=== PATIENT | female | born 1975 | race Hispanic/Latino ===

== ENCOUNTER 2018-04-08 09:58 | Emergency (ER) | payer OTHER ==
[2018-04-08] MEDS ORDERED: NA CHLORIDE 0.9% 1,000 ML ONE ×2 (10:13→10:49)
[2018-04-08 10:47] LABS: Absolute Lymphocytes (CBC) 0.4 K/uL (0.7-4.9); Absolute Monocytes 0.2 K/uL (0.1-1.3); MCH 32.1 pg (27.0-35.0)
[2018-04-08 10:49] LABS: Urine Blood TRACE (NEG); Urine Glucose NEGATIVE (NEG); Urine Protein NEGATIVE (NEG)
[2018-04-08 10:49] LABS: Blood Gas Oxyhemoglobin 96.5 % (94-97); Blood O2 Saturation 98.3 % (92-98.5)
[2018-04-08] MEDS ORDERED: NOREPINEPHRINE 4mg/D5W 250mL 4 MG/250 ML BAG IV ONE (10:49)
[2018-04-08 10:51] LABS: Protime INR 0.9
[2018-04-08 10:52] LABS: Absolute Neutrophil 4.1 K/uL (1.8-8.0); Basophils % 0.2 % (0-1.3); Hematocrit 45.4 % (36.0-45.0); Lymphocytes % 8.7 % (15.3-44.8); MCV 103.2 fL (80-100); MPV 10.5 fL (7.6-11.3); RBC Red Blood Cell Count 4.39 M/uL (3.86-4.86)
[2018-04-08 10:59] LABS: Urine Bacteria 20-50 /HPF (<20); Urine Culture Reflex Order NOT NEEDED; Urine Mucus MOD /HPF (NONE SEEN); Urine RBC <5 /HPF (NONE SEEN)
[2018-04-08] MEDS ORDERED: CEFEPIME 1 GM/100 ML BAG IV ONE (11:06)
[2018-04-08] MEDS ORDERED: MIDAZOLAM HCL 2 MG/2 ML INJ ONE ×2 (11:06→12:02)
[2018-04-08] MEDS ORDERED: VANCOMYCIN 1 GM/250 ML BAG ONE (11:06)
[2018-04-08] MEDS ORDERED: THIAMINE 200 MG/2 ML INJ ONE (11:06)
[2018-04-08 11:20] LABS: Barbiturates NEGATIVE (NEGATIVE); Benzodiazepines NEGATIVE (NEGATIVE); Cocaine NEGATIVE (NEGATIVE); METHAMPHETAM NEGATIVE (NEGATIVE); Methadone NEGATIVE (NEGATIVE); Opiates NEGATIVE (NEGATIVE); Phencyclidine NEGATIVE (NEGATIVE); THC Cannibis NEGATIVE (NEGATIVE)
[2018-04-08 11:33] LABS: ALT/SGPT 79 U/L (12-78); AST/SGOT 56 U/L (15-37); Albumin 3.1 g/dL (3.4-5.0); Alkaline Phosphatase 82 U/L (45-117); BUN Blood Urea Nitrogen 25 mg/dL (7-18); Bicarbonate 39 mmol/L (21-32); Bilirubin Direct 0.1 mg/dL (0-0.2); Bilirubin Total 0.2 mg/dL (0.2-1.0); CKMB Creatine Kinase MB 2.5 ng/mL (0.3-3.6); Creatine Phosphokinase 38 U/L (26-192); Glucose Level 123 mg/dL (74-106); Lipase 176 U/L (73-393); Protein, Total 6.1 g/dL (6.4-8.2); Sodium Level 141 mmol/L (136-145); Troponin (Emerg Dept Use Only) < 0.02 ng/mL (0.0-0.045)
[2018-04-08 11:34] LABS: Potassium 5.7 mmol/L (3.5-5.1)
--- NOTE | 2018-04-08 11:41 | RAD REPORT ---
EXAM DESCRIPTION: CT - Head Brain Wo Cont - 04/08/2018 11:08 am CLINICAL HISTORY: Unresponsive COMPARISON: June 2017 TECHNIQUE: Computed axial tomography of the head was obtained. IV contrast was not requested. All CT scans are performed using dose optimization technique as appropriate and may include automated exposure control or mA/KV adjustment according to patient size. FINDINGS: 14 millimeter acute bleed is present within the anterior right basal ganglia. The ventricles are normal in caliber. No extra-axial fluid collection is noted. Cystic encephalomalacia within the left frontal lobe is unc hanged. Couple small calcifications are stable. A suboccipital craniotomy has been performed. Fluid within the sinuses/ mastoids is not seen. IMPRESSION: 14 millimeter right basal ganglia bleed. Exam was discussed with Yogesh Lees in the emerg ency room 11:15 a.m. April 08, 2018
[2018-04-08] MEDS ORDERED: ALBUTEROL 2.5 MG/3 ML NEB SOL ONE (11:56)
[2018-04-08] MEDS ORDERED: INSULIN -REGULAR HUMAN 50 UNIT/0.5 ML ML ONE (11:56)
[2018-04-08] MEDS ORDERED: SOD POLYSTYREN SUL 15 GM/60 ML UCUP ONE (11:57)
[2018-04-08] MEDS ORDERED: D50W 25 GM/50 ML SYRINGE IV ONE (11:57)
--- NOTE | 2018-04-08 11:57 | RAD REPORT ---
EXAM DESCRIPTION: CT - Chest Abd Pelvis Wo Con - 04/08/2018 11:11 am COMPARISON: None. TECHNIQUE: During dynamic enhancement using 100 milliliters nonionic IV contrast, axial 5 millimeter thick images of the chest, abdomen and pelvis were obtained. Biphasic technique was utilized through the abdomen. Oral contrast was administered. All CT scans are performed using dose optimization technique as appropriate and may include automated exposure control or mA/KV adjustment according to patient size. FINDINGS: No edema or mass. Curvilinear opacification in the posterior upper right lung field is bel ieved to be scarring. Patchy posterior gutter opacification could be atelectasis or minimal aspiratio n. Trace pleural fluid seen. No pleural fluid on the left. No pneumothorax. No chest wall mass or abn ormal axillary lymphadenopathy seen. Mediastinal and hilar regions show no mass or lymphadenopathy. No significant cardiac finding. No pericardial effusion. Bilateral breast implants are in place. Endotracheal tube tip extends into the origin of the left mainstem bronchus. NG tube is in good posit ion. The liver, spleen and pancreas show no significant findings. Small gallstones are present. Acute gal lbladder process is unlikely. No biliary tree dilatation. No hydronephrosis. Nonobstructing calculi are present. Patient has nonobstructing calyx calculi sits in place. No adrenal abnormalities. Urinary bladder is fully contracted around a Mary catheter. Fluid is present in the stomach. No gastric wall thickening or mass. No acute large or small bowel fi nding seen. Large amount of stool dilates the rectum. No free air, free fluid or inflammatory strandi ng. No hernia, mass or bulky lymphadenopathy. Right femoral venous access catheter is in place. No significant bone or vascular finding. IMPRESSION: Minimal infiltrate versus atelectasis in the posterior gutter on the right. This could b e infectious or aspiration. No diffuse lung parenchymal process seen. Endotracheal tube tip is at the origin of the left mainstem bronchus. NG tube is in good position. No free air, obstruction or other surgically emergent abdominal or pelvic process. Cholelithiasis. No biliary tree dilatation. Gallbladder acute disease is unlikely but CT findings are limited by the absence of oral and IV contrast and some degree of motion.
[2018-04-08] MEDS ORDERED: FOSPHENYTOIN PE 1,000 MG in NA CHLORIDE 0.9% 100 ML IV ONE (12:00)
--- NOTE | 2018-04-08 12:12 | RAD REPORT ---
EXAM DESCRIPTION: RAD - Chest Single View - 04/08/2018 11:00 am CLINICAL HISTORY: Altered mental status, found unresponsive COMPARISON: June 2017 TECHNIQUE: AP portable chest image was obtained 1046 hours . FINDINGS: Endotracheal tube is in place. Tip is at the bifurcation of the yolanda. NG tube extends in to the stomach. Additional radiopaque curvilinear densities overlie the chest all believed to be exte rnal IV tubing or EKG leads. Radiopaque tubing over the right chest is unchanged from the prior study and is part of the remnant device in the posterior intrathoracic right chest. Heart and vasculature are normal. No measurable pleural effusion and no pneumothorax. Skin fold artifact overlies the later al left chest. No pulmonary edema or significant lung parenchymal process seen. No acute aortic findi ngs suspected. IMPRESSION: No pulmonary edema or acute lung parenchymal process seen. Endotracheal tube tip is at the bifurcation. NG tube in good position.
[2018-04-08 12:14] LABS: Blood Morphology Comment NOT SEEN (NOT SEEN); Platelet Estimate ADEQ; Urine White Blood Cell Casts OK
--- NOTE | 2018-04-08 12:27 | EDPHYS ---
Physician Documentation [facility] Name: Cira Tellez Age: 42 yrs Sex: Female : 1975 Arrival Date: 04/08/2018 Time: 10:09 Bed 3 Private MD: ED Physician Yogesh Levin HPI: 04/08 10:21 This 42 yrs old Female presents to ER via Unassigned with complaints of cp Unresponsive. 10:21 The patient's problem is reported as altered mental status, unresponsive. Onset: The cp symptoms/episode began/occurred at an unknown time. 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 - Social history:: Smoking status: Patient uses tobacco products, son reports that patient does not smoke. - Ebola Screening: : Unable to complete screening because. ROS: 10:24 Unable to obtain ROS due to patient intubated. cp Exam: 10:24 Head/Face: Normocephalic, atraumatic. cp 10:24 Constitutional: The patient appears well developed. 10:24 Eyes: Pupils: pinpoint, bilaterally, Lids and lashes: appear normal, bilaterally. 10:24 ENT: External ear(s): are unremarkable, Ear canal(s): are normal, clear, TM's: dullness, bilaterally, Nose: is normal, Mouth: Lips: moist. 10:24 Chest/axilla: Inspection: normal. 10:24 Cardiovascular: Rate: bradycardic, Rhythm: regular, Edema: is not appreciated. 10:24 Respiratory: Breath sounds: are clear throughout, no decreased breath sounds. 10:24 Abdomen/GI: Inspection: abdomen appears normal, Bowel sounds: active, all quadrants. 10:24 Skin: cellulitis, is not appreciated, no rash present. 11:30 Radiologist reports: 14 mm bleed right basal ganglia cp 11:40 ECG was reviewed by the Attending Physician. cp Vital Signs: 10:03 BP 57 / 36; Pulse 90; Resp 16 A; Temp 90.2(R); Pulse Ox 99% on R/A; ss 10:48 BP 63 / 50; Pulse 64; ss 10:49 Weight 60 kg; ss 11:28 BP 116 / 80; Pulse 62; Resp 16 A; Pulse Ox 100% on 50% FiO2 ETT vent; ss 11:42 BP 106 / 73; Pulse 61; Resp 16 A; Temp 90.1; Pulse Ox 100% on ETT vent; ss 12:00 BP 92 / 59; Pulse 72; Resp 16 A; Temp 90.4(C); Pulse Ox 100% on ETT vent; Pain 5/10; iw 12:30 BP 102 / 68; Pulse 78; Resp 16 A; Pulse Ox 100% on ETT vent; ss 12:45 BP 110 / 76; Pulse 80; Resp 16 A; Temp 91.2; Pulse Ox 100% on 63% FiO2 ETT vent; ss 11:42 corticore dennison ss Procedures: 10:55 Central Line: the site was prepped with Betadine, in sterile fashion, a triple lumen cp catheter was inserted, in the right femoral vein, in 1 attempts. placement was verified, by blood return, the site was dressed with Tegaderm, using sterile technique, the patient tolerated the procedure, well. MDM: 10:17 Patient medically screened. lucy 10:22 ED course: Patient's last known normal was yesterday evening. cp 11:45 Data reviewed: vital signs, nurses notes, lab test result(s), EKG, radiologic studies, cp CT scan, plain films. 11:45 Test interpretation: by ED physician or midlevel provider: ECG, plain radiologic cp studies. Response to treatment: the patient's symptoms have mildly improved after treatment. 04/08 10:15 Order name: Urine Culture 04/08 10:15 Order name: Basic Metabolic Panel 04/08 10:15 Order name: Blood Culture Adult (2) 04/08 10:15 Order name: CBC with Diff 04/08 10:15 Order name: Ckmb; Complete Time: 11:36 04/08 10:15 Order name: CPK; Complete Time: 11:36 04/08 10:15 Order name: Lactate; Complete Time: 11:23 04/08 10:15 Order name: LFT's; Complete Time: 11:36 04/08 10:15 Order name: Lipase; Complete Time: 11:36 [facility] 04/08 10:15 Order name: Procalcitonin; Complete Time: 11:18 [facility] 04/08 10:15 Order name: Protime (+inr); Complete Time: 10:55 [facility] 04/08 10:15 Order name: Ptt, Activated; Complete Time: 10:55 [facility] 04/08 10:15 Order name: Troponin (emerg Dept Use Only); Complete Time: 11:36 [facility] 04/08 10:15 Order name: Urine Microscopic Only; Complete Time: 11:18 [facility] 04/08 11:44 Interpretation: Normal except: UWBC 5-10; UBACT 20-50. cp 04/08 10:15 Order name: Chest Single View XRAY; Complete Time: 12:26 [facility] 04/08 10:15 Order name: Acetaminophen; Complete Time: 11:36 [facility] 04/08 10:15 Order name: ETOH Level; Complete Time: 11:18 [facility] 04/08 10:15 Order name: Salicylate; Complete Time: 11:23 [facility] 04/08 10:15 Order name: Urine Drug Screen; Complete Time: 11:23 [facility] 04/08 10:16 Order name: Urine Culture [facility] 04/08 10:16 Order name: Basic Metabolic Panel; Complete Time: 11:36 [facility] 04/08 10:16 Order name: Blood Culture [facility] 04/08 10:16 Order name: CBC with Automated Diff; Complete Time: 12:26 [facility] 04/08 10:55 Interpretation: Normal except: HCT 45.4; MCV 103.2; MCHC 31.1; PLT 126; JAN% 86.1; LYM% cp 8.7; LYMA 0.4. 04/08 10:17 Order name: CT Head Brain wo Cont; Complete Time: 11:44 [facility] 04/08 10:23 Order name: ABG; Complete Time: 12:26 cp 04/08 12:26 Interpretation: Normal except: ABGPH 7.31; ABGPCO2 69.2; ABGPO2 128.0; ABGHCO3 33.7. cp 04/08 10:35 Order name: Urine Dipstick--Ancillary (enter results); Complete Time: 10:55 04/08 10:35 Order name: Urine --Ancillary (enter results); Complete Time: 10:55 04/08 10:42 Order name: CT Chest Abdomen Pelvis W/O Contrast; Complete Time: 12:26 cp 04/08 10:54 Order name: CBC Smear Scan; Complete Time: 12:26 EDMS 04/08 11:22 Order name: Glucose, Ancillary Testing [facility] 04/08 10:15 Order name: Cath; Complete Time: 10:33 [facility] 04/08 10:15 Order name: Accucheck; Complete Time: 10:33 [facility] 04/08 10:15 Order name: Cardiac monitoring; Complete Time: 10:33 [facility] 04/08 10:15 Order name: EKG - Nurse/Tech; Complete Time: 12:30 [facility] 04/08 10:15 Order name: IV Saline Lock - Large Bore; Complete Time: :34 [facility] 04/08 10:15 Order name: Labs collected and sent; Complete Time: :34 [facility] 04/08 10:15 Order name: O2 Per Protocol; Complete Time: 10:34 [facility] 04/08 10:15 Order name: O2 Sat Monitoring; Complete Time: :34 [facility] 04/08 10:15 Order name: Urine Dipstick-Ancillary (obtain specimen); Complete Time: 10:33 [facility] 04/08 10:15 Order name: EKG; Complete Time: 10:17 [facility] 04/08 10:15 Order name: IV Saline Lock; Complete Time: 10:33 [facility] 04/08 11:36 Order name: NG Tube; Complete Time: 12:25 cp EC:40 Rate is 61 beats/min. Rhythm is regular. SC interval is normal. QRS interval is normal. cp QT interval is normal. T waves are Inverted in leads aVL, V2. Interpreted by me. Reviewed by me. Administered Medications: 09:58 Drug: NS 0.9% (30 ml/kg) 30 ml/kg Route: IV; Rate: bolus; Site: left forearm; ss 12:30 Follow up: IV Status: Completed infusion ss 10:52 Drug: Levophed (4 mg/250 mL D5W 4 mcg/min Route: IV; Rate: calculated rate; Site: right ss femoral; 13:10 Follow up: IV Status: Infusion continued upon transfer ss 11:10 Drug: Versed 2 mg Route: IVP; Site: left antecubital; ss 13:08 Follow up: Response: No adverse reaction; Patient is sedated ss 11:20 Drug: Thiamine 100 mg Route: IV; Rate: calculated rate; Site: left antecubital; ss 11:30 Follow up: IV Status: Completed infusion ss 11:28 Drug: Cefepime 1 grams Route: IVPB; Rate: 200 ml/hr; Infused Over: 30 mins; Site: right ss femoral; 12:00 Follow up: IV Status: Completed infusion ss 11:32 Drug: Versed 2 mg Route: IVP; Site: left antecubital; ss 13:08 Follow up: Response: No adverse reaction; Patient is sedated ss 11:43 Drug: vancoMYCIN 1 grams Route: IVPB; Infused Over: 2 hrs; Site: right femoral; ss 13:06 Follow up: IV Status: Infusion continued upon transfer ss 12:00 Drug: Versed 2 mg Route: IVP; Site: right antecubital; iw 13:07 Follow up: Response: No adverse reaction; Patient is sedated ss 12:02 Drug: CEREbyx 1 grams Route: IVPB; Site: right femoral; ss 12:28 Follow up: IV Status: Completed infusion ss 12:08 Drug: D50W 50 ml Route: IVP; Site: left antecubital; ss 13:07 Follow up: Response: No adverse reaction; given to reduce serum K+ levels ss 12:10 Drug: Insulin Regular Human 5 units {Co-Signature: jl7 (Canelo Jones RN).} Route: IVP; Site: left antecubital; 13:07 Follow up: Response: No adverse reaction ss 12:15 Drug: Albuterol 2.5 mg Route: Inhalation; ss 12:15 Drug: Albuterol 2.5 mg Route: Inhalation; ss 12:15 Drug: Albuterol 2.5 mg Route: Inhalation; ss 12:22 Drug: Kayexalate 30 grams {Note: given VIA NG tube.} Route: PO; ss 13:07 Follow up: Response: No adverse reaction ss Point of Care Testing: Blood Glucose: 10:03 Blood Glucose: 117 mg/dL; ss Ranges: Critical Glucose Levels:Adult <50 mg/dl or >400 mg/dl <40 mg/dl or >180 mg/dl Disposition: 13:45 Chart complete. 04/09 06:44 Co-signature as Attending Physician, Yogesh Levin MD I agree with the assessment and lucy plan of care. Disposition: 04/08/18 12:26 Transfer ordered to [facility]. Diagnosis are Right Basal Ganglia Bleed, Hypothermia, Other sepsis. - Reason for transfer: Higher level of care. - Accepting physician is DR Antoni Hall. - Condition is Critical. - Problem is new. - Symptoms have improved. Critical care time excluding procedures: 04/08 13:30 Critical care time: Bedside Care: 25 minutes, Consultation: 10 minutes, Family cp Intervention: 10 minutes. Total time: 45 minutes Signatures: Dispatcher [employer] EDYogesh Grimm MD MD cha Williams, Irene, RN RN Becki Carlin RN RN Yogesh Umana PA PA cp Leal, Jahala, RN RN jl7 Canelo Jones RN jl7 Corrections: (The following items were deleted from the chart) 13:35 12:26 04/08/2018 12:26 Transfer ordered to [facility]. Diagnosis is ss Right Basal Ganglia Bleed; Hypothermia; Other sepsis. Reason for transfer: Higher level of care. Accepting physician is DR Antoni Hall. Condition is Critical. Problem is new. Symptoms have improved. cp
--- NOTE | 2018-04-08 12:27 | ER ---
Nurse's Notes [facility] Name: Cira Tellez Age: 42 yrs Sex: Female : 1975 Arrival Date: 04/08/2018 Time: 10:09 Bed 3 Private MD: Diagnosis: Right Basal Ganglia Bleed;Hypothermia;Other sepsis Presentation: 04/08 09:58 Presenting complaint: EMS states: found unresponsive in bed with agonal respirations at ss approx 0900 this morning. Son states that patient had been having difficulty breathing for the past few days, but refused to go to the ER. Pt is intubated and sedated with Ketamine and Succs on arrival. Last seen normal last night. Transition of care: patient was not received from another setting of care. Onset of symptoms was April 08, 2018. Risk Assessment: Do you want to hurt yourself or someone else? Unable to obtain. Initial Sepsis Screen: Does the patient meet any 2 criteria? Systolic BP < 90 mmHg. Mean Arterial Pressure (MAP) < 65. Altered Mental Status. Does the patient have a suspected source of infection? No. Patient's initial sepsis screen is negative. If YES to both, name of provider notified: Yogesh Levin MD. Care prior to arrival: Assisted ventilation, Oral intubation, NG tube to R nare placed by EMS Medication(s) given: Ketamine 400 mg, Succs 40 mg and 1000 mL of NS 0.9 to R IO. Glucose check: 131 Oxygen administered. via AMBU bag IO to R tibia. 09:58 Method Of Arrival: EMS: [facility] ss 09:58 Acuity: EDGARDO 1 ss 10:43 Note Initial O2 saturation on RA was reported at 60%, HR 40's and systolic BP 60/??. 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 - Social history:: Smoking status: Patient uses tobacco products, son reports that patient does not smoke. - Ebola Screening: : Unable to complete screening because. Screenin:15 Abuse screen: no obvious signs of abuse/ neglect noted. Nutritional screening: No ss deficits noted. Tuberculosis screening: Never had TB. Fall Risk No fall in past 12 months (0 pts). Secondary diagnosis (15 points) impaired mobility, IV access (20 points). Ambulatory Aid- None/Bed Rest/Nurse Assist (0 pts). Gait- Normal/Bed Rest/Wheelchair (0 pts) Mental Status- Oriented to own ability (0 pts). Assessment: 09:58 General: Appears distressed, uncomfortable, Behavior is unresponsive. Pain: Unable to ss use pain scale. Patient is intubated. Patient is unresponsive. Neuro: Level of Consciousness is unresponsive, Pupils are pinpoint. Cardiovascular: Capillary refill is > 3 seconds is sluggish in bilateral fingers Pulses are 1+ in right radial artery and left radial artery. Respiratory: Airway is patent Respiratory pattern is symmetrical, Breath sounds are clear bilaterally. GI: Abdomen is non-distended, Bowel sounds present X 4 quads. EENT: Oral mucosa is dry. Derm: Skin is pink, warm \\T\\ dry. normal. Musculoskeletal: Swelling absent. 12:01 Reassessment: pt with spontaneous eye opening, new order for Versed 2 mg, given now, daron Connell Rn at bedside, family at bedside, family updated on POC, pt will be transferred, VSS. 12:50 Reassessment: Report called to MATT Blanco at [facility]. Vital Signs: 10:03 BP 57 / 36; Pulse 90; Resp 16 A; Temp 90.2(R); Pulse Ox 99% on R/A; ss 10:48 BP 63 / 50; Pulse 64; ss 10:49 Weight 60 kg; ss 11:28 BP 116 / 80; Pulse 62; Resp 16 A; Pulse Ox 100% on 50% FiO2 ETT vent; ss 11:42 BP 106 / 73; Pulse 61; Resp 16 A; Temp 90.1; Pulse Ox 100% on ETT vent; ss 12:00 BP 92 / 59; Pulse 72; Resp 16 A; Temp 90.4(C); Pulse Ox 100% on ETT vent; Pain 5/10; iw 12:30 BP 102 / 68; Pulse 78; Resp 16 A; Pulse Ox 100% on ETT vent; ss 12:45 BP 110 / 76; Pulse 80; Resp 16 A; Temp 91.2; Pulse Ox 100% on 63% FiO2 ETT vent; ss 11:42 corticore garcia ss ED Course: 09:58 Patient has correct armband on for positive identification. Bed in low position. Side ss rails up X2. youth nutritional monitor on. Pulse ox on. NIBP on. 10:03 Inserted saline lock: 20 gauge in left forearm, using aseptic technique. Blood ss collected. 10:03 Arm band placed on right wrist. ss 10:03 Warm blanket given. ss 10:03 One on one care x 210 minutes. ss 10:09 Patient arrived in ED. kb 10:15 Yogesh Lees PA is PHCP. cp 10:15 Yogesh Levin MD is Attending Physician. cp 10:18 Inserted saline lock: 20 gauge in right antecubital area, using aseptic technique. ss Blood collected. 10:20 CORTICORE GARCIA INSERTED with sterile procedure. ss 10:29 Becki Carlin, MATT is Primary Nurse. ss 10:32 Urine collected: Garcia catheter specimen, clear, Amount Returned: 120mL. dh3 10:41 Triage completed. ss 10:51 Assisted provider with central line placement. Set up central line tray. Triple lumen ss line placed in right femoral. Line placed by Yogesh Levin MD Placement verified by blood return, Dressed with 4X4s. 10:57 Chest Single View XRAY In Process Unspecified. EDMS 11:08 CT Head Brain wo Cont In Process Unspecified. EDMS 11:12 CT Chest Abdomen Pelvis W/O Contrast In Process Unspecified. EDMS 11:23 Notified Nurse Practitioner and/or Physician Data Entry Representative of a critical lab result(s), iw Lactate=5.2. 11:36 EKG done, by processing tech. reviewed by Yogesh ROBERTSON. dt2 12:51 \\T\\[id number] initiated a transfer Azul at [facility] transfer center/ \\T\\1130 eb connected Neurologist property utilization officer with Yogesh ROBERTSON/ \\T\\1203 Azul called and asked for a 30 min extension/ \\T\\[id number] administrative approval given by Azul Mayes/ Dr. Antoni Hall accepted the patient in transfer/ Pt going to [address] [place] [address] bed 5/ report to be called to [phone]. 13:10 Patient transferred, IV remains in place. ss Administered Medications: 09:58 Drug: NS 0.9% (30 ml/kg) 30 ml/kg Route: IV; Rate: bolus; Site: left forearm; ss 12:30 Follow up: IV Status: Completed infusion ss 10:52 Drug: Levophed (4 mg/250 mL D5W 4 mcg/min Route: IV; Rate: calculated rate; Site: right ss femoral; 13:10 Follow up: IV Status: Infusion continued upon transfer ss 11:10 Drug: Versed 2 mg Route: IVP; Site: left antecubital; ss 13:08 Follow up: Response: No adverse reaction; Patient is sedated ss 11:20 Drug: Thiamine 100 mg Route: IV; Rate: calculated rate; Site: left antecubital; ss 11:30 Follow up: IV Status: Completed infusion ss 11:28 Drug: Cefepime 1 grams Route: IVPB; Rate: 200 ml/hr; Infused Over: 30 mins; Site: right ss femoral; 12:00 Follow up: IV Status: Completed infusion ss 11:32 Drug: Versed 2 mg Route: IVP; Site: left antecubital; ss 13:08 Follow up: Response: No adverse reaction; Patient is sedated ss 11:43 Drug: vancoMYCIN 1 grams Route: IVPB; Infused Over: 2 hrs; Site: right femoral; ss 13:06 Follow up: IV Status: Infusion continued upon transfer ss 12:00 Drug: Versed 2 mg Route: IVP; Site: right antecubital; iw 13:07 Follow up: Response: No adverse reaction; Patient is sedated ss 12:02 Drug: CEREbyx 1 grams Route: IVPB; Site: right femoral; ss 12:28 Follow up: IV Status: Completed infusion ss 12:08 Drug: D50W 50 ml Route: IVP; Site: left antecubital; ss 13:07 Follow up: Response: No adverse reaction; given to reduce serum K+ levels ss 12:10 Drug: Insulin Regular Human 5 units {Co-Signature: jl7 (aCnelo Jones RN).} Route: IVP; ss Site: left antecubital; 13:07 Follow up: Response: No adverse reaction ss 12:15 Drug: Albuterol 2.5 mg Route: Inhalation; ss 12:15 Drug: Albuterol 2.5 mg Route: Inhalation; ss 12:15 Drug: Albuterol 2.5 mg Route: Inhalation; ss 12:22 Drug: Kayexalate 30 grams {Note: given VIA NG tube.} Route: PO; 13:07 Follow up: Response: No adverse reaction Point of Care Testing: Blood Glucose: 10:03 Blood Glucose: 117 mg/dL; Ranges: Intake: Outcome: 12:26 ER care complete, transfer ordered by . cp 13:10 Transferred by ground EMS [facility] Transfer form completed. 13:10 critical 13:10 Instructed on the need for transfer, Demonstrated understanding of family demonstrated understanding need for transfer for further evaluation and higher level of care 13:35 Patient left the ED. ss Signatures: Dispatcher [employer] EDMS Mansi Ferrera, STRAPPING MACHINE OPERATOR-C STRAPPING MACHINE OPERATOR-Ness Dorsey, RN RN Becki Carlin RN RN Yogesh Lees, Addie Yoo cp 3 Tara Burleson Danielle dt2 Canelo Jones RN jl7
--- NOTE | 2018-04-08 15:16 | EKG ---
Test Date: 2018-04-08 Test Time: 11:27:26 Surtass Analyst: DT/S MEASUREMENT RESULTS: Intervals: Rate: 61 WI: 146 QRSD: 76 QT: 428 QTc: 430 [place]: P: -4 WI: 146 QRS: 62 T: 72 INTERPRETIVE STATEMENTS: Age and gender specific ECG analysis Normal sinus rhythm ST elevation, uncertain cause cannot rule out injury Abnormal ECG Compared to ECG 06/13/2017 13:36:49 ST (T wave) deviation now present Myocardial infarct finding now present Electronically Signed On 04-08-18 15:16:18 CDT by Maldonado Hendrix
== END 2018-04-08 13:35 | disposition short-term general hospital (02) ==
LOC: ER 09:58
PROC: 06HM33Z Insertion of Infusion Device into Right Femoral Vein, Percutaneous Approach (ICD-10-PCS; principal; 2018-04-08)
DX: I61.0 Nontraumatic intracerebral hemorrhage in hemisphere, subcortical (principal); A41.89 Other specified sepsis; T68.XXXA Hypothermia, initial encounter
CPT/HCPCS: 36415; 36556; 70450; 71045; 71250; 74176; 80048; 80076; 80307 ×8; 80320; 80329 ×2; 81025; 82550; 82553; 82805; 82962; 83605; 83690; 84145; 84484; 85025; 85610; 85730; 87040 ×2; 87086; 87088; 93005; 94002; J0692; J2250 ×2; J3370; J3411; J7030 ×2; Q2009; 81003; 81015

== ENCOUNTER 2019-05-01 16:57 | Inpatient (IN) | payer OTHER ==
--- OUTSIDE RECORDS SUMMARY | 2019-05-01 17:09 | XMS REPORT ---
:1975 [facility] Address [address] [place] [address] [place] [address] Care Team Providers Name Role Phone JAMI SALAS Unavailable Unavailable Problems This patient has no known problems. Allergies, Adverse Reactions, Alerts This patient has no known allergies or adverse reactions. Medications This patient has no known medications. Encounters Start End Encounter Admission Attending Care Care Encounter Date/Time Date/Time Type Type Clinicians Facility Department ID 2019-01-05 2019-01-04 Inpatient E [facility] [id number] 00:02:00 22:59:00 Results Test Description Test Time Test Comments Text Results Atomic Results Result Comments BRONCHIAL CULTURE + GRAM STAIN 2018-04-15 23:02:00 Test Item Value Reference Range Comments CULTURE (BEAKER) (test Organism(s) under xded=3174) evaluation Clindamycin (test code=10) Erythromycin (test code=4) Linezolid (test code=40) Nitrofurantoin (test code=23) Oxacillin (test code=14) Rifampin (test code=43) Tetracycline (test code=2) Trimethoprim + Sulfamethoxazole (test code=47) Vancomycin (test code=13) CULTURE (BEAKER) (test <1+ Staphylococcus aureus cuid=5721) GRAM STAIN RESULT (BEAKER) <1+ White blood cells seen (test mmdu=0932) GRAM STAIN RESULT (BEAKER) No organisms seen (test zvru=425687) BLOOD [id number] 23:01:00 Test Item Value Reference Range Comments CULTURE (BEAKER) (test nuzn=5847) No growth in 5 days BLOOD [id number] 23:01:00 Test Item Value Reference Range Comments CULTURE (BEAKER) (test ltxw=4812) No growth in 5 days POCT-GLUCOSE [id number] 11:55:00 Test Item Value Reference Range Comments POC-GLUCOSE METER (BEAKER) 125 mg/dL 70-110 TESTED AT [address] (test urjc=4449) [facility] [address] BLOOD GAS, [id number] 06:46:00 Test Item Value Reference Range Comments PH ARTERIAL (BEAKER) (test koyi=945) 7.40 7.35-7.45 PCO2 ARTERIAL (BEAKER) (test qojh=189) 63 mmHg 35-45 PO2 ARTERIAL (BEAKER) (test uqhb=382) 224 mmHg 80-90 O2 SATURATION ARTERIAL (BEAKER) (test oggp=318) 99.4 % 96.0-97.0 HCO3 ARTERIAL (BEAKER) (test ugaq=421) 38 mmol/L 21-29 BASE EXCESS ARTERIAL (BEAKER) (test efkn=643) 10.5 mmol/L -2.0-3.0 PATIENT TEMPERATURE (BEAKER) (test vaey=9097) 37.5 C FIO2 (BEAKER) (test ffeg=6600) 50.0 % POCT-GLUCOSE [id number] 06:11:00 Test Item Value Reference Range Comments POC-GLUCOSE METER (BEAKER) 105 mg/dL 70-110 TESTED AT [address] (test ausy=3860) [place] [id number] BASIC METABOLIC [id number] 05:58:00 Test Item Value Reference Range Comments SODIUM (BEAKER) (test 148 meq/L 136-145 zdsz=958) POTASSIUM (BEAKER) (test 4.8 meq/L 3.5-5.1 Specimen slightly efhn=670) hemolyzed CHLORIDE (BEAKER) (test 110 meq/L 98-107 ythm=679) CO2 (BEAKER) (test 30 meq/L 22-29 uedr=723) BLOOD UREA NITROGEN 14 mg/dL 7-21 (BEAKER) (test izcv=880) CREATININE (BEAKER) (test 0.43 mg/dL 0.57-1.25 Specimen slightly gtgt=571) hemolyzed GLUCOSE RANDOM (BEAKER) 95 mg/dL 70-105 (test bcdz=094) CALCIUM (BEAKER) (test 10.1 mg/dL 8.4-10.2 ozyt=774) EGFR (BEAKER) (test 160 mL/min/1.73 sq m ESTIMATED GFR IS NOT vkcg=2199) ACCURATE CREATININE CLEARANCE IN PREDICTING GLOMERULAR FILTRATION RATE. ESTIMATED GFR IS NOT APPLICABLE FOR DIALYSIS PATIENTS. [id number] 05:57:00 Test Item Value Reference Range Comments MAGNESIUM (BEAKER) (test 2.3 mg/dL 1.6-2.6 Specimen slightly hemolyzed vxcy=904) CBC W/PLT COUNT & AUTO [id number] 05:41:00 Test Item Value Reference Range Comments WHITE BLOOD CELL COUNT (BEAKER) (test jphn=204) 8.4 K/ L 3.5-10.5 RED BLOOD CELL COUNT (BEAKER) (test woyw=450) 4.16 M/ L 3.93-5.22 HEMOGLOBIN (BEAKER) (test yqfe=042) 12.9 GM/DL 11.2-15.7 HEMATOCRIT (BEAKER) (test lzsj=642) 41.7 % 34.1-44.9 MEAN CORPUSCULAR VOLUME (BEAKER) (test fcui=103) 100.2 fL 79.4-94.8 MEAN CORPUSCULAR HEMOGLOBIN (BEAKER) (test 31.0 pg 25.6-32.2 evhs=467) MEAN CORPUSCULAR HEMOGLOBIN CONC (BEAKER) (test 30.9 GM/DL 32.2-35.5 rjfd=573) RED CELL DISTRIBUTION WIDTH (BEAKER) (test 15.1 % 11.7-14.4 woow=596) PLATELET COUNT (BEAKER) (test nvia=465) 145 K/CU MM 150-450 MEAN PLATELET VOLUME (BEAKER) (test ljwe=438) 12.7 fL 9.4-12.3 NUCLEATED RED BLOOD CELLS (BEAKER) (test 0 /100 WBC 0-0 xfim=397) NEUTROPHILS RELATIVE PERCENT (BEAKER) (test 77 % fzzj=137) LYMPHOCYTES RELATIVE PERCENT (BEAKER) (test 13 % tgtr=527) MONOCYTES RELATIVE PERCENT (BEAKER) (test 10 % tbcb=983) EOSINOPHILS RELATIVE PERCENT (BEAKER) (test 0 % vifb=202) BASOPHILS RELATIVE PERCENT (BEAKER) (test 0 % cmyq=312) NEUTROPHILS ABSOLUTE COUNT (BEAKER) (test 6.46 K/ L 1.56-6.13 zfar=561) LYMPHOCYTES ABSOLUTE COUNT (BEAKER) (test 1.13 K/ L 1.18-3.74 mbqo=907) MONOCYTES ABSOLUTE COUNT (BEAKER) (test 0.80 K/ L 0.24-0.36 vtxm=764) EOSINOPHILS ABSOLUTE COUNT (BEAKER) (test 0.00 K/ L 0.04-0.36 jjtp=511) BASOPHILS ABSOLUTE COUNT (BEAKER) (test 0.02 K/ L 0.01-0.08 lngg=849) IMMATURE GRANULOCYTES-RELATIVE PERCENT (BEAKER) 0 % 0-1 (test qiam=5947) RAD, CHEST, 1 VIEW, NON [id number] 04:59:00Reason for exam:->?pnaShould this be performed at the bedside?->YesFINAL REPORT RAD , CHEST, 1 VIEW, NON DEPT INDICATION: ?pna COMPARISON: Prior day's exam FINDINGS : Portable frontal view of the chest. IMPRESSION: Support Lines: Stable. Lungs and pleura: Unchanged airspace and pleural opacities. No pneumothorax.Heart and mediastinum: Stable contours. Additional findings: Mottled appearance of the marrow within the bilateral humeri correlate clinically and consider dedicated radiographs. Signed: Lynda Flowers Verified Date/Time: 04/13/2018 04:59:14 Reading Location: [address] Transitional Reading Room POCT-GLUCOSE [id number] 00:05:00 Test Item Value Reference Range Comments POC-GLUCOSE METER (BEAKER) 113 mg/dL 70-110 TESTED AT [address] (test ietx=5360) [facility] [address] POCT-GLUCOSE [id number] 17:07:00 Test Item Value Reference Range Comments POC-GLUCOSE METER (BEAKER) 125 mg/dL 70-110 TESTED AT [place] [id number] [facility] (test fbuk=6880) [facility] [address] BODY FLUID CELL COUNT WITH [id number] 14:40:00 Test Item Value Reference Range Comments APPEARANCE FLUID (BEAKER) (test qbnn=517) Cloudy Clear COLOR FLUID (BEAKER) (test acyv=004) Yellow Colorless, Straw RBC FLUID (BEAKER) (test jijo=468) 1360 /cu mm <=1 ADJUSTED WBC FLUID (BEAKER) (test qqks=9966) 3808 /cu mm <=5 LINING CELLS (BEAKER) (test vggi=0863) 152 /cu mm <=1 NEUTROPHILS FLUID (BEAKER) (test uazd=3364) 89 % LYMPHS FLUID (BEAKER) (test glet=799) 5 % MONO/MACROPHAGE FLUID (BEAKER) (test puiz=860) 6 % EOSINOPHILS FLUID (BEAKER) (test pzvm=904) 0 % BASO FLUID (BEAKER) (test jibo=220) 0 % CONTAINER BODY FLUID (BEAKER) (test dwmr=8180) EDTA Tube POCT-GLUCOSE [id number] 12:16:00 Test Item Value Reference Range Comments POC-GLUCOSE METER (BEAKER) 111 mg/dL 70-110 TESTED AT [facility] [address] [facility] (test fbfn=0851) [facility] [address] RAD, CHEST, 1 VIEW, NON [id number] 10:21:00Reason for exam:->post bronchShould this be performed at the bedside?->YesFINAL REPORT INDICATION: post bronch TECHNIQUE: Chest radiograph, single view, portable technique. FINDINGS / IMPRESSION: Since April 12 there is reexpansion of the left lung. Left retrocardiac opacity probably represents residual partial collapse. Right lung is clear. Right-sided thoracic line, as demonstrated on CT April 08, and passes posteriorly in the right pleural space terminating in the posterior mediastinum on one end and upper neck on the other and. This is of uncertain clinical function. Cardiac and mediastinal contours unremarkable. Endotracheal tube and nasogastric tube appear in good position. Right internal jugular line appears in good position. Signed: Ace Toure MDReport Verified Date/Time: 04/12/2018 10:21:50 Reading Location: [facility] B1 C013X OrthoConsult Reading Room BLOOD GAS, [id number] 10:11: 00 Test Item Value Reference Range Comments PH ARTERIAL (BEAKER) (test uauz=271) 7.41 7.35-7.45 PCO2 ARTERIAL (BEAKER) (test bfve=709) 59 mmHg 35-45 PO2 ARTERIAL (BEAKER) (test njws=853) 122 mmHg 80-90 O2 SATURATION ARTERIAL (BEAKER) (test kgqi=933) 98.4 % 96.0-97.0 HCO3 ARTERIAL (BEAKER) (test umit=454) 36 mmol/L 21-29 BASE EXCESS ARTERIAL (BEAKER) (test badp=038) 9.4 mmol/L -2.0-3.0 PATIENT TEMPERATURE (BEAKER) (test qlvp=8739) 36.9 C FIO2 (BEAKER) (test ulbg=6686) 70.0 % TROPONIN [id number] 07:55:00 Test Item Value Reference Range Comments TROPONIN I (BEAKER) (test ttqx=225) 0.08 ng/mL 0.00-0.03 Result faxed Troponin I (TnI) levels must be interpreted in the context of the presenting symptoms and the clinical findings. Elevated TnI levels indicate myocardial damage, but are not specific for ischemic heart disease. Elevated TnI levels are seen in patients with other cardiac conditions (including myocarditis and congestive heart failure), and slight TnI elevations occur in patients with other conditions, including sepsis, renal failure, acidosis, acute neurological disease, and persistent tachyarrhythmia.BLOOD GAS, [id number] 05:52:00 Test Item Value Reference Range Comments PH ARTERIAL (BEAKER) (test yzis=415) 7.44 7.35-7.45 PCO2 ARTERIAL (BEAKER) (test zots=508) 55 mmHg 35-45 PO2 ARTERIAL (BEAKER) (test biuq=519) 88 mmHg 80-90 O2 SATURATION ARTERIAL (BEAKER) (test hcpc=618) 96.8 % 96.0-97.0 HCO3 ARTERIAL (BEAKER) (test ofgt=777) 36 mmol/L 21-29 BASE EXCESS ARTERIAL (BEAKER) (test axxt=065) 10.5 mmol/L -2.0-3.0 PATIENT TEMPERATURE (BEAKER) (test isjl=2672) 37.1 C FIO2 (BEAKER) (test hcgv=1124) 45.0 % [id number] 05:24:00 Test Item Value Reference Range Comments MAGNESIUM (BEAKER) (test 2.0 mg/dL 1.6-2.6 Specimen slightly hemolyzed qgke=641) BASIC METABOLIC [id number] 05:24:00 Test Item Value Reference Range Comments SODIUM (BEAKER) (test 139 meq/L 136-145 ceut=178) POTASSIUM (BEAKER) (test 3.6 meq/L 3.5-5.1 Specimen slightly ydys=195) hemolyzed CHLORIDE (BEAKER) (test 101 meq/L 98-107 hyvc=831) CO2 (BEAKER) (test 33 meq/L 22-29 dwhz=635) BLOOD UREA NITROGEN 8 mg/dL 7-21 (BEAKER) (test byix=854) CREATININE (BEAKER) (test 0.39 mg/dL 0.57-1.25 Specimen slightly ddvw=277) hemolyzed GLUCOSE RANDOM (BEAKER) 119 mg/dL 70-105 (test ezkl=036) CALCIUM (BEAKER) (test 8.8 mg/dL 8.4-10.2 jiuv=113) EGFR (BEAKER) (test 179 mL/min/1.73 sq m ESTIMATED GFR IS NOT arpf=8998) ACCURATE CREATININE CLEARANCE IN PREDICTING GLOMERULAR FILTRATION RATE. ESTIMATED GFR IS NOT APPLICABLE FOR DIALYSIS PATIENTS. CBC W/PLT COUNT & AUTO [id number] 05:04:00 Test Item Value Reference Range Comments WHITE BLOOD CELL COUNT (BEAKER) (test euhc=722) 8.8 K/ L 3.5-10.5 RED BLOOD CELL COUNT (BEAKER) (test eawz=022) 3.64 M/ L 3.93-5.22 HEMOGLOBIN (BEAKER) (test lfxe=038) 11.5 GM/DL 11.2-15.7 HEMATOCRIT (BEAKER) (test ysys=047) 36.0 % 34.1-44.9 MEAN CORPUSCULAR VOLUME (BEAKER) (test qjss=526) 98.9 fL 79.4-94.8 MEAN CORPUSCULAR HEMOGLOBIN (BEAKER) (test 31.6 pg 25.6-32.2 chii=517) MEAN CORPUSCULAR HEMOGLOBIN CONC (BEAKER) (test 31.9 GM/DL 32.2-35.5 mejx=844) RED CELL DISTRIBUTION WIDTH (BEAKER) (test 14.6 % 11.7-14.4 cgsv=186) PLATELET COUNT (BEAKER) (test dfti=364) 103 K/CU MM 150-450 MEAN PLATELET VOLUME (BEAKER) (test uxmy=675) 12.6 fL 9.4-12.3 NUCLEATED RED BLOOD CELLS (BEAKER) (test 0 /100 WBC 0-0 ejlw=951) NEUTROPHILS RELATIVE PERCENT (BEAKER) (test 83 % qyyz=164) LYMPHOCYTES RELATIVE PERCENT (BEAKER) (test 10 % qmks=425) MONOCYTES RELATIVE PERCENT (BEAKER) (test 7 % mnbm=895) EOSINOPHILS RELATIVE PERCENT (BEAKER) (test 0 % vxmu=306) BASOPHILS RELATIVE PERCENT (BEAKER) (test 0 % svdh=110) NEUTROPHILS ABSOLUTE COUNT (BEAKER) (test 7.23 K/ L 1.56-6.13 idfl=123) LYMPHOCYTES ABSOLUTE COUNT (BEAKER) (test 0.91 K/ L 1.18-3.74 quyg=603) MONOCYTES ABSOLUTE COUNT (BEAKER) (test 0.58 K/ L 0.24-0.36 rzfv=601) EOSINOPHILS ABSOLUTE COUNT (BEAKER) (test 0.00 K/ L 0.04-0.36 wmdj=483) BASOPHILS ABSOLUTE COUNT (BEAKER) (test 0.01 K/ L 0.01-0.08 emjg=456) IMMATURE GRANULOCYTES-RELATIVE PERCENT (BEAKER) 0 % 0-1 (test tggs=3813) RAD, CHEST, 1 VIEW, NON [id number] 04:22:00Reason for exam:->?pnaShould this be performed at the bedside?->YesFINAL REPORT CLINICAL INDICATION: Support lines. Comparison: 04/11/2018 Thereis new, complete opacification of the left hemithorax with subtle leftward mediastinal shift. The appearance is suggestive of worsening atelectasis, possibly related to mucous plugging. An enlarging effusion could be present. Superimposed pneumonitis should be excluded clinically. The right lung is clear. There is no pneumothorax. Support lines are stable. Signed: Yohannes Telles MDReport Verified Date/Time: 04/12/2018 04:22:54 Reading Location: [address] Reading Room POCT-GLUCOSE [id number] 00:21:00 Test Item Value Reference Range Comments POC-GLUCOSE METER (BEAKER) 117 mg/dL 70-110 TESTED AT [facility] [address] [facility] (test mfth=8604) [facility] [address] [id number] 17:25:00 Test Item Value Reference Range Comments MAGNESIUM (BEAKER) (test 2.1 mg/dL 1.6-2.6 Specimen slightly hemolyzed eajd=333) BASIC METABOLIC [id number] 17:25:00 Test Item Value Reference Range Comments SODIUM (BEAKER) (test 140 meq/L 136-145 grzc=700) POTASSIUM (BEAKER) (test 4.1 meq/L 3.5-5.1 Specimen slightly eowg=402) hemolyzed CHLORIDE (BEAKER) (test 101 meq/L 98-107 slms=363) CO2 (BEAKER) (test 36 meq/L 22-29 rnnm=774) BLOOD UREA NITROGEN 8 mg/dL 7-21 (BEAKER) (test nqne=307) CREATININE (BEAKER) (test 0.39 mg/dL 0.57-1.25 Specimen slightly lpwn=468) hemolyzed GLUCOSE RANDOM (BEAKER) 119 mg/dL 70-105 (test aylz=632) CALCIUM (BEAKER) (test 9.0 mg/dL 8.4-10.2 xpaw=201) EGFR (BEAKER) (test 179 mL/min/1.73 sq m ESTIMATED GFR IS NOT biuo=0787) ACCURATE CREATININE CLEARANCE IN PREDICTING GLOMERULAR FILTRATION RATE. ESTIMATED GFR IS NOT APPLICABLE FOR DIALYSIS PATIENTS. POCT-GLUCOSE [id number] 16:36:00 Test Item Value Reference Range Comments POC-GLUCOSE METER (BEAKER) 113 mg/dL 70-110 TESTED AT [facility] [address] [facility] (test tpni=9835) [place] [id number] POCT-GLUCOSE [id number] 13:06:00 Test Item Value Reference Range Comments POC-GLUCOSE METER (BEAKER) 162 mg/dL 70-110 TESTED AT [facility] [address] [facility] (test mcru=1879) [facility] [address] SPUTUM CULTURE + GRAM [id number] 10:57:00 Test Item Value Reference Range Comments CULTURE (BEAKER) (test 1+ Normal respiratory tessa qvba=0297) present GRAM STAIN RESULT (BEAKER) 1+ White blood cells seen (test bwjj=9922) GRAM STAIN RESULT (BEAKER) 0-5 epithelial cells (test hyzt=75981) GRAM STAIN RESULT (BEAKER) 2+ gram negative rods (test awii=32465) HEPATIC FUNCTION [id number] 07:00:00 Test Item Value Reference Range Comments TOTAL PROTEIN (BEAKER) (test extu=082) 5.6 gm/dL 6.0-8.3 ALBUMIN (BEAKER) (test lusa=8656) 3.1 g/dL 3.5-5.0 BILIRUBIN TOTAL (BEAKER) (test etwg=627) 0.7 mg/dL 0.2-1.2 BILIRUBIN DIRECT (BEAKER) (test rnfk=961) 0.3 mg/dL 0.1-0.5 ALKALINE PHOSPHATASE (BEAKER) (test lgvh=076) 80 U/L 40-150 AST (SGOT) (BEAKER) (test vcyr=326) 15 U/L 5-34 ALT (SGPT) (BEAKER) (test wwzm=383) 39 U/L 6-55 BLOOD GAS, [id number] 06:31:00 Test Item Value Reference Range Comments PH ARTERIAL (BEAKER) (test nyqp=078) 7.38 7.35-7.45 PCO2 ARTERIAL (BEAKER) (test haeu=435) 65 mmHg 35-45 PO2 ARTERIAL (BEAKER) (test zunr=035) 79 mmHg 80-90 O2 SATURATION ARTERIAL (BEAKER) (test irow=655) 95.4 % 96.0-97.0 HCO3 ARTERIAL (BEAKER) (test etlc=106) 37 mmol/L 21-29 BASE EXCESS ARTERIAL (BEAKER) (test ynpi=476) 9.6 mmol/L -2.0-3.0 PATIENT TEMPERATURE (BEAKER) (test nuji=9751) 36.5 C FIO2 (BEAKER) (test oyyw=5266) 45.0 % POCT-GLUCOSE [id number] 06:30:00 Test Item Value Reference Range Comments POC-GLUCOSE METER (BEAKER) 112 mg/dL 70-110 TESTED AT [facility] [address] [facility] (test toxw=5600) [place] [address] CBC W/PLT COUNT & AUTO [id number] 05:53:00 Test Item Value Reference Range Comments WHITE BLOOD CELL COUNT (BEAKER) (test uooj=425) 10.9 K/ L 3.5-10.5 RED BLOOD CELL COUNT (BEAKER) (test zszy=029) 3.74 M/ L 3.93-5.22 HEMOGLOBIN (BEAKER) (test pqdk=314) 11.8 GM/DL 11.2-15.7 HEMATOCRIT (BEAKER) (test qpey=120) 37.8 % 34.1-44.9 MEAN CORPUSCULAR VOLUME (BEAKER) (test rrzz=155) 101.1 fL 79.4-94.8 MEAN CORPUSCULAR HEMOGLOBIN (BEAKER) (test 31.6 pg 25.6-32.2 sxfh=995) MEAN CORPUSCULAR HEMOGLOBIN CONC (BEAKER) (test 31.2 GM/DL 32.2-35.5 fpbc=155) RED CELL DISTRIBUTION WIDTH (BEAKER) (test 14.9 % 11.7-14.4 nmyb=609) PLATELET COUNT (BEAKER) (test vtsc=981) 109 K/CU MM 150-450 MEAN PLATELET VOLUME (BEAKER) (test qins=048) 12.6 fL 9.4-12.3 NUCLEATED RED BLOOD CELLS (BEAKER) (test 0 /100 WBC 0-0 mpiy=817) NEUTROPHILS RELATIVE PERCENT (BEAKER) (test 84 % mblq=024) LYMPHOCYTES RELATIVE PERCENT (BEAKER) (test 10 % csgz=681) MONOCYTES RELATIVE PERCENT (BEAKER) (test 6 % jopx=926) EOSINOPHILS RELATIVE PERCENT (BEAKER) (test 0 % ihuq=469) BASOPHILS RELATIVE PERCENT (BEAKER) (test 0 % xfbi=058) NEUTROPHILS ABSOLUTE COUNT (BEAKER) (test 9.11 K/ L 1.56-6.13 eaxa=819) LYMPHOCYTES ABSOLUTE COUNT (BEAKER) (test 1.04 K/ L 1.18-3.74 fixo=204) MONOCYTES ABSOLUTE COUNT (BEAKER) (test 0.67 K/ L 0.24-0.36 xcze=522) EOSINOPHILS ABSOLUTE COUNT (BEAKER) (test 0.00 K/ L 0.04-0.36 dpjv=834) BASOPHILS ABSOLUTE COUNT (BEAKER) (test 0.02 K/ L 0.01-0.08 ocvq=693) IMMATURE GRANULOCYTES-RELATIVE PERCENT (BEAKER) 1 % 0-1 (test pokf=0077) RAD, CHEST, 1 VIEW, NON [id number] 04:13:00Reason for exam:->?pnaShould this be performed at the bedside?->YesFINAL REPORT RAD , CHEST, 1 VIEW, NON DEPT INDICATION: ?pna COMPARISON: Prior day's exam FINDINGS : Portable frontal view of the chest. IMPRESSION: Support Lines: Stable. Lungs and pleura: Increased left retrocardiac and basilar airspace opacity could represent atelectasis and small pleural effusion however superimposed infection cannot be excluded. No pneumothorax.Heart and mediastinum: Stable contours. Additional findings: Osteopenia with mottled appearance of the left humerus, unclear etiology however unchanged. Signed: Lynda Flowers Verified Date/Time: 04/11/2018 04:13:43 Reading Location: [address] Transitional Reading Room [id number] 02:25:00 Test Item Value Reference Range Comments PROCALCITONIN (BEAKER) (test ikpv=3797) 0.05 ng/mL <0.05 SEPSIS RISK (ng/mL)Low: 0.05-0.50Intermediate: 0.51-2.00High: & gt;=2.01POCT-GLUCOSE [id number] 00:23:00 Test Item Value Reference Range Comments POC-GLUCOSE METER ([employer]) 150 mg/dL 70-110 TESTED AT [address] (test ajud=8473) [facility] [address] CT, SPINE, CERVICAL, WO [id number] 19:01:00FINAL REPORT CT cervical spine without contrast 04/10/2018 6:56 PM CLINICAL HISTORY: history of syringopleural shunt COMPARISON: MRI cervical spine 04/10/2018 TECHNIQUE: Axial noncontrast CT images of the cervical spine were obtained. Axially acquired data were reformatted in coronal and sagittal planes for further analysis. This examination was performed according to our departmental dose optimization program, which includes automated exposure control, adjustment of the mA and/or kV according to patient size, and/or use of iterated reconstruction technique. 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 The catheter assumes a T-shape, with superiorly and inferiorly directed catheter tips emanating from the apex, which lies in the ventral cervical spinal cord at the level of C3-4. There is no evident catheter discontinuity or kinking. There is a chronic nondisplaced fracture through the left anterior arch of C1, with incomplete fusion of the posterior elements. There is a suboccipital craniectomy , with laminectomies at C3, C4, and C5. There are bilateral pleural effusions. Remaining visualized support catheters are in satisfactory radiographic position. IMPRESSION: Cervical intramedullary drainage catheter as discussed. Findings were discussed with Dr. Reinoso on 04/10/2018 at 1850. Signed: Andrew Lacey Verified Date/Time: 04/10/201819:01:48 Reading Location: [facility] Radiology Reading Room POCT-GLUCOSE [id number] 18:46:00 Test Item Value Reference Range Comments POC-GLUCOSE METER (BEAKER) 119 mg/dL 70-110 TESTED AT [address] (test jtud=9801) [place] [id number] POCT-GLUCOSE [id number] 13:21:00 Test Item Value Reference Range Comments POC-GLUCOSE METER (BEAKER) 106 mg/dL 70-110 TESTED AT [address] (test lshy=8463) [place] [id number] 12:16:00 Test Item Value Reference Range Comments MAGNESIUM (BEAKER) (test iabx=977) 1.8 mg/dL 1.6-2.6 LACTIC ACID, VENOUS, WHOLE [id number] 12:15:00 Test Item Value Reference Range Comments LACTATE BLOOD VENOUS (2) 0.5 mmol/L 0.5-2.2 Specimen slightly hemolyzed (BEAKER) (test ofmw=[id number]) Effective 10/11/2015: Units/Reference Range ChangeNew: 0.5-2.2 mmol/L Previous: 5 -20 mg/dLRAD, CHEST, 1 VIEW, NON [id number] 08:31:00Reason for exam:->? pnaShould this be performed at the bedside?->YesFINAL REPORT TECHNIQUE: Frontal chest radiograph dated 04/10/2018. CLINICAL HISTORY : Pneumonia COMPARISON STUDY: Chest radiograph dated 04/09/2018 IMPRESSION:Life support tubes and lines are unchanged. Stable left retrocardiac atelectasis. No pleural effusion or pneumothorax. Cardiomediastinal silhouette is normal in size. No pulmonary edema. Bones are osteopenic. Signed: Елена Saldivar MDReport Verified Date/Time: 04/10/2018 08:31:54 Reading Location: [facility] Radiology Reading Room MR, BRAIN, [id number] 06:58:00Concern for infected lesions with ICHFINAL REPORT MRI Brain with and without contrast Clinical History: Intracranial hemorrhage Technique: MRI of the brain utilizing axial T1, T2, FLAIR, GRE, DWI, sagittal T1; and postgadolinium axial, sagittal, and coronal T1-weighted images. Comparisons: CT head dated 2017.Findings:Bilateral small foci of restricted diffusion within the globus pallidus. Encephalomalacia within the superior left frontal lobe with associated hemosiderin staining. Unchanged small a focus ofhemorrhage within the lateral right basal ganglia with surrounding edema, no significant mass effecton the adjacent parenchyma. Small focus of subarachnoid hemorrhage within the interpeduncular cistern. Few bilateral T2 and FLAIR hyperintense white matter foci likely represent chronic white matter microvascular disease. Ventricles are normal in size and configuration. No midline shift or mass effect. There is no abnormal intracranial enhancement or mass. The major intracranial flow-voids appear patent. Paranasal sinuses are clear. Middle ears and mastoid air cells are clear. Intraorbital contents are unremarkable. 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 IMPRESSION: Bilateral small foci ofrestricted diffusion within the globus pallidus which raises the concern for metabolic injury , correlate with history. Grossly unchanged small a focus of hemorrhage within the lateral right basal ganglia with surrounding edema, no significant mass effect on the adjacent parenchyma. Small focus of subarachnoid hemorrhage within the interpeduncular cistern. Encephalomalacia within the superior left frontal lobe with associated hemosiderin staining. NOTIFICATION: The significant results of this study were discussed with and acknowledged by Dr. Laguna, by telephone on 04/10/2018 6:57 AM. Signed: Lynda Flowers Verified Date/Time: 04/10/2018 06:58:10 Reading Location: [facility] Transitional Reading Room Electronically signed by: LYNDA FLOWERS MD on 2017 06:58 AMPOCT-GLUCOSE [id number] 06:50:00 Test Item Value Reference Range Comments POC-GLUCOSE METER (BEAKER) 80 mg/dL 70-110 TESTED AT [facility] [address] [place] [address] (test kkvk=9626) [facility] [address] MR, SPINE, CERVICAL, WITHOUT [id number] 06:32:00FINAL REPORT MR Cervical spine without contrast. CLINICAL HISTORY: Presurgical evaluation, cervical spineevaluate shunt TECHNIQUE: MRI of the cervical spine utilizing sagittal T1, T2, STIR, axial T1, T2 weighted images. COMPARISON: None FINDINGS:Cervical spine: Reversal of the normal cervical lordosis centered at C5 -C6. Mild anterolisthesis of C3 on C4 and C4 on C5. Marrow signal is within normal limits. The vertebral body heights are maintained. The visualized posterior fossa is intact. Prevertebral and paravertebral soft tissues are unremarkable. There is cystic dilatationof the central canal extending from the cervical medullary junction through the C7 vertebral body. The cavity measures up to 7 mm in maximum diameter at the level of the C2-3 disc space. There is a partially evaluated catheter extending into the central canal at the level of C3 -4 from the posterior soft tissues. Postsurgical changes of suboccipital craniectomy and posterior arch of C1 resection are again seen. C1-C2: No spinal canal or neural foraminal stenosis. C2-C3: No spinal canal or neural foraminal stenosis. C3-C4: No spinal canal or neural foraminal stenosis. C4-C5: Mild left uncovertebral spurring resulting in mild left neural foraminal stenosis. No significant spinal canal or right neuralforaminal stenosis. C5-C6: Central disc osteophyte complex, bilateral uncovertebral spurring resultsin mild spinal canal and no neural foraminal stenosis. C6-C7: Bilateral uncovertebral spurring , disc osteophyte complex and facet hypertrophy results in significant spinal canal or neural foraminal stenosis. C7-T1: No spinal canal or neural foraminal stenosis. Thoracic spine: There is maintenance ofthe thoracic curvature and alignment. The vertebral body heights and marrow signal are maintained. The thoracic cord is normal in contour and caliber without signal change. No significant spinal canal or neural foraminal stenosis. Consolidative opacity within the left lower lung atelectasis however superimposed infection cannot be excluded. Small bilateral pleural effusions. Multiple bilateral thyroid nodules the largest of which is in the left lobe measuring up to 1.5 cm. 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 There is partiallyevaluated posterior approach catheter terminating within the central canal at the level of the C3-4 disc space. Multilevel degenerative changes of the cervical spine as described above. Postsurgical changes of a suboccipital craniectomy and posterior arch of C1 resection. Consolidative opacity within the left lower lung atelectasis however superimposed infection cannot be excluded. Small bilateral pleural effusions. Multiple bilateral thyroid nodules the largest of which is in the left lobe measuring up to 1.5 cm. Segment further evaluation with nonemergent thyroid ultrasound if not previously done. Signed: Lynda Flowers [facility] Verified Date/Time: 04/10/2018 06:32:36 Reading Location: [address] Reading Room MR, SPINE, THORACIC, WITHOUT [id number] 06:32:00FINAL REPORT MR Cervical spine without contrast. CLINICAL HISTORY: Presurgical evaluation, cervical spineevaluate shunt TECHNIQUE: MRI of the cervical spine utilizing sagittal T1, T2, STIR, axial T1, T2 weighted images. COMPARISON: None FINDINGS:Cervical spine : Reversal of the normal cervical lordosis centered at C5-C6. Mild anterolisthesis of C3 on C4 and C4 on C5. Marrow signal is within normal limits. The vertebral body heights are maintained. The visualized posterior fossa is intact. Prevertebral and paravertebral soft tissues are unremarkable. There is cystic dilatationof the central canal extending from the cervical medullary junction through the C7 vertebral body. The cavity measures up to 7 mm in maximum diameter at the level of the C2-3 disc space. There is a partially evaluated catheter extending into the central canal at the level of C3 -4 from the posterior soft tissues. Postsurgical changes of suboccipital craniectomy and posterior arch of C1 resection are again seen. C1-C2: No spinal canal or neural foraminal stenosis. C2-C3: No spinal canal or neural foraminal stenosis. C3-C4: No spinal canal or neural foraminal stenosis. C4-C5: Mild left uncovertebral spurring resulting in mild left neural foraminal stenosis. No significant spinal canal or right neuralforaminal stenosis. C5-C6: Central disc osteophyte complex, bilateral uncovertebral spurring resultsin mild spinal canal and no neural foraminal stenosis. C6-C7: Bilateral uncovertebral spurring , disc osteophyte complex and facet hypertrophy results in significant spinal canal or neural foraminal stenosis. C7-T1: No spinal canal or neural foraminal stenosis. Thoracic spine: There is maintenance ofthe thoracic curvature and alignment. The vertebral body heights and marrow signal are maintained. The thoracic cord is normal in contour and caliber without signal change. No significant spinal canal or neural foraminal stenosis. Consolidative opacity within the left lower lung atelectasis however superimposed infection cannot be excluded. Small bilateral pleural effusions. Multiple bilateral thyroid nodules the largest of which is in the left lobe measuring up to 1.5 cm. 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 There is partiallyevaluated posterior approach catheter terminating within the central canal at the level of the C3-4 disc space. Multilevel degenerative changes of the cervical spine as described above. Postsurgical changes of a suboccipital craniectomy and posterior arch of C1 resection. Consolidative opacity within the left lower lung atelectasis however superimposed infection cannot be excluded. Small bilateral pleural effusions. Multiple bilateral thyroid nodules the largest of which is in the left lobe measuring up to 1.5 cm. Segment further evaluation with nonemergent thyroid ultrasound if not previously done. Signed: [facility] Verified Date/Time: 04/10/2018 06:32:36 Reading Location: [address] Transitional Reading Room URINE [id number] 03:49:00 Test Item Value Reference Range Comments CULTURE (BEAKER) (test wevg=7388) No growth BASIC METABOLIC [id number] 03:12:00 Test Item Value Reference Range Comments SODIUM (BEAKER) (test 143 meq/L 136-145 nkbz=164) POTASSIUM (BEAKER) (test 4.1 meq/L 3.5-5.1 afpf=813) CHLORIDE (BEAKER) (test 105 meq/L 98-107 aizj=294) CO2 (BEAKER) (test 31 meq/L 22-29 djwf=620) BLOOD UREA NITROGEN 15 mg/dL 7-21 (BEAKER) (test vzqh=532) CREATININE (BEAKER) (test 0.48 mg/dL 0.57-1.25 rrkz=641) GLUCOSE RANDOM (BEAKER) 103 mg/dL 70-105 (test ibyb=664) CALCIUM (BEAKER) (test 9.4 mg/dL 8.4-10.2 ceoj=777) EGFR (BEAKER) (test 140 mL/min/1.73 sq m ESTIMATED GFR IS NOT kofe=2885) ACCURATE CREATININE CLEARANCE IN PREDICTING GLOMERULAR FILTRATION RATE. ESTIMATED GFR IS NOT APPLICABLE FOR DIALYSIS PATIENTS. CBC W/PLT COUNT & AUTO [id number] 02:58:00 Test Item Value Reference Range Comments WHITE BLOOD CELL COUNT (BEAKER) (test uwqy=123) 10.6 K/ L 3.5-10.5 RED BLOOD CELL COUNT (BEAKER) (test hvkr=887) 4.05 M/ L 3.93-5.22 HEMOGLOBIN (BEAKER) (test psuj=995) 12.9 GM/DL 11.2-15.7 HEMATOCRIT (BEAKER) (test jnpa=082) 41.2 % 34.1-44.9 MEAN CORPUSCULAR VOLUME (BEAKER) (test mgqu=562) 101.7 fL 79.4-94.8 MEAN CORPUSCULAR HEMOGLOBIN (BEAKER) (test 31.9 pg 25.6-32.2 ravx=217) MEAN CORPUSCULAR HEMOGLOBIN CONC (BEAKER) (test 31.3 GM/DL 32.2-35.5 nyvi=113) RED CELL DISTRIBUTION WIDTH (BEAKER) (test 14.8 % 11.7-14.4 tcbw=905) PLATELET COUNT (BEAKER) (test hxxv=796) 114 K/CU MM 150-450 MEAN PLATELET VOLUME (BEAKER) (test jzxw=274) 12.4 fL 9.4-12.3 NUCLEATED RED BLOOD CELLS (BEAKER) (test 0 /100 WBC 0-0 fxtg=492) NEUTROPHILS RELATIVE PERCENT (BEAKER) (test 82 % outt=929) LYMPHOCYTES RELATIVE PERCENT (BEAKER) (test 11 % dnus=979) MONOCYTES RELATIVE PERCENT (BEAKER) (test 7 % kesw=999) EOSINOPHILS RELATIVE PERCENT (BEAKER) (test 0 % ooea=647) BASOPHILS RELATIVE PERCENT (BEAKER) (test 0 % kdov=295) NEUTROPHILS ABSOLUTE COUNT (BEAKER) (test 8.66 K/ L 1.56-6.13 qqod=915) LYMPHOCYTES ABSOLUTE COUNT (BEAKER) (test 1.17 K/ L 1.18-3.74 awjs=353) MONOCYTES ABSOLUTE COUNT (BEAKER) (test 0.70 K/ L 0.24-0.36 nwkq=818) EOSINOPHILS ABSOLUTE COUNT (BEAKER) (test 0.00 K/ L 0.04-0.36 kqmg=921) BASOPHILS ABSOLUTE COUNT (BEAKER) (test 0.03 K/ L 0.01-0.08 xnqt=965) IMMATURE GRANULOCYTES-RELATIVE PERCENT (BEAKER) 0 % 0-1 (test xxed=9011) BLOOD GAS, [id number] 02:47:00 Test Item Value Reference Range Comments PH ARTERIAL (BEAKER) (test riaq=153) 7.35 7.35-7.45 PCO2 ARTERIAL (BEAKER) (test kdse=841) 66 mmHg 35-45 PO2 ARTERIAL (BEAKER) (test zvgu=842) 76 mmHg 80-90 O2 SATURATION ARTERIAL (BEAKER) (test erso=082) 94.5 % 96.0-97.0 HCO3 ARTERIAL (BEAKER) (test kkge=285) 36 mmol/L 21-29 BASE EXCESS ARTERIAL (BEAKER) (test wjsw=942) 7.6 mmol/L -2.0-3.0 PATIENT TEMPERATURE (BEAKER) (test bgfx=7831) 36.5 C FIO2 (BEAKER) (test xsxb=2093) 45.0 % POCT-GLUCOSE [id number] 00:32:00 Test Item Value Reference Range Comments POC-GLUCOSE METER (BEAKER) 98 mg/dL 70-110 TESTED AT [address] (test jobg=8583) [facility] [address] CREATINE KINASE (CK), TOTAL AND [id number] 18:43:00 Test Item Value Reference Range Comments CREATINE KINASE TOTAL (BEAKER) (test qeck=456) 64 U/L 29-200 CREATINE KINASE-MB (BEAKER) (test przf=221) 3.9 ng/mL 0.0-6.6 CREATINE KINASE-MB INDEX (BEAKER) (test pmww=267) 6.1 % CK-MB Reference Range:<6.7 Normal6.7-10.0 Borderline>10.0 AbnormalTROPONIN [id number] 18:43:00 Test Item Value Reference Range Comments TROPONIN I (BEAKER) (test vjeh=079) 0.13 ng/mL 0.00-0.03 Troponin I (TnI) levels must be interpreted in the context of the presenting symptoms and the clinical findings. Elevated TnI levels indicate myocardial damage, but are not specific for ischemic heart disease. Elevated TnI levels are seen in patients with other cardiac conditions (including myocarditis and congestive heart failure), and slight TnI elevations occur in patients with other conditions, including sepsis, renal failure, acidosis, acute neurological disease, and persistent tachyarrhythmia.[id number] 18:30:00 Test Item Value Reference Range Comments MAGNESIUM (BEAKER) (test qjht=285) 1.7 mg/dL 1.6-2.6 POCT-GLUCOSE [id number] 18:27:00 Test Item Value Reference Range Comments POC-GLUCOSE METER (BEAKER) 75 mg/dL 70-110 TESTED AT [address] (test yhbc=4235) [facility] [address] RAD, CHEST, 1 VIEW, NON [id number] 16:49:00Reason for exam:->CVC PLACEMENT Should this be performed at the bedside?->YesFINAL REPORT EXAM: Frontal chest radiograph HISTORY PROVIDED: Central venous catheter placement COMPARISON: 04/09/2018 at 0605 IMPRESSION:Interval placement of a right IJ central venous catheter with its tip projecting over the cavoatrial junction. Other support lines and tubes are in unchanged position including nonspecific tubing projecting over the right hemithorax. Minimal bibasilar opacities likely represent atelectasis, although pneumonitis should be excluded clinically. No pneumothorax or significant pleural fluid. Cardiomediastinal contours are stable. No acute osseous abnormality. The bones appear demineralized. Signed: Abran Alatorrefreeman [facility] Verified Date/Time: 04/09/2018 16:49:21 Reading Location: [facility] Mammo Reading Room HEPATOBILIARY [id number] 15:42:00FINAL REPORT PROCEDURE: HEPATOBILIARY SCAN CPT CODE: 82962 INDICATION: Right upper quadrant pain, no fever PROTOCOL: 5.3 mCi of Tc-99m mebrofenin was injected intravenously. Images of the upper abdomen were obtained for approximately 120 minutes after tracer injection. FINDINGS: Initial tracer uptake into the liver is physiological. Subsequent tracer clearance from the liver proceeds normally. There is good visualization of the extrahepatic biliary duct and the gallbladder. Small bowel activity starts to appear approximately 90 minutes into the procedure. IMPRESSION: The exam is negative for acute cholecystitis. There is delayed visualization of the small bowel. Signed: Elvin Celestin Verified Date/Time: 04/09/2018 15:42:43 Reading Location: [address] [address] Reading Room CT BRAIN WITHOUT IV CONTRAST - [id number] 13:05:00Reason for exam:->Patient with intracranial bleed needing repeat imaging at 24 hours ([id number])FINAL REPORT CT Head without contrast CLINICAL HISTORY: Patient with intracranial bleed needing repeat imaging at 24 hours ([id number]) TECHNIQUE: Contiguous axial images through the head without contrast on the portable CT unit. This exam was performed according to the departmental dose optimization program which includes automated exposure control, adjustment of the mA and/or kVaccording to the patient size, and/or use of an iterative reconstruction technique. COMPARISON: Outside CT 04/08/2018 FINDINGS: An acute hemorrhage in the lateral right basal ganglia or external capsule region is grossly unchanged measuring up to 1.5 cm. Right anterior temporal encephalomalacia is again seen. High left parietal encephalomalacia with dystrophic calcification is again seen. There is nodefinitive CT evidence for acute infarct. There is no hydrocephalus or midline shift. A suboccipitalcraniectomy and posterior arch of C1 resection is again seen. There is a partially imaged catheter extending into the visualized upper cervical central canal. IMPRESSION: Since the outside exam , the acute right cerebral hemorrhage is grossly unchanged. Signed: Mily Griffin MDReport Verified Date/Time: 04/09/2018 13:05:06 Reading Location: [facility] B1 C013V Neuro Reading Room POCT-GLUCOSE [id number] 12:34:00 Test Item Value Reference Range Comments POC-GLUCOSE METER (BEAKER) 70 mg/dL 70-110 TESTED AT [facility] [address] [facility] (test qkrl=5257) [facility] [address] RESPIRATORY PANEL [id number] 10:28:00 Test Item Value Reference Range Comments HUMAN METAPNEUMOVIRUS (BEAKER) (test Not detected Not detected, Equivocal qazs=0944) RHINOVIRUS (BEAKER) (test fcxb=2161) Not detected Not detected, Equivocal INFLUENZA A (BEAKER) (test gtuj=3125) Not detected Not detected, Equivocal INFLUENZA A (NO SUBTYPE) (test Not detected, Equivocal uxto=3911) INFLUENZA A SUBTYPE H1 (BEAKER) (test Not detected, Equivocal jddm=7520) INFLUENZA A SUBTYPE H3 (BEAKER) (test Not detected, Equivocal bdkd=9754) INFLUENZA A SUBTYPE H1-2009 (BEAKER) Not detected, Equivocal (test zrnw=6329) INFLUENZA B (BEAKER) (test uhxh=5367) Not detected Not detected, Equivocal RESPIRATORY SYNCYTIAL VIRUS (BEAKER) Not detected Not detected, Equivocal (test ymcf=3325) PARAINFLUENZA VIRUS 1 (BEAKER) (test Not detected Not detected, Equivocal wycz=3446) PARAINFLUENZA VIRUS 2 (BEAKER) (test Not detected Not detected, Equivocal ltqy=9588) PARAINFLUENZA VIRUS 3 (BEAKER) (test Not detected Not detected, Equivocal nobn=8692) PARAINFLUENZA VIRUS 4 (BEAKER) (test Not detected Not detected, Equivocal ujus=8238) ADENOVIRUS (BEAKER) (test pspf=4682) Not detected Not detected, Equivocal CORONAVIRUS 229E (BEAKER) (test Not detected Not detected, Equivocal ejra=1209) CORONAVIRUS HKU1 (BEAKER) (test Not detected Not detected, Equivocal nfrp=6510) CORONAVIRUS NL63 (BEAKER) (test Not detected Not detected, Equivocal cspn=6883) CORONAVIRUS OC43 (BEAKER) (test Not detected Not detected, Equivocal cmlx=0087) BORDETELLA PERTUSSIS (BEAKER) (test Not detected Not detected, Equivocal froc=4971) CHLAMYDOPHILA PNEUMONIAE (BEAKER) (test Not detected Not detected, Equivocal cgys=4399) MYCOPLASMA PNEUMONIAE (BEAKER) (test Not detected Not detected, Equivocal iguy=3290) Other viruses and bacteria not targeted by this PCR panel cannot be excluded; therefore clinical correlation and follow up of serology, culture results, and other molecular studies is required. The results are not intended to be used as the sole means for clinical diagnosis or patient management decisions. This sample was tested at the [facility] using the Hydra DxArray Respiratory Panel. It is FDA cleared and has been verified and approved by the [facility] for clinical use on nasal swab specimens. It is not FDA-cleared for use on bronchial wash/lavage samples. However, for this sample type, validation was performed and test characteristics were determined and approved, by [facility] for clinical use under the Clinical Laboratory Improvement Amendments (CLIA) of 1988 requirements. Therefore, FDA clearance isnot required. This laboratory is CLIA-certified and [employer] ([employer])-accredited to perform high complexity testing.RAD, CHEST, 1 VIEW, NON [id number] 09:07:00Reason for exam:->?pnaShould this be performed at the bedside?->YesFINAL REPORT Chest one view compared to April 08, 2018 Discussion: Support tubes are noted. Additional nonspecific tubing projects over the chest warranting clinical correlation. There is a skin fold allowing the right chest margin. Right lung is clear. Left upper lung is clear. Left lower lung is partially excluded from the image and incompletely evaluated where subtle infiltrate could not be excluded. Signed: Essence Gómez Verified Date/Time: 04/09/2018 09:07: 58 Reading Location: [facility] Radiology Reading Room CBC W/PLT COUNT & AUTO [id number] 07:19:00 Test Item Value Reference Range Comments WHITE BLOOD CELL COUNT (BEAKER) (test juvq=699) 13.8 K/ L 3.5-10.5 RED BLOOD CELL COUNT (BEAKER) (test lpcy=944) 4.05 M/ L 3.93-5.22 HEMOGLOBIN (BEAKER) (test jczt=945) 12.7 GM/DL 11.2-15.7 HEMATOCRIT (BEAKER) (test zlie=775) 40.6 % 34.1-44.9 MEAN CORPUSCULAR VOLUME (BEAKER) (test alnp=686) 100.2 fL 79.4-94.8 MEAN CORPUSCULAR HEMOGLOBIN (BEAKER) (test 31.4 pg 25.6-32.2 mhzg=179) MEAN CORPUSCULAR HEMOGLOBIN CONC (BEAKER) (test 31.3 GM/DL 32.2-35.5 icts=245) RED CELL DISTRIBUTION WIDTH (BEAKER) (test 14.3 % 11.7-14.4 assx=399) PLATELET COUNT (BEAKER) (test jgsz=087) 115 K/CU MM 150-450 MEAN PLATELET VOLUME (BEAKER) (test ukgt=428) 12.6 fL 9.4-12.3 NUCLEATED RED BLOOD CELLS (BEAKER) (test 0 /100 WBC 0-0 gyil=237) NEUTROPHILS RELATIVE PERCENT (BEAKER) (test 81 % fomy=979) LYMPHOCYTES RELATIVE PERCENT (BEAKER) (test 9 % oemj=901) MONOCYTES RELATIVE PERCENT (BEAKER) (test 9 % wwnd=241) EOSINOPHILS RELATIVE PERCENT (BEAKER) (test 0 % vpry=686) BASOPHILS RELATIVE PERCENT (BEAKER) (test 0 % xjne=955) NEUTROPHILS ABSOLUTE COUNT (BEAKER) (test 11.17 K/ L 1.56-6.13 kdkn=466) LYMPHOCYTES ABSOLUTE COUNT (BEAKER) (test 1.24 K/ L 1.18-3.74 brki=130) MONOCYTES ABSOLUTE COUNT (BEAKER) (test 1.17 K/ L 0.24-0.36 goyq=589) EOSINOPHILS ABSOLUTE COUNT (BEAKER) (test 0.00 K/ L 0.04-0.36 lgev=933) BASOPHILS ABSOLUTE COUNT (BEAKER) (test 0.01 K/ L 0.01-0.08 wwsu=063) IMMATURE GRANULOCYTES-RELATIVE PERCENT (BEAKER) 1 % 0-1 (test bxpz=0553) BASIC METABOLIC [id number] 07:14:00 Test Item Value Reference Range Comments SODIUM (BEAKER) (test 144 meq/L 136-145 jacy=357) POTASSIUM (BEAKER) (test 3.4 meq/L 3.5-5.1 hfaq=235) CHLORIDE (BEAKER) (test 101 meq/L 98-107 ngse=644) CO2 (BEAKER) (test 38 meq/L 22-29 pgsn=995) BLOOD UREA NITROGEN 15 mg/dL 7-21 (BEAKER) (test wjrd=186) CREATININE (BEAKER) (test 0.52 mg/dL 0.57-1.25 yita=428) GLUCOSE RANDOM (BEAKER) 85 mg/dL 70-105 (test xuzt=154) CALCIUM (BEAKER) (test 8.9 mg/dL 8.4-10.2 cntk=544) EGFR (BEAKER) (test 128 mL/min/1.73 sq m ESTIMATED GFR IS NOT qyzh=5156) ACCURATE CREATININE CLEARANCE IN PREDICTING GLOMERULAR FILTRATION RATE. ESTIMATED GFR IS NOT APPLICABLE FOR DIALYSIS PATIENTS. POCT-GLUCOSE [id number] 06:44:00 Test Item Value Reference Range Comments POC-GLUCOSE METER (BEAKER) 81 mg/dL 70-110 TESTED AT [address] (test ydvx=9010) [facility] [address] BLOOD GAS, [id number] 06:09:00 Test Item Value Reference Range Comments PH ARTERIAL (BEAKER) (test kfmn=965) 7.42 7.35-7.45 PCO2 ARTERIAL (BEAKER) (test exrb=900) 61 mmHg 35-45 PO2 ARTERIAL (BEAKER) (test crfn=862) 68 mmHg 80-90 O2 SATURATION ARTERIAL (BEAKER) (test horo=019) 92.9 % 96.0-97.0 HCO3 ARTERIAL (BEAKER) (test bcjv=551) 38 mmol/L 21-29 BASE EXCESS ARTERIAL (BEAKER) (test kwvj=118) 11.5 mmol/L -2.0-3.0 PATIENT TEMPERATURE (BEAKER) (test dkqq=9110) 37.4 C FIO2 (BEAKER) (test qcsj=7102) 30.0 % U/S, ABDOMINAL, [id number] 05:37:00Reason for exam:-> transaminitisShould this be performed at the bedside?->YesFINAL REPORT INDICATION: transaminitis COMPARISON: None. TECHNIQUE: Real-time transabdominal sarmiento scale and color Doppler ultrasound of the abdomen. FINDINGS:Liver: Size: 13.2cm. Echogenicity: Coarsened hepatic echotexture. Masses/lesions: None. Surface Nodularity: None. Intrahepatic bile ducts: Normal. Common bile duct: 0.5 cm. MPV: 1.3cm. Gallbladder: Stones: Possible 0.5 cm stone in the gallbladder neck. Sludge: None. Wall thickness: 0.5 cm. The bladder is mildly distended. Pericholecystic fluid: Trace pericholecystic fluid. Sonographic Varela' s sign: Not able to be obtained secondary to sedation. Pancreas: Head and uncinate process: Not well seen secondary to poor acoustic window. Body and tail: Not well-seen. Spleen:Not identified. Right kidney: Size: 12.0 x 5.9 x 5.8 cm. cm. Parenchyma: Normal echogenicity. No cysts. There is a 0.7 x 0.8 cm stone in the right interpole. Hydronephrosis: Mild right pelvic caliectasis. Left kidney: Size: 10.6 x 5.8 x 6.4 cm cm. Parenchyma: Normal echogenicity. No cysts. No stones. Hydronephrosis: None. Ascites: None. Regional Vasculature: The visible abdominal aorta, IVC and hepatic veins are patent. The aorta measures 2.0 cm proximally, 1.7 cm inthe midportion 1.5 cm distally. Additional findings: None. IMPRESSION: Gallbladder is distended with gallbladder wall thickening and pericholecystic fluid. There is a possible stone in the gallbladder neck. These findings are concerning for acute cholecystitis in the proper clinical setting. Mild right pelvocaliectasis. Signed: Shaeffer, Lynda MDReport Verified Date/Time: 04/09/2018 05:37:35 Reading Location: [facility] Transitional Reading Room LACTIC ACID, VENOUS, WHOLE [id number] 02:43:00 Test Item Value Reference Range Comments LACTATE BLOOD VENOUS (2) 1.8 mmol/L 0.5-2.2 Specimen slightly hemolyzed (BEAKER) (test kovw=3872) Effective 10/11/2015: Units/Reference Range ChangeNew: 0.5-2.2 mmol/L Previous: 5 -20 mg/dLPOCT-GLUCOSE [id number] 01:00:00 Test Item Value Reference Range Comments POC-GLUCOSE METER (BEAKER) 91 mg/dL 70-110 TESTED AT [facility] [address] [facility] (test wiej=6571) [facility] [address] CT, CHEST WITH IV CONTRAST- PE TEST [id number] 22:27:00FINAL REPORT DOSE REDUCTION: The examination was performed according to departmental dose-optimization program which includes automated exposure control, adjustment of the mA and/or kV according to patient size and/or use of iterative reconstruction technique. TECHNIQUE: Postcontrast axial images of the chest were obtained from above the arch level to the lower chest at maximum enhancement of pulmonary artery. Coronal reconstruction was performed. COMPARISON: Outside CT ofthe chest, 04/08/2018 DISCUSSION: There are no filling defects in the pulmonary arteries. The great vessels and aorta are unremarkable. Heart appears borderline prominent in size. No significant mediastinal or hilar lymphadenopathy. Bilateral breast prostheses noted. No definite focal abnormality inthe upper abdomen. Endotracheal tube and nasogastric tube noted. A right-sided ventriculopleural shunt is partially depicted. Catheter is intact were visualized. The trachea and mainstem bronchi are patent. There is a small right pleural effusion. Right lower lobe consolidation likely represents atelectasis. Right lungs otherwise clear. There is airspace disease/consolidation in the left lower lobe. Otherwise left lung is clear. IMPRESSION: 1. No evidence of pulmonary embolism. 2. Left lower lobe consolidation may represent combination of atelectasis and pneumonia. Right lung base atelectasis. 3. Small right pleural effusion. Signed: Pelon Brewster MDReport Verified Date/Time: 04/08/2018 22:27:11 [facility]: 27 PMLACTIC ACID, VENOUS, WHOLE [id number] 21:28:00 Test Item Value Reference Range Comments LACTATE BLOOD VENOUS (2) 2.8 mmol/L 0.5-2.2 Specimen slightly hemolyzed (BEAKER) (test zfbz=6876) Effective 10/11/2015: Units/Reference Range ChangeNew: 0.5-2.2 mmol/L Previous: 5 -20 mg/dLHCG, QUANTITATIVE, [id number] 19:49:00 Test Item Value Reference Range Comments GONADOTROPIN, CHORIONIC (HCG) QUANT (BEAKER) (test < mIU/mL 0-10 gnuy=400) Non- Females: <10 mIU/mL Females: Gestation Age Reference Range(mIU/mL) 0.2-1 Week 5-50 1-2 Weeks 50-500 2-3 Weeks 100-5,000 3-4Weeks 500-10,000 4 -5 Weeks 1,000-50,000 5-6 Weeks 10,000-100,000 6-8 Weeks 15,000-200,000 2-3 Months 10,000-100,000EEG AWAKE AND [id number] 19:28:00Reason for exam:->seizingNeurophysiology Electroencephalogram Report DATE OF REPORT: 04/08/18Date(s) of Study: 04/08/2018ACC:[id number]: art time: 1807 hrsStop time: 1830 hrsICD-10: R56.9CPT Code: 72889 HISTORY : 42-year-old female referred for STAT inpatient EEG due to suspected seizure. 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 She has a prior posterior fossa craniectomy, syrinx, syringopleural shunt placement in ~2011 and a series of surgeries from ~2010 to 2015 with progressive weakness of BUE and BLE and increasing dyspnea this past year. The patient was found unresponsive this morning, with shock, hypothermia, normal WBC and normal UA, with head CT showing 14mm basal ganglia hemorrhage. MEDICATIONS THAT COULD AFFECT EEG: Levetiracetam, Fentanyl TECHNICAL SUMMARY: This is a digital video EEG recorded with 32 input channels reviewed with bipolar and referential montages using the modified combinatorial system nomenclature. DESCRIPTION OF RECORD: Background: The background was continuous with medium voltage 1.5-4 Hz activity predominating the recording and scattered 5-6 Hz activity seen. Low voltage beta activity was seen diffusely as well. There was no posterior dominant rhythm. The background was reactive. There was no state change seen. Interictal Abnormalities: None Activation Procedures: Hyperventilation was not performed. Photic stimulation wasdone from 1-30 Hz with no photoparoxysmal responses or driving. Events: None IMPRESSION: Abnormal awake only EEG due to moderate diffuse continuous slowingCLINICAL COMMENT: This EEG is consistent with a nonspecific moderate encephalopathy. Antoinette Maravilla MDEpilepsy FellowBSL Neurophysiology Service Attending note: I reviewed this EEG record in its entirety and I agree with the details of this report.Juliette Salguero MDEpilepsy Attending POCT-GLUCOSE [id number] 18:57:00 Test Item Value Reference Range Comments POC-GLUCOSE METER (BEAKER) 102 mg/dL 70-110 TESTED AT [address] (test gkpb=7830) [facility] [id number] RAD, SHUNT [id number] 18:27:00Reason for exam:->patient with decreased LOC and VPS in the setting of hypotension and hypothermiaFINAL REPORT Technique: Frontal and lateral views of the skull, neck, chest, and abdomen COMPARISON: Chest x-ray, 04/08/2018 FINDINGS: There is a right- sided ventriculopleural shunt catheter. Presumably the proximal portion of the catheter enters a syrinx. The proximal portion of the catheter near the cervical spine is difficult to visualize somewhat. Remainder of the right-sided shunt catheter is intact with no disruption. Single view of the chest demonstrates no gross acute cardiopulmonary disease. Support lines and tubes are stable from recent chest x-ray. Bowel gas pattern is nonspecific. IMPRESSION : 1. Cephalad portions of the right-sided shunt are difficult to visualize. No definite shunt disruption in the visualized portion. Signed: Pelon Brewster MDReport Verified Date/Time: 04/08/2018 18:27:37 Reading Location: [facility] Mammo Reading Room 06: 27 [id number] 18:07:00 Test Item Value Reference Range Comments AMYLASE (BEAKER) (test gyzq=594) 47 U/L 25-125 [id number] 18:07:00 Test Item Value Reference Range Comments LIPASE (BEAKER) (test foxp=647) 10 U/L 8-78 [id number] 18:03:00 Test Item Value Reference Range Comments PROCALCITONIN (BEAKER) (test hwmf=5423) < ng/mL <0.05 SEPSIS RISK (ng/mL)Low: 0.05-0.50Intermediate: 0.51-2.00High: & gt;=2.01TSH/FREE T4 IF [id number] 17:59:00 Test Item Value Reference Range Comments THYROID STIMULATING HORMONE (BEAKER) (test 1.55 uIU/mL 0.35-4.94 ynuu=377) [id number] 17:59:00 Test Item Value Reference Range Comments CORTISOL, TOTAL (BEAKER) (test sanv=4532) 30.6 ug/dL 3.7-19.4 URINALYSIS W/ [id number] 17:48:00 Test Item Value Reference Range Comments COLOR (BEAKER) (test dgsx=715) Yellow CLARITY (BEAKER) (test sips=064) Hazy SPECIFIC GRAVITY UA (BEAKER) (test tqbl=903) 1.019 1.001-1.035 PH UA (BEAKER) (test tnii=650) 5.5 5.0-8.0 PROTEIN UA (BEAKER) (test luen=875) 50 mg/dL Negative GLUCOSE UA (BEAKER) (test rbzx=301) 30 mg/dL Negative KETONES UA (BEAKER) (test tfyk=443) 20 mg/dL Negative BILIRUBIN UA (BEAKER) (test nisq=927) Negative Negative BLOOD UA (BEAKER) (test swfq=130) Moderate Negative NITRITE UA (BEAKER) (test adfo=562) Negative Negative LEUKOCYTE ESTERASE UA (BEAKER) (test vzxc=699) Large Negative UROBILINOGEN UA (BEAKER) (test sqtd=933) 0.2 mg/dL 0.2-1.0 RBC UA (BEAKER) (test pdla=228) 13 /HPF WBC UA (BEAKER) (test aovh=236) 31 /HPF MUCUS (BEAKER) (test qfdy=6048) Few SQUAMOUS EPITHELIAL (BEAKER) (test cqsu=048) 1 /HPF HYALINE CASTS (BEAKER) (test vcrk=521) 8 /LPF SOURCE(BEAKER) (test gwym=8318) [id number] 17:47:00 Test Item Value Reference Range Comments MAGNESIUM (BEAKER) (test rtmn=158) 1.9 mg/dL 1.6-2.6 BASIC METABOLIC [id number] 17:47:00 Test Item Value Reference Range Comments SODIUM (BEAKER) (test 143 meq/L 136-145 miiz=696) POTASSIUM (BEAKER) (test 3.4 meq/L 3.5-5.1 xltw=390) CHLORIDE (BEAKER) (test 99 meq/L 98-107 yjyk=135) CO2 (BEAKER) (test 29 meq/L 22-29 ciyl=819) BLOOD UREA NITROGEN 20 mg/dL 7-21 (BEAKER) (test aora=744) CREATININE (BEAKER) (test 0.69 mg/dL 0.57-1.25 ggis=554) GLUCOSE RANDOM (BEAKER) 164 mg/dL 70-105 (test kefn=655) CALCIUM (BEAKER) (test 8.6 mg/dL 8.4-10.2 gfjo=015) EGFR (BEAKER) (test 92 mL/min/1.73 sq m ESTIMATED GFR IS NOT mhhs=3922) ACCURATE CREATININE CLEARANCE IN PREDICTING GLOMERULAR FILTRATION RATE. ESTIMATED GFR IS NOT APPLICABLE FOR DIALYSIS PATIENTS. HEPATIC FUNCTION [id number] 17:44:00 Test Item Value Reference Range Comments TOTAL PROTEIN (BEAKER) (test rgqk=095) 5.4 gm/dL 6.0-8.3 ALBUMIN (BEAKER) (test hvem=9669) 3.2 g/dL 3.5-5.0 BILIRUBIN TOTAL (BEAKER) (test pqbo=511) 0.4 mg/dL 0.2-1.2 BILIRUBIN DIRECT (BEAKER) (test sucm=250) 0.2 mg/dL 0.1-0.5 ALKALINE PHOSPHATASE (BEAKER) (test rdnk=382) 72 U/L 40-150 AST (SGOT) (BEAKER) (test idkt=382) 44 U/L 5-34 ALT (SGPT) (BEAKER) (test yaxl=812) 66 U/L 6-55 B-TYPE NATRIURETIC FACTOR (BNP)2018-04-08 17:42:00 Test Item Value Reference Range Comments B-TYPE NATRIURETIC PEPTIDE (BEAKER) (test 102 pg/mL 0-100 tfht=399) TROPONIN [id number] 17:41:00 Test Item Value Reference Range Comments TROPONIN I (BEAKER) (test qxnh=579) 0.08 ng/mL 0.00-0.03 Troponin I (TnI) levels must be interpreted in the context of the presenting symptoms and the clinical findings. Elevated TnI levels indicate myocardial damage, but are not specific for ischemic heart disease. Elevated TnI levels are seen in patients with other cardiac conditions (including myocarditis and congestive heart failure), and slight TnI elevations occur in patients with other conditions, including sepsis, renal failure, acidosis, acute neurological disease, and persistent tachyarrhythmia.[id number] 17:40:00 Test Item Value Reference Range Comments TRIGLYCERIDES (BEAKER) (test smga=471) 45 mg/dL TRIGLYCERIDE REFERENCE RANGELow Risk <150Borderline Risk 150-199High Risk 200-499Very High Risk>=[id number] 17:40:00 Test Item Value Reference Range Comments PHOSPHORUS (BEAKER) (test jiil=788) 2.3 mg/dL 2.3-4.7 CREATINE KINASE (CK)2018-04-08 17:40:00 Test Item Value Reference Range Comments CREATINE KINASE TOTAL (BEAKER) (test twdw=101) 52 U/L 29-200 [id number] 17:39:00 Test Item Value Reference Range Comments ETHANOL (BEAKER) (test knwc=577) < mg/dL <=10 PROTHROMBIN [id number] 17:37:00 Test Item Value Reference Range Comments PROTIME (BEAKER) (test 12.8 seconds 11.7-14.7 Delay due to improper order tdhc=369) way. 2 labels with one sample. INR (BEAKER) (test uwye=932) 1.0 <=5.9 RECOMMENDED COUMADIN/WARFARIN INR THERAPY RANGESSTANDARD DOSE: 2.0 - 3.0 Includes: PROPHYLAXIS forvenous thrombosis, systemic embolization; TREATMENT for venous thrombosis and/or pulmonary embolus.HIGH RISK: Target INR is 2.5-3.5 for patients with mechanical heart valves.[id number] 17:36:00 Test Item Value Reference Range Comments PARTIAL THROMBOPLASTIN TIME (BEAKER) (test 23.9 seconds 22.5-36.0 jiuu=628) LACTIC ACID, VENOUS, WHOLE [id number] 17:36:00 Test Item Value Reference Range Comments LACTATE BLOOD VENOUS (2) 11.3 mmol/L 0.5-2.2 Specimen moderately hemolyzed (BEAKER) (test bkvn=7640) Effective 10/11/2015: Units/Reference Range ChangeNew: 0.5-2.2 mmol/L Previous: 5 -20 mg/[id number] 17:28:00 Test Item Value Reference Range Comments D-DIMER QUANTITATIVE (BEAKER) (test kuef=582) 1.15 MG/L FEU <0.50 Intended Use: The D-Dimer Assay can be used to aid in the diagnosis of Deep Vein Thrombosis (DVT) and Pulmonary Embolism Disease (PED).In patients with low pre-test probability, various studies concerning STA Liatest D-dimer test have reported that with a cutoff value of 0.50 MG/L FEU, the Negative Predictive Value (NPV) regarding the exclusion of thrombosis is within 95-100% range.CBC W/ PLT COUNT & AUTO [id number] 17:22:00 Test Item Value Reference Range Comments WHITE BLOOD CELL COUNT (BEAKER) (test utdh=668) 9.5 K/ L 3.5-10.5 RED BLOOD CELL COUNT (BEAKER) (test znsh=038) 4.49 M/ L 3.93-5.22 HEMOGLOBIN (BEAKER) (test arjg=420) 14.1 GM/DL 11.2-15.7 HEMATOCRIT (BEAKER) (test zigm=483) 46.8 % 34.1-44.9 MEAN CORPUSCULAR VOLUME (BEAKER) (test hgpt=159) 104.2 fL 79.4-94.8 MEAN CORPUSCULAR HEMOGLOBIN (BEAKER) (test 31.4 pg 25.6-32.2 gsex=378) MEAN CORPUSCULAR HEMOGLOBIN CONC (BEAKER) (test 30.1 GM/DL 32.2-35.5 excd=493) RED CELL DISTRIBUTION WIDTH (BEAKER) (test 13.9 % 11.7-14.4 bcjn=627) PLATELET COUNT (BEAKER) (test joyw=435) 120 K/CU MM 150-450 MEAN PLATELET VOLUME (BEAKER) (test vzel=032) 12.6 fL 9.4-12.3 NUCLEATED RED BLOOD CELLS (BEAKER) (test 0 /100 WBC 0-0 mdnc=904) NEUTROPHILS RELATIVE PERCENT (BEAKER) (test 86 % feka=760) LYMPHOCYTES RELATIVE PERCENT (BEAKER) (test 6 % xtet=910) MONOCYTES RELATIVE PERCENT (BEAKER) (test 8 % clci=389) EOSINOPHILS RELATIVE PERCENT (BEAKER) (test 0 % lfai=684) BASOPHILS RELATIVE PERCENT (BEAKER) (test 0 % kmxs=700) NEUTROPHILS ABSOLUTE COUNT (BEAKER) (test 8.14 K/ L 1.56-6.13 lipg=904) LYMPHOCYTES ABSOLUTE COUNT (BEAKER) (test 0.54 K/ L 1.18-3.74 iiyk=668) MONOCYTES ABSOLUTE COUNT (BEAKER) (test 0.76 K/ L 0.24-0.36 lccu=305) EOSINOPHILS ABSOLUTE COUNT (BEAKER) (test 0.00 K/ L 0.04-0.36 ltvn=789) BASOPHILS ABSOLUTE COUNT (BEAKER) (test 0.01 K/ L 0.01-0.08 pfkv=736) IMMATURE GRANULOCYTES-RELATIVE PERCENT (BEAKER) 0 % 0-1 (test tojv=1989) RAD, CHEST, 1 VIEW, NON [id number] 16:54:00Post-intubationReason for exam:-& gt;intubatedShould this be performed at the bedside?->YesFINAL REPORT INDICATION: intubated TECHNIQUE: Chest radiograph, single view, portable technique. FINDINGS / IMPRESSION: Endotracheal tube terminates at the yolanda. Recommend withdrawing the tube 2 cm. Nasogastric tube terminates in the stomach. Catheter projecting over the righthemithorax with a metallic tip projecting over the neck, may represent a shunt. Heart shadow is prominent which may be related to portable technique. No pulmonary venous congestion, edema, or pleural effusion demonstrated. No consolidation or pneumothorax. Osseous structures unremarkable. Signed: Ace Toure MDReport Verified Date/Time: 04/08/2018 16:54:28 Reading Location: [facility] Diagnostic Imaging Reading Room - [place] [address] BLOOD GAS, [id number] 16:39:00 Test Item Value Reference Range Comments PH ARTERIAL (BEAKER) (test dkhq=072) 7.43 7.35-7.45 PCO2 ARTERIAL (BEAKER) (test btdz=686) 46 mmHg 35-45 PO2 ARTERIAL (BEAKER) (test xxsw=803) 90 mmHg 80-90 O2 SATURATION ARTERIAL (BEAKER) (test awdu=699) 97.3 % 96.0-97.0 HCO3 ARTERIAL (BEAKER) (test exbu=502) 30 mmol/L 21-29 BASE EXCESS ARTERIAL (BEAKER) (test mjkj=689) 4.7 mmol/L -2.0-3.0 PATIENT TEMPERATURE (BEAKER) (test pbnj=6837) 36.0 C FIO2 (BEAKER) (test tadv=4301) 30.0 % Following Spontaneous Breather Trial (SBT).
[2019-05-01] MEDS ORDERED: VANCOMYCIN/NS 1 gm 1 GM/250 ML BAG IV ONE (17:30)
[2019-05-01] MEDS ORDERED: CEFEPIME 1 GM/100 ML BAG IV ONE (17:33)
--- NOTE | 2019-05-01 17:58 | ER ---
Nurse's Notes [facility] Name: Cira Tellez Age: 43 yrs Sex: Female : 1975 Arrival Date: 05/01/2019 Time: 17:03 Bed 4 Private MD: Diagnosis: Pressure ulcer of unspecified buttock, stage 4 Presentation: 05/01 17:20 Presenting complaint: Significant other states: home health nurse states pt has chronic iw sacral ulcer that appears to have change din color and odor, pt is quadriplegic, bed bound, s/p TBI/CVA, on home vent, pt A\\T\\OX4, denies feeling achy or increased weakness. Transition of care: patient was not received from another setting of care. Onset of symptoms was May 01, 2019. 17:20 Method Of Arrival: EMS: [facility] iw 17:20 Acuity: EDGARDO 3 iw 17:22 Acuity: EDGARDO 3 sg 17:25 Risk Assessment: Do you want to hurt yourself or someone else? Patient reports no iw desire to harm self or others. Initial Sepsis Screen: Does the patient meet any 2 criteria? No. Patient's initial sepsis screen is negative. Does the patient have a suspected source of infection?. Care prior to arrival: None. 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 - Social history:: Smoking status: Patient/guardian denies using tobacco. - Ebola Screening: : Patient negative for fever greater than or equal to 101.5 degrees Fahrenheit, and additional compatible Ebola Virus Disease symptoms Patient denies exposure to infectious person Patient denies travel to an Ebola-affected area in the 21 days before illness onset No symptoms or risks identified at this time. Screenin:09 Abuse screen: Denies threats or abuse. Nutritional screening: No deficits noted. tr5 Tuberculosis screening: No symptoms or risk factors identified. Fall Risk None identified. Assessment: 18:09 General: Appears uncomfortable, Behavior is calm, cooperative. Pain: Complains of pain tr5 in buttocks. Neuro: Level of Consciousness is awake, alert, obeys commands, Oriented to person, place, time. Cardiovascular: Heart tones present Capillary refill < 3 seconds Pulses are all present. Respiratory: Airway via trache Breath sounds are clear bilaterally. GI: No signs and/or symptoms were reported involving the gastrointestinal system. : Mary in place. EENT: No signs and/or symptoms were reported regarding the EENT system. Derm: Decubitus located on sacrum. Musculoskeletal: No signs and/or symptoms reported regarding the musculoskeletal system. 19:00 General: Appears in no apparent distress. comfortable, Behavior is calm, cooperative, rr5 appropriate for age. 19:00 Reassessment: IV cannula infiltrated positive swelling and cold to touch. IV cannula rr5 removed. Pain: Denies pain. Neuro: Level of Consciousness is awake, alert, obeys commands, Oriented to person, place, time. Cardiovascular: Capillary refill < 3 seconds Patient's skin is warm and dry. Respiratory: Airway via trache Respiratory effort is even, unlabored, Respiratory pattern is regular, symmetrical, Breath sounds are clear bilaterally. GI: No signs and/or symptoms were reported involving the gastrointestinal system. : Mary in place. EENT: No signs and/or symptoms were reported regarding the EENT system. Derm: Decubitus located on sacrum approximately 2.6 cm to 7.5 cm is stage IV. Musculoskeletal: quadriplegic. 19:52 Reassessment: Marlene RN called back and said wait for her to call back she is confirming rr5 to landscape supervisor if where to transfer the patient. 20:15 Reassessment: Patient appears in no apparent distress at this time. patient will go to rr5 ICU instead of medical surgical floor. 20:40 Reassessment: Patient appears in no apparent distress at this time. Patient is alert, rr5 oriented x 3, equal unlabored respirations, skin warm/dry/pink. transfer to ICU tracheostomy connected to mechanical ventilator. vitally stable, no complaints made. assisted by RT. Vital Signs: 17:18 BP 110 / 63; Pulse 57 MON; Resp 16; Temp 97.6; Pulse Ox 99% on 50% FiO2 ETT vent; ph 18:46 BP 109 / 57; Pulse 60; Resp 17 A; Pulse Ox 98% on 50% FiO2 ETT vent; tr5 20:00 BP 95 / 60; Pulse 85; Resp 17; Temp 98.3; Pulse Ox 97% on 50% FiO2 ETT vent; rr5 20:40 BP 110 / 64; Pulse 96; Resp 18; Pulse Ox 96% on ETT vent; rv 17:18 pt has trach and is on a Vent pcb designer ph 20:00 tracheostomy rr5 ED Course: 17:03 Patient arrived in ED. iw 17:04 Kraig Delgado MD is Attending Physician. kdr 17:08 Sonny Tellez RN is Primary Nurse. tr5 17:15 Initial lab(s) drawn, by wy, sent to lab. First set of blood cultures drawn by me. tr5 17:19 Arm band placed on. ph 17:20 Inserted saline lock: 22 gauge in right forearm, using aseptic technique. tr5 17:22 Triage completed. sg 17:35 Second set of blood cultures drawn by me. tr5 17:57 Shailesh Barrera MD is Hospitalizing Provider. kdr 18:07 Urine Dipstick--Ancillary (enter results) Sent. tr5 18:09 Bed in low position. Call light in reach. Side rails up X 1. tr5 18:20 Wound culture swab sent to lab. sg 18:59 EKG done, by ED staff, reviewed by Kraig Delgado MD. mh5 19:00 IV discontinued, intact, bleeding controlled, Pressure dressing applied, positive rr5 infiltration. 19:12 Chest Single View XRAY In Process Unspecified. EDMS 19:57 Missed attempt(s): 22 gauge Bleeding controlled, band aid applied, catheter tip intact. ar5 20:02 Inserted saline lock: 22 gauge in left forearm, using aseptic technique. rv 20:25 No provider procedures requiring assistance completed. Inserted saline lock: 24 gauge rr5 in left hand, using aseptic technique. Patient admitted, IV remains in place. intact, No redness/swelling at site. Administered Medications: 19:01 Drug: Cefepime 1 grams Route: IVPB; Rate: 200 ml/hr; Infused Over: 30 mins; Site: right tr5 forearm; 20:00 Follow up: IV Status: Completed infusion rv 20:03 Drug: vancoMYCIN 1 grams Route: IVPB; Infused Over: 2 hrs; Site: left forearm; rv 20:42 Follow up: IV Status: Infusion continued upon admission rv Outcome: 17:58 Decision to Hospitalize by Provider. kdr 20:33 Admitted to ICU accompanied by nurse, via stretcher, room ICU 8, with oxygen, on rr5 monitor, with chart, Report called to gavin 20:33 Condition: stable 20:33 Instructed on the need for admit. 20:42 Patient left the ED. rv Signatures: Dispatcher [employer] EDJaguar Kellogg, RN RN Kraig Pena MD MD kdr Williams, Irene, RN RN Georgia Shine RN Nadia De Santiago ph Volodymyr Way RN RN rv Roque, Raymond, RN RN rr5 Mahnaz Mccoy Tommie RN RN tr5
--- NOTE | 2019-05-01 17:58 | EDPHYS ---
Physician Documentation [facility] Name: Cira Tellez Age: 43 yrs Sex: Female : 1975 Arrival Date: 05/01/2019 Time: 17:03 Bed 4 Private MD: ED Physician Kraig Delgado HPI: 05/01 17:10 This 43 yrs old Female presents to ER via Unassigned with complaints of kdr worsening decubitus ulcer . 17:10 The gasket winder was change the patient's decubitus ulcer today and noted a foul smelling kdr odder, increased size and drainage. The patient does not admit to feeling ill nor of having a fever.. Onset: The symptoms/episode began/occurred gradually, 1 week(s) ago. Severity of symptoms: At their worst the symptoms were moderate in the emergency department the symptoms are unchanged. Not as bad as today. The patient has not recently seen a physician. 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 - Social history:: Smoking status: Patient/guardian denies using tobacco. - Ebola Screening: : Patient negative for fever greater than or equal to 101.5 degrees Fahrenheit, and additional compatible Ebola Virus Disease symptoms Patient denies exposure to infectious person Patient denies travel to an Ebola-affected area in the 21 days before illness onset No symptoms or risks identified at this time. ROS: 17:10 Constitutional: Negative for fever, chills, and weight loss, Eyes: Negative for injury, kdr pain, redness, and discharge. 17:10 Skin: Positive for avulsion, ulceration, of the coccyx and gluteal cleft. Exam: 17:10 Constitutional: This is a well developed, well nourished patient who is awake, alert, kdr and in no acute distress. Head/Face: Normocephalic, atraumatic. Neck: The patient has a tacheoxtomy that his attached to a vent. She is in no respiratory distress and the trach site appears appropriate Chest/axilla: Normal chest wall appearance and motion. Nontender with no deformity. No lesions are appreciated. Cardiovascular: Regular rate and rhythm with a normal S1 and S2. No gallops, murmurs, or rubs. Normal PMI, no JVD. No pulse deficits. Respiratory: Lungs have equal breath sounds bilaterally, clear to auscultation and percussion. No rales, rhonchi or wheezes noted. No increased work of breathing, no retractions or nasal flaring. Abdomen/GI: Soft, non-tender, with normal bowel sounds. No distension or tympany. No guarding or rebound. No evidence of tenderness throughout. Back: No spinal tenderness. No costovertebral tenderness. Full range of motion. Neuro: Awake and alert, GCS 15, oriented to person, place, time, and situation. Cranial nerves II-XII grossly intact. The patient is a quaadraplegic with minimal movement of her arms 17:10 Skin: Appearance: Stage 4 decubitus ulcer on the coccyx. 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 kdr Counseling: I had a detailed discussion with the patient and/or guardian regarding: the historical points, exam findings, and any diagnostic results supporting the discharge/admit diagnosis, lab results, radiology results, the need for further work-up and treatment in the hospital. 17:58 Patient medically screened. kdr 05/01 17:08 Order name: Wound Culture kdr 05/01 17:08 Order name: Basic Metabolic Panel kdr 05/01 17:08 Order name: Blood Culture Adult (2) kdr 05/01 17:08 Order name: CBC with Diff kdr 05/01 17:08 Order name: Ckmb kdr 05/01 17:08 Order name: CPK kdr 05/01 17:08 Order name: Lactate; Complete Time: 18:22 kdr 05/01 17:08 Order name: LFT's kdr 05/01 17:08 Order name: Lipase kdr 05/01 17:08 Order name: Procalcitonin kdr 05/01 17:08 Order name: Protime (+inr) kdr 05/01 17:08 Order name: Ptt, Activated kdr 05/01 17:08 Order name: Troponin (emerg Dept Use Only) kdr 05/01 17:08 Order name: Urine Microscopic Only kdr 05/01 17:08 Order name: Chest Single View XRAY kdr 05/01 17:08 Order name: Accucheck; Complete Time: 17:45 kdr 05/01 17:08 Order name: Cardiac monitoring; Complete Time: 17:45 [facility] 05/01 17:08 Order name: EKG - Nurse/Tech; Complete Time: 19:00 [facility] 05/01 17:08 Order name: IV Saline Lock - Large Bore; Complete Time: 17:45 [facility] 05/01 17:08 Order name: Labs collected and sent; Complete Time: 17:45 [facility] 05/01 17:08 Order name: O2 Per Protocol; Complete Time: 17:10 [facility] 05/01 17:08 Order name: O2 Sat Monitoring; Complete Time: 17:10 [facility] 05/01 17:08 Order name: Urine Dipstick-Ancillary (obtain specimen); Complete Time: 18:07 [facility] 05/01 17:51 Order name: Glucose, Ancillary Testing; Complete Time: 17:54 EDMS 05/01 17:52 Order name: Labs - recollect needed; Complete Time: 18:22 iw 05/01 17:53 Order name: Glucose, Ancillary Testing [facility] 05/01 18:06 Order name: Urine Dipstick--Ancillary (enter results); Complete Time: 18:22 ms 05/01 18:29 Order name: Urine Culture EDMS Administered Medications: 19:01 Drug: Cefepime 1 grams Route: IVPB; Rate: 200 ml/hr; Infused Over: 30 mins; Site: right tr5 forearm; 20:00 Follow up: IV Status: Completed infusion rv 20:03 Drug: vancoMYCIN 1 grams Route: IVPB; Infused Over: 2 hrs; Site: left forearm; rv 20:42 Follow up: IV Status: Infusion continued upon admission rv Disposition: 05/01/19 17:58 Hospitalization ordered by Shailesh Barrera for Inpatient Admission. Preliminary diagnosis is Pressure ulcer of unspecified buttock, stage 4. - Bed requested for Intensive Care Unit. - Status is Inpatient Admission. rv - Condition is Fair. - Problem is new. - Symptoms are unchanged. UTI on Admission? No Signatures: Dispatcher [employer] EDMS Isabela Desai RN MATT George, Shikha, RN RN dw Kraig Delgado MD MD [facility] Ness Busch RN MATT Georgia Shine RN RN Volodymyr Godwin, RN RN Noah Paula RN RN rr5 Sonny Tellez, RN RN tr5 Corrections: (The following items were deleted from the chart) 18:38 17:58 Hospitalization Ordered by Shailesh Barrera MD for Inpatient Admission. dw Preliminary diagnosis is Pressure ulcer of unspecified buttock, stage 4. Bed requested for Telemetry/MedSurg (Inpatient). Status is Inpatient Admission. Condition is Fair. Problem is new. Symptoms are unchanged. UTI on Admission? No. kdr 19:54 18:38 05/01/2019 17:58 Hospitalization Ordered by Shailesh Barrera MD for Inpatient mw Admission. Preliminary diagnosis is Pressure ulcer of unspecified buttock, stage 4. Bed requested for Telemetry/MedSurg (Inpatient). Status is Inpatient Admission. Condition is Fair. Problem is new. Symptoms are unchanged. UTI on Admission? No. dw 20:42 19:54 05/01/2019 17:58 Hospitalization Ordered by Shailesh Barrera MD for Inpatient rv Admission. Preliminary diagnosis is Pressure ulcer of unspecified buttock, stage 4. Bed requested for Intensive Care Unit. Status is Inpatient Admission. Condition is Fair. Problem is new. Symptoms are unchanged. UTI on Admission? No. mw
[2019-05-01 18:09] LABS: Urine Blood TRACE (NEG); Urine Glucose NEGATIVE (NEG); Urine Protein 1+ (NEG); Urine pH 8.5 (5.0-7.0)
[2019-05-01 18:27] LABS: Urine Bacteria 20-50 /HPF (<20); Urine Culture Reflex Order REFLEXED; Urine RBC <5 /HPF (NONE SEEN); Urine Triple Phosphate Crystal FEW (NONE SEEN)
[2019-05-01 18:28] LABS: Absolute Lymphocytes (CBC) 2.7 K/uL (0.7-4.9); Hematocrit 38.7 % (36.0-45.0); Lymphocytes % 22.6 % (15.3-44.8); MPV 10.4 fL (7.6-11.3); RBC Red Blood Cell Count 4.28 M/uL (3.86-4.86)
[2019-05-01 18:30] LABS: Protime INR 1.02
[2019-05-01 18:51] LABS: ALT/SGPT 122 U/L (12-78); AST/SGOT 84 U/L (15-37); Alkaline Phosphatase 741 U/L (45-117); BUN Blood Urea Nitrogen 29 mg/dL (7-18); Bicarbonate 23 mmol/L (21-32); Bilirubin Direct 0.2 mg/dL (0-0.2); Bilirubin Total 0.3 mg/dL (0.2-1.0); CKMB Creatine Kinase MB 5.2 ng/mL (0.3-3.6); Creatine Phosphokinase 804 U/L (26-192); Glucose Level 88 mg/dL (74-106); Lipase 263 U/L (73-393); Protein, Total 7.6 g/dL (6.4-8.2); Sodium Level 140 mmol/L (136-145); Troponin (Emerg Dept Use Only) < 0.02 ng/mL (0.0-0.045)
--- NOTE | 2019-05-01 19:19 | RAD REPORT ---
EXAM DESCRIPTION: RAD - Chest Single View - 05/01/2019 7:12 pm CLINICAL HISTORY: Decubitus ulcer Chest pain. COMPARISON: Chest Single View dated 04/08/2018; Chest Single View dated 06/18/2017; Chest Single View dated 06/13/2017; CHEST SINGLE VIEW dated 08/26/2014 FINDINGS: Portable technique limits examination quality. The lungs are underinflated grossly clear. The heart is upper limit normal in size. Tracheostomy tube noted.
[2019-05-01] MEDS ORDERED: ONDANSETRON 4 MG/2 ML VIAL IV PRN (20:21)
[2019-05-01] MEDS ORDERED: BACLOFEN 10 MG TAB PO SCH (21:00)
[2019-05-01] MEDS ORDERED: BUPROPION HCL XL 150 MG TAB PO SCH (21:00)
[2019-05-01] MEDS ORDERED: TIZANIDINE 4 MG TABLET PO SCH (21:00)
[2019-05-01] MEDS: OXYBUTYNIN CHLORIDE 5 MG TAB PO SCH ×2 (21:00→22:42)
[2019-05-01] MEDS: NA CHLORIDE 0.9% 1,000 ML IV SCH (22:42)
[2019-05-01] MEDS: Levofloxacin500mg IV 500 MG/100 ML BAG IV SCH (22:42)
[2019-05-01] MEDS ORDERED: MELATONIN 5 MG TABLET PO ONE (23:33)
[2019-05-02] MEDS: MIDODRINE HCL 5 MG TABLET PO SCH ×3 (00:46→18:03)
[2019-05-02] MEDS: BUSPIRONE HCL 5 MG TABLET PO SCH ×4 (00:46→20:09)
--- NOTE | 2019-05-02 04:47 | HP ---
Date of Admission: 05/01/2019 Reason For Admission: Infected decubital ulcer. History Of Present Illness: This is a 43-year-old female with history of multiple medical problems i ncluding spinal cord injury, quadriplegia, COUNTY AGENT shunt, who presented to emergency room due to progressi ve worsening of decubitus ulcer with foul-smelling odor, ulcer being increased in size, depth, and dr walt. She denies any fever, chills, night sweats. She thought her symptoms got worse progressivel y. She was brought by her home health nurse to the emergency room. There she was evaluated and she continued to have a discharge from her wound as well as foul swelling. Her lab showed CBC with hemog lobin of 13, white blood cells 12.1, platelet of 278. Chemistry showed within normal except for chlo ride of 110, BUN of 29, ALT of 122, alkaline phosphatase 741, creatine kinase of 804, and decision wa s made to admit her for surgical eval for wound care debridement. Currently, she is lying in bed. S he looks comfortable. Review of Systems: Otherwise as below. Past Medical History: Significant for spinal cord injury, cardioplegia, COUNTY AGENT shunt, depression. Past Surgical History: Significant for COUNTY AGENT shunt, knee surgery, splenectomy, right knee and left ankl e surgery. Social History: She lives with her son. 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 She has 2 kids. She does not drink smoke or use any drugs. Allergies: NONE. Family History: Both father and mother alive and healthy. Review of Systems: Patient denies any fever, chills, night sweats, dizziness, lightheaded, headache, blurred vision. Th ere was no change in weight or appetite. She does not have any cough or sputum. No chest pain. No palpitations, PND, orthopnea, dyspnea on exertion. No nausea or vomiting. She is currently on the v ent. Denies any history of depression, anxiety, seizure or stroke. Physical Examination: Vital Signs: Blood pressure is 110/63, respiratory rate is 16, pulse 57, temperature 97.6. She is s aturating 50% on portable vent with a trach. General: She is alert and oriented x3. Well developed, able to talk. Does not look in any distress . HEENT: Atraumatic, normocephalic. PERRLA. Oral mucosa moist. Neck: Supple. Tracheostomy midline connected to the vent. Chest: Clear to auscultation. Good air entry with diffuse rhonchi. Heart: Regular rate and rhythm. S1, S2 normal. No gallop or murmur. Abdomen: Soft, nontender. No masses. No hepatosplenomegaly. Positive bowel sounds. Extremities: Patient is quadriplegic. She is able to move her left foot a little bit and left arm. Neurologic: Cranial nerve exam 2 through 12 intact. Normal sensation and her cranial nerve area. Skin: With large open wound, foul smelling. I did not do the measurement, but most likely stage IV. Laboratory Data: Labs today showed CBC within normal limit except for white blood cells of 12.1, PT/ INR within normal. Chemistry was normal except chloride 110, AST of 84, ALT of 122, alkaline phospha tase of 741, CK of 800. CK-MB of 5.2. Procalcitonin is pending. Assessment And Plan: This is a 43-year-old female with past medical history of multiple medical prob lems, brought to the emergency room due to progressive worsening of her decubitus ulcer which was fou l-smelling. 1.Stage IV decubital ulcer. Looks very infected. We will admit patient to the floor. Consult Marian Noriega for debridement as well as General Surgery. We will start patient on broad-spectrum antibioti c with Levaquin and vancomycin. Obtain wound culture. 2.History of chronic respiratory failure with hypoxemia, on the vent currently. We will continue wi th that. 3.Spinal cord injury. The patient is quadriplegic, chronic. 4.We will continue home medication for pain control and spasm like baclofen. 5.Depression. Patient on Wellbutrin, will continue that. 6.Deep vein thrombosis prophylaxis. Will not start that yet if the patient may need to go to edwardo montemayor MT/TASHI Voice ID: [id number]
[2019-05-02 05:15] LABS: Absolute Lymphocytes (CBC) 3.3 K/uL (0.7-4.9); Basophils % 0.9 % (0-1.3); Hematocrit 36.5 % (36.0-45.0); Lymphocytes % 28.1 % (15.3-44.8); RBC Red Blood Cell Count 3.98 M/uL (3.86-4.86)
[2019-05-02 05:32] LABS: BUN Blood Urea Nitrogen 25 mg/dL (7-18); Bicarbonate 25 mmol/L (21-32); Glucose Level 95 mg/dL (74-106); Potassium 3.8 mmol/L (3.5-5.1); Sodium Level 141 mmol/L (136-145)
[2019-05-02] MEDS: BACLOFEN 10 MG TAB PO SCH ×5 (05:55→23:00)
[2019-05-02] MEDS: VANCOMYCIN/NS 1 gm 1 GM/250 ML BAG IVPB SCH ×2 (09:23→20:09)
[2019-05-02] MEDS ORDERED: INFLUENZA VACCINE (for 3y+) 0.5 ML DOSE IMVAC ONE (12:00)
[2019-05-02] MEDS: NA CHLORIDE 0.9% 1,000 ML IV SCH ×2 (14:10→23:01)
--- NOTE | 2019-05-02 14:27 | P.CNS ---
Date of Consult: 05/02/19 PC: This 43-year-old female presents emergency room with a sacral wound and decubitus, and not feeling HPC: Patient is paraplegic, has had area on her sacrum that was noted be dark black by the visiting nurses. She did not feel well when came to the emergency room for evaluation treatment PMH: Patient has a sacral wound, was scheduled for wound care to see her on Friday. PSHx: Previous wound vacs SOC: No known drug allergies SYS REVIEW: No cough, wheeze, shortness of breath. No chest pain or palpitations. Otherwise feels quite well today. O/E awake alert vital signs are stable HEENT: Within normal limits, has a trach Chest: Chest movement equal bilaterally ABD: Soft LOCO: Has an open wound on her sacrum. There is chronic granulation and old scar tissue in this area. I do not see any dark necrotic material. DATA: Within normal limits IMPRESSION: Sacral wound PLAN: The patient is a 1 to dry dressings for now. I will have her evaluated by wound care
[2019-05-02 14:31] LABS: CKMB Creatine Kinase MB 4.6 ng/mL (0.3-3.6)
--- NOTE | 2019-05-02 18:20 | PN ---
Subjective: Currently patient is lying in bed. She looks comfortable. She has no chest pain or abd ominal pain. She had just a bowel movement of soft stool. She has a good appetite. Objective: Vital Signs: Blood pressure , respiratory rate 16, pulse 53, temperature 97.6. General: The patient is alert and oriented x3. Does not look in any distress. HEENT: Atraumatic, normocephalic. PERRLA. Oral mucosa is moist. Neck: Supple. No JVD. No bruits. Chest: Diffuse rhonchi. Heart: Regular rate and rhythm. S1, S2 normal. No gallop or murmur. Abdomen: Soft, nontender. No masses. No hepatosplenomegaly. Positive bowel sounds. Extremities: No clubbing, cyanosis, or edema. Neurologic: Exam deferred today. SKIN: With large open wound on her sacral area. Continues to be foul smelling. Laboratory Data: Labs today showed CBC with white blood cells down to 11.6, otherwise normal. Chemi stry within normal, except for chloride 109, BUN of 25. 0.05. LFTs were not done, so I o rdered for tomorrow morning as well as CK and CK-MB were not done. Assessment And Plan: A 43-year-old female with history of multiple medical problems, admitted with p rogressive worsening of her decubitus coccygeal ulcer. 1.Stage IV decubital ulcer. Currently, on broad-spectrum IV antibiotic with Levaquin and vancomycin . Surgery consult from Dr. Argueta is still pending to see if patient will need debridement versus j ust wound care. Given on the decision, we may need to consult with ID to find antibiotic needed. 2.History of chronic respiratory failure with hypoxemia on the vent, continue. 3.Spinal cord injury. Patient is quadriplegic chronically. 4.Continue symptomatic treatment for spasm and pain with home medications baclofen, Zanaflex. 5.Depression. On Wellbutrin, will continue. 6.Deep vein thrombosis prophylaxis. On hold pending decision about surgery. 7.Elevated liver enzymes. I will recheck LFTs in the morning. 8.Elevated CK and CK-MB. Etiology not sure. I will reorder CK and CK-MB, and follow the cereal to make sure patient does not have rhabdomyolysis. MARIAH/TASHI Voice ID: [id number] Report ID: [id number]
[2019-05-02] MEDS ORDERED: MELATONIN 5 MG TABLET PO ONE (20:59)
[2019-05-02] MEDS: Levofloxacin500mg IV 500 MG/100 ML BAG IV SCH (22:10)
[2019-05-02 23:10] VITALS: BMI 21.7
[2019-05-03] MEDS: MIDODRINE HCL 5 MG TABLET PO SCH ×3 (00:04→17:16)
[2019-05-03 03:55] VITALS: O2SAT 92
[2019-05-03] MEDS: BACLOFEN 10 MG TAB PO SCH ×3 (05:46→17:15)
[2019-05-03] MEDS: NA CHLORIDE 0.9% 1,000 ML IV SCH ×2 (05:47→12:43)
[2019-05-03 06:05] LABS: ALT/SGPT 90 U/L (12-78); AST/SGOT 50 U/L (15-37); Albumin 2.7 g/dL (3.4-5.0); Alkaline Phosphatase 620 U/L (45-117); BUN Blood Urea Nitrogen 11 mg/dL (7-18); Bicarbonate 25 mmol/L (21-32); Bilirubin Total 0.3 mg/dL (0.2-1.0); CKMB Creatine Kinase MB 3.2 ng/mL (0.3-3.6); Creatine Phosphokinase 258 U/L (26-192); Glucose Level 99 mg/dL (74-106); Potassium 3.9 mmol/L (3.5-5.1); Protein, Total 6.6 g/dL (6.4-8.2); Sodium Level 144 mmol/L (136-145)
[2019-05-03] MEDS ORDERED: VANCOMYCIN 1.25 GM in NA CHLORIDE 0.9% 250 ML IV SCH (08:00)
[2019-05-03] MEDS: BUSPIRONE HCL 5 MG TABLET PO SCH ×2 (09:07→15:30)
--- NOTE | 2019-05-03 09:41 | EKG ---
Test Date: 2019-05-01 Test Time: 18:53:31 Metal Rolling Mill Operator: BRY MEASUREMENT RESULTS: Intervals: Rate: 51 CT: 142 QRSD: 78 QT: 450 QTc: 414 [place]: P: 63 CT: 142 QRS: 44 T: 57 INTERPRETIVE STATEMENTS: Sinus bradycardia Canno rule out septal infarct, age undetermined Abnormal ECG Compared to ECG 04/08/2018 11:27:26 Possible Myocardial infarct finding now present Sinus rhythm no longer present ST (T wave) deviation no longer present Electronically Signed On 05-03-19 09:40:57 WASTE MINIMIZATION TECHNICIAN by Maldonado Hendrix
--- NOTE | 2019-05-03 15:15 | CON ---
History Of Present Illness: This is a 43-year-old female who was brought in because of home health n greg saw possible worsening of her sacral wound, which she has been treated with wound VAC at home. Patient denies any headache, nausea, vomiting, chest pain, abdominal pain, constipation, or diarrhea. 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 Patient denies any other problems. Currently, she is getting treated with Leva emily and vancomycin and wet-to-dry dressing to the wound. Urine cultures are growing Klebsiella pneu moniae, sensitive to quinolones. Past Medical History: As per HPI. Past Surgical History: FLAT BED KNITTER shunt, knee surgery, splenectomy, right knee and left ankle surgeries. Social History: Lives with son. 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 Nonsmoker, nondrinker. Family History: Noncontributory. Medications: Vancomycin and Levaquin. See MAR for other medications. Allergies: NO KNOWN DRUG ALLERGIES. Review of Systems: A 10-point review was performed. Physical Examination: General: This is a 43-year-old female, lying in bed, not in any acute cardiopulmonary distress. Vital Signs: Temperature 98, pulse 57, respirations 16, blood pressure 111/40. HEENT: Unremarkable. Neck: Supple. Trach in place. Lungs: Clear to auscultation. Heart: S1, S2. Regular. Abdomen: Soft. Bowel sounds present. Extremities: No edema. Coccyx-sacral area showed good granulation tissue with a small amount of nec rotic area. No foul smell or discharge noted at the wound site. Laboratory Data: Shows 11.6 WBC, hemoglobin 12.2, platelets are 282. Chemistry shows sodium 144, po tassium 3.9, chloride 115, bicarb 25, BUN 11, creatinine 0.4, glucose 99. Creatine kinase is elevate d to 804 down to 258. Liver enzymes are also elevated and albumin is 2.7. Assessment And Plan: 43-year-old quadriplegic coming in with evaluation of coccyx-sacral stage IV wo und worsening and urinary tract infection secondary to Klebsiella pneumoniae, which is being treated. We will recommend to apply Santyl and wound VAC to the wound site and have evaluated by the wound c are team as an outpatient. Continue antibiotic for urinary tract infection for 5 days. Make sure Fo matthew is being changed on recommended monthly basis. Continue monitoring for signs of infection. We w ill follow the patient closely. Thank you Dr. Eden for consult. YUE/TASHI Voice ID: [id number] Report ID: [id number]
[2019-05-03 17:09] VITALS: BP 97/57
[2019-05-03 17:53] VITALS: TEMP 98.1
[2019-05-03] MEDS ORDERED: Levofloxacin500mg IV 500 MG/100 ML BAG IV SCH (21:00)
[2019-05-03] MEDS ORDERED: JUVEN PACKET PO SCH (21:00)
--- NOTE | 2019-05-04 00:49 | DS ---
Date of Discharge: 05/03/2019 Consultants: 1.Dr. Lomas with General Surgery. 2.Dr. Perrin with Infectious Disease. Admitting Diagnoses: 1.Stage IV decubital ulcer. 2.History of chronic respiratory failure with hypoxemia on ventilator. 3.Spinal cord injury, quadriplegic. 4.Major depressive disorder on Wellbutrin. Discharge Diagnoses: 1.Stage IV decubitus ulcer present on admission secondary to gram-negative rods. 2.Chronic respiratory failure with hypoxemia on ventilator. 3.Acute cystitis without hematuria secondary to Klebsiella pneumonia. 4.Elevated liver enzymes trending down. 5.Elevated CK level, possibly rhabdomyolysis, improving. 6.Spinal cord injury, now quadriplegic. 7.Depression, major depressive disorder. Hospital Course: Patient is a 43-year-old female with past medical history of spinal cord injury, wh o is quadriplegic, has chronic hypoxia on ventilator, lives at home with home health that comes in 16 hours a day, has a APPEALS NURSE shunt, also indwelling catheter, comes in with foul-smelling odor and decubitu s ulcer of the sacrum that seems to be infected. Patient had elevated white blood cell count of 12.1 , had elevation of CK level at 804. Troponins were negative. Patient was started on broad-spectrum IV antibiotics. General Surgery was consulted for possible need for debridement. Dr. Lomas evalua duc the patient, did not recommend any intervention at this time. Continued wound care. Dr. Perrin with Infectious Disease was also consulted. Patient was recommended to be on Santyl and to continue wound dressing. Patient does have a wound VAC thus being applied at home. Overall patient did well. Her white cell count decreased, did not have any signs of sepsis. Her liver enzymes and CK level a lso improved. CK level has nearly normalized. Patient did have positive UA and urine culture grew o ut Klebsiella pneumonia for which she was treated. Patient was then cleared for discharge and was se nt home in a stable condition. Activity: Fall precautions. Medications: As per medication reconciliation list. Bactrim for a course of antibiotics for UTI. C ontinue Santyl and wound care for the sacral wound. Diet: Regular diet. Patient does have home health care and wound care set up at home for ventilation management and for w ound VAC. Physical Examination: General: Awake, alert, and oriented x3. Does not appear to be any distress. CV: S1, S2. Respiratory: Moving air well bilaterally. Abdomen: Abdomen is soft, nontender, nondistended. Positive bowel sounds. Extremities: No clubbing or cyanosis. Extremities: Patient has lower extremity edema. Neuro: Quadriplegia. Total time spent discharging the patient was 41 minutes. GUME Voice ID: [id number] Report ID: [id number]
[2019-05-04] MEDS ORDERED: ESCITALOPRAM 20 MG TAB PO SCH (09:00)
[2019-05-04] MEDS ORDERED: PANTOPRAZOLE 40MG TABLET PO SCH (09:00)
--- NOTE | 2019-05-05 13:20 | P.PN ---
Date of Service: 05/05/19 Called by microbiology lab regarding updated culture results. Pt has proteus ESBL producing both in urine and sacral wound. Spoke to ID Dr. Perrin he does not recommend systemic treatment as patient has indwelling dennison catheter and is colonized. She only had 5-10 WBC in the urine. Regarding the sacral wound, pt will continue with local wound treatment. Patient to follow up w ID in 1 week and PCP as soon as possible. Patient updated. She has follow up w urologist next week.
== END 2019-05-03 18:20 | disposition home or self-care (01) | DRG 592 ==
LOC: ER 16:57 → 2ND 20:01 → 3RD-ICU 20:12
PROVIDERS: ADMIT Internal Medicine; ATTEND Internal Medicine
PROC: 5A1945Z Respiratory Ventilation, 24-96 Consecutive Hours (ICD-10-PCS; principal; 2019-05-01)
DX: L89.154 Pressure ulcer of sacral region, stage 4 (principal); G82.50 Quadriplegia, unspecified; Z16.12 Extended spectrum beta lactamase (ESBL) resistance; N30.00 Acute cystitis without hematuria; J96.11 Chronic respiratory failure with hypoxia; M62.82 Rhabdomyolysis; L08.89 Other specified local infections of the skin and subcutaneous tissue; B96.4 Proteus (mirabilis) (morganii) as the cause of diseases classified elsewhere; B96.1 Klebsiella pneumoniae [K. pneumoniae] as the cause of diseases classified elsewhere; F32.9 Major depressive disorder, single episode, unspecified; Z87.828 Personal history of other (healed) physical injury and trauma; R74.8 Abnormal levels of other serum enzymes; Z93.0 Tracheostomy status
CPT/HCPCS: 36415; 71045; 80048; 80053; 80076; 80202; 81003; 81015; 82550; 82553; 82947; 83605; 83690; 84145; 84484; 85025; 85610; 85730; 87040; 87070; 87077; 87086; 87088; 87186; 87205; 90471; 93005; 99251; 99285; J0692; J3370; J7030; Q2035

== ENCOUNTER 2019-05-10 12:17 | Inpatient (IN) | payer OTHER ==
--- OUTSIDE RECORDS SUMMARY | 2019-05-10 12:21 | XMS REPORT ---
:1975 [facility] [address] [place] [address] [place] [id number] Care Team Providers Name Role Phone JAMI SALAS Unavailable Unavailable Problems This patient has no known problems. Allergies, Adverse Reactions, Alerts This patient has no known allergies or adverse reactions. Medications This patient has no known medications. Encounters Start End Encounter Admission Attending Care Care Encounter Date/Time Date/Time Type Type Clinicians Facility Department ID 2019-01-05 2019-01-04 Inpatient [facility] [id number] 00:02:00 22:59:00 Results Test Description Test Time Test Comments Text Results Atomic Results Result Comments BRONCHIAL CULTURE + GRAM STAIN 2018-04-15 23:02:00 Test Item Value Reference Range Comments CULTURE (BEAKER) (test Organism(s) under bgoq=1976) evaluation Clindamycin (test code=10) Erythromycin (test code=4) Linezolid (test code=40) Nitrofurantoin (test code=23) Oxacillin (test code=14) Rifampin (test code=43) Tetracycline (test code=2) Trimethoprim + Sulfamethoxazole (test code=47) Vancomycin (test code=13) CULTURE (BEAKER) (test <1+ Staphylococcus aureus dgau=4294) GRAM STAIN RESULT (BEAKER) <1+ White blood cells seen (test cekp=1258) GRAM STAIN RESULT (BEAKER) No organisms seen (test ktaj=787038) BLOOD [id number] 23:01:00 Test Item Value Reference Range Comments CULTURE (BEAKER) (test sugb=6498) No growth in 5 days BLOOD [id number] 23:01:00 Test Item Value Reference Range Comments CULTURE (BEAKER) (test kpbj=1902) No growth in 5 days POCT-GLUCOSE [id number] 11:55:00 Test Item Value Reference Range Comments POC-GLUCOSE METER (BEAKER) 125 mg/dL 70-110 TESTED AT [address] (test ouyk=9856) [facility] [address] BLOOD GAS, [id number] 06:46:00 Test Item Value Reference Range Comments PH ARTERIAL (BEAKER) (test zqsa=775) 7.40 7.35-7.45 PCO2 ARTERIAL (BEAKER) (test yzoi=644) 63 mmHg 35-45 PO2 ARTERIAL (BEAKER) (test qcpp=457) 224 mmHg 80-90 O2 SATURATION ARTERIAL (BEAKER) (test wlfl=973) 99.4 % 96.0-97.0 HCO3 ARTERIAL (BEAKER) (test azhb=013) 38 mmol/L 21-29 BASE EXCESS ARTERIAL (BEAKER) (test hyky=748) 10.5 mmol/L -2.0-3.0 PATIENT TEMPERATURE (BEAKER) (test ajqj=5425) 37.5 C FIO2 (BEAKER) (test bkyu=8782) 50.0 % POCT-GLUCOSE [id number] 06:11:00 Test Item Value Reference Range Comments POC-GLUCOSE METER (BEAKER) 105 mg/dL 70-110 TESTED AT [address] (test dkrj=0763) [place] [id number] BASIC METABOLIC [id number] 05:58:00 Test Item Value Reference Range Comments SODIUM (BEAKER) (test 148 meq/L 136-145 ydng=791) POTASSIUM (BEAKER) (test 4.8 meq/L 3.5-5.1 Specimen slightly opvi=844) hemolyzed CHLORIDE (BEAKER) (test 110 meq/L 98-107 dsvg=869) CO2 (BEAKER) (test 30 meq/L 22-29 pxuz=626) BLOOD UREA NITROGEN 14 mg/dL 7-21 (BEAKER) (test iqwu=261) CREATININE (BEAKER) (test 0.43 mg/dL 0.57-1.25 Specimen slightly bfwd=142) hemolyzed GLUCOSE RANDOM (BEAKER) 95 mg/dL 70-105 (test cinj=409) CALCIUM (BEAKER) (test 10.1 mg/dL 8.4-10.2 qbuv=996) EGFR (BEAKER) (test 160 mL/min/1.73 sq m ESTIMATED GFR IS NOT chtf=1146) ACCURATE CREATININE CLEARANCE IN PREDICTING GLOMERULAR FILTRATION RATE. ESTIMATED GFR IS NOT APPLICABLE FOR DIALYSIS PATIENTS. [id number] 05:57:00 Test Item Value Reference Range Comments MAGNESIUM (BEAKER) (test 2.3 mg/dL 1.6-2.6 Specimen slightly hemolyzed hwvf=125) CBC W/PLT COUNT & AUTO [id number] 05:41:00 Test Item Value Reference Range Comments WHITE BLOOD CELL COUNT (BEAKER) (test uujb=452) 8.4 K/ L 3.5-10.5 RED BLOOD CELL COUNT (BEAKER) (test bjsu=551) 4.16 M/ L 3.93-5.22 HEMOGLOBIN (BEAKER) (test ywim=089) 12.9 GM/DL 11.2-15.7 HEMATOCRIT (BEAKER) (test zfrq=892) 41.7 % 34.1-44.9 MEAN CORPUSCULAR VOLUME (BEAKER) (test zxxo=127) 100.2 fL 79.4-94.8 MEAN CORPUSCULAR HEMOGLOBIN (BEAKER) (test 31.0 pg 25.6-32.2 jiwq=950) MEAN CORPUSCULAR HEMOGLOBIN CONC (BEAKER) (test 30.9 GM/DL 32.2-35.5 tbks=920) RED CELL DISTRIBUTION WIDTH (BEAKER) (test 15.1 % 11.7-14.4 cgqp=658) PLATELET COUNT (BEAKER) (test eupa=145) 145 K/CU MM 150-450 MEAN PLATELET VOLUME (BEAKER) (test qbkv=646) 12.7 fL 9.4-12.3 NUCLEATED RED BLOOD CELLS (BEAKER) (test 0 /100 WBC 0-0 tjjj=044) NEUTROPHILS RELATIVE PERCENT (BEAKER) (test 77 % sbvw=622) LYMPHOCYTES RELATIVE PERCENT (BEAKER) (test 13 % zgma=134) MONOCYTES RELATIVE PERCENT (BEAKER) (test 10 % hnsd=863) EOSINOPHILS RELATIVE PERCENT (BEAKER) (test 0 % xzdu=937) BASOPHILS RELATIVE PERCENT (BEAKER) (test 0 % xvwh=361) NEUTROPHILS ABSOLUTE COUNT (BEAKER) (test 6.46 K/ L 1.56-6.13 zrsw=319) LYMPHOCYTES ABSOLUTE COUNT (BEAKER) (test 1.13 K/ L 1.18-3.74 avwr=399) MONOCYTES ABSOLUTE COUNT (BEAKER) (test 0.80 K/ L 0.24-0.36 ncqf=341) EOSINOPHILS ABSOLUTE COUNT (BEAKER) (test 0.00 K/ L 0.04-0.36 kvzo=117) BASOPHILS ABSOLUTE COUNT (BEAKER) (test 0.02 K/ L 0.01-0.08 piqt=070) IMMATURE GRANULOCYTES-RELATIVE PERCENT (BEAKER) 0 % 0-1 (test xemr=9193) RAD, CHEST, 1 VIEW, NON [id number] 04:59:00Reason for exam:->?pnaShould this be performed at [...] Flowers Verified Date/Time: 04/13/2018 04:59:14 Reading Location: [address] Transitional Reading Room POCT-GLUCOSE [id number] 00:05:00 Test Item Value Reference Range Comments POC-GLUCOSE METER (BEAKER) 113 mg/dL 70-110 TESTED AT [address] (test avub=7752) [facility] [address] POCT-GLUCOSE [id number] 17:07:00 Test Item Value Reference Range Comments POC-GLUCOSE METER (BEAKER) 125 mg/dL 70-110 TESTED AT [place] [id number] [facility] (test zovr=6994) [facility] [address] BODY FLUID CELL COUNT WITH [id number] 14:40:00 Test Item Value Reference Range Comments APPEARANCE FLUID (BEAKER) (test bbnw=453) Cloudy Clear COLOR FLUID (BEAKER) (test iqsk=931) Yellow Colorless, Straw RBC FLUID (BEAKER) (test pnqr=018) 1360 /cu mm <=1 ADJUSTED WBC FLUID (BEAKER) (test qblq=5009) 3808 /cu mm <=5 LINING CELLS (BEAKER) (test otky=5521) 152 /cu mm <=1 NEUTROPHILS FLUID (BEAKER) (test lqvy=1060) 89 % LYMPHS FLUID (BEAKER) (test cdxq=837) 5 % MONO/MACROPHAGE FLUID (BEAKER) (test kwdx=823) 6 % EOSINOPHILS FLUID (BEAKER) (test xqja=063) 0 % BASO FLUID (BEAKER) (test zufk=288) 0 % CONTAINER BODY FLUID (BEAKER) (test gvzi=8715) EDTA Tube POCT-GLUCOSE [id number] 12:16:00 Test Item Value Reference Range Comments POC-GLUCOSE METER (BEAKER) 111 mg/dL 70-110 TESTED AT [facility] [address] [facility] (test czqn=2530) [facility] [address] RAD, CHEST, 1 VIEW, NON [id number] 10:21:00Reason for exam:->post bronchShould this be performed [...] MDReport Verified Date/Time: 04/12/2018 10:21:50 Reading Location: [facility] B[facility] C013X [facility]ult Reading Room BLOOD GAS, [id number] 10:11: 00 Test Item Value Reference Range Comments PH ARTERIAL (BEAKER) (test ddeu=406) 7.41 7.35-7.45 PCO2 ARTERIAL (BEAKER) (test wava=775) 59 mmHg 35-45 PO2 ARTERIAL (BEAKER) (test wsdo=274) 122 mmHg 80-90 O2 SATURATION ARTERIAL (BEAKER) (test krkp=708) 98.4 % 96.0-97.0 HCO3 ARTERIAL (BEAKER) (test gdec=426) 36 mmol/L 21-29 BASE EXCESS ARTERIAL (BEAKER) (test ipdu=789) 9.4 mmol/L -2.0-3.0 PATIENT TEMPERATURE (BEAKER) (test cdpt=1440) 36.9 C FIO2 (BEAKER) (test ocpe=8545) 70.0 % TROPONIN [id number] 07:55:00 Test Item Value Reference Range Comments TROPONIN I (BEAKER) (test idfe=507) 0.08 ng/mL 0.00-0.03 Result faxed Troponin I [...] acute neurological disease, and persistent tachyarrhythmia.BLOOD GAS, [id number] 05:52:00 Test Item Value Reference Range Comments PH ARTERIAL (BEAKER) (test lxiv=180) 7.44 7.35-7.45 PCO2 ARTERIAL (BEAKER) (test irej=415) 55 mmHg 35-45 PO2 ARTERIAL (BEAKER) (test tqhn=223) 88 mmHg 80-90 O2 SATURATION ARTERIAL (BEAKER) (test ayxf=499) 96.8 % 96.0-97.0 HCO3 ARTERIAL (BEAKER) (test ygnl=163) 36 mmol/L 21-29 BASE EXCESS ARTERIAL (BEAKER) (test ykyo=291) 10.5 mmol/L -2.0-3.0 PATIENT TEMPERATURE (BEAKER) (test evry=2525) 37.1 C FIO2 (BEAKER) (test pzyz=1726) 45.0 % [id number] 05:24:00 Test Item Value Reference Range Comments MAGNESIUM (BEAKER) (test 2.0 mg/dL 1.6-2.6 Specimen slightly hemolyzed ixte=517) BASIC METABOLIC [id number] 05:24:00 Test Item Value Reference Range Comments SODIUM (BEAKER) (test 139 meq/L 136-145 wfyg=115) POTASSIUM (BEAKER) (test 3.6 meq/L 3.5-5.1 Specimen slightly pdjq=459) hemolyzed CHLORIDE (BEAKER) (test 101 meq/L 98-107 uovp=656) CO2 (BEAKER) (test 33 meq/L 22-29 xuaf=565) BLOOD UREA NITROGEN 8 mg/dL 7-21 (BEAKER) (test mhos=550) CREATININE (BEAKER) (test 0.39 mg/dL 0.57-1.25 Specimen slightly tlkd=636) hemolyzed GLUCOSE RANDOM (BEAKER) 119 mg/dL 70-105 (test tigv=983) CALCIUM (BEAKER) (test 8.8 mg/dL 8.4-10.2 fsmc=605) EGFR (BEAKER) (test 179 mL/min/1.73 sq m ESTIMATED GFR IS NOT vxth=7695) ACCURATE CREATININE CLEARANCE IN PREDICTING GLOMERULAR FILTRATION RATE. ESTIMATED GFR IS NOT APPLICABLE FOR DIALYSIS PATIENTS. CBC W/PLT COUNT & AUTO [id number] 05:04:00 Test Item Value Reference Range Comments WHITE BLOOD CELL COUNT (BEAKER) (test lknf=817) 8.8 K/ L 3.5-10.5 RED BLOOD CELL COUNT (BEAKER) (test zttw=986) 3.64 M/ L 3.93-5.22 HEMOGLOBIN (BEAKER) (test risu=134) 11.5 GM/DL 11.2-15.7 HEMATOCRIT (BEAKER) (test odia=742) 36.0 % 34.1-44.9 MEAN CORPUSCULAR VOLUME (BEAKER) (test zrrd=504) 98.9 fL 79.4-94.8 MEAN CORPUSCULAR HEMOGLOBIN (BEAKER) (test 31.6 pg 25.6-32.2 gczc=778) MEAN CORPUSCULAR HEMOGLOBIN CONC (BEAKER) (test 31.9 GM/DL 32.2-35.5 hnjy=209) RED CELL DISTRIBUTION WIDTH (BEAKER) (test 14.6 % 11.7-14.4 zeja=725) PLATELET COUNT (BEAKER) (test mdhl=975) 103 K/CU MM 150-450 MEAN PLATELET VOLUME (BEAKER) (test ypts=419) 12.6 fL 9.4-12.3 NUCLEATED RED BLOOD CELLS (BEAKER) (test 0 /100 WBC 0-0 eouk=160) NEUTROPHILS RELATIVE PERCENT (BEAKER) (test 83 % gkfm=086) LYMPHOCYTES RELATIVE PERCENT (BEAKER) (test 10 % aaju=079) MONOCYTES RELATIVE PERCENT (BEAKER) (test 7 % mtqj=658) EOSINOPHILS RELATIVE PERCENT (BEAKER) (test 0 % bdlp=336) BASOPHILS RELATIVE PERCENT (BEAKER) (test 0 % vakw=334) NEUTROPHILS ABSOLUTE COUNT (BEAKER) (test 7.23 K/ L 1.56-6.13 gwux=163) LYMPHOCYTES ABSOLUTE COUNT (BEAKER) (test 0.91 K/ L 1.18-3.74 mlmb=372) MONOCYTES ABSOLUTE COUNT (BEAKER) (test 0.58 K/ L 0.24-0.36 rabg=772) EOSINOPHILS ABSOLUTE COUNT (BEAKER) (test 0.00 K/ L 0.04-0.36 svxr=586) BASOPHILS ABSOLUTE COUNT (BEAKER) (test 0.01 K/ L 0.01-0.08 lbdh=549) IMMATURE GRANULOCYTES-RELATIVE PERCENT (BEAKER) 0 % 0-1 (test jqnq=6209) RAD, CHEST, 1 VIEW, NON [id number] 04:22:00Reason for exam:->?pnaShould this be performed at [...] MDReport Verified Date/Time: 04/12/2018 04:22:54 Reading Location: [address] Reading Room POCT-GLUCOSE [id number] 00:21:00 Test Item Value Reference Range Comments POC-GLUCOSE METER (BEAKER) 117 mg/dL 70-110 TESTED AT [facility] [address] [facility] (test rozw=9634) [facility] [address] [id number] 17:25:00 Test Item Value Reference Range Comments MAGNESIUM (BEAKER) (test 2.1 mg/dL 1.6-2.6 Specimen slightly hemolyzed pkcx=053) BASIC METABOLIC [id number] 17:25:00 Test Item Value Reference Range Comments SODIUM (BEAKER) (test 140 meq/L 136-145 jltq=640) POTASSIUM (BEAKER) (test 4.1 meq/L 3.5-5.1 Specimen slightly ajey=656) hemolyzed CHLORIDE (BEAKER) (test 101 meq/L 98-107 pxdz=136) CO2 (BEAKER) (test 36 meq/L 22-29 xnww=809) BLOOD UREA NITROGEN 8 mg/dL 7-21 (BEAKER) (test kbne=330) CREATININE (BEAKER) (test 0.39 mg/dL 0.57-1.25 Specimen slightly ipic=995) hemolyzed GLUCOSE RANDOM (BEAKER) 119 mg/dL 70-105 (test dupq=318) CALCIUM (BEAKER) (test 9.0 mg/dL 8.4-10.2 etko=906) EGFR (BEAKER) (test 179 mL/min/1.73 sq m ESTIMATED GFR IS NOT jqlt=1190) ACCURATE CREATININE CLEARANCE IN PREDICTING GLOMERULAR FILTRATION RATE. ESTIMATED GFR IS NOT APPLICABLE FOR DIALYSIS PATIENTS. POCT-GLUCOSE [id number] 16:36:00 Test Item Value Reference Range Comments POC-GLUCOSE METER (BEAKER) 113 mg/dL 70-110 TESTED AT [facility] [address] [facility] (test kdwi=0502) [place] [id number] POCT-GLUCOSE [id number] 13:06:00 Test Item Value Reference Range Comments POC-GLUCOSE METER (BEAKER) 162 mg/dL 70-110 TESTED AT [facility] [address] [facility] (test lmwj=7498) [facility] [address] SPUTUM CULTURE + GRAM [id number] 10:57:00 Test Item Value Reference Range Comments CULTURE (BEAKER) (test 1+ Normal respiratory tessa rpcy=8879) present GRAM STAIN RESULT (BEAKER) 1+ White blood cells seen (test ewab=8156) GRAM STAIN RESULT (BEAKER) 0-5 epithelial cells (test xuik=16430) GRAM STAIN RESULT (BEAKER) 2+ gram negative rods (test pmgj=49959) HEPATIC FUNCTION [id number] 07:00:00 Test Item Value Reference Range Comments TOTAL PROTEIN (BEAKER) (test yuvh=371) 5.6 gm/dL 6.0-8.3 ALBUMIN (BEAKER) (test ipxf=5717) 3.1 g/dL 3.5-5.0 BILIRUBIN TOTAL (BEAKER) (test olmk=326) 0.7 mg/dL 0.2-1.2 BILIRUBIN DIRECT (BEAKER) (test tklg=352) 0.3 mg/dL 0.1-0.5 ALKALINE PHOSPHATASE (BEAKER) (test zwxg=339) 80 U/L 40-150 AST (SGOT) (BEAKER) (test rvsd=192) 15 U/L 5-34 ALT (SGPT) (BEAKER) (test losa=403) 39 U/L 6-55 BLOOD GAS, [id number] 06:31:00 Test Item Value Reference Range Comments PH ARTERIAL (BEAKER) (test qfka=002) 7.38 7.35-7.45 PCO2 ARTERIAL (BEAKER) (test vxkg=343) 65 mmHg 35-45 PO2 ARTERIAL (BEAKER) (test hvqh=326) 79 mmHg 80-90 O2 SATURATION ARTERIAL (BEAKER) (test swtw=365) 95.4 % 96.0-97.0 HCO3 ARTERIAL (BEAKER) (test rhbb=558) 37 mmol/L 21-29 BASE EXCESS ARTERIAL (BEAKER) (test mrrx=837) 9.6 mmol/L -2.0-3.0 PATIENT TEMPERATURE (BEAKER) (test xgrq=0316) 36.5 C FIO2 (BEAKER) (test yufq=8526) 45.0 % POCT-GLUCOSE [id number] 06:30:00 Test Item Value Reference Range Comments POC-GLUCOSE METER (BEAKER) 112 mg/dL 70-110 TESTED AT [facility] [address] [facility] (test lgza=4097) [place] [address] CBC W/PLT COUNT & AUTO [id number] 05:53:00 Test Item Value Reference Range Comments WHITE BLOOD CELL COUNT (BEAKER) (test yoef=580) 10.9 K/ L 3.5-10.5 RED BLOOD CELL COUNT (BEAKER) (test nvbz=898) 3.74 M/ L 3.93-5.22 HEMOGLOBIN (BEAKER) (test msff=605) 11.8 GM/DL 11.2-15.7 HEMATOCRIT (BEAKER) (test ayqi=544) 37.8 % 34.1-44.9 MEAN CORPUSCULAR VOLUME (BEAKER) (test zpdb=835) 101.1 fL 79.4-94.8 MEAN CORPUSCULAR HEMOGLOBIN (BEAKER) (test 31.6 pg 25.6-32.2 sdoi=325) MEAN CORPUSCULAR HEMOGLOBIN CONC (BEAKER) (test 31.2 GM/DL 32.2-35.5 jzdc=452) RED CELL DISTRIBUTION WIDTH (BEAKER) (test 14.9 % 11.7-14.4 fpcl=398) PLATELET COUNT (BEAKER) (test efkb=055) 109 K/CU MM 150-450 MEAN PLATELET VOLUME (BEAKER) (test mxsn=532) 12.6 fL 9.4-12.3 NUCLEATED RED BLOOD CELLS (BEAKER) (test 0 /100 WBC 0-0 lbgn=661) NEUTROPHILS RELATIVE PERCENT (BEAKER) (test 84 % efjt=123) LYMPHOCYTES RELATIVE PERCENT (BEAKER) (test 10 % efju=067) MONOCYTES RELATIVE PERCENT (BEAKER) (test 6 % gokp=892) EOSINOPHILS RELATIVE PERCENT (BEAKER) (test 0 % daid=219) BASOPHILS RELATIVE PERCENT (BEAKER) (test 0 % zcpp=878) NEUTROPHILS ABSOLUTE COUNT (BEAKER) (test 9.11 K/ L 1.56-6.13 edyf=959) LYMPHOCYTES ABSOLUTE COUNT (BEAKER) (test 1.04 K/ L 1.18-3.74 kded=844) MONOCYTES ABSOLUTE COUNT (BEAKER) (test 0.67 K/ L 0.24-0.36 kptw=506) EOSINOPHILS ABSOLUTE COUNT (BEAKER) (test 0.00 K/ L 0.04-0.36 tytm=544) BASOPHILS ABSOLUTE COUNT (BEAKER) (test 0.02 K/ L 0.01-0.08 lpko=192) IMMATURE GRANULOCYTES-RELATIVE PERCENT (BEAKER) 1 % 0-1 (test lodu=7343) RAD, CHEST, 1 VIEW, NON [id number] 04:13:00Reason for exam:->?pnaShould this be performed at [...] Flowers Verified Date/Time: 04/11/2018 04:13:43 Reading Location: [address] Transitional Reading Room [id number] 02:25:00 Test Item Value Reference Range Comments PROCALCITONIN (BEAKER) (test eech=8751) 0.05 ng/mL <0.05 SEPSIS RISK (ng/mL)Low: 0.05-0.50Intermediate: 0.51-2.00High: & gt;=2.01POCT-GLUCOSE [id number] 00:23:00 Test Item Value Reference Range Comments POC-GLUCOSE METER ([facility]) 150 mg/dL 70-110 TESTED AT [address] (test cqtz=6487) [facility] [address] CT, SPINE, CERVICAL, WO [id number] 19:01:00FINAL REPORT CT cervical spine without contrast [...] Andrew Lacey Verified Date/Time: 04/10/201819:01:48 Reading Location: [facility] Radiology Reading Room POCT-GLUCOSE [id number] 18:46:00 Test Item Value Reference Range Comments POC-GLUCOSE METER (BEAKER) 119 mg/dL 70-110 TESTED AT [address] (test etuq=1203) [place] [id number] POCT-GLUCOSE [id number] 13:21:00 Test Item Value Reference Range Comments POC-GLUCOSE METER (BEAKER) 106 mg/dL 70-110 TESTED AT [address] (test livx=7745) [place] [address] [id number] 12:16:00 Test Item Value Reference Range Comments MAGNESIUM (BEAKER) (test xcxt=859) 1.8 mg/dL 1.6-2.6 LACTIC ACID, VENOUS, WHOLE [id number] 12:15:00 Test Item Value Reference Range Comments LACTATE BLOOD VENOUS (2) 0.5 mmol/L 0.5-2.2 Specimen slightly hemolyzed (BEAKER) (test itfo=2989) Effective 10/11/2015: Units/Reference Range ChangeNew: 0.5-2.2 mmol/L Previous: 5 -20 mg/dLRAD, CHEST, 1 VIEW, NON [id number] 08:31:00Reason for exam:->? pnaShould this be performed [...] MDReport Verified Date/Time: 04/10/2018 08:31:54 Reading Location: [facility] Radiology Reading Room MR, BRAIN, [id number] 06:58:00Concern for infected lesions with ICHFINAL REPORT [...] Flowers Verified Date/Time: 04/10/2018 06:58:10 Reading Location: [facility] Transitional Reading Room Electronically signed by: LYNDA FLOWERS MD on 2017 06:58 AMPOCT-GLUCOSE [id number] 06:50:00 Test Item Value Reference Range Comments POC-GLUCOSE METER (BEAKER) 80 mg/dL 70-110 TESTED AT [facility] [address] [place] [address] (test ekvb=8220) [facility] [address] MR, SPINE, CERVICAL, WITHOUT [id number] 06:32:00FINAL REPORT MR Cervical spine without contrast. [...] if not previously done. Signed: [facility] Verified Date/Time: 04/10/2018 06:32:36 Reading Location: [address] Reading Room MR, SPINE, THORACIC, WITHOUT [id number] 06:32:00FINAL REPORT MR Cervical spine without contrast. [...] ultrasound if not previously done. Signed: [facility] Verified Date/Time: 04/10/2018 06:32:36 Reading Location: [address] Transitional Reading Room URINE [id number] 03:49:00 Test Item Value Reference Range Comments CULTURE (BEAKER) (test ocqw=8388) No growth BASIC METABOLIC [id number] 03:12:00 Test Item Value Reference Range Comments SODIUM (BEAKER) (test 143 meq/L 136-145 xvoj=083) POTASSIUM (BEAKER) (test 4.1 meq/L 3.5-5.1 xkkx=826) CHLORIDE (BEAKER) (test 105 meq/L 98-107 ebta=446) CO2 (BEAKER) (test 31 meq/L 22-29 ccbj=096) BLOOD UREA NITROGEN 15 mg/dL 7-21 (BEAKER) (test jttr=807) CREATININE (BEAKER) (test 0.48 mg/dL 0.57-1.25 hcgp=933) GLUCOSE RANDOM (BEAKER) 103 mg/dL 70-105 (test blnx=581) CALCIUM (BEAKER) (test 9.4 mg/dL 8.4-10.2 emhw=145) EGFR (BEAKER) (test 140 mL/min/1.73 sq m ESTIMATED GFR IS NOT kckp=8374) ACCURATE CREATININE CLEARANCE IN PREDICTING GLOMERULAR FILTRATION RATE. ESTIMATED GFR IS NOT APPLICABLE FOR DIALYSIS PATIENTS. CBC W/PLT COUNT & AUTO [id number] 02:58:00 Test Item Value Reference Range Comments WHITE BLOOD CELL COUNT (BEAKER) (test rjfw=218) 10.6 K/ L 3.5-10.5 RED BLOOD CELL COUNT (BEAKER) (test kzgv=139) 4.05 M/ L 3.93-5.22 HEMOGLOBIN (BEAKER) (test umkc=772) 12.9 GM/DL 11.2-15.7 HEMATOCRIT (BEAKER) (test ctoi=936) 41.2 % 34.1-44.9 MEAN CORPUSCULAR VOLUME (BEAKER) (test cmip=391) 101.7 fL 79.4-94.8 MEAN CORPUSCULAR HEMOGLOBIN (BEAKER) (test 31.9 pg 25.6-32.2 jfay=904) MEAN CORPUSCULAR HEMOGLOBIN CONC (BEAKER) (test 31.3 GM/DL 32.2-35.5 yzte=352) RED CELL DISTRIBUTION WIDTH (BEAKER) (test 14.8 % 11.7-14.4 nwzh=139) PLATELET COUNT (BEAKER) (test mggk=294) 114 K/CU MM 150-450 MEAN PLATELET VOLUME (BEAKER) (test ewts=002) 12.4 fL 9.4-12.3 NUCLEATED RED BLOOD CELLS (BEAKER) (test 0 /100 WBC 0-0 jzkf=218) NEUTROPHILS RELATIVE PERCENT (BEAKER) (test 82 % fvrj=080) LYMPHOCYTES RELATIVE PERCENT (BEAKER) (test 11 % egir=778) MONOCYTES RELATIVE PERCENT (BEAKER) (test 7 % tzgi=571) EOSINOPHILS RELATIVE PERCENT (BEAKER) (test 0 % sxvo=819) BASOPHILS RELATIVE PERCENT (BEAKER) (test 0 % fexl=589) NEUTROPHILS ABSOLUTE COUNT (BEAKER) (test 8.66 K/ L 1.56-6.13 xnjl=572) LYMPHOCYTES ABSOLUTE COUNT (BEAKER) (test 1.17 K/ L 1.18-3.74 txil=740) MONOCYTES ABSOLUTE COUNT (BEAKER) (test 0.70 K/ L 0.24-0.36 grjg=924) EOSINOPHILS ABSOLUTE COUNT (BEAKER) (test 0.00 K/ L 0.04-0.36 snhd=276) BASOPHILS ABSOLUTE COUNT (BEAKER) (test 0.03 K/ L 0.01-0.08 dlbf=334) IMMATURE GRANULOCYTES-RELATIVE PERCENT (BEAKER) 0 % 0-1 (test lsiy=6340) BLOOD GAS, [id number] 02:47:00 Test Item Value Reference Range Comments PH ARTERIAL (BEAKER) (test xpae=889) 7.35 7.35-7.45 PCO2 ARTERIAL (BEAKER) (test jrdw=596) 66 mmHg 35-45 PO2 ARTERIAL (BEAKER) (test cwvt=025) 76 mmHg 80-90 O2 SATURATION ARTERIAL (BEAKER) (test urvq=420) 94.5 % 96.0-97.0 HCO3 ARTERIAL (BEAKER) (test idmw=096) 36 mmol/L 21-29 BASE EXCESS ARTERIAL (BEAKER) (test yaov=363) 7.6 mmol/L -2.0-3.0 PATIENT TEMPERATURE (BEAKER) (test cilu=9133) 36.5 C FIO2 (BEAKER) (test bjiv=7101) 45.0 % POCT-GLUCOSE [id number] 00:32:00 Test Item Value Reference Range Comments POC-GLUCOSE METER (BEAKER) 98 mg/dL 70-110 TESTED AT [address] (test nmht=8838) [facility] [address] CREATINE KINASE (CK), TOTAL AND [id number] 18:43:00 Test Item Value Reference Range Comments CREATINE KINASE TOTAL (BEAKER) (test lnfy=960) 64 U/L 29-200 CREATINE KINASE-MB (BEAKER) (test idhp=007) 3.9 ng/mL 0.0-6.6 CREATINE KINASE-MB INDEX (BEAKER) (test hxjm=961) 6.1 % CK-MB Reference Range:<6.7 Normal6.7-10.0 Borderline>10.0 AbnormalTROPONIN [id number] 18:43:00 Test Item Value Reference Range Comments TROPONIN I (BEAKER) (test aryz=756) 0.13 ng/mL 0.00-0.03 Troponin I (TnI) levels [...] failure, acidosis, acute neurological disease, and persistent tachyarrhythmia.[id number] 18:30:00 Test Item Value Reference Range Comments MAGNESIUM (BEAKER) (test bjnl=179) 1.7 mg/dL 1.6-2.6 POCT-GLUCOSE [id number] 18:27:00 Test Item Value Reference Range Comments POC-GLUCOSE METER (BEAKER) 75 mg/dL 70-110 TESTED AT [address] (test quww=4525) [facility] [address] RAD, CHEST, 1 VIEW, NON [id number] 16:49:00Reason for exam:->CVC PLACEMENT Should this be [...] abnormality. The bones appear demineralized. Signed: [facility] Verified Date/Time: 04/09/2018 16:49:21 Reading Location: [facility] Mammo Reading Room HEPATOBILIARY [id number] 15:42:00FINAL REPORT PROCEDURE: HEPATOBILIARY SCAN CPT CODE: 35793 INDICATION: Right upper quadrant pain, no fever [...] Celestin Verified Date/Time: 04/09/2018 15:42:43 Reading Location: [address] [address] Reading Room CT BRAIN WITHOUT IV CONTRAST - [id number] 13:05:00Reason for exam:->Patient with intracranial bleed needing repeat imaging at 24 hours ([id number])FINAL REPORT CT Head without contrast CLINICAL HISTORY: Patient with intracranial bleed needing repeat imaging at 24 hours ([id number]) TECHNIQUE: Contiguous axial images through the head [...] MDReport Verified Date/Time: 04/09/2018 13:05:06 Reading Location: [facility] B1 C013V Neuro Reading Room POCT-GLUCOSE [id number] 12:34:00 Test Item Value Reference Range Comments POC-GLUCOSE METER (BEAKER) 70 mg/dL 70-110 TESTED AT [facility] [address] [facility] (test rwwy=7698) [facility] [address] RESPIRATORY PANEL [id number] 10:28:00 Test Item Value Reference Range Comments HUMAN METAPNEUMOVIRUS (BEAKER) (test Not detected Not detected, Equivocal jswk=6798) RHINOVIRUS (BEAKER) (test wrxs=2131) Not detected Not detected, Equivocal INFLUENZA A (BEAKER) (test offe=9078) Not detected Not detected, Equivocal INFLUENZA A (NO SUBTYPE) (test Not detected, Equivocal daxc=3574) INFLUENZA A SUBTYPE H1 (BEAKER) (test Not detected, Equivocal egpj=8065) INFLUENZA A SUBTYPE H3 (BEAKER) (test Not detected, Equivocal zdas=2931) INFLUENZA A SUBTYPE H1-2009 (BEAKER) Not detected, Equivocal (test hsxp=4534) INFLUENZA B (BEAKER) (test xget=1902) Not detected Not detected, Equivocal RESPIRATORY SYNCYTIAL VIRUS (BEAKER) Not detected Not detected, Equivocal (test vrkf=0695) PARAINFLUENZA VIRUS 1 (BEAKER) (test Not detected Not detected, Equivocal ddje=6487) PARAINFLUENZA VIRUS 2 (BEAKER) (test Not detected Not detected, Equivocal zrqd=7928) PARAINFLUENZA VIRUS 3 (BEAKER) (test Not detected Not detected, Equivocal zrgr=2337) PARAINFLUENZA VIRUS 4 (BEAKER) (test Not detected Not detected, Equivocal nyjy=9834) ADENOVIRUS (BEAKER) (test void=3565) Not detected Not detected, Equivocal CORONAVIRUS 229E (BEAKER) (test Not detected Not detected, Equivocal hlfs=3356) CORONAVIRUS HKU1 (BEAKER) (test Not detected Not detected, Equivocal aijw=9592) CORONAVIRUS NL63 (BEAKER) (test Not detected Not detected, Equivocal vrso=7476) CORONAVIRUS OC43 (BEAKER) (test Not detected Not detected, Equivocal jdxo=7123) BORDETELLA PERTUSSIS (BEAKER) (test Not detected Not detected, Equivocal roll=3089) CHLAMYDOPHILA PNEUMONIAE (BEAKER) (test Not detected Not detected, Equivocal pmed=2320) MYCOPLASMA PNEUMONIAE (BEAKER) (test Not detected Not detected, Equivocal vxsr=1921) Other viruses and bacteria not targeted by this PCR panel cannot be excluded; therefore clinical correlation and follow up of serology, culture results, and other molecular studies is required. The results are not intended to be used as the sole means for clinical diagnosis or patient management decisions. This sample was tested at the [facility] using the TEVIZZArray Respiratory Panel. It is FDA cleared and has been verified and approved by the [facility] for clinical use on nasal swab specimens. It is not FDA-cleared for use on bronchial wash/lavage samples. However, for this sample type, validation was performed and test characteristics were determined and approved, by [facility] for clinical use under the Clinical Laboratory Improvement Amendments (CLIA) of 1988 requirements. Therefore, FDA clearance isnot required. This laboratory is CLIA-certified and [employer] ([employer])-accredited to perform high complexity testing.RAD, CHEST, 1 VIEW, NON [id number] 09:07:00Reason for exam:->?pnaShould this be performed at [...] Verified Date/Time: 04/09/2018 09:07: 58 Reading Location: [facility] Radiology Reading Room CBC W/PLT COUNT & AUTO [id number] 07:19:00 Test Item Value Reference Range Comments WHITE BLOOD CELL COUNT (BEAKER) (test pfbl=255) 13.8 K/ L 3.5-10.5 RED BLOOD CELL COUNT (BEAKER) (test jnqy=823) 4.05 M/ L 3.93-5.22 HEMOGLOBIN (BEAKER) (test tjci=734) 12.7 GM/DL 11.2-15.7 HEMATOCRIT (BEAKER) (test poyq=399) 40.6 % 34.1-44.9 MEAN CORPUSCULAR VOLUME (BEAKER) (test vptq=277) 100.2 fL 79.4-94.8 MEAN CORPUSCULAR HEMOGLOBIN (BEAKER) (test 31.4 pg 25.6-32.2 bakh=385) MEAN CORPUSCULAR HEMOGLOBIN CONC (BEAKER) (test 31.3 GM/DL 32.2-35.5 xhps=279) RED CELL DISTRIBUTION WIDTH (BEAKER) (test 14.3 % 11.7-14.4 cnog=776) PLATELET COUNT (BEAKER) (test msdc=950) 115 K/CU MM 150-450 MEAN PLATELET VOLUME (BEAKER) (test wupj=723) 12.6 fL 9.4-12.3 NUCLEATED RED BLOOD CELLS (BEAKER) (test 0 /100 WBC 0-0 fgcy=846) NEUTROPHILS RELATIVE PERCENT (BEAKER) (test 81 % hjgv=004) LYMPHOCYTES RELATIVE PERCENT (BEAKER) (test 9 % nyvo=565) MONOCYTES RELATIVE PERCENT (BEAKER) (test 9 % gfnq=316) EOSINOPHILS RELATIVE PERCENT (BEAKER) (test 0 % xzwe=671) BASOPHILS RELATIVE PERCENT (BEAKER) (test 0 % fhpk=026) NEUTROPHILS ABSOLUTE COUNT (BEAKER) (test 11.17 K/ L 1.56-6.13 xoyy=849) LYMPHOCYTES ABSOLUTE COUNT (BEAKER) (test 1.24 K/ L 1.18-3.74 iwiv=271) MONOCYTES ABSOLUTE COUNT (BEAKER) (test 1.17 K/ L 0.24-0.36 uakc=893) EOSINOPHILS ABSOLUTE COUNT (BEAKER) (test 0.00 K/ L 0.04-0.36 gnhx=402) BASOPHILS ABSOLUTE COUNT (BEAKER) (test 0.01 K/ L 0.01-0.08 mtpp=493) IMMATURE GRANULOCYTES-RELATIVE PERCENT (BEAKER) 1 % 0-1 (test kddr=0679) BASIC METABOLIC [id number] 07:14:00 Test Item Value Reference Range Comments SODIUM (BEAKER) (test 144 meq/L 136-145 mydl=991) POTASSIUM (BEAKER) (test 3.4 meq/L 3.5-5.1 wjey=202) CHLORIDE (BEAKER) (test 101 meq/L 98-107 hdkt=934) CO2 (BEAKER) (test 38 meq/L 22-29 lkyv=220) BLOOD UREA NITROGEN 15 mg/dL 7-21 (BEAKER) (test azsa=812) CREATININE (BEAKER) (test 0.52 mg/dL 0.57-1.25 owmq=502) GLUCOSE RANDOM (BEAKER) 85 mg/dL 70-105 (test wbjz=341) CALCIUM (BEAKER) (test 8.9 mg/dL 8.4-10.2 nmbm=350) EGFR (BEAKER) (test 128 mL/min/1.73 sq m ESTIMATED GFR IS NOT jeru=5356) ACCURATE CREATININE CLEARANCE IN PREDICTING GLOMERULAR FILTRATION RATE. ESTIMATED GFR IS NOT APPLICABLE FOR DIALYSIS PATIENTS. POCT-GLUCOSE [id number] 06:44:00 Test Item Value Reference Range Comments POC-GLUCOSE METER (BEAKER) 81 mg/dL 70-110 TESTED AT [address] (test icqk=2862) [facility] [address] BLOOD GAS, [id number] 06:09:00 Test Item Value Reference Range Comments PH ARTERIAL (BEAKER) (test pfws=116) 7.42 7.35-7.45 PCO2 ARTERIAL (BEAKER) (test aczf=377) 61 mmHg 35-45 PO2 ARTERIAL (BEAKER) (test kxob=336) 68 mmHg 80-90 O2 SATURATION ARTERIAL (BEAKER) (test wuys=601) 92.9 % 96.0-97.0 HCO3 ARTERIAL (BEAKER) (test gpva=238) 38 mmol/L 21-29 BASE EXCESS ARTERIAL (BEAKER) (test yaqj=140) 11.5 mmol/L -2.0-3.0 PATIENT TEMPERATURE (BEAKER) (test sciy=1707) 37.4 C FIO2 (BEAKER) (test umms=5845) 30.0 % U/S, ABDOMINAL, [id number] 05:37:00Reason for exam:-> transaminitisShould this be performed [...] MDReport Verified Date/Time: 04/09/2018 05:37:35 Reading Location: [facility] Transitional Reading Room LACTIC ACID, VENOUS, WHOLE [id number] 02:43:00 Test Item Value Reference Range Comments LACTATE BLOOD VENOUS (2) 1.8 mmol/L 0.5-2.2 Specimen slightly hemolyzed (BEAKER) (test qspp=7307) Effective 10/11/2015: Units/Reference Range ChangeNew: 0.5-2.2 mmol/L Previous: 5 -20 mg/dLPOCT-GLUCOSE [id number] 01:00:00 Test Item Value Reference Range Comments POC-GLUCOSE METER (BEAKER) 91 mg/dL 70-110 TESTED AT [facility] [address] [facility] (test bvhw=1333) [facility] [address] CT, CHEST WITH IV CONTRAST- PE TEST [id number] 22:27:00FINAL REPORT DOSE REDUCTION: The examination was [...] MDReport Verified Date/Time: 04/08/2018 22:27:11 Reading Location: [facility] Reading Room 10: 27 PMLACTIC ACID, VENOUS, WHOLE [id number] 21:28:00 Test Item Value Reference Range Comments LACTATE BLOOD VENOUS (2) 2.8 mmol/L 0.5-2.2 Specimen slightly hemolyzed (BEAKER) (test bvbk=3695) Effective 10/11/2015: Units/Reference Range ChangeNew: 0.5-2.2 mmol/L Previous: 5 -20 mg/dLHCG, QUANTITATIVE, [id number] 19:49:00 Test Item Value Reference Range Comments GONADOTROPIN, CHORIONIC (HCG) QUANT (BEAKER) (test < mIU/mL 0-10 ymuj=931) Non- Females: <10 mIU/mL Females: Gestation Age Reference Range(mIU/mL) 0.2-1 Week 5-50 1-2 Weeks 50-500 2-3 Weeks 100-5,000 3-4Weeks 500-10,000 4 -5 Weeks 1,000-50,000 5-6 Weeks 10,000-100,000 6-8 Weeks 15,000-200,000 2-3 Months 10,000-100,000EEG AWAKE AND [id number] 19:28:00Reason for exam:->seizingNeurophysiology Electroencephalogram Report DATE OF REPORT: 04/08/18Date(s) of Study: 04/08/2018ACC:[id number]: art time: 1807 hrsStop time: 1830 hrsICD-10: R56.9CPT Code: 72689 HISTORY : 42-year-old female referred for STAT [...] of this report.Juliette Salguero MDEpilepsy Attending POCT-GLUCOSE [id number] 18:57:00 Test Item Value Reference Range Comments POC-GLUCOSE METER (BEAKER) 102 mg/dL 70-110 TESTED AT [address] (test zirv=9835) [facility] [address] RAD, [place] [id number] 18:27:00Reason for exam:->patient with decreased LOC and [...] MDReport Verified Date/Time: 04/08/2018 18:27:37 Reading Location: [facility] Mammo Reading Room 06: 27 [id number] 18:07:00 Test Item Value Reference Range Comments AMYLASE (BEAKER) (test jymb=773) 47 U/L 25-125 [id number] 18:07:00 Test Item Value Reference Range Comments LIPASE (BEAKER) (test fblt=762) 10 U/L 8-78 [id number] 18:03:00 Test Item Value Reference Range Comments PROCALCITONIN (BEAKER) (test tlzm=5409) < ng/mL <0.05 SEPSIS RISK (ng/mL)Low: 0.05-0.50Intermediate: 0.51-2.00High: & gt;=2.01TSH/FREE T4 IF [id number] 17:59:00 Test Item Value Reference Range Comments THYROID STIMULATING HORMONE (BEAKER) (test 1.55 uIU/mL 0.35-4.94 ubfb=029) [id number] 17:59:00 Test Item Value Reference Range Comments CORTISOL, TOTAL (BEAKER) (test dfts=3322) 30.6 ug/dL 3.7-19.4 URINALYSIS W/ [id number] 17:48:00 Test Item Value Reference Range Comments COLOR (BEAKER) (test hmlf=614) Yellow CLARITY (BEAKER) (test rzks=723) Hazy SPECIFIC GRAVITY UA (BEAKER) (test fegs=089) 1.019 1.001-1.035 PH UA (BEAKER) (test wgka=644) 5.5 5.0-8.0 PROTEIN UA (BEAKER) (test dkai=770) 50 mg/dL Negative GLUCOSE UA (BEAKER) (test bair=729) 30 mg/dL Negative KETONES UA (BEAKER) (test tesl=904) 20 mg/dL Negative BILIRUBIN UA (BEAKER) (test axip=352) Negative Negative BLOOD UA (BEAKER) (test ymhy=868) Moderate Negative NITRITE UA (BEAKER) (test csah=100) Negative Negative LEUKOCYTE ESTERASE UA (BEAKER) (test dicy=116) Large Negative UROBILINOGEN UA (BEAKER) (test tsyp=454) 0.2 mg/dL 0.2-1.0 RBC UA (BEAKER) (test tqok=315) 13 /HPF WBC UA (BEAKER) (test wklv=191) 31 /HPF MUCUS (BEAKER) (test kzpt=0791) Few SQUAMOUS EPITHELIAL (BEAKER) (test avay=255) 1 /HPF HYALINE CASTS (BEAKER) (test glsw=366) 8 /LPF SOURCE(BEAKER) (test ijti=8961) [id number] 17:47:00 Test Item Value Reference Range Comments MAGNESIUM (BEAKER) (test azns=883) 1.9 mg/dL 1.6-2.6 BASIC METABOLIC [id number] 17:47:00 Test Item Value Reference Range Comments SODIUM (BEAKER) (test 143 meq/L 136-145 htpr=996) POTASSIUM (BEAKER) (test 3.4 meq/L 3.5-5.1 ctso=949) CHLORIDE (BEAKER) (test 99 meq/L 98-107 pwyp=700) CO2 (BEAKER) (test 29 meq/L 22-29 bund=501) BLOOD UREA NITROGEN 20 mg/dL 7-21 (BEAKER) (test quxb=635) CREATININE (BEAKER) (test 0.69 mg/dL 0.57-1.25 uwvp=070) GLUCOSE RANDOM (BEAKER) 164 mg/dL 70-105 (test zkfb=266) CALCIUM (BEAKER) (test 8.6 mg/dL 8.4-10.2 chve=969) EGFR (BEAKER) (test 92 mL/min/1.73 sq m ESTIMATED GFR IS NOT zcjm=3106) ACCURATE CREATININE CLEARANCE IN PREDICTING GLOMERULAR FILTRATION RATE. ESTIMATED GFR IS NOT APPLICABLE FOR DIALYSIS PATIENTS. HEPATIC FUNCTION [id number] 17:44:00 Test Item Value Reference Range Comments TOTAL PROTEIN (BEAKER) (test atnp=985) 5.4 gm/dL 6.0-8.3 ALBUMIN (BEAKER) (test ecyk=8646) 3.2 g/dL 3.5-5.0 BILIRUBIN TOTAL (BEAKER) (test pmft=046) 0.4 mg/dL 0.2-1.2 BILIRUBIN DIRECT (BEAKER) (test bvaj=422) 0.2 mg/dL 0.1-0.5 ALKALINE PHOSPHATASE (BEAKER) (test hinz=129) 72 U/L 40-150 AST (SGOT) (BEAKER) (test pzag=789) 44 U/L 5-34 ALT (SGPT) (BEAKER) (test jasx=021) 66 U/L 6-55 B-TYPE NATRIURETIC FACTOR (BNP)2018-04-08 17:42:00 Test Item Value Reference Range Comments B-TYPE NATRIURETIC PEPTIDE (BEAKER) (test 102 pg/mL 0-100 xmxc=999) TROPONIN [id number] 17:41:00 Test Item Value Reference Range Comments TROPONIN I (BEAKER) (test swpp=216) 0.08 ng/mL 0.00-0.03 Troponin I (TnI) levels [...] failure, acidosis, acute neurological disease, and persistent tachyarrhythmia.[id number] 17:40:00 Test Item Value Reference Range Comments TRIGLYCERIDES (BEAKER) (test ihgz=704) 45 mg/dL TRIGLYCERIDE REFERENCE RANGELow Risk <150Borderline Risk 150-199High Risk 200-499Very High Risk>=[id number] 17:40:00 Test Item Value Reference Range Comments PHOSPHORUS (BEAKER) (test apok=672) 2.3 mg/dL 2.3-4.7 CREATINE KINASE (CK)2018-04-08 17:40:00 Test Item Value Reference Range Comments CREATINE KINASE TOTAL (BEAKER) (test pkjs=823) 52 U/L 29-200 [id number] 17:39:00 Test Item Value Reference Range Comments ETHANOL (BEAKER) (test paeq=539) < mg/dL <=10 PROTHROMBIN TIME/[id number] 17:37:00 Test Item Value Reference Range Comments PROTIME (BEAKER) (test 12.8 seconds 11.7-14.7 Delay due to improper order vmbe=634) way. 2 labels with one sample. INR (BEAKER) (test crgh=314) 1.0 <=5.9 RECOMMENDED COUMADIN/WARFARIN INR THERAPY RANGESSTANDARD DOSE: 2.0 - 3.0 Includes: PROPHYLAXIS forvenous thrombosis, systemic embolization; TREATMENT for venous thrombosis and/or pulmonary embolus.HIGH RISK: Target INR is 2.5-3.5 for patients with mechanical heart valves.[id number] 17:36:00 Test Item Value Reference Range Comments PARTIAL THROMBOPLASTIN TIME (BEAKER) (test 23.9 seconds 22.5-36.0 qgmk=286) LACTIC ACID, VENOUS, WHOLE [id number] 17:36:00 Test Item Value Reference Range Comments LACTATE BLOOD VENOUS (2) 11.3 mmol/L 0.5-2.2 Specimen moderately hemolyzed (BEAKER) (test ckvn=9191) Effective 10/11/2015: Units/Reference Range ChangeNew: 0.5-2.2 mmol/L Previous: 5 -20 mg/[id number] 17:28:00 Test Item Value Reference Range Comments D-DIMER QUANTITATIVE (BEAKER) (test zycu=730) 1.15 MG/L FEU <0.50 Intended Use: The [...] 95-100% range.CBC W/ PLT COUNT & AUTO [id number] 17:22:00 Test Item Value Reference Range Comments WHITE BLOOD CELL COUNT (BEAKER) (test kfhz=447) 9.5 K/ L 3.5-10.5 RED BLOOD CELL COUNT (BEAKER) (test kcyq=149) 4.49 M/ L 3.93-5.22 HEMOGLOBIN (BEAKER) (test tfaq=932) 14.1 GM/DL 11.2-15.7 HEMATOCRIT (BEAKER) (test wgwl=112) 46.8 % 34.1-44.9 MEAN CORPUSCULAR VOLUME (BEAKER) (test nfmm=484) 104.2 fL 79.4-94.8 MEAN CORPUSCULAR HEMOGLOBIN (BEAKER) (test 31.4 pg 25.6-32.2 aoqe=937) MEAN CORPUSCULAR HEMOGLOBIN CONC (BEAKER) (test 30.1 GM/DL 32.2-35.5 zrco=669) RED CELL DISTRIBUTION WIDTH (BEAKER) (test 13.9 % 11.7-14.4 mkzd=205) PLATELET COUNT (BEAKER) (test kjlz=369) 120 K/CU MM 150-450 MEAN PLATELET VOLUME (BEAKER) (test ktjg=651) 12.6 fL 9.4-12.3 NUCLEATED RED BLOOD CELLS (BEAKER) (test 0 /100 WBC 0-0 kjhu=376) NEUTROPHILS RELATIVE PERCENT (BEAKER) (test 86 % inku=363) LYMPHOCYTES RELATIVE PERCENT (BEAKER) (test 6 % nizh=109) MONOCYTES RELATIVE PERCENT (BEAKER) (test 8 % ydnz=948) EOSINOPHILS RELATIVE PERCENT (BEAKER) (test 0 % babc=405) BASOPHILS RELATIVE PERCENT (BEAKER) (test 0 % ymlt=526) NEUTROPHILS ABSOLUTE COUNT (BEAKER) (test 8.14 K/ L 1.56-6.13 zxul=383) LYMPHOCYTES ABSOLUTE COUNT (BEAKER) (test 0.54 K/ L 1.18-3.74 gwkj=618) MONOCYTES ABSOLUTE COUNT (BEAKER) (test 0.76 K/ L 0.24-0.36 vvpc=760) EOSINOPHILS ABSOLUTE COUNT (BEAKER) (test 0.00 K/ L 0.04-0.36 lkxk=329) BASOPHILS ABSOLUTE COUNT (BEAKER) (test 0.01 K/ L 0.01-0.08 zmwv=833) IMMATURE GRANULOCYTES-RELATIVE PERCENT (BEAKER) 0 % 0-1 (test gjoc=4372) RAD, CHEST, 1 VIEW, NON [id number] 16:54:00Post-intubationReason for exam:-& gt;intubatedShould this be performed [...] MDReport Verified Date/Time: 04/08/2018 16:54:28 Reading Location: [facility] Diagnostic Imaging Reading Room - [place] [address] BLOOD GAS, [id number] 16:39:00 Test Item Value Reference Range Comments PH ARTERIAL (BEAKER) (test gpqq=986) 7.43 7.35-7.45 PCO2 ARTERIAL (BEAKER) (test tgvw=255) 46 mmHg 35-45 PO2 ARTERIAL (BEAKER) (test uwex=555) 90 mmHg 80-90 O2 SATURATION ARTERIAL (BEAKER) (test wtjx=906) 97.3 % 96.0-97.0 HCO3 ARTERIAL (BEAKER) (test xjmo=868) 30 mmol/L 21-29 BASE EXCESS ARTERIAL (BEAKER) (test ojvc=248) 4.7 mmol/L -2.0-3.0 PATIENT TEMPERATURE (BEAKER) (test btgx=3336) 36.0 C FIO2 (BEAKER) (test olww=0554) 30.0 % Following Spontaneous Breather Trial (SBT).
[2019-05-10] MEDS ORDERED: ONDANSETRON 4 MG/2 ML VIAL ONE (12:45)
[2019-05-10] MEDS ORDERED: NA CHLORIDE 0.9% 1,000 ML ONE ×2 (12:45→16:02)
[2019-05-10 13:11] LABS: Absolute Lymphocytes (CBC) 1.4 K/uL (0.7-4.9)
[2019-05-10 13:23] LABS: Basophils % 0.4 % (0-1.3); Hematocrit 47.4 % (36.0-45.0); Lymphocytes % 12.1 % (15.3-44.8); MPV 10.6 fL (7.6-11.3); RBC Red Blood Cell Count 5.22 M/uL (3.86-4.86)
[2019-05-10 13:30] LABS: Albumin 4.1 g/dL (3.4-5.0); Bilirubin Direct 0.2 mg/dL (0-0.2); Bilirubin Total 0.6 mg/dL (0.2-1.0); Potassium 4.2 mmol/L (3.5-5.1); Protein, Total 9.1 g/dL (6.4-8.2)
--- NOTE | 2019-05-10 14:18 | RAD REPORT ---
EXAM DESCRIPTION: CT - Abdomen Pelvis W Contrast - 05/10/2019 1:56 pm CLINICAL HISTORY: NAUSEA / VOMITING COMPARISON: CT imaging February 2009 TECHNIQUE: Biphasic, helical CT imaging of the abdomen and pelvis was performed following 100 ml non -ionic IV contrast. Oral contrast was given. All CT scans are performed using dose optimization technique as appropriate and may include automated exposure control or mA/KV adjustment according to patient size. FINDINGS: Bilateral breast implants are in place. No pericardial thickening or effusion. Right lower lobe atelectasis is present only partially imaged. Right lower lobe pneumonia component cannot be ex cluded. There is a small right pleural effusion present. No focal liver lesion identifiable. Small remnant splenic tissue seen in the left upper quadrant. No primary pancreatic process identifiable. Gallbladder is distended. No wall thickening or pericholecys tic fluid. No biliary tree dilatation. Approximately 10 millimeter calcification in the medial aspect of the gallbladder fossa is not seen on the prior study. This is not believed to be within the gallb ladder or biliary tree. Symmetric renal function is seen with no hydronephrosis or suspicious renal mass. No pyelonephritis o r acute parenchymal process. Urinary bladder is contracted around a Mary catheter. No adrenal abnorm alities. Large amount of stool is present dilating the rectum. Moderately large stool volume distends the sigm oid colon as well. Patient has an overall moderate stool volume throughout the colon. A primary colon process is not suspected. Stomach is dilated with retained air in fluid. No gastric wall thickening or mass. Gastric outlet obstruction is not suspected. Duodenum is dilated. There is an curvature of the distal duodenum into the right mid abdomen and not the usual ligament of Treitz location. Jejunum is significantly dilated. There is an abrupt transitio n in the mid abdomen with the distal small bowel decompressed. Internal hernia is favored over adhesi on. No obstructing mass identified. No free air or pneumatosis. Small amount of free fluid is seen in the right lower quadrant. No focal inflammatory stranding peer no mass or bulky lymphadenopathy. No omental thickening. Uterus and ovaries show no suspicious findings. No suspicious bony findings. IMPRESSION: Significant small bowel obstruction pattern with an abrupt transition in the proximal il eum midline abdomen. Internal hernia is the favored diagnosis. No obstructing mass. No free air or pneumatosis. Right lower lobe atelectasis with the right lower lobe only partially visualized. A pneumonia compone nt cannot be excluded. There is a small amount of pleural fluid in the right base and a small amount of subdiaphragmatic peritoneal free fluid along the superior margin of the liver.
--- NOTE | 2019-05-10 14:30 | ER ---
Nurse's Notes [facility] Name: Cira Tellez Age: 43 yrs Sex: Female : 1975 Arrival Date: 05/10/2019 Time: 12:21 Bed 2 Private MD: Diagnosis: Small Bowel Obstruction;Fecal impaction;Dehydration;Intractable Vomiting Presentation: 05/10 12:17 Presenting complaint: EMS states: n/v x 3 days. Transition of care: patient was not sv received from another setting of care. Onset of symptoms was May 08, 2019. Risk Assessment: Do you want to hurt yourself or someone else? Patient reports no desire to harm self or others. Initial Sepsis Screen: Does the patient meet any 2 criteria? No. Patient's initial sepsis screen is negative. Does the patient have a suspected source of infection? No. Patient's initial sepsis screen is negative. Care prior to arrival: EMS emptied 400 mls of urine from her dennison before bringing her in. 12:17 Method Of Arrival: EMS: [facility] sv 12:17 Acuity: EDGARDO 3 sv Triage Assessment: 12:20 General: Appears in no apparent distress. uncomfortable, malnourished, Behavior is sv cooperative. Pain: Denies pain. Neuro: Level of Consciousness is awake, alert, obeys commands, Oriented to person, place, time, situation, Paralysis in bilateral arm(s) leg(s) Gait is non-ambulatory. Cardiovascular: Capillary refill is > 3 seconds is sluggish in bilateral fingers Pulses are 2+ in right radial artery and left radial artery. Respiratory: Airway via trache with her own ventilator Respiratory effort is even, unlabored, Respiratory pattern is regular, symmetrical. GI: Abdomen is flat, non-distended, Reports intolerance of fluids, nausea, vomiting. : Dennison in place to gravity drainage Urine is cloudy. Derm: Skin is pale, Decubitus located on sacrum pt has a wound vac applied currently. Musculoskeletal:. 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 - Social history:: Smoking status: Patient/guardian denies using tobacco. - Ebola Screening: : No symptoms or risks identified at this time. - Family history:: not pertinent. - Hospitalizations: : No recent hospitalization is reported. Screenin:06 Abuse screen: Denies threats or abuse. Denies injuries from another. Tuberculosis sv screening: No symptoms or risk factors identified. Fall Risk No fall in past 12 months (0 pts). Secondary diagnosis (15 points) impaired mobility, CVA, IV access (20 points). Ambulatory Aid- None/Bed Rest/Nurse Assist (0 pts). Gait- Normal/Bed Rest/Wheelchair (0 pts) Mental Status- Oriented to own ability (0 pts). Total Odonnell Fall Scale indicates Low Risk Score (25-44 pts). Fall prevention measures have been instituted. Side Rails Up X 2 Placed close to Nursing Station Frequent Obs/Assesments occuring Family Present and informed to notify staff if they need to leave bedside As available Patient and Family Educated on Fall Prevention Program and strategies. 13:06 Nutritional screening: No deficits noted. sv Assessment: 14:19 Reassessment: Patient appears in no apparent distress at this time. No changes from sv previously documented assessment. 14:20 Reassessment: Patient appears in no apparent distress at this time. pt reports dry sg mouth, requesting water and ice, notified, NPO until results post, pt stated understanding. Vital Signs: 12:25 BP 109 / 55; Pulse 54; Resp 20; Pulse Ox 96% ; sv 13:00 Temp 97.5; sv 13:30 BP 119 / 68; Pulse 49; Resp 20; Pulse Ox 95% ; sv 14:24 BP 111 / 58; Pulse 50; Resp 19; Pulse Ox 98% ; sv 15:00 BP 145 / 78; Pulse 57; Resp 20; Pulse Ox 100% ; sv 15:45 BP 105 / 44; Pulse 52; Resp 19; Temp 98; Pulse Ox 99% ; sv 16:32 BP 104 / 55; Pulse 51; Resp 18; Pulse Ox 100% ; sv ED Course: 12:21 Patient arrived in ED. iw 12:22 Cleo Walter, RN is Primary Nurse. sv 12:24 Triage completed. sv 12:26 Arm band placed on. sv 12:26 Patient has correct armband on for positive identification. Bed in low position. Call sv light in reach. Side rails up X2. Adult w/ patient. Pulse ox on. NIBP on. Door closed. Head of bed elevated. 12:31 Ari Rousseau MD is Attending Physician. rn 12:55 Missed attempt(s): 22 gauge in left forearm. Bleeding controlled, band aid applied, sv catheter tip intact. 13:00 Inserted saline lock: 22 gauge in right antecubital area, using aseptic technique. sv ,using aseptic technique. diffusics Blood collected. Flushed right antecubital with 5 ml normal saline. 13:10 Awaiting lab results, Awaiting CT Scan. sv 13:57 CT Abd/Pelvis - IV Contrast Only In Process Unspecified. EDMS 14:19 Awaiting radiology results. sv 14:28 Diann Cantu MD is Hospitalizing Provider. rn 14:55 NGT: inserted 14 Fr. via right nare. verified placement of air over stomach, verified sv return of gastric contents, to intermittent suction. Returned bile. Patient tolerated well. 15:00 Dennison cath inserted, using sterile technique, 14 Fr., balloon inflated, to gravity sv drainage, other by Dr Mccarthy Attempted placing a 16F dennison but was unsuccessful. 16:16 Urine Dipstick--Ancillary (enter results) Sent. sv 16:18 Abdomen 1 View (KUB) XRAY Sent. sv 17:02 No provider procedures requiring assistance completed. Patient admitted, IV remains in sv place. intact. Administered Medications: 13:04 Drug: NS 0.9% 1000 ml Route: IV; Rate: 1000 ml; Site: right antecubital; sv 15:45 Follow up: Response: No adverse reaction; IV Status: Completed infusion; IV Intake: sv 1000ml 13:05 Drug: Zofran 4 mg Route: IVP; Site: right antecubital; sv 13:30 Follow up: Response: No adverse reaction; Nausea is decreased sv 14:29 CANCELLED (Duplicate Order): Rocephin - (cefTRIAXone) 1 grams IVPB once over 30 mins; sv (mix in 50 mL NS) 15:22 Drug: Rocephin 1 grams Route: IV; Rate: calculated rate; Site: right antecubital; sv 15:25 Follow up: Response: No adverse reaction; IV Status: Completed infusion; IV Intake: 10mlsv 15:25 Drug: Flagyl 500 mg Volume: 100 ml; Route: IVPB; Rate: 200 ml/hr; Infused Over: 30 sv mins; Site: right antecubital; 16:31 Follow up: Response: No adverse reaction; IV Status: Completed infusion; IV Intake: sv 100ml 16:11 Drug: NS 0.9% 1000 ml Route: IV; Rate: 1000 ml; Site: right forearm; sv 17:00 Follow up: Response: No adverse reaction; IV Status: Completed infusion; IV Intake: sv 1000ml Intake: 15:25 IV: 10ml; Total: 10ml. sv 15:45 IV: 1000ml; Total: 1010ml. sv 16:31 IV: 100ml; Total: 1110ml. sv 17:00 IV: 1000ml; Total: 2110ml. sv Output: 16:55 Urine: 400ml (Dennison); Gastric: 500ml (NGT); Total: 900ml. sv Outcome: 14:29 Decision to Hospitalize by Provider. rn 17:03 Admitted to ICU accompanied by nurse, accompanied by tech, via stretcher, room 7, on sv monitor, with chart, Report called to Saira GUTIERREZ 17:03 Condition: stable 17:03 Instructed on the need for admit. 17:43 Patient left the ED. sv Signatures: Dispatcher [employer] Cleo Muhammad RN RN Jaguar Vasquez RN RN sg Williams, Irene, RN RN Ari Rousseau MD MD corporate strategy intern: (The following items were deleted from the chart) 17:02 15:45 BP 105 / 44; Pulse 52bpm; Resp 19bpm; Pulse Ox 99%; sv sv
--- NOTE | 2019-05-10 14:30 | EDPHYS ---
Physician Documentation [facility] Name: Cira Tellez Age: 43 yrs Sex: Female : 1975 Arrival Date: 05/10/2019 Time: 12:21 Bed 2 Private MD: ED Physician Ari Rousseau HPI: 05/10 13:15 This 43 yrs old Female presents to ER via EMS with complaints of rn Nausea/Vomiting. 13:15 The patient presents to the emergency department with nausea, vomiting, diarrhea. rn 13:15 Onset: The symptoms/episode began/occurred 3 day(s) ago. Possible causes: unknown. The rn symptoms are aggravated by nothing. The symptoms are alleviated by nothing. Severity of symptoms: At their worst the symptoms were moderate in the emergency department the symptoms have improved. The patient has not experienced similar symptoms in the past. Reports nausea/vomiting/diarrhea, began 3 days ago, no new pain or neurological symptoms, no headache, no blood in emesis or stool. Reports dramamine helped nausea. Has had indwelling dennison for 2 weeks, reports increased sediment. . 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 - Social history:: Smoking status: Patient/guardian denies using tobacco. - Ebola Screening: : No symptoms or risks identified at this time. - Family history:: not pertinent. - Hospitalizations: : No recent hospitalization is reported. ROS: 13:15 Constitutional: Negative for fever, chills, and weight loss, Eyes: Negative for injury, rn pain, redness, and discharge, ENT: Negative for injury, pain, and discharge, Cardiovascular: Negative for chest pain, palpitations, and edema, Respiratory: Negative for shortness of breath, cough, wheezing, and pleuritic chest pain, Abdomen/GI: + nausea/vomiting/diarrhea MS/Extremity: Negative for injury and deformity, Skin: Negative for injury, rash, and discoloration, Neuro: Negative for headache, numbness, tingling, and seizure. Exam: 13:15 Constitutional: Thin female, on personal ventilator, tracheostomy, no acute distress, rn smiling. Head/Face: Normocephalic, atraumatic. ENT: dry cracked lips Cardiovascular: Bradycardic, regular Respiratory: No increased work of breathing, no retractions or nasal flaring. Abdomen/GI: soft, non-tender MS/ Extremity: Pulses equal, no cyanosis. Neurovascular intact. Full, normal range of motion. Equal circumference. Neuro: Awake and alert, GCS 15, oriented to person, place, time, and situation. Cranial nerves intact. + paraplegic. Vital Signs: 12:25 BP 109 / 55; Pulse 54; Resp 20; Pulse Ox 96% ; sv 13:00 Temp 97.5; sv 13:30 BP 119 / 68; Pulse 49; Resp 20; Pulse Ox 95% ; sv 14:24 BP 111 / 58; Pulse 50; Resp 19; Pulse Ox 98% ; sv 15:00 BP 145 / 78; Pulse 57; Resp 20; Pulse Ox 100% ; sv 15:45 BP 105 / 44; Pulse 52; Resp 19; Temp 98; Pulse Ox 99% ; sv 16:32 BP 104 / 55; Pulse 51; Resp 18; Pulse Ox 100% ; sv MDM: 12:31 Patient medically screened. rn 14:27 ED course: called Dr. david, regarding SBO, in surgery, conversation through morning news anchor nurseSofia states to admit to hospitalist and information taken. Will see patient.. 05/10 12:39 Order name: Basic Metabolic Panel; Complete Time: 14:22 rn 05/10 12:39 Order name: CBC with Diff; Complete Time: 14:56 rn 05/10 12:39 Order name: Creatinine for Radiology; Complete Time: 14:22 rn 05/10 12:39 Order name: Hepatic Function; Complete Time: 14:22 rn 05/10 12:39 Order name: Lipase; Complete Time: 14:22 rn 05/10 12:41 Order name: Urine Culture rn 05/10 12:39 Order name: CT Abd/Pelvis - IV Contrast Only; Complete Time: 14:22 rn 05/10 12:41 Order name: Urine Microscopic Only 05/10 13:24 Order name: CBC Smear Scan; Complete Time: 14:56 EDMS 05/10 15:40 Order name: Abdomen 1 View (KUB) XRAY 05/10 16:09 Order name: RAD EDMS 05/10 16:15 Order name: Urine Dipstick--Ancillary (enter results) bd 05/10 16:26 Order name: Urine Dipstick-Ancillary EDMS 05/10 12:39 Order name: IV Saline Lock; Complete Time: 13:05 rn 05/10 12:39 Order name: Labs collected and sent; Complete Time: 13:05 rn 05/10 12:41 Order name: Urine Dipstick-Ancillary (obtain specimen); Complete Time: 16:11 rn 05/10 14:27 Order name: NG Tube; Complete Time: 15:40 rn 05/10 15:10 Order name: CONS Physician Consult EDMS 05/10 15:10 Order name: NPO; Complete Time: 15:45 EDMS Administered Medications: 13:04 Drug: NS 0.9% 1000 ml Route: IV; Rate: 1000 ml; Site: right antecubital; sv 15:45 Follow up: Response: No adverse reaction; IV Status: Completed infusion; IV Intake: sv 1000ml 13:05 Drug: Zofran 4 mg Route: IVP; Site: right antecubital; sv 13:30 Follow up: Response: No adverse reaction; Nausea is decreased sv 14:29 CANCELLED (Duplicate Order): Rocephin - (cefTRIAXone) 1 grams IVPB once over 30 mins; sv (mix in 50 mL NS) 15:22 Drug: Rocephin 1 grams Route: IV; Rate: calculated rate; Site: right antecubital; sv 15:25 Follow up: Response: No adverse reaction; IV Status: Completed infusion; IV Intake: 10mlsv 15:25 Drug: Flagyl 500 mg Volume: 100 ml; Route: IVPB; Rate: 200 ml/hr; Infused Over: 30 sv mins; Site: right antecubital; 16:31 Follow up: Response: No adverse reaction; IV Status: Completed infusion; IV Intake: sv 100ml 16:11 Drug: NS 0.9% 1000 ml Route: IV; Rate: 1000 ml; Site: right forearm; sv 17:00 Follow up: Response: No adverse reaction; IV Status: Completed infusion; IV Intake: sv 1000ml Disposition: 05/10/19 14:29 Hospitalization ordered by Diann Cantu for Inpatient Admission. Preliminary diagnosis are Small Bowel Obstruction, Fecal impaction, Dehydration, Intractable Vomiting. - Bed requested for Intensive Care Unit. - Status is Inpatient Admission. sv - Condition is Stable. - Problem is new. - Symptoms have improved. UTI on Admission? No Signatures: Dispatcher [employer] EDMS Elli Kylie Cleo Salmeron, MATT RN Ari Rousseau MD MD news intern: (The following items were deleted from the chart) 14:29 14:27 Rocephin - (cefTRIAXone) 1 grams IVPB once over 30 mins; (mix in 50 mL NS) sv ordered. rn 16:43 14:29 Hospitalization Ordered by Diann Cantu MD for Inpatient Admission. Preliminary bd diagnosis is Small Bowel Obstruction; Fecal impaction; Dehydration; Intractable Vomiting. Bed requested for Telemetry/MedSurg (Inpatient). Status is Inpatient Admission. Condition is Stable. Problem is new. Symptoms have improved. UTI on Admission? No. rn 17:43 16:43 05/10/2019 14:29 Hospitalization Ordered by Diann Cantu MD for Inpatient sv Admission. Preliminary diagnosis is Small Bowel Obstruction; Fecal impaction; Dehydration; Intractable Vomiting. Bed requested for Intensive Care Unit. Status is Inpatient Admission. Condition is Stable. Problem is new. Symptoms have improved. UTI on Admission? No. bd
[2019-05-10] MEDS ORDERED: METRONIDAZOLE 500mg IVPB 500 MG/100 ML BAG IV ONE (14:39)
[2019-05-10] MEDS ORDERED: CEFTRIAXONE/SWI 1gm 1 GM/10 ML SYR ONE (14:39)
[2019-05-10 14:47] LABS: Blood Morphology Comment NOTED (NOT SEEN); Platelet Estimate ADEQ; Poikilocytosis 1+; Urine White Blood Cell Casts OK
--- NOTE | 2019-05-10 16:07 | RAD REPORT ---
EXAM DESCRIPTION: RAD - Abdomen 1 View (KUB) - 05/10/2019 3:59 pm CLINICAL HISTORY: NGT placement Pain COMPARISON: No comparisons FINDINGS: Enteric tube coils in the stomach.
[2019-05-10 16:25] LABS: Urine Blood 3+ (NEG); Urine Glucose NEGATIVE (NEG); Urine Protein 3+ (NEG); Urine pH 5.5 (5.0-7.0)
[2019-05-10 16:57] LABS: Urine Bacteria 20-50 /HPF (<20); Urine Culture Reflex Order NOT NEEDED; Urine RBC >50 /HPF (NONE SEEN)
[2019-05-10] MEDS: METRONIDAZOLE 500mg IVPB 500 MG/100 ML BAG IV SCH (17:00)
[2019-05-10] MEDS ORDERED: FLEET ENEMA ADULT PR PRN (17:59)
--- NOTE | 2019-05-10 18:02 | P.HP ---
Certification for Inpatient Patient admitted to: Inpatient With expected LOS: >2 Midnights Practitioner: I am a practitioner with admitting privileges, knowledge of patient current condition, hospital course, and medical plan of care. Services: Services provided to patient in accordance with Admission requirements found in Title 42 Section 412.3 of the Code of Federal Regulations Patient History Date of Service: 05/10/19 Primary Care Provider: Unknown Reason for admission: SBO History of Present Illness: This is a 43-year-old female with significant past medical history of traumatic brain injury currently on chronic indwelling Mary catheter who presented to the ED complaining of having nausea vomiting x3 days. Patient states that she has been having some poor appetite along with nausea and vomiting. Has been taking some oral Zofran at home however has not helped him at all. Patient denies having any fever chills chest pain or shortness of breath. Does complain of having abdominal distention and abdominal pain. Patient does have indwelling Mary catheter which has been drained here in the hospital which patient states that has helped her pain a little bit. Patient also has not had any bowel movement and has been noticing on liquidy bowel movement lately for past couple of weeks. In the ER patient had lab work and imaging done was found to have small bowel obstruction and thus was admitted to the hospitalist team with consult to general surgery. Allergies No Known Drug Allergies Allergy (Verified 05/02/19 10:33) Unknown Home Medications: Baclofen 15 mg PO TID 03/27/17 Buspirone HCl 10 mg PO TID 05/01/19 Escitalopram [Lexapro*] 20 mg PO DAILY 05/01/19 Midodrine HCl 15 mg PO Q8HR 05/01/19 Pantoprazole [Protonix Tab*] 40 mg PO DAILY 05/01/19 Collagenase [Santyl Ointment] 1 appl TOP DAILY #1 tube 05/03/19 Smz./Tmp. 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 -: splenectomy -: knee surgery - Social History Alcohol use: No CD- Drugs: No Caffeine use: Yes Review of Systems 10-point ROS is otherwise unremarkable Physical Examination - Vital Signs Temperature: 97.7 F Blood Pressure: 93/47 Pulse: 56 Respirations: 15 Pulse Ox (%): 95 - Physical Exam General: Alert, In no apparent distress Neck: Supple, 2+ carotid pulse no bruit, No LAD, Without JVD or thyroid abnormality Respiratory: Clear to auscultation bilaterally, Normal air movement Cardiovascular: Regular rate/rhythm, Normal S1 S2 Gastrointestinal: Hypoactive, Distended, Tenderness Musculoskeletal: Other (qudrapelgia ) Integumentary: No rashes Neurological: Normal speech, Normal tone Lymphatics: No axilla or inguinal lymphadenopathy - Studies Laboratory Data (last 24 hrs) 05/10/19 13:00: Creatinine 0.80 05/10/19 13:00: WBC 11.5 H, Hgb 16.2 H D, Hct 47.4 H D, Plt Count 311 05/10/19 13:00: Sodium 135 L, Potassium 4.2, BUN 45 H D, Creatinine 0.79, Glucose 111 H, Total Bilirubin 0.6, AST 19, ALT 67, Alkaline Phosphatase 586 H, Lipase 166 Assessment and Plan - Problems (Diagnosis) (1) SBO (small bowel obstruction) Current Visit: Yes Status: Acute Plan: Small bowel obstruction most likely secondary to adhesions secondary to chronic abdominal surgery -patient abdominal CT with extensive smallest bowel obstruction along with fecal impaction -general surgery consulted. Appreciated recommendations -NPO, IV fluids, NG tube placement -also started on empiric antibiotics -general surgery recommends Fleet enema x1 -if no improvement in small bowel obstruction in next 24-48 hr possible laparotomy to be done (2) Quadriplegia following spinal cord injury Current Visit: No Status: Chronic Plan: Secondary to TBI -with indwelling Mary catheter -urine culture collected at this time - Plan Admit patient for further care Discharge Plan: Other Plan to discharge in: 48 Hours - Advance Directives Does patient have a Living Will: No Does patient have a Durable POA for Healthcare: No - Code Status/Comfort Care Code Status Assessed: Yes Critical Care: Yes
[2019-05-10] MEDS: NA CHLORIDE 0.9% 1,000 ML IV SCH (19:53)
--- NOTE | 2019-05-10 20:11 | CON ---
Date of Consultation: 05/10/2019 Brief History Of Present Illness: Patient is a 43-year-old female who presents to the hospital with nausea and vomiting beginning approximately 3 days ago, associated with some diarrhea. She has never had similar episodes before in the past. She has had some abdominal pain associated with this, but this has gotten somewhat better after having an NG tube placed here in the emergency room and having several episodes of nausea and vomiting. She is paraplegic and as such has decreased sensorium due to her injury. Past Medical History: Significant for head injury with spinal fluid leak, depression, paraplegia, traumatic brain injury, CVA. Past Surgical History: Includes a NURSE PRN shunt, knee surgery, splenectomy, right knee surgery, ankle surgery, hysterectomy, C-sections. She cannot recall other abdominal surgeries. There are clearly many abdominal scars evident on the patient. Social History: She denies smoking, alcohol, or recreational drug use. Allergies: NO KNOWN DRUG ALLERGIES. Home Medications: Baclofen, BuSpar, Santyl, Lexapro, midodrine, Protonix, and Bactrim. Physical Examination: General: She is awake, alert, and oriented. Psychiatric: She is appropriately conversive. HEENT: She is normocephalic. Her sclerae are anicteric. Her mucous membranes are somewhat dry. Oropharynx is clear. There is an NG tube in place. Neck: Supple. No JVD. Tracheostomy in place. Chest: Decreased expansion and excursion. Cardiovascular: Regular rate and rhythm. Pulmonary: Decreased breath sounds bilaterally. Abdomen: Distended and somewhat firm. There is no tenderness. No rebound. No guarding. No peritoneal signs. Extremities: No clubbing, cyanosis, or edema. She is somewhat cachectic appearing in general appearance and she is paraplegic with some contractures of the upper and bilateral lower extremities. She does have some mobility to her fingers predominantly on the left side, but she does have contractures in place. Skin: Otherwise warm and dry. Back: Deferred. Laboratory Data: She had a laboratory exam which revealed a white blood count of 11.5, hemoglobin of 16.2, hematocrit of 47.4, platelet count was 311. Her chemistry showed a sodium 135, potassium 4.2, chloride 102, carbon dioxide 24, BUN is 45, creatinine of 0.7, glucose of 111, total bilirubin 0.6, direct bilirubin 0.2, AST 19, ALT 67, alkaline phosphatase is 586, lipase is 166. She had a CT scan performed of the abdomen and pelvis, which was officially read as significant small bowel obstruction pattern with abrupt transition point approximately in midline abdomen. Internal hernia is the favored diagnosis. No obstruction or mass. No free air or pneumatosis. Right lower lobe atelectasis within the right lower lobe, only partially visualized. The pneumonia component cannot be excluded with a small amount of pleural fluid on the right base with a small amount of subdiaphragmatic peritoneal fluid along the superior margin of the liver. Assessment And Plan: This is a 43-year-old female with paraplegia, who presents with small bowel obstruction. 1. NG tube decompression. 2. IV fluid hydration. 3. Medical management. 4. Serial abdominal exams. 5. I have explained the risks, benefits, and alternatives of nonoperative versus operative management including but not limited to bleeding, infection, damage to surrounding tissue, need for further operation and procedures. We will try nonoperative management at this time with NG tube decompression and serial exams. However, I have explained that if she does not resolve within a reasonable amount of time or shows any signs of decompensation whatsoever, we will likely proceed with surgery, which would be an exploratory laparotomy and indicated procedures. She agrees with the above stated plan. GERARDO Voice ID: [id number] Report ID: [id number] JODY
[2019-05-10] MEDS: CIPROFLOXACIN 400mg IV 400 MG/200 ML BAG IV SCH (20:53)
[2019-05-10 21:52] LABS: Urine Appearance CLOUDY; Urine Bilirubin NEGATIVE (NEG); Urine Blood NEGATIVE (NEG); Urine Color YELLOW; Urine Glucose NEGATIVE (NEG); Urine Protein NEGATIVE (NEG); Urine Specific Gravity >=1.030 (1.005-1.030); Urine Urobilinogen 0.2 mg/dL (0.2-1.0)
[2019-05-10 21:53] LABS: Urine Microscopic Reflex ORDER UMIC
[2019-05-10 22:00] LABS: Urine Bacteria 20-50 /HPF (<20); Urine RBC <5 /HPF (NONE SEEN)
[2019-05-10 22:01] LABS: Urine Culture Reflex Order REFLEXED; Urine Mucus 1+ /HPF (NONE SEEN)
[2019-05-10] MEDS ORDERED: NA CHLORIDE 0.9% 500 ML IV ONE (23:21)
[2019-05-11] MEDS: METRONIDAZOLE 500mg IVPB 500 MG/100 ML BAG IV SCH ×3 (00:29→17:35)
[2019-05-11] MEDS ORDERED: HYDROCORTISONE SUC 100 MG INJ IV ONE (01:23)
[2019-05-11] MEDS ORDERED: ALBUMIN HUMAN 25% 100 ML IV ONE (01:24)
[2019-05-11] MEDS ORDERED: WATER FOR INJ,STERILE 10 ML ONE (01:54)
[2019-05-11 04:56] LABS: Absolute Lymphocytes (CBC) 1.5 K/uL (0.7-4.9); Basophils % 0.5 % (0-1.3); Hematocrit 34.9 % (36.0-45.0); Lymphocytes % 15.1 % (15.3-44.8); MPV 10.9 fL (7.6-11.3); RBC Red Blood Cell Count 3.84 M/uL (3.86-4.86)
[2019-05-11] MEDS: NA CHLORIDE 0.9% 1,000 ML IV SCH ×2 (05:00→10:29)
[2019-05-11 05:08] VITALS: BMI 20.7
[2019-05-11 05:17] LABS: ALT/SGPT 42 U/L (12-78); AST/SGOT 14 U/L (15-37); Albumin 3.2 g/dL (3.4-5.0); Alkaline Phosphatase 390 U/L (45-117); BUN Blood Urea Nitrogen 27 mg/dL (7-18); Bicarbonate 22 mmol/L (21-32); Bilirubin Total 0.7 mg/dL (0.2-1.0); Glucose Level 81 mg/dL (74-106); Potassium 3.7 mmol/L (3.5-5.1); Protein, Total 6.9 g/dL (6.4-8.2); Sodium Level 143 mmol/L (136-145)
--- NOTE | 2019-05-11 07:47 | P.PN ---
Subjective Date of Service: 05/11/19 Primary Care Provider: Unknown Chief Complaint: SBO Subjective: Improving (Patient feels better, + several BMs overnight) Physical Examination - Vital Signs Temperature: 97.1 F Blood Pressure: 97/52 Pulse: 59 Respirations: 10 Pulse Ox (%): 97 - Physical Exam General: Alert, In no apparent distress, Cooperative Gastrointestinal: Soft and benign, No ascites, No tenderness, No masses, Other ( mild distention, much improved) - Studies Laboratory Data (last 24 hrs) 05/10/19 13:00: Creatinine 0.80 05/10/19 13:00: WBC 11.5 H, Hgb 16.2 H D, Hct 47.4 H D, Plt Count 311 05/10/19 13:00: Sodium 135 L, Potassium 4.2, BUN 45 H D, Creatinine 0.79, Glucose 111 H, Total Bilirubin 0.6, AST 19, ALT 67, Alkaline Phosphatase 586 H, Lipase 166 Assessment And Plan - Current Problems (Diagnosis) (1) SBO (small bowel obstruction) Current Visit: Yes Status: Acute Plan: - continue NG tube decompression - serial exams - continue medical management - abd x-ray in AM
[2019-05-11] MEDS: CIPROFLOXACIN 400mg IV 400 MG/200 ML BAG IV SCH ×2 (09:14→20:25)
[2019-05-11] MEDS: MIDODRINE HCL 5 MG TABLET PO SCH ×2 (09:14→17:36)
[2019-05-11] MEDS: BUSPIRONE HCL 5 MG TABLET PO SCH ×2 (13:37→20:25)
[2019-05-11] MEDS: BACLOFEN 10 MG TAB PO SCH ×2 (13:37→20:26)
--- NOTE | 2019-05-11 14:23 | P.PN ---
Subjective Date of Service: 05/11/19 Primary Care Provider: Unknown Chief Complaint: SBO Patient seen and examined at bedside with RN. Chart reviewed. Case discussed with general surgery. Patient had 3-4 bowel movements overnight. Currently with NG tube. Has been doing well overall. Denies having any abdominal pain nausea vomiting Review of Systems 10-point ROS is otherwise unremarkable Physical Examination - Vital Signs Temperature: 97.1 F Blood Pressure: 124/83 Pulse: 65 Respirations: 22 Pulse Ox (%): 95 - Physical Exam General: Alert, In no apparent distress HEENT: Atraumatic, PERRLA, EOMI Neck: Supple, JVD not distended Respiratory: Normal air movement, Expiratory wheezes, Other (Home trach in place ) Cardiovascular: Regular rate/rhythm, Normal S1 S2 Gastrointestinal: Normal bowel sounds, Distended Musculoskeletal: No tenderness Integumentary: No rashes Neurological: Normal speech, Normal tone, Normal affect Lymphatics: No axilla or inguinal lymphadenopathy - Studies Medications List Reviewed: Yes Assessment And Plan - Current Problems (Diagnosis) (1) SBO (small bowel obstruction) Current Visit: Yes Status: Acute Plan: Small bowel obstruction most likely secondary to adhesions secondary to chronic abdominal surgery -patient abdominal CT with extensive small bowel obstruction along with fecal impaction -general surgery consulted. Appreciated recommendations -NPO, IV fluids, NG tube placement -On empiric antibiotics -now having bowel movement. -Will continue monitor for next 24 hr. If continues to improve patient can then be advanced to a clear liquid diet and possible discharge home. (2) Quadriplegia following spinal cord injury Current Visit: No Status: Chronic Plan: Secondary to TBI with at home trach -with indwelling Mary catheter -urine culture collected at this time and pending -on empiric antibiotic - Plan Pending clinical improvement at this time. Will continue monitor patient in the ICU full Discharge Plan: Home Plan to discharge in: Greater than 2 days - Code Status/Comfort Care Code Status Assessed: Yes Critical Care: No
[2019-05-11] MEDS: COLLAGENASE 30 GM OINTMENT TOP SCH (17:00)
[2019-05-11] MEDS: PANTOPRAZOLE 40MG TABLET PO SCH (17:35)
[2019-05-11] MEDS ORDERED: TEMAZEPAM 15 MG CAP PO PRN (22:44)
[2019-05-12] MEDS: MIDODRINE HCL 5 MG TABLET PO SCH ×2 (00:03→10:26)
[2019-05-12] MEDS: METRONIDAZOLE 500mg IVPB 500 MG/100 ML BAG IV SCH ×2 (00:03→09:18)
[2019-05-12 05:19] LABS: Basophils % 0.5 % (0-1.3); Hematocrit 33.6 % (36.0-45.0); Lymphocytes % 35.6 % (15.3-44.8); MPV 10.7 fL (7.6-11.3); RBC Red Blood Cell Count 3.67 M/uL (3.86-4.86)
[2019-05-12 05:49] LABS: ALT/SGPT 39 U/L (12-78); AST/SGOT 18 U/L (15-37); Albumin 3.3 g/dL (3.4-5.0); Alkaline Phosphatase 355 U/L (45-117); BUN Blood Urea Nitrogen 24 mg/dL (7-18); Bicarbonate 26 mmol/L (21-32); Bilirubin Total 0.9 mg/dL (0.2-1.0); Glucose Level 64 mg/dL (74-106); Potassium 3.1 mmol/L (3.5-5.1); Protein, Total 6.7 g/dL (6.4-8.2); Sodium Level 141 mmol/L (136-145)
[2019-05-12] MEDS ORDERED: NA CHLORIDE 0.9% 500 ML ONE (06:47)
[2019-05-12] MEDS: KCL 20 MEQ/100 mL IVPB 20 MEQ/100 ML BAG IV SCH ×2 (06:56→08:39)
--- NOTE | 2019-05-12 07:47 | RAD REPORT ---
EXAM DESCRIPTION: RAD - Abdomen 1 View (KUB) - 05/12/2019 7:10 am CLINICAL HISTORY: Abdomen pain. FINDINGS: An enteric tube is coiled within the gastric fundus near the GE junction Small bowel caliber has diminished and is now within normal limits.
[2019-05-12] MEDS: BACLOFEN 10 MG TAB PO SCH (08:42)
[2019-05-12] MEDS: COLLAGENASE 30 GM OINTMENT TOP SCH (08:42)
[2019-05-12] MEDS: PANTOPRAZOLE 40MG TABLET PO SCH (08:42)
[2019-05-12] MEDS: BUSPIRONE HCL 5 MG TABLET PO SCH (08:42)
[2019-05-12] MEDS ORDERED: POTASSIUM CL SA 10 MEQ TAB PO ONE (08:58)
[2019-05-12] MEDS ORDERED: ESCITALOPRAM 20 MG TAB PO SCH (09:00)
--- NOTE | 2019-05-12 09:02 | P.DS ---
Discharge Date: 05/12/19 Primary Care Provider: Unknown Disposition: ROUTINE DISCHARGE Discharge Condition: GOOD Reason for Admission: SBO Brief History of Present Illness: This is a 43-year-old female with significant past medical history of traumatic brain injury currently on chronic indwelling Mary catheter who presented to the ED complaining of having nausea vomiting x3 days. Patient states that she has been having some poor appetite along with nausea and vomiting. Has been taking some oral Zofran at home however has not helped him at all. Patient denies having any fever chills chest pain or shortness of breath. Does complain of having abdominal distention and abdominal pain. Patient does have indwelling Mary catheter which has been drained here in the hospital which patient states that has helped her pain a little bit. Patient also has not had any bowel movement and has been noticing on liquidy bowel movement lately for past couple of weeks. In the ER patient had lab work and imaging done was found to have small bowel obstruction and thus was admitted to the hospitalist team with consult to general surgery. Hospital Course: Patient has done well during hospital stay. KUB with normal bowel pattern/ obstruction resolved. Patient has had a bowel movement. Will advance diet as tolerated. DC NGT. If tolerates then DC home with outpt follow-up. Vital Signs/Physical Exam: Temp Pulse Resp BP Pulse Ox 98 F 58 21 H 92/50 L 97 05/12/19 04:00 05/12/19 08:00 05/12/19 08:00 05/12/19 08:00 05/12/19 08:00 General: Alert, In no apparent distress, Oriented x3 Gastrointestinal: Soft and benign, Non-distended, No tenderness, No rebound, No guarding Laboratory Data at Discharge: WBC 8.4 K/uL (4.3-10.9) D 05/12/19 04:50 Hgb 11.7 g/dL (12.0-15.0) L 05/12/19 04:50 Hct 33.6 % (36.0-45.0) L 05/12/19 04:50 Plt Count 256 K/uL (152-406) 05/12/19 04:50 Sodium 141 mmol/L (136-145) 05/12/19 04:50 Potassium 3.1 mmol/L (3.5-5.1) L 05/12/19 04:50 BUN 24 mg/dL (7-18) H 05/12/19 04:50 Creatinine 0.33 mg/dL (0.55-1.3) L 05/12/19 04:50 Glucose 64 mg/dL (74-106) L 05/12/19 04:50 Total Bilirubin 0.9 mg/dL (0.2-1.0) 05/12/19 04:50 AST 18 U/L (15-37) 05/12/19 04:50 ALT 39 U/L (12-78) 05/12/19 04:50 Alkaline Phosphatase 355 U/L (45-117) H 05/12/19 04:50 Lipase 166 U/L (73-393) 05/10/19 13:00 Home Medications: Baclofen 15 mg PO TID 03/27/17 Buspirone HCl 10 mg PO TID 05/01/19 Escitalopram [Lexapro*] 20 mg PO DAILY 05/01/19 Midodrine HCl 15 mg PO Q8HR 05/01/19 Pantoprazole [Protonix Tab*] 40 mg PO DAILY 05/01/19 Collagenase [Santyl Ointment*] 1 appl TOP DAILY #1 tube 05/03/19 Ciprofloxacin HCl 500 mg PO BID #14 tablet 05/12/19 Potassium Chloride [K-Dur] 10 meq PO DAILY #30 tab.er.prt 05/12/19 metroNIDAZOLE [Flagyl] 500 mg PO Q6H #28 tablet 05/12/19 New Medications: Ciprofloxacin HCl 500 mg PO BID #14 tablet metroNIDAZOLE [Flagyl] 500 mg PO Q6H #28 tablet Potassium Chloride [K-Dur] 10 meq PO DAILY #30 tab.er.prt Patient Discharge Instructions: OK to DC IV and DC home. Follow-up with Dr. Mccarthy and PCP in 1-2 weeks. Call me at [phone] if any questions regarding hospital stay. Return to the ER if symptoms worsens Diet: AHA Activity: Bedrest Time spent managing pt's care (in minutes): 35
[2019-05-12 09:05] VITALS: O2SAT 98
[2019-05-12] MEDS: CIPROFLOXACIN 400mg IV 400 MG/200 ML BAG IV SCH (09:18)
[2019-05-12 13:35] VITALS: BP 148/57
[2019-05-12 13:50] VITALS: TEMP 97.8
--- NOTE | 2019-05-12 14:19 | P.PN ---
Subjective Date of Service: 05/12/19 Primary Care Provider: Unknown Chief Complaint: SBO Subjective: Improving (Patient had many BMs. No pain.) Physical Examination - Vital Signs Temperature: 97.8 F Blood Pressure: 148/57 Pulse: 45 Respirations: 16 Pulse Ox (%): 98 - Physical Exam General: Alert, In no apparent distress, Cooperative Gastrointestinal: Soft and benign - Studies Medications List Reviewed: Yes Assessment And Plan - Current Problems (Diagnosis) (1) SBO (small bowel obstruction) Current Visit: Yes Status: Acute Plan: - dc NG tube decompression - serial exams - continue medical management - start diet, advance as david
== END 2019-05-12 13:40 | disposition home or self-care (01) | DRG 388 ==
LOC: ER 12:17 → ERHOLD 15:09 → 3RD-ICU 17:06
PROVIDERS: ADMIT Family Medicine; ATTEND Hospitalist
DX: K56.50 Intestinal adhesions [bands], unspecified as to partial versus complete obstruction (principal); G82.50 Quadriplegia, unspecified; K56.41 Fecal impaction; Z87.820 Personal history of traumatic brain injury; Z93.0 Tracheostomy status
CPT/HCPCS: 36415; 51702; 74018; 74177; 80048; 80053; 80076; 81003; 81015; 83605; 83690; 85025; 87077; 87086; 87088; 87186; 96361; 96365; 96375; 99285; J0696; J0744; J1720; J2405; J7030; J7040; P9047; Q9967

== ENCOUNTER 2020-07-25 01:08 | Emergency (ER) | payer OTHER ==
--- NOTE | 2020-07-25 05:40 | ER ---
Nurse's Notes [facility] Name: Cira Tellez Age: 44 yrs Sex: Female : 1975 Arrival Date: 07/25/2020 Time: 01:09 Bed 28 Private MD: Diagnosis: Wellness check Presentation: 07/25 01:11 Chief complaint: EMS states: Pt currently on a trache vent, power is out at home and ea machine is not able to be powered. Coronavirus screen: At this time, the client does not indicate any symptoms associated with coronavirus-19. Ebola Screen: No symptoms or risks identified at this time. Initial Sepsis Screen: Does the patient meet any 2 criteria? No. Patient's initial sepsis screen is negative. Does the patient have a suspected source of infection? No. Patient's initial sepsis screen is negative. Risk Assessment: Do you want to hurt yourself or someone else? Patient reports no desire to harm self or others. Onset of symptoms was July 25, 2020. 01:11 Method Of Arrival: EMS: [facility] ea 01:11 Acuity: EDGARDO 3 ea Historical: - Allergies: 01:10 No Known Drug Allergies; ea - PMHx: 01:10 "Head injury with spinal fluid leak"; CVA; Depression; Paraplegia; TBI; ea - PSHx: 01:10 BLUE CRABBER shunt; Knee surgery; splenectomy; R knee; L ankle; ea - Immunization history:: Adult Immunizations unknown. - Social history:: Smoking status: unknown. Screenin:12 Abuse screen: Denies threats or abuse. Nutritional screening: No deficits noted. ea Nutritional screening: No deficits noted. Tuberculosis screening: No symptoms or risk factors identified. Fall Risk None identified. Assessment: 01:11 General: Appears in no apparent distress. Behavior is calm, cooperative, appropriate ea for age. Pain: Denies pain. Neuro: Level of Consciousness is awake, alert, obeys commands, Oriented to person, place, time. Cardiovascular: Patient's skin is warm and dry. Respiratory: Airway is patent Respiratory effort is even, unlabored, Respiratory pattern is regular, symmetrical. Derm: Skin is pink, warm \\T\\ dry. Musculoskeletal: pt has paraplegia. 02:08 Reassessment: Clay (son) [phone]. ea 04:00 Reassessment: Patient and/or family updated on plan of care and expected duration. Pain ea level reassessed. Pt resting with eyes closed, respirations even and unlabored, chest expansions even and symmetrical . 05:40 Reassessment: Patient and/or family updated on plan of care and expected duration. Pain ea level reassessed. Pt resting with eyes closed, respirations even and unlabored. Chest expansions even and symmetrical. 05:42 Reassessment: Pt awaiting on power to come on at home. ea 08:02 General: Appears in no apparent distress. comfortable, well groomed, Behavior is calm, ss cooperative, PT was initially resting with eyes closed. Awoke to soft verbal stimuli. States she is okay at this time. Offered to reposition. Pt declined at this time. Will offer again shortly. . Patient is placed on home vent that is hooked up to O2. Pt is quadriplegic. . Respiratory: Airway via trache Pt is connected to her home ventilator. Breath sounds are clear bilaterally. GI: Patient currently denies abdominal pain, diarrhea, nausea, vomiting. EENT: Nares are clear. Derm: Skin is pink, warm \\T\\ dry. 09:00 Reassessment: RT at bedside assisting with patient's day circuit changes. Patient's ET ss tube has been suctioned. Tolerated well. Diet tray ordered upon patient's request. Patient's face is wiped with warm towel. 07/26 08:44 Reassessment: Patient is resting at this time. intake nurse at bedside providing care. ss 09:01 Reassessment: Pt on vent, resting in bed, no signs of distress. Caregiver at bedside. ec1 12:30 Reassessment: Caregiver left. ss 14:59 Reassessment: Cleaned patient of urinary incontinence. and Repositioned. ss 16:00 Reassessment: Son here at bedside caring for patient. ss 20:20 Reassessment: Patient and/or family updated on plan of care and expected duration. Pain ea level reassessed. Pt awaiting for power to come on at home. Vital Signs: 07/25 01:21 Pulse 58; Resp 18; Temp 97.2; Pulse Ox 94% ; ea 02:49 BP 95 / 54; Pulse 73; Resp 18; Pulse Ox 93% on R/A; ea 07:51 Pulse 78; Pulse Ox 90% on R/A; Pain 0/10; ss ED Course: 01:09 Patient arrived in ED. ea 01:12 Triage completed. ea 01:18 Kraig Delgado MD is Attending Physician. kdr 01:19 Patient has correct armband on for positive identification. Bed in low position. Call ea light in reach. Side rails up X2. 01:20 Arm band placed on right wrist. Patient placed in an exam room, on a stretcher, on ea pulse oximetry, pt currently on own vent machine. 02:49 Frida Haynes, RN is Primary Nurse. ea 07/27 07:25 Primary Nurse role handed off by Frida Haynes, RN em1 Administered Medications: No medications were administered Outcome: 07/25 05:39 Discharge ordered by . kdr 07/27 12:10 Patient left the ED. ph Signatures: Kraig Delgado MD MD kdr Martinez, Eric em1 Becki Carlin RN RN ss Hall, Patricia, RN RN Frida Haynes, Lillian Portillo RN, ea RN RN ec1 Corrections: (The following items were deleted from the chart) 07/25 09:31 08:02 General: Appears in no apparent distress. comfortable, well groomed, Behavior is ss calm, cooperative, PT was initially resting with eyes closed. Awoke to soft verbal stimuli. States she is okay at this time. Offered to reposition. Pt declined at this time. Will offer again shortly. . ss
--- NOTE | 2020-07-25 05:40 | EDPHYS ---
Physician Documentation [facility] Name: Cira Tellez Age: 44 yrs Sex: Female : 1975 Arrival Date: 07/25/2020 Time: 01:09 Bed 28 Private MD: ED Physician Kraig Delgado HPI: 07/25 05:32 This 44 yrs old Female presents to ER via EMS with complaints of Loss of power kdr at home. 05:32 The power went out this being and the patient was on a battery supported ventilator kdr with no more than a three hour life span so the patient called EMS for [place]. Onset: The symptoms/episode began/occurred suddenly, just prior to arrival. Severity of symptoms: At their worst the symptoms were very mild in the emergency department the symptoms are unchanged. The patient has experienced similar episodes in the past, several times. The patient has no acute medical concerns only needs somewhere indoors that she can wait out the the return of electricity to he [place]. 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 - Social history:: Smoking status: unknown. ROS: 05:37 Constitutional: No exam performed kdr Exam: 05:37 Constitutional: No exam performed Head/Face: Normocephalic, atraumatic. kdr Vital Signs: 01:21 Pulse 58; Resp 18; Temp 97.2; Pulse Ox 94% ; ea 02:49 BP 95 / 54; Pulse 73; Resp 18; Pulse Ox 93% on R/A; ea 07:51 Pulse 78; Pulse Ox 90% on R/A; Pain 0/10; ss MDM: 05:37 Data reviewed: vital signs, nurses notes. kdr 05:39 Patient medically screened. kdr 07/25 09:25 Order name: Diet Regular; Complete Time: 09:25 ss 07/25 16:55 Order name: Diet Regular Pedi; Complete Time: 16:56 iw 07/26 08:48 Order name: Diet Regular; Complete Time: 08:49 ss 07/26 09:43 Order name: Diet Regular; Complete Time: 09:43 ss 07/26 12:41 Order name: Diet Regular; Complete Time: 12:41 bd 07/26 12:41 Order name: Diet Regular; Complete Time: 12:41 bd 07/26 15:15 Order name: Suction: Patient request; Complete Time: 15:15 ss 07/26 19:36 Order name: Misc. Order: RT:Suction and Change out for Night Time Vent Setting rv 07/27 03:22 Order name: Suction: RT to perform Suction sg 07/27 09:02 Order name: Diet Regular; Complete Time: 09:03 ph Administered Medications: No medications were administered Disposition: 06:22 Ventialtor Power Outage. kdr Disposition: 07/25/20 05:39 Discharged to Home. Impression: Wellness check. - Condition is Stable. - Medication Reconciliation Form, Thank You Letter, Antibiotic Education, Prescription Opioid Use form. - Follow up: Private Physician; When: 1 - 2 days; Reason: If symptoms return, Further diagnostic work-up, Recheck today's complaints, Continuance of care, Re-evaluation by your physician. - Problem is an acute exacerbation. - Symptoms have improved. Signatures: Jaguar Vasquez RN RN sg Kraig Delgado MD MD kdr Becki Carlin RN RN Georgia Shine RN RN Frida Haynes, RN RN Volodymyr Godwin, RN RN rv Corrections: (The following items were deleted from the chart) 07/27 03:22 03:22 Misc. Order ordered. [facility] er 12:10 07/25 05:39 07/25/2020 05:39 Discharged to Home. Impression: Wellness check. Condition ph is Stable. Forms are Medication Reconciliation Form, Thank You Letter, Antibiotic Education, Prescription Opioid Use. Follow up: Private Physician; When: 1 - 2 days; Reason: If symptoms return, Further diagnostic work-up, Recheck today's complaints, Continuance of care, Re-evaluation by your physician. Problem is an acute exacerbation. Symptoms have improved. kdr
[2020-07-27 12:25] VITALS: TEMP 97.2
[2020-07-27 12:26] VITALS: BP 95/54
[2020-07-27 12:27] VITALS: O2SAT 90
== END 2020-07-27 12:10 | disposition home or self-care (01) ==
LOC: ER 01:08
DX: Z93.0 Tracheostomy status (principal); G82.20 Paraplegia, unspecified; Z87.820 Personal history of traumatic brain injury; Z98.2 Presence of cerebrospinal fluid drainage device
CPT/HCPCS: 99283

== ENCOUNTER 2020-08-08 23:53 | Emergency (ER) | payer OTHER ==
--- OUTSIDE RECORDS SUMMARY | 2020-08-08 23:58 | XMS REPORT | Continuity of Care Document ---
:1975 Author Organization [facility] t Address [address] [place] [address] Care Team Providers Name Role Phone Pcp Primary Care Physician Unavailable Gerri HUFFMAN Attending Clinician Doctor Unassigned, Name Attending Clinician Unavailable PAT SALAS Attending Clinician Unavailable PAT SALAS Admitting Clinician Unavailable Problems Condition Condition Condition Status Onset Resolution Last Treating Co mments Source Name Details Category Date Date Treatment Clinician Date Collapse Collapse Disease [facility] lung [facility] 00 [place] 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 1-02 [facility] - 00:00: Medical 00 [place] Aspiration Aspiration Disease Active 2017-[address] pneumonia pneumonia 1-01 [facility] - 00:00: Medical 00 [place] Acute Acute Disease Active 2017-[address] [facility] cholecysti cholecysti 1-01 Ilana kes - tis tis 00:00: Medical 00 [place] Acute Acute Disease Active 2017-[address] [facility] cystitis cystitis 1-01 [facility] - without without 00:00: Medical hematuria hematuria 00 Cent er ICH ICH Disease Active 2017-[address] (intracere (intracere 0-31 Ilana kes - bral bral 00:00: Medical hemorrhage hemorrhage 00 Ce nter ) ) Quadripleg Quadripleg Disease Active 2017-[address] ia ia 0-31 [facility] - following following 00:00: Medi sana spinal spinal 00 Center cord cord injury injury Acute Acute Disease Active 2017-[address] [facility] hypercapni hypercapni 0-31 Ilana kes - c c 00:00: Medical respirator respirator 00 Ce nter y failure y failure Other Other Disease Active 2017-[address] [facility] shock shock 0-31 [facility] - 00:00: Medical 00 [place] Transamini Transamini Disease Active 2017-[address] tis tis 0-31 [facility] - 00:00: Medical 00 Center Allergies, Adverse Reactions, Alerts This patient has no known allergies or adverse reactions. Social History Social Habit Start Date Stop Date Quantity Comments Source Sex Assigned At [facility] Medications This patient has no known medications. Procedures This patient has no known procedures. Plan of Care Planned Activity Planned Date Details Comments Source Future Scheduled 2020-02-08 INFLUENZA VACCINE (#1) [facility] Test [facility]:00:00 [code = INFLUENZA Medical Ce nter VACCINE (#1)] Future Scheduled [address] [facility] - Test 00:00:00 (procedure) [code = [facility] 28237943] Future Scheduled 2015-11-[address] [facility] - Test 00:00:00 WELLNESS (YEAR 2 or Medical Center FIRST YEAR if no IPPE) [code = MEDICARE ANNUAL WELLNESS (YEAR 2 or FIRST YEAR if no IPPE)] Future Scheduled 1994 [facility] - Test 00:00:00 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 (procedure) [code = 614020837] Future Scheduled 1979-11-13 [facility]00 0-64 YRS (1 of 1 - Medical C enter PPSV23) [code = PNEUMOCOCCAL VACCINE 0-64 YRS (1 of 1 - PPSV23)] Encounters Start End Encounter Admission Attending Care Care Encounter Source Date/Time Date/Time Type Type Clinicians Facility Department ID 2020-07-06 2020-07-06 Office BELKYS Talley [id number] 12:59:09 13:42:55 Visit Gera Mccarthy [id number] Lea [id number] Arnold [id number] [address] 2020-07-06 2020-07-06 Orders Doctor ESSENCE [id number] 30 00:00:00 00:00:00 Only Unassigned, FARHAD [id number] Zephyr [facility] [id number] 2019-01-05 2019-01-[address] [facility] [id number] [facility] 00:02:00 22:59:00 Results Test Description Test Time Test Comments Results Result Comments Source HCG Qualitative Urine 2019-06-17 07:36:27 Test Item Value Reference Range Interpretation Comme nts hCG Ur (test code = hCG Ur) Negative If the result is "Negative" in patients suspec [place] to be , recommend retes t with a sample obtained 48 to 72 hours later, or by ordering a patricia titative assay. If the result is " Borderline" testing should be repea [place] in 48 to 72 hours. Lot # (test code = Lot #) [id number] N Expiration Dt (test code = 2020-07-09 N Expiration Dt) Neg Control (test code = Neg Negative Control) Pos Control (test code = Pos Positive Control) Internal QC (test code = Internal Acceptable QC) BRONCHIAL CULTURE + GRAM [id number] 23:02:00 Test Item Value Reference Interpretation Comments Range CULTURE (BEAKER) (test Organism(s) code = 1095) under evaluation Clindamycin (test code S = 10) Erythromycin (test S code = 4) Linezolid (test code = S 40) Nitrofurantoin (test S code = 23) Oxacillin (test code = S 14) Rifampin (test code = S 43) Tetracycline (test S code = 2) Trimethoprim + S Sulfamethoxazole (test code = 47) Vancomycin (test code S = 13) CULTURE (BEAKER) (test A <1+ S taphylococcus code = 1095) aureus GRAM STAIN RESULT <1+ White blood (BEAKER) (test code = cells seen 1123) GRAM STAIN RESULT No organisms (BEAKER) (test code = seen 669586) BLOOD [id number] 23:01:00 Test Item Value Reference Range Interpretation Comments CULTURE (BEAKER) (test No growth in 5 days code = 1095) BLOOD [id number] 23:01:00 Test Item Value Reference Range Interpretation Comments CULTURE (BEAKER) (test No growth in 5 days code = 1095) POCT-GLUCOSE [id number] 11:55:00 Test Item Value Reference Range Interpretation Comments POC-GLUCOSE METER 125 mg/dL 70-110 H TESTED AT [facility] 67[address] (BEAKER) (test code = CHRIS [place] 1538) [id number] BLOOD GAS, [id number] 06:46:00 Test Item Value Reference Range Interpretation Comments PH ARTERIAL (BEAKER) (test code = 7.40 7.35-7.45 383) PCO2 ARTERIAL (BEAKER) (test code 63 mmHg 35-45 H = 384) PO2 ARTERIAL (BEAKER) (test code 224 mmHg 80-90 H = 385) O2 SATURATION ARTERIAL (BEAKER) 99.4 % 96.0-97.0 H (test code = 386) HCO3 ARTERIAL (BEAKER) (test code 38 mmol/L 21-29 H = 388) BASE EXCESS ARTERIAL (BEAKER) 10.5 mmol/L -2.0-3.0 H (test code = 387) PATIENT TEMPERATURE (BEAKER) 37.5 C (test code = 1818) FIO2 (BEAKER) (test code = 1819) 50.0 % POCT-GLUCOSE [id number] 06:11:00 Test Item Value Reference Range Interpretation Comments POC-GLUCOSE METER 105 mg/dL 70-110 TESTED AT [facility] 67[address] (BEAKER) (test code = [place] 1538) [address] BASIC METABOLIC [id number] 05:58:00 Test Item Value Reference Range Interpretation Comments SODIUM (BEAKER) 148 meq/L 136-145 H (test code = 381) POTASSIUM (BEAKER) 4.8 meq/L 3.5-5.1 Specimen slightly (test code = 379) hemolyzed CHLORIDE (BEAKER) 110 meq/L 98-107 H (test code = 382) CO2 (BEAKER) (test 30 meq/L 22-29 H code = 355) BLOOD UREA NITROGEN 14 mg/dL 7-21 (BEAKER) (test code = 354) CREATININE (BEAKER) 0.43 mg/dL 0.57-1.25 L Specimen slightly (test code = 358) hemolyzed GLUCOSE RANDOM 95 mg/dL 70-105 (BEAKER) (test code = 652) CALCIUM (BEAKER) 10.1 mg/dL 8.4-10.2 (test code = 697) EGFR (BEAKER) (test 160 mL/min/1.73 ESTIM ATED GFR IS code = 1092) sq m NOT ACCURATE CREATININE CLEARANCE IN PREDICTING GLOMERULAR FILTRATION RATE . ESTIMATED GFR I S NOT APPLICABLE FOR DIALYSIS PATIEN TS. [id number] 05:57:00 Test Item Value Reference Range Interpretation Comments MAGNESIUM (BEAKER) 2.3 mg/dL 1.6-2.6 Specimen slightly (test code = 627) hemolyzed CBC W/PLT COUNT & AUTO [id number] 05:41:00 Test Item Value Reference Range Interpretation Comments WHITE BLOOD CELL COUNT (BEAKER) 8.4 K/ L 3.5-10.5 (test code = 775) RED BLOOD CELL COUNT (BEAKER) 4.16 M/ L 3.93-5.22 (test code = 761) HEMOGLOBIN (BEAKER) (test code = 12.9 GM/DL 11.2-15.7 410) HEMATOCRIT (BEAKER) (test code = 41.7 % 34.1-44.9 411) MEAN CORPUSCULAR VOLUME (BEAKER) 100.2 fL 79.4-94.8 H (test code = 753) MEAN CORPUSCULAR HEMOGLOBIN 31.0 pg 25.6-32.2 (BEAKER) (test code = 751) MEAN CORPUSCULAR HEMOGLOBIN CONC 30.9 GM/DL 32.2-35.5 L (BEAKER) (test code = 752) RED CELL DISTRIBUTION WIDTH 15.1 % 11.7-14.4 H (BEAKER) (test code = 412) PLATELET COUNT (BEAKER) (test 145 K/CU MM 150-450 L code = 756) MEAN PLATELET VOLUME (BEAKER) 12.7 fL 9.4-12.3 H (test code = 754) NUCLEATED RED BLOOD CELLS 0 /100 WBC 0-0 (BEAKER) (test code = 413) NEUTROPHILS RELATIVE PERCENT 77 % (BEAKER) (test code = 429) LYMPHOCYTES RELATIVE PERCENT 13 % (BEAKER) (test code = 430) MONOCYTES RELATIVE PERCENT 10 % (BEAKER) (test code = 431) EOSINOPHILS RELATIVE PERCENT 0 % (BEAKER) (test code = 432) BASOPHILS RELATIVE PERCENT 0 % (BEAKER) (test code = 437) NEUTROPHILS ABSOLUTE COUNT 6.46 K/ L 1.56-6.13 H (BEAKER) (test code = 670) LYMPHOCYTES ABSOLUTE COUNT 1.13 K/ L 1.18-3.74 L (BEAKER) (test code = 414) MONOCYTES ABSOLUTE COUNT (BEAKER) 0.80 K/ L 0.24-0.36 H (test code = 415) EOSINOPHILS ABSOLUTE COUNT 0.00 K/ L 0.04-0.36 L (BEAKER) (test code = 416) BASOPHILS ABSOLUTE COUNT (BEAKER) 0.02 K/ L 0.01-0.08 (test code = 417) IMMATURE GRANULOCYTES-RELATIVE 0 % 0-1 PERCENT (BEAKER) (test code = 2801) RAD, CHEST, 1 VIEW, NON [id number] 04:59:00Reason for exam:->?pnaShould this be performed at the bedside?->YesFINAL REPORT RAD, CHEST, 1 VIEW, NON DEPT INDICATION: ?pna COMPARISON: Prior day's exam FINDINGS: Portable frontal view of the chest. IMPRESSION: Support Lines: Stable. Lungs and pleura: Unchanged airspace and pleural opacities. No pneumothorax.Heart and mediastinum: Stable contours. Additional findings: Mottled appearance of the marrow within the bilateral humeri correlate c linically and consider dedicated radiographs. Signed: Lynda Flowers Verified Date/Time: 04/13/2018 04:59:14 Reading Location: [address] Transitional Reading Room POCT-GLUCOSE [id number] 00:05:00 Test Item Value Reference Range Interpretation Comments POC-GLUCOSE METER 113 mg/dL 70-110 H TESTED AT [facility] 6720 (BEAKER) (test code = [place] 1538) [id number] POCT-GLUCOSE [id number] 17:07:00 Test Item Value Reference Range Interpretation Comments POC-GLUCOSE METER 125 mg/dL 70-110 H TESTED AT [facility] 67[address] (BEAKER) (test code = CHRIS La [facility] 1538) [address] BODY FLUID CELL COUNT WITH [id number] 14:40:00 Test Item Value Reference Range Interpretation Comments APPEARANCE FLUID (BEAKER) (test Cloudy Clear A code = 510) COLOR FLUID (BEAKER) (test code Yellow Colorless, Straw A = 511) RBC FLUID (BEAKER) (test code = 1360 /cu mm <=1 H 513) ADJUSTED WBC FLUID (BEAKER) 3808 /cu mm <=5 H (test code = 1691) LINING CELLS (BEAKER) (test code 152 /cu mm <=1 H = 1590) NEUTROPHILS FLUID (BEAKER) (test 89 % code = 1656) LYMPHS FLUID (BEAKER) (test code 5 % = 488) MONO/MACROPHAGE FLUID (BEAKER) 6 % (test code = 489) EOSINOPHILS FLUID (BEAKER) (test 0 % code = 491) BASO FLUID (BEAKER) (test code = 0 % 492) CONTAINER BODY FLUID (BEAKER) EDTA Tube (test code = 2873) POCT-GLUCOSE [id number] 12:16:00 Test Item Value Reference Range Interpretation Comments POC-GLUCOSE METER 111 mg/dL 70-110 H TESTED AT [facility] 67[address] (BEAKER) (test code = [place] 1538) [id number] RAD, CHEST, 1 VIEW, NON [id number] 10:21:00Reason for exam:->post bronchShould this be performed [...] on the other and. This is of unc ertain clinical function. Cardiac and mediastinal contours unremarkable. Endotracheal tube and nasogastric tube appear in good position. Right internal jugular line appears in good position. Signed: Ace Toure MDReport Verified Date/Time: 04/12/2018 10:21:50 Reading Location: [address] Ortho Consult Reading Room BLOOD GAS, [id number] 10:11:00 Test Item Value Reference Range Interpretation Comments PH ARTERIAL (BEAKER) (test code = 7.41 7.35-7.45 383) PCO2 ARTERIAL (BEAKER) (test code 59 mmHg 35-45 H = 384) PO2 ARTERIAL (BEAKER) (test code = 122 mmHg 80-90 H 385) O2 SATURATION ARTERIAL (BEAKER) 98.4 % 96.0-97.0 H (test code = 386) HCO3 ARTERIAL (BEAKER) (test code 36 mmol/L 21-29 H = 388) BASE EXCESS ARTERIAL (BEAKER) 9.4 mmol/L -2.0-3.0 H (test code = 387) PATIENT TEMPERATURE (BEAKER) (test 36.9 C code = 1818) FIO2 (BEAKER) (test code = 1819) 70.0 % TROPONIN [id number] 07:55:00 Test Item Value Reference Range Interpretation Comments TROPONIN I (BEAKER) (test code 0.08 ng/mL 0.00-0.03 H Result faxed = 397) Troponin I (TnI) levels must be interpreted [...] acute neurological disease, and persistent tachyarrhythmia.BLOOD GAS, [id number] 05:52:00 Test Item Value Reference Range Interpretation Comments PH ARTERIAL (BEAKER) (test code = 7.44 7.35-7.45 383) PCO2 ARTERIAL (BEAKER) (test code 55 mmHg 35-45 H = 384) PO2 ARTERIAL (BEAKER) (test code 88 mmHg 80-90 = 385) O2 SATURATION ARTERIAL (BEAKER) 96.8 % 96.0-97.0 (test code = 386) HCO3 ARTERIAL (BEAKER) (test code 36 mmol/L 21-29 H = 388) BASE EXCESS ARTERIAL (BEAKER) 10.5 mmol/L -2.0-3.0 H (test code = 387) PATIENT TEMPERATURE (BEAKER) 37.1 C (test code = 1818) FIO2 (BEAKER) (test code = 1819) 45.0 % [id number] 05:24:00 Test Item Value Reference Range Interpretation Comments MAGNESIUM (BEAKER) 2.0 mg/dL 1.6-2.6 Specimen slightly (test code = 627) hemolyzed BASIC METABOLIC [id number] 05:24:00 Test Item Value Reference Range Interpretation Comments SODIUM (BEAKER) 139 meq/L 136-145 (test code = 381) POTASSIUM (BEAKER) 3.6 meq/L 3.5-5.1 Specimen slightly (test code = 379) hemolyzed CHLORIDE (BEAKER) 101 meq/L 98-107 (test code = 382) CO2 (BEAKER) (test 33 meq/L 22-29 H code = 355) BLOOD UREA NITROGEN 8 mg/dL 7-21 (BEAKER) (test code = 354) CREATININE (BEAKER) 0.39 mg/dL 0.57-1.25 L Specimen slightly (test code = 358) hemolyzed GLUCOSE RANDOM 119 mg/dL 70-105 H (BEAKER) (test code = 652) CALCIUM (BEAKER) 8.8 mg/dL 8.4-10.2 (test code = 697) EGFR (BEAKER) (test 179 mL/min/1.73 ESTIM ATED GFR IS code = 1092) sq m NOT ACCURATE CREATININE CLEARANCE IN PREDICTING GLOMERULAR FILTRATION RATE . ESTIMATED GFR I S NOT APPLICABLE FOR DIALYSIS PATIEN TS. CBC W/PLT COUNT & AUTO [id number] 05:04:00 Test Item Value Reference Range Interpretation Comments WHITE BLOOD CELL COUNT (BEAKER) 8.8 K/ L 3.5-10.5 (test code = 775) RED BLOOD CELL COUNT (BEAKER) 3.64 M/ L 3.93-5.22 L (test code = 761) HEMOGLOBIN (BEAKER) (test code = 11.5 GM/DL 11.2-15.7 410) HEMATOCRIT (BEAKER) (test code = 36.0 % 34.1-44.9 411) MEAN CORPUSCULAR VOLUME (BEAKER) 98.9 fL 79.4-94.8 H (test code = 753) MEAN CORPUSCULAR HEMOGLOBIN 31.6 pg 25.6-32.2 (BEAKER) (test code = 751) MEAN CORPUSCULAR HEMOGLOBIN CONC 31.9 GM/DL 32.2-35.5 L (BEAKER) (test code = 752) RED CELL DISTRIBUTION WIDTH 14.6 % 11.7-14.4 H (BEAKER) (test code = 412) PLATELET COUNT (BEAKER) (test 103 K/CU MM 150-450 L code = 756) MEAN PLATELET VOLUME (BEAKER) 12.6 fL 9.4-12.3 H (test code = 754) NUCLEATED RED BLOOD CELLS 0 /100 WBC 0-0 (BEAKER) (test code = 413) NEUTROPHILS RELATIVE PERCENT 83 % (BEAKER) (test code = 429) LYMPHOCYTES RELATIVE PERCENT 10 % (BEAKER) (test code = 430) MONOCYTES RELATIVE PERCENT 7 % (BEAKER) (test code = 431) EOSINOPHILS RELATIVE PERCENT 0 % (BEAKER) (test code = 432) BASOPHILS RELATIVE PERCENT 0 % (BEAKER) (test code = 437) NEUTROPHILS ABSOLUTE COUNT 7.23 K/ L 1.56-6.13 H (BEAKER) (test code = 670) LYMPHOCYTES ABSOLUTE COUNT 0.91 K/ L 1.18-3.74 L (BEAKER) (test code = 414) MONOCYTES ABSOLUTE COUNT (BEAKER) 0.58 K/ L 0.24-0.36 H (test code = 415) EOSINOPHILS ABSOLUTE COUNT 0.00 K/ L 0.04-0.36 L (BEAKER) (test code = 416) BASOPHILS ABSOLUTE COUNT (BEAKER) 0.01 K/ L 0.01-0.08 (test code = 417) IMMATURE GRANULOCYTES-RELATIVE 0 % 0-1 PERCENT (BEAKER) (test code = 2801) RAD, CHEST, 1 VIEW, NON [id number] 04:22:00Reason for exam:->?pnaShould this be performed at [...] Support lines are stable. Signed: Yohannes Telles Verified Date/Time: 04/12/2018 04:22:54 Reading Location: [address] Reading Room POCT-GLUCOSE [id number] 00:21:00 Test Item Value Reference Range Interpretation Comments POC-GLUCOSE METER 117 mg/dL 70-110 H TESTED AT [facility] 67[address] (BEAKER) (test code = [place] 1538) [id number] 17:25:00 Test Item Value Reference Range Interpretation Comments MAGNESIUM (BEAKER) 2.1 mg/dL 1.6-2.6 Specimen slightly (test code = 627) hemolyzed BASIC METABOLIC [id number] 17:25:00 Test Item Value Reference Range Interpretation Comments SODIUM (BEAKER) 140 meq/L 136-145 (test code = 381) POTASSIUM (BEAKER) 4.1 meq/L 3.5-5.1 Specimen slightly (test code = 379) hemolyzed CHLORIDE (BEAKER) 101 meq/L 98-107 (test code = 382) CO2 (BEAKER) (test 36 meq/L 22-29 H code = 355) BLOOD UREA NITROGEN 8 mg/dL 7-21 (BEAKER) (test code = 354) CREATININE (BEAKER) 0.39 mg/dL 0.57-1.25 L Specimen slightly (test code = 358) hemolyzed GLUCOSE RANDOM 119 mg/dL 70-105 H (BEAKER) (test code = 652) CALCIUM (BEAKER) 9.0 mg/dL 8.4-10.2 (test code = 697) EGFR (BEAKER) (test 179 mL/min/1.73 ESTIM ATED GFR IS code = 1092) sq m NOT ACCURATE CREATININE CLEARANCE IN PREDICTING GLOMERULAR FILTRATION RATE . ESTIMATED GFR I S NOT APPLICABLE FOR DIALYSIS PATIEN TS. POCT-GLUCOSE [id number] 16:36:00 Test Item Value Reference Range Interpretation Comments POC-GLUCOSE METER 113 mg/dL 70-110 H TESTED AT [facility] 67[address] (BEAKER) (test code = [place]IS [place] 1538) [address] POCT-GLUCOSE [id number] 13:06:00 Test Item Value Reference Range Interpretation Comments POC-GLUCOSE METER 162 mg/dL 70-110 H TESTED AT [facility] 67[address] (BEAKER) (test code = [place] 1538) [id number] SPUTUM CULTURE + GRAM [id number] 10:57:00 Test Item Value Reference Range Interpretation Comments CULTURE (BEAKER) 1+ Normal respiratory (test code = 1095) tessa present GRAM STAIN RESULT 1+ White blood cells (BEAKER) (test code = seen 1123) GRAM STAIN RESULT 0-5 epithelial cells (BEAKER) (test code = 58077) GRAM STAIN RESULT 2+ gram negative rods (BEAKER) (test code = 46674) HEPATIC FUNCTION [id number] 07:00:00 Test Item Value Reference Range Interpretation Comments TOTAL PROTEIN (BEAKER) (test code = 5.6 gm/dL 6.0-8.3 L 770) ALBUMIN (BEAKER) (test code = 1145) 3.1 g/dL 3.5-5.0 L BILIRUBIN TOTAL (BEAKER) (test code 0.7 mg/dL 0.2-1.2 = 377) BILIRUBIN DIRECT (BEAKER) (test 0.3 mg/dL 0.1-0.5 code = 706) ALKALINE PHOSPHATASE (BEAKER) (test 80 U/L 40-150 code = 346) AST (SGOT) (BEAKER) (test code = 15 U/L 5-34 353) ALT (SGPT) (BEAKER) (test code = 39 U/L 6-55 347) BLOOD GAS, [id number] 06:31:00 Test Item Value Reference Range Interpretation Comments PH ARTERIAL (BEAKER) (test code = 7.38 7.35-7.45 383) PCO2 ARTERIAL (BEAKER) (test code 65 mmHg 35-45 H = 384) PO2 ARTERIAL (BEAKER) (test code = 79 mmHg 80-90 L 385) O2 SATURATION ARTERIAL (BEAKER) 95.4 % 96.0-97.0 L (test code = 386) HCO3 ARTERIAL (BEAKER) (test code 37 mmol/L 21-29 H = 388) BASE EXCESS ARTERIAL (BEAKER) 9.6 mmol/L -2.0-3.0 H (test code = 387) PATIENT TEMPERATURE (BEAKER) (test 36.5 C code = 1818) FIO2 (BEAKER) (test code = 1819) 45.0 % POCT-GLUCOSE [id number] 06:30:00 Test Item Value Reference Range Interpretation Comments POC-GLUCOSE METER 112 mg/dL 70-110 H TESTED AT [facility] 67[address] (BEAKER) (test code = [place] 1538) [address] CBC W/PLT COUNT & AUTO [id number] 05:53:00 Test Item Value Reference Range Interpretation Comments WHITE BLOOD CELL COUNT (BEAKER) 10.9 K/ L 3.5-10.5 H (test code = 775) RED BLOOD CELL COUNT (BEAKER) 3.74 M/ L 3.93-5.22 L (test code = 761) HEMOGLOBIN (BEAKER) (test code = 11.8 GM/DL 11.2-15.7 410) HEMATOCRIT (BEAKER) (test code = 37.8 % 34.1-44.9 411) MEAN CORPUSCULAR VOLUME (BEAKER) 101.1 fL 79.4-94.8 H (test code = 753) MEAN CORPUSCULAR HEMOGLOBIN 31.6 pg 25.6-32.2 (BEAKER) (test code = 751) MEAN CORPUSCULAR HEMOGLOBIN CONC 31.2 GM/DL 32.2-35.5 L (BEAKER) (test code = 752) RED CELL DISTRIBUTION WIDTH 14.9 % 11.7-14.4 H (BEAKER) (test code = 412) PLATELET COUNT (BEAKER) (test 109 K/CU MM 150-450 L code = 756) MEAN PLATELET VOLUME (BEAKER) 12.6 fL 9.4-12.3 H (test code = 754) NUCLEATED RED BLOOD CELLS 0 /100 WBC 0-0 (BEAKER) (test code = 413) NEUTROPHILS RELATIVE PERCENT 84 % (BEAKER) (test code = 429) LYMPHOCYTES RELATIVE PERCENT 10 % (BEAKER) (test code = 430) MONOCYTES RELATIVE PERCENT 6 % (BEAKER) (test code = 431) EOSINOPHILS RELATIVE PERCENT 0 % (BEAKER) (test code = 432) BASOPHILS RELATIVE PERCENT 0 % (BEAKER) (test code = 437) NEUTROPHILS ABSOLUTE COUNT 9.11 K/ L 1.56-6.13 H (BEAKER) (test code = 670) LYMPHOCYTES ABSOLUTE COUNT 1.04 K/ L 1.18-3.74 L (BEAKER) (test code = 414) MONOCYTES ABSOLUTE COUNT (BEAKER) 0.67 K/ L 0.24-0.36 H (test code = 415) EOSINOPHILS ABSOLUTE COUNT 0.00 K/ L 0.04-0.36 L (BEAKER) (test code = 416) BASOPHILS ABSOLUTE COUNT (BEAKER) 0.02 K/ L 0.01-0.08 (test code = 417) IMMATURE GRANULOCYTES-RELATIVE 1 % 0-1 PERCENT (AVI) (test code = 2801) RAD, CHEST, 1 VIEW, NON [id number] 04:13:00Reason for exam:->?pnaShould this be performed at the bedside?->YesFINAL REPORT RAD, CHEST, 1 VIEW, NON DEPT INDICATION: ?pna COMPARISON: Prior day's exam FINDINGS: Portable frontal view of the chest. IMPRESSION: Support Lines: Stable. Lungs and pleura: Increased left retrocardiac and basilar airspace opacity could represent atelectasis and small pleural effusion however superimposed infection cannot be excluded. No pneumothorax.Heart and me diastinum: Stable contours. Additional findings: Osteopenia with mottled appearance of the left humerus, unclear etiology however unchanged. Signed: Lynda Flowers Verified Date/Time: 04/11/2018 04:13:43 Reading Location: [address] Transitional Reading Room [id number] 02:25:00 Test Item Value Reference Range Interpretation Comments PROCALCITONIN (AVI) (test code 0.05 ng/mL <0.05 H = 3036) SEPSIS RISK (ng/mL)Low: 0.05-0.50Intermediate: 0.51-2.00High: >=2.01POCT-GLUCOSE [id number] 00:23:00 Test Item Value Reference Range Interpretation Comments POC-GLUCOSE METER 150 mg/dL 70-110 H TESTED AT [facility] 6720 (AVI) (test code = [place] 1538) [address] CT, SPINE, CERVICAL, WO [id number] 19:01:00FINAL REPORT CT cervical spine without contrast [...] the posterior elements. There is a suboccipital craniectomy, with laminectomies at C3, C4, and C5. There are bilateral pleural effusions. Remaining visualized support catheters are in satisfactory radiographic position. IMPRESSION: Cervical intramedullary drainage catheter as discussed. Findings were discussed with Dr. Reinoso on 04/10/2018 at 1850. Signed: Andrew Lacey Verified Date/Time: 04/10/201819:01:48 Reading Location: [facility] Radiology Reading Room POCT-GLUCOSE [id number] 18:46:00 Test Item Value Reference Range Interpretation Comments POC-GLUCOSE METER 119 mg/dL 70-110 H TESTED AT [place] [address] ([facility]) (test code = [place] 1538) [address] POCT-GLUCOSE [id number] 13:21:00 Test Item Value Reference Range Interpretation Comments POC-GLUCOSE METER 106 mg/dL 70-110 TESTED AT [place] [address] ([facility]) (test code = CHRIS [facility] 1538) [address] [id number] 12:16:00 Test Item Value Reference Range Interpretation Comments MAGNESIUM ([facility]) (test code = 1.8 mg/dL 1.6-2.6 627) LACTIC ACID, VENOUS, WHOLE [id number] 12:15:00 Test Item Value Reference Range Interpretation Comments LACTATE BLOOD VENOUS 0.5 mmol/L 0.5-2.2 Specime n slightly (2) (BEAKER) (test hemolyzed code = 2872) Effective 10/11/2015: Units/Reference Range ChangeNew: 0.5-2.2 mmol/L Previous: 5-20 mg/dLRAD, CHEST, 1 VIEW, NON [id number] 08:31:00Reason for exam:- >?pnaShould this be performed at the bedside?->YesFINAL REPORT TECHNIQUE: Frontal chest radiograph dated 04/10/2018. CLINICAL HI STORY: Pneumonia COMPARISON STUDY: Chest radiograph dated 04/09/2018 IMPRESSION:Life support tubes and lines are unchanged. Stable left retrocardiac atelectasis. No pleural effusion or pneumothorax. Cardiomediastinal silhouette is normal in size. No pulmonary edema. Bones are osteopenic. Signed: Елена Saldivar MDReport Verified Date/Time: 04/10/2018 08:31:54 Reading Location: [facility] Radiology Reading Room MR, BRAIN, [id number] 06:58:00Concern for infected lesions with ICHFINAL REPORT MRI Brain with and without contrast Clinical History: Intracranial hemorrhage Technique: MRI of the brain utilizing axial T1, T2, FLAIR, GRE, DWI, sagittal T1; and postgadolinium axial, sagittal, and coronal T1-weighted images. Comparisons: CT head dated 04/09/2018. Findings:Bilateral small foci of restricted diffusion within the [...] intracranial enhancement or mass. The major intracranial flow- voids appear patent. Paranasal sinuses are clear. Middle [...] on 04/10/2018 6:57 AM. Signed: Lynda Flowers MDReport Verified Date/Time: 04/10/2018 06:58:10 Reading Location: [address] Transitional Reading Room POCT-GLUCOSE [id number] 06:50:00 Test Item Value Reference Range Interpretation Comments POC-GLUCOSE METER 80 mg/dL 70-110 TESTED AT [place] [address] ([facility]) (test code = [place] [facility] [address] 1538) MR, SPINE, CERVICAL, WITHOUT [id number] 06:32:00FINAL REPORT MR Cervical spine without contrast. [...] the central canal at the level of C3-4 from the posterior soft tissues. Postsurgical changes [...] no neural foraminal stenosis. C6-C7: Bilateral uncovertebral spurring, disc osteophyte complex and facet hypertrophy results [...] if not previously done. Signed: Lynda Flowers MDReport Verified Date/Time: 04/10/2018 06:32:36 Reading Location: [address] Reading Room Electronically signed by: LYNDA FLOWERS MD on 018 06:32 AMMR, SPINE, THORACIC, WITHOUT [id number] 06:32:00FINAL REPORT MR Cervical spine without contrast. [...] the central canal at the level of C3-4 from the posterior soft tissues. Postsurgical changes of suboccipital craniectomy and posterior arch of C1 resection are again seen. C1-C2: No spinal canal or neural foraminal stenosis. C2-C3: No spinal canal or neural foraminal stenosis. C3-C4: No spinal canal or neural foraminal stenosis. C4-C5: Mild left uncovertebral spurring resulting in mild left neural foraminal stenosis. No significant spinal canal or right neural foraminal stenosis. C5-C6: Central disc osteophyte complex, bilateral uncovertebral spurring resultsin mild spinal canal and no neural foraminal stenosis. C6-C7: Bilateral uncovertebral spurring, disc osteophyte complex and facet hypertrophy results in significant spinal canal or neural foraminal jarocho nosis. C7-T1: No spinal canal or neural foraminal [...] if not previously done. Signed: Lynda Flowers Verified Date/Time: 04/10/2018 06:32:36 Reading Location: [address] Transitional Reading Room Electronically signed by: LYNDA FLOWERS MD on 018 06:32 AMURINE [id number] 03:49:00 Test Item Value Reference Range Interpretation Comments CULTURE (BEAKER) (test code = 1095) No growth BASIC METABOLIC [id number] 03:12:00 Test Item Value Reference Range Interpretation Comments SODIUM (BEAKER) 143 meq/L 136-145 (test code = 381) POTASSIUM (BEAKER) 4.1 meq/L 3.5-5.1 (test code = 379) CHLORIDE (BEAKER) 105 meq/L 98-107 (test code = 382) CO2 (BEAKER) (test 31 meq/L 22-29 H code = 355) BLOOD UREA NITROGEN 15 mg/dL 7-21 (BEAKER) (test code = 354) CREATININE (BEAKER) 0.48 mg/dL 0.57-1.25 L (test code = 358) GLUCOSE RANDOM 103 mg/dL 70-105 (BEAKER) (test code = 652) CALCIUM (BEAKER) 9.4 mg/dL 8.4-10.2 (test code = 697) EGFR (BEAKER) (test 140 mL/min/1.73 ESTIM ATED GFR IS code = 1092) sq m NOT ACCURATE CREATININE CLEARANCE IN PREDICTING GLOMERULAR FILTRATION RATE . ESTIMATED GFR I S NOT APPLICABLE FOR DIALYSIS PATIEN TS. CBC W/PLT COUNT & AUTO [id number] 02:58:00 Test Item Value Reference Range Interpretation Comments WHITE BLOOD CELL COUNT (BEAKER) 10.6 K/ L 3.5-10.5 H (test code = 775) RED BLOOD CELL COUNT (BEAKER) 4.05 M/ L 3.93-5.22 (test code = 761) HEMOGLOBIN (BEAKER) (test code = 12.9 GM/DL 11.2-15.7 410) HEMATOCRIT (BEAKER) (test code = 41.2 % 34.1-44.9 411) MEAN CORPUSCULAR VOLUME (BEAKER) 101.7 fL 79.4-94.8 H (test code = 753) MEAN CORPUSCULAR HEMOGLOBIN 31.9 pg 25.6-32.2 (BEAKER) (test code = 751) MEAN CORPUSCULAR HEMOGLOBIN CONC 31.3 GM/DL 32.2-35.5 L (BEAKER) (test code = 752) RED CELL DISTRIBUTION WIDTH 14.8 % 11.7-14.4 H (BEAKER) (test code = 412) PLATELET COUNT (BEAKER) (test 114 K/CU MM 150-450 L code = 756) MEAN PLATELET VOLUME (BEAKER) 12.4 fL 9.4-12.3 H (test code = 754) NUCLEATED RED BLOOD CELLS 0 /100 WBC 0-0 (BEAKER) (test code = 413) NEUTROPHILS RELATIVE PERCENT 82 % (BEAKER) (test code = 429) LYMPHOCYTES RELATIVE PERCENT 11 % (BEAKER) (test code = 430) MONOCYTES RELATIVE PERCENT 7 % (BEAKER) (test code = 431) EOSINOPHILS RELATIVE PERCENT 0 % (BEAKER) (test code = 432) BASOPHILS RELATIVE PERCENT 0 % (BEAKER) (test code = 437) NEUTROPHILS ABSOLUTE COUNT 8.66 K/ L 1.56-6.13 H (BEAKER) (test code = 670) LYMPHOCYTES ABSOLUTE COUNT 1.17 K/ L 1.18-3.74 L (BEAKER) (test code = 414) MONOCYTES ABSOLUTE COUNT (BEAKER) 0.70 K/ L 0.24-0.36 H (test code = 415) EOSINOPHILS ABSOLUTE COUNT 0.00 K/ L 0.04-0.36 L (BEAKER) (test code = 416) BASOPHILS ABSOLUTE COUNT (BEAKER) 0.03 K/ L 0.01-0.08 (test code = 417) IMMATURE GRANULOCYTES-RELATIVE 0 % 0-1 PERCENT (BEAKER) (test code = 2801) BLOOD GAS, [id number] 02:47:00 Test Item Value Reference Range Interpretation Comments PH ARTERIAL (BEAKER) (test code = 7.35 7.35-7.45 383) PCO2 ARTERIAL (BEAKER) (test code 66 mmHg 35-45 H = 384) PO2 ARTERIAL (BEAKER) (test code = 76 mmHg 80-90 L 385) O2 SATURATION ARTERIAL (BEAKER) 94.5 % 96.0-97.0 L (test code = 386) HCO3 ARTERIAL (BEAKER) (test code 36 mmol/L 21-29 H = 388) BASE EXCESS ARTERIAL (BEAKER) 7.6 mmol/L -2.0-3.0 H (test code = 387) PATIENT TEMPERATURE (BEAKER) (test 36.5 C code = 1818) FIO2 (BEAKER) (test code = 1819) 45.0 % POCT-GLUCOSE [id number] 00:32:00 Test Item Value Reference Range Interpretation Comments POC-GLUCOSE METER 98 mg/dL 70-110 TESTED AT [facility] (test code = [place] [address] 1538) CREATINE KINASE (CK), TOTAL AND [id number] 18:43:00 Test Item Value Reference Range Interpretation Comments CREATINE KINASE TOTAL (BEAKER) 64 U/L 29-200 (test code = 380) CREATINE KINASE-MB (BEAKER) (test 3.9 ng/mL 0.0-6.6 code = 750) CREATINE KINASE-MB INDEX (BEAKER) 6.1 % (test code = 395) CK-MB Reference Range:<6.7 Normal6.7-10.0 Borderline>10.0 AbnormalTROPONIN [id number] 18:43:00 Test Item Value Reference Range Interpretation Comments TROPONIN I (BEAKER) (test code = 0.13 ng/mL 0.00-0.03 H 397) Troponin I (TnI) levels must be interpreted [...] failure, acidosis, acute neurological disease, and persistent tachyarrhythmia.[id number] 18:30:00 Test Item Value Reference Range Interpretation Comments MAGNESIUM (BEAKER) (test code = 1.7 mg/dL 1.6-2.6 627) POCT-GLUCOSE [id number] 18:27:00 Test Item Value Reference Range Interpretation Comments POC-GLUCOSE METER 75 mg/dL 70-110 TESTED AT [facility] 67[address] (AVI) (test code = [place] [address] 1538) RAD, CHEST, 1 VIEW, NON [id number] 16:49:00Reason for exam:->CVC PLACEMENT Should this be performed at the bedside?->YesFINAL REPORT EXAM: Frontal chest radiograph HISTORY PROVIDED: Central venous c atheter placement COMPARISON: 04/09/2018 at 0605 IMPRESSION:Interval placement [...] abnormality. The bones appear demineralized. Signed: Abran Alatorre Verified Date/Time: 04/09/2018 16:49:21 Reading Location: [facility] Mammo Reading Room TOBILIARY [id number] 15:42:00FINAL REPORT PROCEDURE: HEPATOBILIARY SCAN CPT CODE: 87791 INDICATION: Right upper quadrant pain, no fever [...] Celestin Verified Date/Time: 04/09/2018 15:42:43 Reading Location: [address] [address] Reading Room CT BRAIN WITHOUT IV CONTRAST - [id number] 13:05:00Reason for exam:->Patient with intracranial bleed needing repeat imaging at 24 hours ([id number])FINAL REPORT CT Head without contrast CLINICAL HISTORY: Patient with intracranial bleed needing repeat imaging at 24 hours ([id number]) TECHNIQUE: Contiguous axial images through the head [...] dystrophic calcification is again seen. There is no definitive CT evidence for acute infarct. There is no hydrocephalus or midline shift. A suboccipitalcraniectomy and posterior arch of C1 resection is again seen. There is a partially imaged catheter extending into the visualized upper cervical central canal. IMPRESSION: Since the outside exam, the acute right cerebral hemorrhage is grossly unchanged. Signed: Mily Griffin MDReport Verified Date/Time: 04/09/2018 13:05:06 Reading Location: [address] Neuro Reading Room POCT-GLUCOSE [id number] 12:34:00 Test Item Value Reference Range Interpretation Comments POC-GLUCOSE METER 70 mg/dL 70-110 TESTED AT [facility] [address] ([facility]) (test [facility] = [facility] [address]) RESPIRATORY PANEL [id number] 10:28:00 Test Item Value Reference Range Interpretation Comments HUMAN METAPNEUMOVIRUS Not detected Not detected, ([facility] (test code = 2683) Equivocal RHINOVIRUS (BEAKER) (test Not detected Not detected, code = 2684) Equivocal INFLUENZA A (BEAKER) (test Not detected Not detected, code = 2685) Equivocal INFLUENZA A (NO SUBTYPE) Not detected, (test code = 3606) Equivocal INFLUENZA A SUBTYPE H1 Not detected, (BEAKER) (test code = 2686) Equivocal INFLUENZA A SUBTYPE H3 Not detected, (BEAKER) (test code = 2687) Equivocal INFLUENZA A SUBTYPE H1-2009 Not detected, (BEAKER) (test code = 3198) Equivocal INFLUENZA B (BEAKER) (test Not detected Not detected, code = 2688) Equivocal RESPIRATORY SYNCYTIAL VIRUS Not detected Not detected, (BEAKER) (test code = 3199) Equivocal PARAINFLUENZA VIRUS 1 Not detected Not detected, (BEAKER) (test code = 2691) Equivocal PARAINFLUENZA VIRUS 2 Not detected Not detected, (BEAKER) (test code = 2692) Equivocal PARAINFLUENZA VIRUS 3 Not detected Not detected, (BEAKER) (test code = 2693) Equivocal PARAINFLUENZA VIRUS 4 Not detected Not detected, (BEAKER) (test code = 3200) Equivocal ADENOVIRUS (BEAKER) (test Not detected Not detected, code = 2694) Equivocal CORONAVIRUS 229E (BEAKER) Not detected Not detected, (test code = 3201) Equivocal CORONAVIRUS HKU1 (BEAKER) Not detected Not detected, (test code = 3202) Equivocal CORONAVIRUS NL63 (BEAKER) Not detected Not detected, (test code = 3203) Equivocal CORONAVIRUS OC43 (BEAKER) Not detected Not detected, (test code = 3204) Equivocal BORDETELLA PERTUSSIS Not detected Not detected, (BEAKER) (test code = 3205) Equivocal CHLAMYDOPHILA PNEUMONIAE Not detected Not detected, (BEAKER) (test code = 3206) Equivocal MYCOPLASMA PNEUMONIAE Not detected Not detected, (BEAKER) (test code = 3207) Equivocal Other viruses and bacteria not targeted by this PCR panel cannot be excluded; therefore clinical correlation and follow up of serology, culture results, and other molecular studies is required. The results are not intended to be used as the sole means for clinical diagnosis or patient management decisions. This sample was tested at the [facility] Molecular Diagnostics Laboratory using the [employer] Respiratory Panel. It is FDA cleared and has been verified and approved by the [facility] for clinical use on nasal swab specimens. It is not FDA-cleared for use on bronchial wash/lavage samples. However, for this sample type, validation was performed and test characteristics were determined and approved, by [facility] laboratory for clinical use under the Clinical Laboratory Improvement Amendments (CLIA) of 1988 requirements. Therefore, FDA clearance isnot required. This laboratory is CLIA- certified and [facility] [employer] ([employer])-accredited to perform high complexity testing.RAD, CHEST, 1 VIEW, NON [id number] 09:07:00Reason for exam:->?pnaShould this be performed at [...] the image and incompletely evaluated where subtle infilt rate could not be excluded. Signed: Essence Gómez Verified Date/Time: 04/09/2018 09:07:58 Reading Location: [facility] Radiology Reading Room CBC W/PLT COUNT & AUTO [id number] 07:19:00 Test Item Value Reference Range Interpretation Comments WHITE BLOOD CELL COUNT (BEAKER) 13.8 K/ L 3.5-10.5 H (test code = 775) RED BLOOD CELL COUNT (BEAKER) 4.05 M/ L 3.93-5.22 (test code = 761) HEMOGLOBIN (BEAKER) (test code = 12.7 GM/DL 11.2-15.7 410) HEMATOCRIT (BEAKER) (test code = 40.6 % 34.1-44.9 411) MEAN CORPUSCULAR VOLUME (BEAKER) 100.2 fL 79.4-94.8 H (test code = 753) MEAN CORPUSCULAR HEMOGLOBIN 31.4 pg 25.6-32.2 (BEAKER) (test code = 751) MEAN CORPUSCULAR HEMOGLOBIN CONC 31.3 GM/DL 32.2-35.5 L (BEAKER) (test code = 752) RED CELL DISTRIBUTION WIDTH 14.3 % 11.7-14.4 (BEAKER) (test code = 412) PLATELET COUNT (BEAKER) (test 115 K/CU MM 150-450 L code = 756) MEAN PLATELET VOLUME (BEAKER) 12.6 fL 9.4-12.3 H (test code = 754) NUCLEATED RED BLOOD CELLS 0 /100 WBC 0-0 (BEAKER) (test code = 413) NEUTROPHILS RELATIVE PERCENT 81 % (BEAKER) (test code = 429) LYMPHOCYTES RELATIVE PERCENT 9 % (BEAKER) (test code = 430) MONOCYTES RELATIVE PERCENT 9 % (BEAKER) (test code = 431) EOSINOPHILS RELATIVE PERCENT 0 % (BEAKER) (test code = 432) BASOPHILS RELATIVE PERCENT 0 % (BEAKER) (test code = 437) NEUTROPHILS ABSOLUTE COUNT 11.17 K/ L 1.56-6.13 H (BEAKER) (test code = 670) LYMPHOCYTES ABSOLUTE COUNT 1.24 K/ L 1.18-3.74 (BEAKER) (test code = 414) MONOCYTES ABSOLUTE COUNT (BEAKER) 1.17 K/ L 0.24-0.36 H (test code = 415) EOSINOPHILS ABSOLUTE COUNT 0.00 K/ L 0.04-0.36 L (BEAKER) (test code = 416) BASOPHILS ABSOLUTE COUNT (BEAKER) 0.01 K/ L 0.01-0.08 (test code = 417) IMMATURE GRANULOCYTES-RELATIVE 1 % 0-1 PERCENT (BEAKER) (test code = 2801) BASIC METABOLIC [id number] 07:14:00 Test Item Value Reference Range Interpretation Comments SODIUM (BEAKER) 144 meq/L 136-145 (test code = 381) POTASSIUM (BEAKER) 3.4 meq/L 3.5-5.1 L (test code = 379) CHLORIDE (BEAKER) 101 meq/L 98-107 (test code = 382) CO2 (BEAKER) (test 38 meq/L 22-29 H code = 355) BLOOD UREA NITROGEN 15 mg/dL 7-21 (BEAKER) (test code = 354) CREATININE (BEAKER) 0.52 mg/dL 0.57-1.25 L (test code = 358) GLUCOSE RANDOM 85 mg/dL 70-105 (BEAKER) (test code = 652) CALCIUM (BEAKER) 8.9 mg/dL 8.4-10.2 (test code = 697) EGFR (BEAKER) (test 128 mL/min/1.73 ESTIM ATED GFR IS code = 1092) sq m NOT ACCURATE CREATININE CLEARANCE IN PREDICTING GLOMERULAR FILTRATION RATE . ESTIMATED GFR I S NOT APPLICABLE FOR DIALYSIS PATIEN TS. POCT-GLUCOSE [id number] 06:44:00 Test Item Value Reference Range Interpretation Comments POC-GLUCOSE METER 81 mg/dL 70-110 TESTED AT [facility] 67[address] (BEAKER) (test code = [place] [address] 1538) BLOOD GAS, [id number] 06:09:00 Test Item Value Reference Range Interpretation Comments PH ARTERIAL (BEAKER) (test code = 7.42 7.35-7.45 383) PCO2 ARTERIAL (BEAKER) (test code 61 mmHg 35-45 H = 384) PO2 ARTERIAL (BEAKER) (test code 68 mmHg 80-90 L = 385) O2 SATURATION ARTERIAL (BEAKER) 92.9 % 96.0-97.0 L (test code = 386) HCO3 ARTERIAL (BEAKER) (test code 38 mmol/L 21-29 H = 388) BASE EXCESS ARTERIAL (BEAKER) 11.5 mmol/L -2.0-3.0 H (test code = 387) PATIENT TEMPERATURE (BEAKER) 37.4 C (test code = 1818) FIO2 (BEAKER) (test code = 1819) 30.0 % U/S, ABDOMINAL, [id number] 05:37:00Reason for exam:- >transaminitisShould this be performed at the bedside?->YesFINAL REPORT [...] distended. Pericholecystic fluid: Trace pericholecystic fluid. Sonographic Varela's sign: Not able to be obtained secondary [...] proper clinical setting. Mild right pelvocaliectasis. Signed: Lynda Flowers Verified Date/Time: 04/09/2018 05:37:35 Reading Location: [address] Reading Room LACTIC ACID, VENOUS, WHOLE [id number] 02:43:00 Test Item Value Reference Range Interpretation Comments LACTATE BLOOD VENOUS 1.8 mmol/L 0.5-2.2 Specime n slightly (2) ([facility]) (test hemolyzed code = 2872) Effective 10/11/2015: Units/Reference Range ChangeNew: 0.5-2.2 mmol/L Previous: 5-20 mg/dLPOCT-GLUCOSE [id number] 01:00:00 Test Item Value Reference Range Interpretation Comments POC-GLUCOSE METER 91 mg/dL 70-110 TESTED AT [facility] 67 ([facility]) (test code = [place] [facility] [address]) [address], CHEST WITH IV CONTRAST- PE TEST [id number] 22:27:00FINAL REPORT DOSE REDUCTION: The examination was [...] appears borderline prominent in size. No significant media stinal or hilar lymphadenopathy. Bilateral breast prostheses noted. [...] of pulmonary embolism. 2. Left lower lobe co nsolidation may represent combination of atelectasis and pneumonia. Right lung base atelectasis. 3. Small right pleural effusion. Signed: Pelon Brewstereport Verified Date/Time: 04/08/2018 22:27:11 Reading Location: [facility] Mammo Reading Room IC ACID, VENOUS, WHOLE [id number] 21:28:00 Test Item Value Reference Range Interpretation Comments LACTATE BLOOD VENOUS 2.8 mmol/L 0.5-2.2 H Specime n slightly (2) ([facility]) (test hemolyzed code = 2872) Effective 10/11/2015: Units/Reference Range ChangeNew: 0.5-2.2 mmol/L Previous: 5-20 mg/dLHCG, QUANTITATIVE, [id number] 19:49:00 Test Item Value Reference Range Interpretation Comments GONADOTROPIN, CHORIONIC (HCG) QUANT < mIU/mL 0-10 ([facility]I) (test code = 649) Non- Females: <10 mIU/mL Females: Gestation Age Reference Range(mIU/mL) 0.2-1 Week 5-50 1-2 Weeks 50-500 2-3 Weeks 100-5,000 3-4Weeks 500-10,000 4-5 Weeks 1,000-50,000 5-6 Weeks 10,000-100,000 6-8 Weeks 15,000-200,000 2-3 Months 10,000-100,000EEG AWAKE AND DROWSY 2018-04-08 19:28:00Reason for exam:->seizingNeurophysiology Electroencephalogram Report DATE OF REPORT: 04/08/18Date(s) of Study: 04/08/2018ACC:[id number]: art time: 1807 hrsStop time: 1830 hrsICD-10: R56.9CPT Code: 41287 HISTORY: 42-year-old female referred for STAT inpatient EEG due to suspected seizure. 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 She has a prior posterior fossa cr aniectomy, syrinx, syringopleural shunt placement in ~2011 and a series of surgeries from ~2010 to 2014 with progressive weakness of BUE and BLE [...] encephalopathy. Antoinette Maravilla MDEpilepsy FellowBSL Neurophysiology Service A ttending note: I reviewed this EEG record in its entirety and I agree with the details of this report.Juliette Salguero MDEpilepsy Attending POCT-GLUCOSE METER 2018-04-08 18:57:00 Test Item Value Reference Range Interpretation Comments POC-GLUCOSE METER 102 mg/dL 70-110 TESTED AT [place] [address] ([facility]) (test code = [place] 1538) [address] RAD, SHUNT [id number] 18:27:00Reason for exam:->patient with decreased LOC and VPS in the setting of hypotension and hypothermiaFINAL REPORT Technique: Frontal and lateral views of the skull, neck, chest, a nd abdomen COMPARISON: Chest x-ray, 04/08/2018 FINDINGS: There is a right-sided ventriculopleural shunt catheter. Presumably the proximal portion [...] chest x-ray. Bowel gas pattern is nonspecific. IMPRESSION: 1. Cephalad portions of the right-sided shunt are difficult to visualize. No definite shunt disruption in the visualized portion. Signed: Pelon Brewster MDReport Verified Date/Time: 04/08/2018 18:27:37 Reading Location: [facility] Reading Room AMYLASE 2018-04-08 18:07:00 Test Item Value Reference Range Interpretation Comments AMYLASE (BEAKER) (test code = 349) 47 U/L 25-125 [id number] 18:07:00 Test Item Value Reference Range Interpretation Comments LIPASE (BEAKER) (test code = 749) 10 U/L 8-78 [id number] 18:03:00 Test Item Value Reference Range Interpretation Comments PROCALCITONIN (BEAKER) (test code = < ng/mL <0.05 3036) SEPSIS RISK (ng/mL)Low: 0.05-0.50Intermediate: 0.51-2.00High: >=2.01TSH/FREE T4 IF [id number] 17:59:00 Test Item Value Reference Range Interpretation Comments THYROID STIMULATING HORMONE 1.55 uIU/mL 0.35-4.94 (BEAKER) (test code = 772) [id number] 17:59:00 Test Item Value Reference Range Interpretation Comments CORTISOL, TOTAL (BEAKER) (test 30.6 ug/dL 3.7-19.4 H code = 2755) URINALYSIS W/ [id number] 17:48:00 Test Item Value Reference Range Interpretation Comments COLOR (BEAKER) (test code = 470) Yellow CLARITY (BEAKER) (test code = 469) Hazy SPECIFIC GRAVITY UA (BEAKER) (test 1.019 1.001-1.035 code = 468) PH UA (BEAKER) (test code = 467) 5.5 5.0-8.0 PROTEIN UA (BEAKER) (test code = 50 mg/dL Negative A 464) GLUCOSE UA (BEAKER) (test code = 30 mg/dL Negative A 365) KETONES UA (BEAKER) (test code = 20 mg/dL Negative A 371) BILIRUBIN UA (BEAKER) (test code = Negative Negative 462) BLOOD UA (BEAKER) (test code = 461) Moderate Negative A NITRITE UA (BEAKER) (test code = Negative Negative 465) LEUKOCYTE ESTERASE UA (BEAKER) Large Negative A (test code = 466) UROBILINOGEN UA (BEAKER) (test code 0.2 mg/dL 0.2-1.0 = 463) RBC UA (BEAKER) (test code = 519) 13 /HPF WBC UA (BEAKER) (test code = 520) 31 /HPF MUCUS (BEAKER) (test code = 1574) Few SQUAMOUS EPITHELIAL (BEAKER) (test 1 /HPF code = 516) HYALINE CASTS (BEAKER) (test code = 8 /LPF 514) SOURCE(BEAKER) (test code = 2795) [id number] 17:47:00 Test Item Value Reference Range Interpretation Comments MAGNESIUM (BEAKER) (test code = 1.9 mg/dL 1.6-2.6 627) BASIC METABOLIC [id number] 17:47:00 Test Item Value Reference Range Interpretation Comments SODIUM (BEAKER) 143 meq/L 136-145 (test code = 381) POTASSIUM (BEAKER) 3.4 meq/L 3.5-5.1 L (test code = 379) CHLORIDE (BEAKER) 99 meq/L 98-107 (test code = 382) CO2 (BEAKER) (test 29 meq/L 22-29 code = 355) BLOOD UREA NITROGEN 20 mg/dL 7-21 (BEAKER) (test code = 354) CREATININE (BEAKER) 0.69 mg/dL 0.57-1.25 (test code = 358) GLUCOSE RANDOM 164 mg/dL 70-105 H (BEAKER) (test code = 652) CALCIUM (BEAKER) 8.6 mg/dL 8.4-10.2 (test code = 697) EGFR (BEAKER) (test 92 mL/min/1.73 ESTIMA [place] GFR IS code = 1092) sq m NOT ACCURATE CREATININE CLEARANCE IN PREDICTING GLOMERULAR FILTRATION RATE . ESTIMATED GFR I S NOT APPLICABLE FOR DIALYSIS PATIEN TS. HEPATIC FUNCTION [id number] 17:44:00 Test Item Value Reference Range Interpretation Comments TOTAL PROTEIN (BEAKER) (test code = 5.4 gm/dL 6.0-8.3 L 770) ALBUMIN (BEAKER) (test code = 1145) 3.2 g/dL 3.5-5.0 L BILIRUBIN TOTAL (BEAKER) (test code 0.4 mg/dL 0.2-1.2 = 377) BILIRUBIN DIRECT (BEAKER) (test 0.2 mg/dL 0.1-0.5 code = 706) ALKALINE PHOSPHATASE (BEAKER) (test 72 U/L 40-150 code = 346) AST (SGOT) (BEAKER) (test code = 44 U/L 5-34 H 353) ALT (SGPT) (BEAKER) (test code = 66 U/L 6-55 H 347) B-TYPE NATRIURETIC FACTOR (BNP)2018-04-08 17:42:00 Test Item Value Reference Range Interpretation Comments B-TYPE NATRIURETIC PEPTIDE (BEAKER) 102 pg/mL 0-100 H (test code = 700) TROPONIN [id number] 17:41:00 Test Item Value Reference Range Interpretation Comments TROPONIN I (BEAKER) (test code = 0.08 ng/mL 0.00-0.03 H 397) Troponin I (TnI) levels must be interpreted [...] failure, acidosis, acute neurological disease, and persistent tachyarrhythmia.[id number] 17:40:00 Test Item Value Reference Range Interpretation Comments TRIGLYCERIDES (BEAKER) (test code = 45 mg/dL 540) TRIGLYCERIDE REFERENCE RANGELow Risk <150Borderline Risk 150-199High Risk 200-499Very High Risk>=[id number] 17:40:00 Test Item Value Reference Range Interpretation Comments PHOSPHORUS (BEAKER) (test code = 2.3 mg/dL 2.3-4.7 604) CREATINE KINASE (CK)2018-04-08 17:40:00 Test Item Value Reference Range Interpretation Comments CREATINE KINASE TOTAL (BEAKER) (test 52 U/L 29-200 code = 380) [id number] 17:39:00 Test Item Value Reference Range Interpretation Comments ETHANOL (BEAKER) (test code = 400) < mg/dL <=10 PROTHROMBIN TIME/[id number] 17:37:00 Test Item Value Reference Range Interpretation Comments PROTIME (BEAKER) 12.8 seconds 11.7-14.7 Delay due t o improper (test code = 759) order way. 2 labels with one sample . INR (BEAKER) (test 1.0 <=5.9 code = 370) RECOMMENDED COUMADIN/WARFARIN INR THERAPY RANGESSTANDARD DOSE: 2.0 - 3.0 Includes: PROPHYLAXIS forvenous thrombosis, systemic embolization; TREATMENT for venous thrombosis and/or pulmonary embolus.HIGH RISK: Target INR is 2.5-3.5 for patients with mechanical heart valves.[id number] 17:36:00 Test Item Value Reference Range Interpretation Comments PARTIAL THROMBOPLASTIN TIME 23.9 seconds 22.5-36.0 (BEAKER) (test code = 760) LACTIC ACID, VENOUS, WHOLE [id number] 17:36:00 Test Item Value Reference Range Interpretation Comments LACTATE BLOOD VENOUS 11.3 mmol/L 0.5-2.2 H Specime n moderately (2) (BEAKER) (test hemolyzed code = 2872) Effective 10/11/2015: Units/Reference Range ChangeNew: 0.5-2.2 mmol/L Previous: 5-20 mg/[id number] 17:28:00 Test Item Value Reference Range Interpretation Comments D-DIMER QUANTITATIVE (BEAKER) 1.15 MG/L FEU <0.50 H (test code = 671) Intended Use: The D-Dimer Assay can be used to aid in the diagnosis of Deep Vein Thrombosis (DVT) and Pulmonary Embolism Disease (PED).In patients with low pre- test probability, various studies concerning STA Liatest D-dimer test have reported that with a cutoff value of 0.50 MG/L FEU, the Negative Predictive Value (NPV) regarding the exclusion of thrombosis is within 95-100% range.CBC W/PLT COUNT & AUTO [id number] 17:22:00 Test Item Value Reference Range Interpretation Comments WHITE BLOOD CELL COUNT (BEAKER) 9.5 K/ L 3.5-10.5 (test code = 775) RED BLOOD CELL COUNT (BEAKER) 4.49 M/ L 3.93-5.22 (test code = 761) HEMOGLOBIN (BEAKER) (test code = 14.1 GM/DL 11.2-15.7 410) HEMATOCRIT (BEAKER) (test code = 46.8 % 34.1-44.9 H 411) MEAN CORPUSCULAR VOLUME (BEAKER) 104.2 fL 79.4-94.8 H (test code = 753) MEAN CORPUSCULAR HEMOGLOBIN 31.4 pg 25.6-32.2 (BEAKER) (test code = 751) MEAN CORPUSCULAR HEMOGLOBIN CONC 30.1 GM/DL 32.2-35.5 L (BEAKER) (test code = 752) RED CELL DISTRIBUTION WIDTH 13.9 % 11.7-14.4 (BEAKER) (test code = 412) PLATELET COUNT (BEAKER) (test 120 K/CU MM 150-450 L code = 756) MEAN PLATELET VOLUME (BEAKER) 12.6 fL 9.4-12.3 H (test code = 754) NUCLEATED RED BLOOD CELLS 0 /100 WBC 0-0 (BEAKER) (test code = 413) NEUTROPHILS RELATIVE PERCENT 86 % (BEAKER) (test code = 429) LYMPHOCYTES RELATIVE PERCENT 6 % (BEAKER) (test code = 430) MONOCYTES RELATIVE PERCENT 8 % (BEAKER) (test code = 431) EOSINOPHILS RELATIVE PERCENT 0 % (BEAKER) (test code = 432) BASOPHILS RELATIVE PERCENT 0 % (BEAKER) (test code = 437) NEUTROPHILS ABSOLUTE COUNT 8.14 K/ L 1.56-6.13 H (BEAKER) (test code = 670) LYMPHOCYTES ABSOLUTE COUNT 0.54 K/ L 1.18-3.74 L (BEAKER) (test code = 414) MONOCYTES ABSOLUTE COUNT (BEAKER) 0.76 K/ L 0.24-0.36 H (test code = 415) EOSINOPHILS ABSOLUTE COUNT 0.00 K/ L 0.04-0.36 L (BEAKER) (test code = 416) BASOPHILS ABSOLUTE COUNT (BEAKER) 0.01 K/ L 0.01-0.08 (test code = 417) IMMATURE GRANULOCYTES-RELATIVE 0 % 0-1 PERCENT (BEAKER) (test code = 2801) RAD, CHEST, 1 VIEW, NON [id number] 16:54:00Post-intubationReason for exam:- >intubatedShould this be performed at the bedside?->YesFINAL REPORT [...] MDReport Verified Date/Time: 04/08/2018 16:54:28 Reading Location: [facility] Diagnostic Imaging Reading Room - [place] [address] BLOOD GAS, [id number] 16:39:00 Test Item Value Reference Range Interpretation Comments PH ARTERIAL (BEAKER) (test code = 7.43 7.35-7.45 383) PCO2 ARTERIAL (BEAKER) (test code 46 mmHg 35-45 H = 384) PO2 ARTERIAL (BEAKER) (test code = 90 mmHg 80-90 385) O2 SATURATION ARTERIAL (BEAKER) 97.3 % 96.0-97.0 H (test code = 386) HCO3 ARTERIAL (BEAKER) (test code 30 mmol/L 21-29 H = 388) BASE EXCESS ARTERIAL (BEAKER) 4.7 mmol/L -2.0-3.0 H (test code = 387) PATIENT TEMPERATURE (BEAKER) (test 36.0 C code = 1818) FIO2 (BEAKER) (test code = 1819) 30.0 % Following Spontaneous Breather Trial (SBT).
[2020-08-09] MEDS ORDERED: NA CHLORIDE 0.9% 500 ML ONE (00:33)
[2020-08-09 01:15] LABS: Absolute Lymphocytes (CBC) 3.4 K/uL (0.7-4.9); Basophils % 0.8 % (0-1.3); Lymphocytes % 36.5 % (15.3-44.8); MPV 10.7 fL (7.6-11.3); RBC Red Blood Cell Count 4.81 M/uL (3.86-4.86)
[2020-08-09 01:34] LABS: ALT/SGPT 45 U/L (12-78); AST/SGOT 25 U/L (15-37); Albumin 3.6 g/dL (3.4-5.0); Alkaline Phosphatase 268 U/L (45-117); BUN Blood Urea Nitrogen 22 mg/dL (7-18); Bicarbonate 22 mmol/L (21-32); Bilirubin Total 0.2 mg/dL (0.2-1.0); Glucose Level 108 mg/dL (74-106); Potassium 3.8 mmol/L (3.5-5.1); Protein, Total 8.6 g/dL (6.4-8.2); Sodium Level 142 mmol/L (136-145); Troponin (Emerg Dept Use Only) < 0.02 ng/mL (0.0-0.045)
--- NOTE | 2020-08-09 02:49 | ER ---
Nurse's Notes [facility] Name: Cira Tellez Age: 44 yrs Sex: Female : 1975 Arrival Date: 08/08/2020 Time: 23:56 Bed 6 Private MD: Diagnosis: Urinary tract infection, site not specified;Retention of urine Presentation: 08/08 23:59 Chief complaint: EMS states: while the caregiver cleaning the perineum she felt the rr5 catheter. they just want to check if the suprapubic catheter is in placed. no blood, no pain, no discharge. Coronavirus screen: Client denies travel out of the [place] in the last 14 days. At this time, the client does not indicate any symptoms associated with coronavirus-19. had the 2 shots of covid vaccine. Ebola Screen: Patient negative for fever greater than or equal to 101.5 degrees Fahrenheit, and additional compatible Ebola Virus Disease symptoms Patient denies exposure to infectious person. Patient denies travel to an Ebola-affected area in the 21 days before illness onset. Initial Sepsis Screen: Does the patient meet any 2 criteria? No. Patient's initial sepsis screen is negative. Does the patient have a suspected source of infection? No. Patient's initial sepsis screen is negative. Risk Assessment: Do you want to hurt yourself or someone else? Patient reports no desire to harm self or others. Onset of symptoms was August 09, 2020. 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 - Social history:: Smoking status: unknown. - Family history:: not pertinent. Screenin:08 Abuse screen: Denies threats or abuse. Denies injuries from another. Nutritional rr5 screening: No deficits noted. Tuberculosis screening: No symptoms or risk factors identified. Fall Risk No fall in past 12 months (0 pts). Secondary diagnosis (15 points) impaired mobility, Gait- Impaired (20 pts.). Total Odonnell Fall Scale indicates High Risk Score (45 or more points). Fall prevention measures have been instituted. Side Rails Up X 2 Placed Close to Nursing Station Frequent Obs/Assessments Occuring As available patient and family educated on Fall Prevention Program and Strategies. Assessment: 00:05 General: Appears in no apparent distress. comfortable, Behavior is calm, cooperative, rr5 appropriate for age. Pain: Denies pain. Neuro: Level of Consciousness is awake, alert, obeys commands, Oriented to person, place, time. Cardiovascular: Capillary refill < 3 seconds Patient's skin is warm and dry. Rhythm is sinus bradycardia. Respiratory: Airway is patent Respiratory effort is even, unlabored, Respiratory pattern is regular, symmetrical, tracheostomy Ventilator assessment: HOB > 30 degrees. on tracheostomy. GI: No signs and/or symptoms were reported involving the gastrointestinal system. : suprapubic catheter in place to gravity drainage draining clear urine Parent/caregiver report the patient having felt the catheter in perineum area. EENT: No signs and/or symptoms were reported regarding the EENT system. Derm: Skin is intact, Skin temperature is warm Decubitus located on sacrum. Musculoskeletal: Capillary refill < 3 seconds, Reports paralyse. 01:00 Reassessment: Patient appears in no apparent distress at this time. Patient and/or rr5 family updated on plan of care and expected duration. Pain level reassessed. Patient is alert, oriented x 3, equal unlabored respirations, skin warm/dry/pink. 01:55 Reassessment: Patient appears in no apparent distress at this time. Patient is alert, rr5 oriented x 3, equal unlabored respirations, skin warm/dry/pink. awaiting for results. 03:12 Reassessment: Patient appears in no apparent distress at this time. Patient is alert, rr5 oriented x 3, equal unlabored respirations, skin warm/dry/pink. discharge instruction given and explained to patient without complaints made, verbalized understanding. EMS informed for transport going home. 03:30 Reassessment: awaiting for EMS transport. rr5 Vital Signs: 08/08 23:59 BP 154 / 99; Pulse 47; Resp 19; Pulse Ox 100% ; Weight 68.49 kg; Height 5 ft. (152.40 rr5 cm); Pain 0/10; 0303 01:00 BP 130 / 62; Pulse 49; Resp 19; Pulse Ox 100% ; rr5 02:00 BP 125 / 89; Pulse 51; Resp 20; Pulse Ox 98% ; rr5 03:04 BP 130 / 62; Pulse 50; Resp 20; Pulse Ox 98% ; rr5 03:12 BP 125 / 80; Pulse 55; Resp 21; Temp 97.4; Pulse Ox 100% ; rr5 08/08 23:59 Body Mass Index 29.49 (68.49 kg, 152.40 cm) rr5 ED Course: 08/08 23:56 Patient arrived in ED. lucy 23:58 Yogesh Levin MD is Attending Physician. lucy 23:59 Noah Paula RN is Primary Nurse. rr5 03 00:03 Triage completed. rr5 00:04 Arm band placed on right wrist. rr5 00:05 Placed in gown. Bed in low position. Call light in reach. Side rails up X 1. Cardiac rr5 monitor on. Pulse ox on. NIBP on. 00:43 Missed attempt(s): 22 gauge in left in right forearm. Bleeding controlled, band aid ds4 applied, catheter tip intact. 00:47 Chest Single View XRAY In Process Unspecified. EDMS 01:39 Inserted saline lock: 22 gauge in right forearm, using aseptic technique. em 02:03 CT Abd/Pelvis - Without Contrast In Process Unspecified. EDMS 02:35 Mary cath inserted, using sterile technique, 16 Fr., balloon inflated, to gravity rr5 drainage, urine specimen collected. other suprapubic catheter changed by dr. levin using silicone F16. 02:35 No provider procedures requiring assistance completed. rr5 02:48 Jordy Mckeon MD is Referral Physician. lucy 03:03 IV discontinued, intact, bleeding controlled, No redness/swelling at site. Pressure rr5 dressing applied. Administered Medications: 02:01 Drug: NS 0.9% 500 ml Route: IV; Rate: bolus; Site: right forearm; em 02:50 Follow up: Response: No adverse reaction; IV Status: Completed infusion; IV Intake: rr5 500ml 02:55 Drug: Bactrim (160 mg-800 mg (DS) 1 tablet Route: PO; rr5 03:06 Follow up: Response: Medication administered at discharge. rr5 03:17 Follow up: Response: No adverse reaction rr5 02:56 Drug: Rocephin 1 grams Route: IV; Rate: calculated rate; Site: right forearm; rr5 03:06 Follow up: Response: Medication administered at discharge. rr5 03:16 Follow up: Response: No adverse reaction; IV Status: Completed infusion rr5 Intake: 02:50 IV: 500ml; Total: 500ml. rr5 Outcome: 02:49 Discharge ordered by MD. ayala 03:03 Discharged to home via ambulance, adult care manager rr5 03:03 Condition: stable 03:03 Discharge instructions given to patient, supply chain design manager, Instructed on discharge instructions, follow up and referral plans. medication usage, Demonstrated understanding of instructions, follow-up care, medications. 03:40 Patient left the ED. rr5 Addendum: 08/13/2020 10:46 Addendum: Culture Results: Positive urine culture. Bacteria is resistant to, has i w intermediate sensitivity, or is not tested against prescribed antibiotics. Report given to VALORIE for further evaluation and then to neck band operator for follow up with patient. Phone call Attempt #1 attempted to leave voice mail, mail box is full. Signatures: Dispatcher [employer] Yogesh Waterman MD MD cha Munoz, Edgar, RN RN em Williams, Irene, RN RN iw Swanson, Donovan ds4 Noah Paula RN RN rr5 Corrections: (The following items were deleted from the chart) 03 02:39 00:04 Allergies: No Known Allergies; rr5 rr5 03:12 03:04 BP 130 / 62; Pulse 50bpm; Resp 16bpm; Pulse Ox 98%; rr5 rr5 03:16 02:00 BP 125 / 89; Pulse 51bpm; Resp 17bpm; Pulse Ox 98%; rr5 rr5
--- NOTE | 2020-08-09 02:50 | EDPHYS ---
Physician Documentation [facility] Name: Cira Tellez Age: 44 yrs Sex: Female : 1975 Arrival Date: 08/08/2020 Time: 23:56 Bed 6 Private MD: CARIDAD Physician Yogesh Levin HPI: 08/09 00:13 This 44 yrs old Female presents to ER via EMS with complaints of suprapubic lucy catheter check. 00:13 The patient presents with urinary symptoms, dysuria, suprapubic catheter. 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 - Social history:: Smoking status: unknown. - Family history:: not pertinent. ROS: 00:13 Constitutional: Negative for fever, chills, and weight loss, Eyes: Negative for injury, lucy pain, redness, and discharge, ENT: Negative for injury, pain, and discharge, Neck: Negative for injury, pain, and swelling, Cardiovascular: Negative for chest pain, palpitations, and edema, Respiratory: Negative for shortness of breath, cough, wheezing, and pleuritic chest pain, Back: Negative for injury and pain, MS/Extremity: Negative for injury and deformity, Skin: Negative for injury, rash, and discoloration, Neuro: Negative for headache, weakness, numbness, tingling, and seizure, Psych: Negative for depression, anxiety, suicide ideation, homicidal ideation, and hallucinations, Allergy/Immunology: Negative for hives, rash, and allergies, Endocrine: Negative for neck swelling, polydipsia, polyuria, polyphagia, and marked weight changes, Hematologic/Lymphatic: Negative for swollen nodes, abnormal bleeding, and unusual bruising. 00:13 Abdomen/GI: Positive for abdominal pain, abdominal cramps, of the suprapubic area. Exam: 00:13 Constitutional: This is a well developed, well nourished patient who is awake, alert, lucy and in no acute distress. Head/Face: Normocephalic, atraumatic. Eyes: Pupils equal round and reactive to light, extra-ocular motions intact. Lids and lashes normal. Conjunctiva and sclera are non-icteric and not injected. Cornea within normal limits. Periorbital areas with no swelling, redness, or edema. ENT: Nares patent. No nasal discharge, no septal abnormalities noted. Tympanic membranes are normal and external auditory canals are clear. Oropharynx with no redness, swelling, or masses, exudates, or evidence of obstruction, uvula midline. Mucous membranes moist. Neck: Trachea midline, no thyromegaly or masses palpated, and no cervical lymphadenopathy. Supple, full range of motion without nuchal rigidity, or vertebral point tenderness. No Meningismus. Chest/axilla: Normal chest wall appearance and motion. Nontender with no deformity. No lesions are appreciated. Respiratory: Lungs have equal breath sounds bilaterally, clear to auscultation and percussion. No rales, rhonchi or wheezes noted. No increased work of breathing, no retractions or nasal flaring. Abdomen/GI: Soft, non-tender, with normal bowel sounds. No distension or tympany. No guarding or rebound. No evidence of tenderness throughout. Back: No spinal tenderness. No costovertebral tenderness. Full range of motion. Female : Normal external genitalia. Skin: Warm, dry with normal turgor. Normal color with no rashes, no lesions, and no evidence of cellulitis. MS/ Extremity: Pulses equal, no cyanosis. Neurovascular intact. Full, normal range of motion. Neuro: Awake and alert, GCS 15, oriented to person, place, time, and situation. Cranial nerves II-XII grossly intact. Motor strength 5/5 in all extremities. Sensory grossly intact. Cerebellar exam normal. Normal gait. Psych: Awake, alert, with orientation to person, place and time. Behavior, mood, and affect are within normal limits. 00:13 Cardiovascular: Rate: bradycardic, actual rate is 54 bpm, Rhythm: regular, Pulses: Pulses are 4+ in bilateral radial, brachial, femoral, popliteal, posterior tibial and and dorsalis pedis arteries.. Heart sounds: normal, normal S1and S2, no S3 or S4, no murmur, no rub, no gallop, Edema: is not appreciated, JVD: is not appreciated. 02:53 ECG was reviewed by the Attending Physician. lucy Vital Signs: 08/08 23:59 BP 154 / 99; Pulse 47; Resp 19; Pulse Ox 100% ; Weight 68.49 kg; Height 5 ft. (152.40 rr5 cm); Pain 0/10; 08/09 01:00 BP 130 / 62; Pulse 49; Resp 19; Pulse Ox 100% ; rr5 02:00 BP 125 / 89; Pulse 51; Resp 20; Pulse Ox 98% ; rr5 03:04 BP 130 / 62; Pulse 50; Resp 20; Pulse Ox 98% ; rr5 03:12 BP 125 / 80; Pulse 55; Resp 21; Temp 97.4; Pulse Ox 100% ; rr5 08/08 23:59 Body Mass Index 29.49 (68.49 kg, 152.40 cm) rr5 Procedures: 02:47 Mary cath inserted by myself - 16 Fr. Mary cath balloon deflated, Patient tolerated lucy well. MDM: 08/08 23:58 Patient medically screened. [facility] 08/09 00:17 Differential diagnosis: nonspecific abdominal pain, urinary tract infection. Data [facility] reviewed: vital signs, nurses notes, lab test result(s), EKG, radiologic studies, CT scan. Data interpreted: bakery assistant: rate is 47 beats/min, rhythm is regular, Pulse oximetry: on room air is 100 %. Test interpretation: by ED physician or midlevel provider: ECG. Counseling: I had a detailed discussion with the patient and/or guardian regarding: the historical points, exam findings, and any diagnostic results supporting the discharge/admit diagnosis, lab results, radiology results. 08/09 00:12 Order name: CBC with Diff; Complete Time: :36 [facility] 08/09 00:12 Order name: Comprehensive Metabolic Panel; Complete Time: 01:36 lucy 08/09 00:12 Order name: Urine Culture [facility] 08/09 01:09 Order name: Troponin (Emerg Dept Use Only); Complete Time: 01:36 EDMA 08/09 01:21 Order name: CREATININE WHOLE BLOOD; Complete Time: 01:36 EDMS 08/09 00:20 Order name: Chest Single View XRAY [facility] 08/09 01:36 Order name: CT Abd/Pelvis - Without Contrast [facility] 08/09 02:55 Order name: Urine --Ancillary (enter results) [facility] 08/09 02:55 Order name: Urine Dipstick--Ancillary (enter results) [facility] 08/09 02:56 Order name: Urine --Ancillary [facility] 08/09 02:56 Order name: Urine Dipstick-Ancillary [facility] 08/09 00:12 Order name: Urine Dipstick-Ancillary (obtain specimen); Complete Time: 03:00 [facility] 08/09 00:12 Order name: Urine Test (obtain specimen); Complete Time: 03:00 [facility] 08/09 00:13 Order name: EKG; Complete Time: 00:13 [facility] 08/09 00:13 Order name: EKG - Nurse/Tech; Complete Time: 03:00 [facility] EC:53 Rate is 50 beats/min. Rhythm is regular. QRS [place] is Normal. [place] interval is normal. QRS lucy interval is normal. QT interval is normal. No Q waves. T waves are Normal. No ST changes noted. Clinical impression: Sinus bradycardia. Interpreted by me. Reviewed by me. Administered Medications: 02:01 Drug: NS 0.9% 500 ml Route: IV; Rate: bolus; Site: right forearm; em 02:50 Follow up: Response: No adverse reaction; IV Status: Completed infusion; IV Intake: rr5 500ml 02:55 Drug: Bactrim (160 mg-800 mg (DS) 1 tablet Route: PO; rr5 03:06 Follow up: Response: Medication administered at discharge. rr5 03:17 Follow up: Response: No adverse reaction rr5 02:56 Drug: Rocephin 1 grams Route: IV; Rate: calculated rate; Site: right forearm; rr5 03:06 Follow up: Response: Medication administered at discharge. rr5 03:16 Follow up: Response: No adverse reaction; IV Status: Completed infusion rr5 Disposition: 08/09/20 02:49 Discharged to Home. Impression: Urinary tract infection, site not specified, Retention of urine. - Condition is Stable. - Discharge Instructions: Mary Catheter Care, Adult, Urinary Tract Infection, Adult, Suprapubic Catheter Replacement, Urinary Tract Infection, Adult, [id number], Suprapubic Catheter Replacement, Care After, Suprapubic Catheter Home Guide, Mary Catheter Care, Adult, [id number]. - Prescriptions for Bactrim DS 800- 160 mg Oral Tablet - take 1 tablet by ORAL route every 12 hours for 7 days; 14 tablet. - Medication Reconciliation Form, Thank You Letter, Antibiotic Education, Prescription Opioid Use form. - Follow up: Private Physician; When: 2 - 3 days; Reason: Recheck today's complaints, Continuance of care, Re-evaluation by your physician. Follow up: Jordy Mckeon MD; When: 2 - 3 days; Reason: Recheck today's complaints, Re-evaluation by your physician. - Problem is new. - Symptoms have improved. Signatures: Dispatcher [employer] EDMS Yogesh Levin MD MD cha Munoz, Edgar, RN RN Noah Fernandez RN RN rr5 Corrections: (The following items were deleted from the chart) 01:08 00:21 TROPONIN (EMERG DEPT USE ONLY)+C.LAB.BRZ ordered. [facility] EDMA 01:59 00:13 Abdomen Pelvis W Con+CT.RAD.BRZ ordered. [facility] EDMS 02:39 00:04 Allergies: No Known Allergies; rr5 rr5 03:40 02:49 08/09/2020 02:49 Discharged to Home. Impression: Urinary tract infection, site rr5 not specified; Retention of urine. Condition is Stable. Forms are Medication Reconciliation Form, Thank You Letter, Antibiotic Education, Prescription Opioid Use. Follow up: Private Physician; When: 2 - 3 days; Reason: Recheck today's complaints, Continuance of care, Re-evaluation by your physician. Follow up: Jordy Mckeon; When: 2 - 3 days; Reason: Recheck today's complaints, Re-evaluation by your physician. Problem is new. Symptoms have improved. lucy
[2020-08-09] MEDS ORDERED: CEFTRIAXONE/SWI 1gm 1 GM/10 ML SYR ONE (03:06)
[2020-08-09] MEDS ORDERED: SMZ./TMP. 800/160 MG TABLET ONE (03:07)
[2020-08-09 03:28] LABS: Urine Blood 2+ (NEG); Urine Glucose NEGATIVE (NEG); Urine Protein NEGATIVE (NEG); Urine Specific Gravity 1.015 (1.005-1.030); Urine pH 6.5 (5.0-7.0)
[2020-08-09 05:07] VITALS: BP 125/80; TEMP 97.4; O2SAT 100
--- NOTE | 2020-08-09 08:38 | RAD REPORT ---
EXAM DESCRIPTION: RAD - Chest Single View - 08/09/2020 12:47 am CLINICAL HISTORY: COUGH Chest pain. COMPARISON: Abdomen 1 View (KUB) dated 05/12/2019; Abdomen 1 View (KUB) dated 05/10/2019; Chest Single View dated 05/01/2019; Chest Single View dated 04/08/2018 FINDINGS: Portable technique limits examination quality. Elevation of right hemidiaphragm is noted, chronic. Tubing is seen traversing the right aspect of the chest. Lungs are grossly clear of acute infiltrate. The heart is mildly prominent.Tracheostomy tube is in appropriate position.
--- NOTE | 2020-08-09 10:05 | RAD REPORT ---
EXAM DESCRIPTION: Abdomen Pelvis Wo Contrast 08/09/2020 2:07 AM [employer] MEDIA PROGRAM DIRECTOR CLINICAL HISTORY: 44 years, Female, ABD PAIN COMPARISON: 05/10/2019. TECHNIQUE: Multiple transaxial tomograms of the abdomen and pelvis were performed from the lung base s to the symphysis pubis 5 mm slice thickness at 5 mm interval reconstruction, without administration of IV and oral contrast. Multiplanar reformats in the sagittal and coronal plane were generated and reviewed. An individualized dose optimization technique, Automated Exposure Control, was utilized for the performed procedure. FINDINGS: The lack of IV and oral contrast limits evaluation of solid organs, subtle lesions cannot be excluded. The lung bases again demonstrated presence of compressive atelectatic changes medial asp ect bilateral posterior segment lower lobes. A drainage catheter is identified within the posterior r ight pleural space similar to prior study. Bilateral breast implants. Grossly the unopacified liver, gallbladder, pancreas, spleen and adrenal glands demonstrate to be within normal limits, no significa nt focal lesions were identified. Again there is a tiny calcific lesion adjacent to the gallbladder neck area similar to prior study. The kidneys demonstrate grossly unremarkable, no nephrolithiasis a nd/or hydronephrosis were identified. No focal masses were demonstrated. The ureters displays nor mal appearance with normal caliber, no hydroureter was seen. Grossly the unopacified stomach, smal l bowel and large bowel demonstrate to be within normal limits. Fecal residue and underdistention of the large bowel limits the evaluation. There has been resolution previous described bowel dilatation. Fecal residue throughout the large bowel especially within the rectosigmoid colon correspond to cons tipation/fecal impaction. The urinary bladder demonstrate the presence of a suprapubic catheter ballo on within the region of the external aspect of the urethra. The uterus demonstrate to be within macario l limits. No adnexal masses are identified. The aorta demonstrate to be within normal limits. There is no retroperitoneal lymphadenopathy. There is no evidence for ascites. The bone windows demonstr ate no significant skeletal lesions. There is a small sacral decubitus ulcer on axial image [id number]/ [id number]. IMPRESSION: Constipation/fecal impaction. No evidence of nephrolithiasis and/or hydronephrosis. Supr apubic catheter with Mary balloon outside of the urinary bladder, outside of the urethra. Small sacr al decubitus ulcer. Persistent compressive atelectatic changes medial aspect bilateral posterior segm ent lower lobes. A drainage catheter is identified within the posterior right pleural space similar t o prior study. Electronically signed by: Woody Paris MD 08/09/2020 2:14 AM [employer] MEDIA PROGRAM DIRECTOR Due to temporary technical issues with the PACS/Fluency reporting system, reports are being signed by the in house radiologist without review as a courtesy to ensure prompt reporting. The interpreting r adiologist is fully responsible for the content of the report.
--- NOTE | 2020-08-09 22:26 | EKG ---
Test Date: 2020-08-09 Test Time: 01:27:07 Slasher Hand: [place] MEASUREMENT RESULTS: Intervals: Rate: 50 OR: 166 QRSD: 60 QT: 498 QTc: 454 [place]: P: 85 OR: 166 QRS: 29 T: 13 INTERPRETIVE STATEMENTS: Sinus bradycardia Septal infarct, age undetermined ST & T wave abnormality, consider anterior ischemia Abnormal ECG Compared to ECG 05/01/2019 18:53:31 ST (T wave) deviation now present Possible ischemia now present Myocardial infarct finding still present Electronically Signed On 08-09-20 22:25:28 ANIMAL ASSISTED THERAPIST by Jabier Jay
== END 2020-08-09 03:40 | disposition home or self-care (01) ==
LOC: ER 23:53
PROC: 0T9B7ZZ Drainage of Bladder, Via Natural or Artificial Opening (ICD-10-PCS; principal; 2020-08-09)
DX: N39.0 Urinary tract infection, site not specified (principal); F32.9 Major depressive disorder, single episode, unspecified; Z87.820 Personal history of traumatic brain injury; Z91.040 Latex allergy status; Z91.048 Other nonmedicinal substance allergy status
CPT/HCPCS: 96365; 96361; 93005; 87088; 85025; 87086; 36415; 81025; 82565; 87077 ×2; 87186 ×2; 81003; 84484; 80053; 74176; 71045; 51702; 99285; J0696; J7040

== ENCOUNTER 2021-11-25 14:41 | Emergency (ER) | payer OTHER ==
--- OUTSIDE RECORDS SUMMARY | 2021-11-25 14:46 | XMS REPORT | Continuity of Care Document ---
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 GERA [id number] [facility] 2021-03-13 2021-03-13 Telephone [facility] 1.2.840.114 [id number] Univers 00:00:00 00:00:00 Pauly [email or web address] 350.1.13.10 it y of [place] 4.2.7.2.686 Edilberto as Alfredo?Blea [phone] Me dicjelena boateng 198 [facility] 2021-03-12 2021-03-12 Outpatient R FELIBERTO [facility] [id number] 5P-20 Univers 13:30:00 13:30:00 PAULY [id number] [facility] 2021-03-09 2021-03-09 [facility] [id number] 5P-20 Univers 11:15:00 11:15:00 PAULY [id number] [facility] 2021-01-12 2021-01-12 Outpatient R FELIBERTO [facility] [id number] 5P-20 Univers 08:45:00 08:45:00 PAULY [id number] [facility] 2021-01-12 2021-01-12 Outpatient R FELIBERTO [facility] [id number] Univers 08:45:00 08:45:00 PAULY [facility] 2021-01-08 2021-01-08 Emergency X , [facility] ERT [id number] Univers 16:51:00 20:14:00 JASSON [facility] 2021-01-06 2021-01-06 EXT MHH OP EXT MSRDP 1.2.840.114 1 [id number] [place] 00:00:00 00:00:00 LOCATION 350.1.13.58 H ealth 9.2.7.2.686 [id number] 0 2021-01-06 2021-01-06 EXT MHH OP EXT MSRDP 1.2.840.114 1 [id number] [place] 00:00:00 00:00:00 LOCATION 350.1.13.58 H ealth 9.2.7.2.686 [id number] 0 2020-07-06 2020-07-06 Office [facility] 1.2.840.114 [id number] 12:59:09 13:42:55 Visit Gera Lucio 350.1.13.10 [place] 4.2.7.2.686 Arnold [phone] [address] 2020-07-06 2020-07-06 [facility] [id number] Univers 13:15:00 13:15:00 [facility] 2020-07-06 2020-07-06 Orders Doctor ESSENCE 1.2.840.114 [id number] 00:00:00 00:00:00 Only Unassigned, FARHAD 350.1.13.10 [place] [facility] 4.2.7.2.686 [id number] [id number] 2019-10-01 2019-10-01 [facility] [id number] Univers 10:00:00 10:00:00 [facility] 2019-07-09 2019-07-09 Emergency X OZIEL [facility] ERT [id number] Univers 13:40:20 18:47:00 ELENI storey [facility] 2019-06-17 2019-06-17 Outpatient 3 Simeon Jose Elias [facility] [id number] 06:17:00 06:17:00 Jose Elias Hendrix -[id number] [address] [facility] 2019-01-05 2019-01-04 Inpatient E [facility] PUL 7574 [facility] 00:02:00 22:59:00 Results Test Description Test Time Test Comments Results Result Comments Source HCG Qualitative Urine 2019-06-17 07:36:27 Test Item Value Reference Range Interpretation Comme nts hCG Ur (test code = hCG Ur) Negative If the result is "Negative" in patients suspec duc to be , recommend retes t with a sample obtained 48 to 72 hours later, or by ordering a patricia titative assay. If the result is " Borderline" testing should be repea duc in 48 to 72 hours. Lot # (test code = Lot #) [id number] N Expiration Dt (test code = 2020-07-09 N Expiration Dt) Neg Control (test code = Neg Negative Control) Pos Control (test code = Pos Positive Control) Internal QC (test code = Internal Acceptable QC) BRONCHIAL CULTURE + GRAM [id number] 23:02:00 Test Item Value Reference Interpretation Comments [...] No organisms (BEAKER) (test code = seen 152334) BLOOD [id number] 23:01:00 Test Item Value Reference Range Interpretation Comments CULTURE (BEAKER) (test No growth in 5 days code = 1095) BLOOD [id number] 23:01:00 Test Item Value Reference Range Interpretation Comments CULTURE (BEAKER) (test No growth in 5 days code = 1095) POCT-GLUCOSE [id number] 11:55:00 Test Item Value Reference Range Interpretation Comments POC-GLUCOSE METER 125 mg/dL 70-110 H TESTED AT [place] [address] (BEAKER) (test code = [facility] 1538) [address] BLOOD GAS, [id number] 06:46:00 Test Item Value Reference Range Interpretation [...] (test code = 1819) 50.0 % POCT-GLUCOSE [id number] 06:11:00 Test Item Value Reference Range Interpretation Comments POC-GLUCOSE METER 105 mg/dL 70-110 TESTED AT [place] [address] (BEAKER) (test code = [facility] 1538) [address]01 BASIC METABOLIC [id number] 05:58:00 Test Item Value Reference Range Interpretation [...] S NOT APPLICABLE FOR DIALYSIS PATIEN TS. [id number] 05:57:00 Test Item Value Reference Range Interpretation Comments MAGNESIUM (BEAKER) 2.3 mg/dL 1.6-2.6 Specimen slightly (test code = 627) hemolyzed CBC W/PLT COUNT & AUTO [id number] 05:41:00 Test Item Value Reference Range Interpretation [...] = 2801) RAD, CHEST, 1 VIEW, NON [id number] 04:59:00Reason for exam:->?pnaShould this be performed at [...] c linically and consider dedicated radiographs. Signed: Leila Flowers Verified Date/Time: 04/13/2018 04:59:14 Reading Location: [address] Transitional Reading Room POCT-GLUCOSE [id number] 00:05:00 Test Item Value Reference Range Interpretation Comments POC-GLUCOSE METER 113 mg/dL 70-110 H TESTED AT [facility] 6720 (BEAKER) (test code = [place] 1538) [address] POCT-GLUCOSE [id number] 17:07:00 Test Item Value Reference Range Interpretation Comments POC-GLUCOSE METER 125 mg/dL 70-110 H TESTED AT [facility] 6720 (BEAKER) (test code = [place]RIS [place] [facility] 1538) 35452 BODY FLUID CELL COUNT WITH [id number] 14:40:00 Test Item Value Reference Range Interpretation [...] EDTA Tube (test code = 2873) POCT-GLUCOSE [id number] 12:16:00 Test Item Value Reference Range Interpretation Comments POC-GLUCOSE METER 111 mg/dL 70-110 H TESTED AT [facility] 67 (BEAKER) (test code = [place]IS [place] [facility] 1538) [address] RAD, CHEST, 1 VIEW, NON [id number] 10:21:00Reason for exam:->post bronchShould this be performed [...] jugular line appears in good position. Signed: Quinten Toure MDReport Verified Date/Time: 04/12/2018 10:21:50 Reading Location: [facility] B1 C013X OrthoConsult Reading Room BLOOD GAS, [id number] 10:11:00 Test Item Value Reference Range Interpretation [...] (test code = 1819) 70.0 % TROPONIN [id number] 07:55:00 Test Item Value Reference Range Interpretation Comments TROPONIN I (BEAKER) (test code 0.08 ng/mL 0.00-0.03 H Result faxed = 723) Troponin I (TnI) levels must be interpreted [...] acute neurological disease, and persistent tachyarrhythmia.BLOOD GAS, [id number] 05:52:00 Test Item Value Reference Range Interpretation [...] (BEAKER) (test code = 1819) 45.0 % [id number] 05:24:00 Test Item Value Reference Range Interpretation Comments MAGNESIUM (BEAKER) 2.0 mg/dL 1.6-2.6 Specimen slightly (test code = 627) hemolyzed BASIC METABOLIC [id number] 05:24:00 Test Item Value Reference Range Interpretation [...] PATIEN TS. CBC W/PLT COUNT & AUTO [id number] 05:04:00 Test Item Value Reference Range Interpretation [...] = 2801) RAD, CHEST, 1 VIEW, NON [id number] 04:22:00Reason for exam:->?pnaShould this be performed at [...] no pneumothorax. Support lines are stable. Signed: Kimberly Telles MDReport Verified Date/Time: 04/12/2018 04:22:54 Reading Location: [address] Reading Room POCT-GLUCOSE [id number] 00:21:00 Test Item Value Reference Range Interpretation Comments POC-GLUCOSE METER 117 mg/dL 70-110 H TESTED AT [facility] 6720 (BEAKER) (test code = [place] 1538) [address] [id number] 17:25:00 Test Item Value Reference Range Interpretation Comments MAGNESIUM (BEAKER) 2.1 mg/dL 1.6-2.6 Specimen slightly (test code = 627) hemolyzed BASIC METABOLIC [id number] 17:25:00 Test Item Value Reference Range Interpretation [...] NOT APPLICABLE FOR DIALYSIS PATIEN TS. POCT-GLUCOSE [id number] 16:36:00 Test Item Value Reference Range Interpretation Comments POC-GLUCOSE METER 113 mg/dL 70-110 H TESTED AT [facility] 6720 (BEAKER) (test code = [place] 1538) [address] POCT-GLUCOSE [id number] 13:06:00 Test Item Value Reference Range Interpretation Comments POC-GLUCOSE METER 162 mg/dL 70-110 H TESTED AT [facility] 6720 (BEAKER) (test code = [place] 1538) [address] SPUTUM CULTURE + GRAM [id number] 10:57:00 Test Item Value Reference Range Interpretation Comments CULTURE (BEAKER) 1+ Normal respiratory (test code = 1095) tessa present GRAM STAIN RESULT 1+ White blood cells (BEAKER) (test code = seen 1123) GRAM STAIN RESULT 0-5 epithelial cells (BEAKER) (test code = 26317) GRAM STAIN RESULT 2+ gram negative rods (BEAKER) (test code = 28767) HEPATIC FUNCTION [id number] 07:00:00 Test Item Value Reference Range Interpretation [...] = 39 U/L 6-55 347) BLOOD GAS, [id number] 06:31:00 Test Item Value Reference Range Interpretation [...] (test code = 1819) 45.0 % POCT-GLUCOSE [id number] 06:30:00 Test Item Value Reference Range Interpretation Comments POC-GLUCOSE METER 112 mg/dL 70-110 H TESTED AT [facility] 6720 (BEAKER) (test code = [place] 1538) [address] CBC W/PLT COUNT & AUTO [id number] 05:53:00 Test Item Value Reference Range Interpretation [...] = 2801) RAD, CHEST, 1 VIEW, NON [id number] 04:13:00Reason for exam:->?pnaShould this be performed at [...] left humerus, unclear etiology however unchanged. Signed: Leila Flowers Verified Date/Time: 04/11/2018 04:13:43 Reading Location: [address] Transitional Reading Room [id number] 02:25:00 Test Item Value Reference Range Interpretation Comments PROCALCITONIN (BEAKER) (test code 0.05 ng/mL <0.05 H = 3036) SEPSIS RISK (ng/mL)Low: 0.05-0.50Intermediate: 0.51-2.00High: >=2.01POCT-GLUCOSE [id number] 00:23:00 Test Item Value Reference Range Interpretation Comments POC-GLUCOSE METER 150 mg/dL 70-110 H TESTED AT [place] [address] ([facility]) (test code = [place] 1538) [address] CT, SPINE, CERVICAL, WO [id number] 19:01:00FINAL REPORT CT cervical spine without contrast [...] Andrew Lacey Verified Date/Time: 04/10/201819:01:48 Reading Location: [facility] Radiology Reading Room POCT-GLUCOSE [id number] 18:46:00 Test Item Value Reference Range Interpretation Comments POC-GLUCOSE METER 119 mg/dL 70-110 H TESTED AT [facility] 6720 ([facility]) (test code = [place] 1538) [address] POCT-GLUCOSE [id number] 13:21:00 Test Item Value Reference Range Interpretation Comments POC-GLUCOSE METER 106 mg/dL 70-110 TESTED AT [facility] 6720 (AVI) (test code = [place] 1538) [address] [id number] 12:16:00 Test Item Value Reference Range Interpretation Comments MAGNESIUM (AVI) (test code = 1.8 mg/dL 1.6-2.6 627) LACTIC ACID, VENOUS, WHOLE [id number] 12:15:00 Test Item Value Reference Range Interpretation Comments LACTATE BLOOD VENOUS 0.5 mmol/L 0.5-2.2 Specime n slightly (2) (AVI) (test hemolyzed code = 2872) Effective 10/11/2015: Units/Reference Range ChangeNew: 0.5-2.2 mmol/L Previous: 5-20 mg/dLRAD, CHEST, 1 VIEW, NON [id number] 08:31:00Reason for exam:- >?pnaShould this be performed at the bedside?->YesFINAL REPORT TECHNIQUE: Frontal chest radiograph dated 04/10/2018. CLINICAL HI STORY: Pneumonia COMPARISON STUDY: Chest radiograph dated 04/09/2018 IMPRESSION:Life support tubes and lines are unchanged. Stable left retrocardiac atelectasis. No pleural effusion or pneumothorax. Cardiomediastinal silhouette is normal in size. No pulmonary edema. Bones are osteopenic. Signed: Елена Saldivareport Verified Date/Time: 04/10/2018 08:31:54 Reading Location: [facility] Radiology Reading Room MR, BRAIN, [id number] 06:58:00Concern for infected lesions with ICHFINAL REPORT [...] by telephone on 04/10/2018 6:57 AM. Signed: Leila Flowers Verified Date/Time: 04/10/2018 06:58:10 Reading Location: [address] Transitional Reading Room POCT-GLUCOSE [id number] 06:50:00 Test Item Value Reference Range Interpretation Comments POC-GLUCOSE METER 80 mg/dL 70-110 TESTED AT [place] [address] ([facility]) (test code = [place]RIS [place] [facility] [address] 1538) MR, SPINE, CERVICAL, WITHOUT [id number] 06:32:00FINAL REPORT MR Cervical spine without contrast. [...] thyroid ultrasound if not previously done. Signed: Leila Flowerseport Verified Date/Time: 04/10/2018 06:32:36 Reading Location: [address] Transitional Reading Room MR, SPINE, THORACIC, WITHOUT [id number] 06:32:00 FINAL REPORT MR Cervical spine without contrast. CLINICAL [...] thyroid ultrasound if not previously done. Signed: Leila Flowers Verified Date/Time: 04/10/2018 06:32:36 Reading Location: [address] Transitional Reading Room Electronically signed by: LEILA FLOWERS MD on 018 06:32 AMURINE [id number] 03:49:00 Test Item Value Reference Range Interpretation Comments CULTURE (BEAKER) (test code = 1095) No growth BASIC METABOLIC [id number] 03:12:00 Test Item Value Reference Range Interpretation [...] PATIEN TS. CBC W/PLT COUNT & AUTO [id number] 02:58:00 Test Item Value Reference Range Interpretation [...] (BEAKER) (test code = 2801) BLOOD GAS, [id number] 02:47:00 Test Item Value Reference Range Interpretation [...] (test code = 1819) 45.0 % POCT-GLUCOSE [id number] 00:32:00 Test Item Value Reference Range Interpretation Comments POC-GLUCOSE METER 98 mg/dL 70-110 TESTED AT [facility] 6720 (BEAKER) (test code = [place]RIS [place] [facility] [address] 4188) CREATINE KINASE (CK), TOTAL AND [id number] 18:43:00 Test Item Value Reference Range Interpretation Comments CREATINE KINASE TOTAL (BEAKER) 64 U/L 29-200 (test code = 380) CREATINE KINASE-MB (BEAKER) (test 3.9 ng/mL 0.0-6.6 code = 750) CREATINE KINASE-MB INDEX (BEAKER) 6.1 % (test code = 395) CK-MB Reference Range:<6.7 Normal6.7-10.0 Borderline>10.0 AbnormalTROPONIN [id number] 18:43:00 Test Item Value Reference Range Interpretation [...] failure, acidosis, acute neurological disease, and persistent tachyarrhythmia.[id number] 18:30:00 Test Item Value Reference Range Interpretation Comments MAGNESIUM (AVI) (test code = 1.7 mg/dL 1.6-2.6 627) POCT-GLUCOSE [id number] 18:27:00 Test Item Value Reference Range Interpretation Comments POC-GLUCOSE METER 75 mg/dL 70-110 TESTED AT [facility] 6720 (AVI) (test code = [place] [address] 1538) RAD, CHEST, 1 VIEW, NON [id number] 16:49:00Reason for exam:->CVC PLACEMENT Should this be [...] The bones appear demineralized. Signed: Abran Alatorre [facility] Verified Date/Time: 04/09/2018 16:49:21 Reading Location: [facility] Mammo Reading Room TOBILIARY [id number] 15:42:00FINAL REPORT PROCEDURE: HEPATOBILIARY SCAN CPT CODE: 86181 INDICATION: Right upper quadrant pain, no fever [...] delayed visualization of the small bowel. Signed: Edward Celestin Verified Date/Time: 04/09/2018 15:42:43 Reading Location: [facility] Med Reading Room CT BRAIN WITHOUT IV CONTRAST - [id number] 13:05:00Reason for exam:->Patient with intracranial bleed needing repeat imaging at 24 hours ([id number])FINAL REPORT CT Head without contrast CLINICAL HISTORY: Patient with intracranial bleed needing repeat imaging at 24 hours ([id number]) TECHNIQUE: Contiguous axial images through the head [...] cerebral hemorrhage is grossly unchanged. Signed: Mily Griffinort Verified Date/Time: 04/09/2018 13:05:06 Reading Location: [facility] B1 C013V Neuro Reading Room POCT-GLUCOSE [id number] 12:34:00 Test Item Value Reference Range Interpretation Comments POC-GLUCOSE METER 70 mg/dL 70-110 TESTED AT [facility] 67 ([facility]) (test code = [place] [address] 1538) RESPIRATORY PANEL [id number] 10:28:00 Test Item Value Reference Range Interpretation Comments HUMAN METAPNEUMOVIRUS Not detected Not detected, (BEAKER) (test code = 2683) Equivocal RHINOVIRUS (BEAKER) [...] decisions. This sample was tested at the [facility] Molecular Diagnostics Laboratory using the Wickr FilmArray Respiratory Panel. It is FDA cleared and has been verified and approved by the [facility] for clinical use on nasal swab specimens. It is not FDA-cleared for use on bronchial wash/lavage samples. However, for this sample type, validation was performed and test characteristics were determined and approved, by [facility] Molecular Diagnostics laboratory for clinical use under the Clinical Laboratory Improvement Amendments (CLIA) of 1988 requirements. Therefore, FDA clearance isnot required. This laboratory is CLIA-certified and [employer] (CAP)-accredited to perform high complexity testing.RAD, CHEST, 1 VIEW, NON DEPT 2018-04-09 09:07:00Reason for exam:->?pnaShould this be performed at [...] Gómez Verified Date/Time: 04/09/2018 09:07:58 Reading Location: [facility] Radiology Reading Room CBC W/PLT COUNT & AUTO [id number] 07:19:00 Test Item Value Reference Range Interpretation [...] (BEAKER) (test code = 2801) BASIC METABOLIC [id number] 07:14:00 Test Item Value Reference Range Interpretation [...] NOT APPLICABLE FOR DIALYSIS PATIEN TS. POCT-GLUCOSE [id number] 06:44:00 Test Item Value Reference Range Interpretation Comments POC-GLUCOSE METER 81 mg/dL 70-110 TESTED AT [facility] 6720 (BEAKER) (test code = CHRIS La [facility] [address] 1538) BLOOD GAS, [id number] 06:09:00 Test Item Value Reference Range Interpretation [...] code = 1819) 30.0 % U/S, ABDOMINAL, [id number] 05:37:00Reason for exam:- >transaminitisShould this be performed [...] Additional findings: None. IMPRESSION: Gallbladder is distended wit h gallbladder wall thickening and pericholecystic fluid. There is a possible stone in the gallbladder neck. These findings are concerning for acute cholecystitis in the proper clinical setting. Mild right pelvocaliectasis. Signed: Leila Flowers Verified Date/Time: 04/09/2018 05:37:35 R nahid Location: [address] Reading Room LACTIC ACID, VENOUS, WHOLE [id number] 02:43:00 Test Item Value Reference Range Interpretation Comments LACTATE BLOOD VENOUS 1.8 mmol/L 0.5-2.2 Specime n slightly (2) ([facility]) (test hemolyzed code = 2872) Effective 10/11/2015: Units/Reference Range ChangeNew: 0.5-2.2 mmol/L Previous: 5-20 mg/dLPOCT-GLUCOSE [id number] 01:00:00 Test Item Value Reference Range Interpretation Comments POC-GLUCOSE METER 91 mg/dL 70-110 TESTED AT [facility] 6720 ([facility]) (test code = EDWARDOASHVIN La [facility] [address] 1538) CT, CHEST WITH IV CONTRAST- PE TEST [id number] 22:27:00FINAL REPORT DOSE REDUCTION: The examination was [...] Small right pleural effusion. Signed: Pelon Brewster Verified Date/Time: 04/08/2018 22:27:11 Reading Location: [facility] Mammo Reading Room IC ACID, VENOUS, WHOLE [id number] 21:28:00 Test Item Value Reference Range Interpretation Comments LACTATE BLOOD VENOUS 2.8 mmol/L 0.5-2.2 H Specime n slightly (2) (BEAKER) (test hemolyzed code = 2872) Effective 10/11/2015: Units/Reference Range ChangeNew: 0.5-2.2 mmol/L Previous: 5-20 mg/dLHCG, QUANTITATIVE, [id number] 19:49:00 Test Item Value Reference Range Interpretation Comments GONADOTROPIN, CHORIONIC (HCG) QUANT < mIU/mL 0-10 (BEAKER) (test code = 649) Non- Females: <10 mIU/mL Females: Gestation Age Reference Range(mIU/mL) 0.2-1 Week 5-50 1-2 Weeks 50-500 2-3 Weeks 100-5,000 3-4Weeks 500-10,000 4-5 Weeks 1,000-50,000 5-6 Weeks 10,000-100,000 6-8 Weeks 15,000-200,000 2-3 Months 10,000-100,000EEG AWAKE AND DROWSY 2018-04-08 19:28:00Reason for exam:->seizingNeurophysiology Electroencephalogram Report DATE OF REPORT: 04/08/18Date(s) of Study: 04/08/2018ACC:[id number]: Start time: 1807 hrsStop time: 1830 hrsICD-10: R56.9CPT Code: 26768 HISTORY: 42-year-old female referred for STAT inpatient [...] There was no state change seen. Interictal A bnormalities: None Activation Procedures: Hyperventilation was not performed. Photic stimulation wasdone from 1-30 Hz with no photoparoxysmal responses or driving. Events: None IMPRESSION: Abnormal awake only EEG due to moderate diffuse continuous slowingCLINICAL COMMENT: This EEG is consistent with a nonspecific moderate encephalopathy. Antoinette Maravilla MDEpilepsy FellowL Neurophysiology Service Attending note: I reviewed this EEG record in its entirety and I agree with the details of this report.Clau Salguero MDEpilepsy Attending POCT-GLUCOSE [id number] 18:57:00 Test Item Value Reference Range Interpretation Comments POC-GLUCOSE METER 102 mg/dL 70-110 TESTED AT [facility] 6720 (BEAKER) (test code = [place] 1538) [address] RAD, SHUNT [id number] 18:27:00Reason for exam:->patient with decreased LOC and [...] MDReport Verified Date/Time: 04/08/2018 18:27:37 Reading Location: [facility] Reading Room AMYLASE 2018-04-08 18:07:00 Test Item Value Reference Range Interpretation Comments AMYLASE (BEAKER) (test code = 349) 47 U/L 25-125 [id number] 18:07:00 Test Item Value Reference Range Interpretation Comments LIPASE (BEAKER) (test code = 749) 10 U/L 8-78 [id number] 18:03:00 Test Item Value Reference Range Interpretation Comments PROCALCITONIN (BEAKER) (test code = < ng/mL <0.05 3036) SEPSIS RISK (ng/mL)Low: 0.05-0.50Intermediate: 0.51-2.00High: >=2.01TSH/FREE T4 IF [id number] 17:59:00 Test Item Value Reference Range Interpretation Comments THYROID STIMULATING HORMONE 1.55 uIU/mL 0.35-4.94 (BEAKER) (test code = 772) [id number] 17:59:00 Test Item Value Reference Range Interpretation Comments CORTISOL, TOTAL (BEAKER) (test 30.6 ug/dL 3.7-19.4 H code = 2755) URINALYSIS W/ [id number] 17:48:00 Test Item Value Reference Range Interpretation [...] /LPF 514) SOURCE(BEAKER) (test code = 2795) [id number] 17:47:00 Test Item Value Reference Range Interpretation Comments MAGNESIUM (BEAKER) (test code = 1.9 mg/dL 1.6-2.6 627) BASIC METABOLIC [id number] 17:47:00 Test Item Value Reference Range Interpretation [...] 697) EGFR (BEAKER) (test 92 mL/min/1.73 ESTIMA DUC GFR IS code = 1092) sq m NOT ACCURATE CREATININE CLEARANCE IN PREDICTING GLOMERULAR FILTRATION RATE . ESTIMATED GFR I S NOT APPLICABLE FOR DIALYSIS PATIEN TS. HEPATIC FUNCTION [id number] 17:44:00 Test Item Value Reference Range Interpretation [...] 0-100 H (test code = 700) TROPONIN [id number] 17:41:00 Test Item Value Reference Range Interpretation [...] failure, acidosis, acute neurological disease, and persistent tachyarrhythmia.[id number] 17:40:00 Test Item Value Reference Range Interpretation Comments TRIGLYCERIDES (BEAKER) (test code = 45 mg/dL 540) TRIGLYCERIDE REFERENCE RANGELow Risk <150Borderline Risk 150-199High Risk 200-499Very High Risk>=[id number] 17:40:00 Test Item Value Reference Range Interpretation Comments PHOSPHORUS (BEAKER) (test code = 2.3 mg/dL 2.3-4.7 604) CREATINE KINASE (CK)[id number] 17:40:00 Test Item Value Reference Range Interpretation Comments CREATINE KINASE TOTAL (BEAKER) (test 52 U/L 29-200 code = 380) [id number] 17:39:00 Test Item Value Reference Range Interpretation Comments ETHANOL (BEAKER) (test code = 400) < mg/dL <=10 PROTHROMBIN TIME/[id number] 17:37:00 Test Item Value Reference Range Interpretation [...] is 2.5-3.5 for patients with mechanical heart valves.[id number] 17:36:00 Test Item Value Reference Range Interpretation Comments PARTIAL THROMBOPLASTIN TIME 23.9 seconds 22.5-36.0 (BEAKER) (test code = 760) LACTIC ACID, VENOUS, WHOLE [id number] 17:36:00 Test Item Value Reference Range Interpretation Comments LACTATE BLOOD VENOUS 11.3 mmol/L 0.5-2.2 H Specime n moderately (2) (BEAKER) (test hemolyzed code = 2872) Effective 10/11/2015: Units/Reference Range ChangeNew: 0.5-2.2 mmol/L Previous: 5-20 mg/[id number] 17:28:00 Test Item Value Reference Range Interpretation [...] within 95-100% range.CBC W/PLT COUNT & AUTO [id number] 17:22:00 Test Item Value Reference Range Interpretation [...] = 2801) RAD, CHEST, 1 VIEW, NON [id number] 16:54:00Post-intubationReason for exam:- >intubatedShould this be performed [...] consolidation or pneumothorax. Osseous structures unremarkable. Signed: Quinten Toure Verified Date/Time: 04/08/2018 16:54:28 Reading Location: [facility] Diagnostic Imaging Reading Room - [place] [address] BLOOD GAS, [id number] 16:39:00 Test Item Value Reference Range Interpretation [...]
--- NOTE | 2021-11-25 16:08 | EDPHYS ---
Physician Documentation [facility] Name: Cira Tellez Age: 46 yrs Sex: Female : 1975 Arrival Date: 11/25/2021 Time: 14:45 Bed 5 Private MD: ED Physician [place] Parmar HPI: 11/25 14:50 This 46 yrs old Female presents to ER via EMS with complaints of Problem With pm1 Urinary Catheter. 14:50 Onset: The symptoms/episode began/occurred 2 day(s) ago. Associated signs and symptoms: pm1 Pertinent negatives: abdominal pain, fever. Modifying factors: The patient symptoms are alleviated by nothing, the patient symptoms are aggravated by nothing. The patient has not experienced similar symptoms in the past. The patient has not recently seen a physician. 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 - Social history:: Smoking status: Patient denies any tobacco usage or history of. ROS: 14:50 Constitutional: Negative for fever, chills, and weight loss, Cardiovascular: Negative pm1 for chest pain, palpitations, and edema, Respiratory: Negative for shortness of breath, cough, wheezing, and pleuritic chest pain, Abdomen/GI: Negative for abdominal pain, nausea, vomiting, diarrhea, and constipation. 14:50 MS/Extremity: Negative for injury and deformity, Skin: Negative for injury, rash, and discoloration, Neuro: Negative for headache, weakness, numbness, tingling, and seizure. 14:50 : Positive for obstructed suprapubic catheter. 14:50 All other systems are negative. Exam: 14:50 Constitutional: This is a well developed, well nourished patient who is awake, alert, pm1 and in no acute distress. Head/Face: Normocephalic, atraumatic. 14:50 Skin: Warm, dry with normal turgor. Normal color with no rashes, no lesions, and no evidence of cellulitis. MS/ Extremity: Pulses equal, no cyanosis. Neurovascular intact. Full, normal range of motion. 14:50 Cardiovascular: Exam negative for acute changes, Rate: normal, Rhythm: regular, Pulses: no pulse deficits are appreciated. 14:50 Respiratory: Exam negative for acute changes, respiratory distress, shortness of breath. 14:50 Abdomen/GI: Inspection: abdomen appears normal, Palpation: abdomen is soft and non-tender, in all quadrants. 14:50 Neuro: Exam negative for acute changes, Orientation: is normal, Mentation: is normal. Vital Signs: 14:40 BP 162 / 96; Pulse 60; Resp 12 S; Temp 98.9(O); Pulse Ox 96% on R/A; Weight 92.99 kg jg9 (R); Height 5 ft. 0 in. (152.40 cm) (R); Pain 0/10; 14:48 BP 165 / 95; Pulse 61; Resp 17 S; Pulse Ox 95% on R/A; jg9 15:00 BP 170 / 89; Pulse 63; Resp 16 S; Pulse Ox 95% on ETT vent; jg9 14:40 Body Mass Index 40.04 (92.99 kg, 152.40 cm) jg9 MDM: 14:46 Patient medically screened. pm1 14:50 Counseling: I had a detailed discussion with the patient and/or guardian regarding: the pm1 historical points, exam findings, and any diagnostic results supporting the discharge/admit diagnosis, the need for outpatient follow up, to return to the emergency department if symptoms worsen or persist or if there are any questions or concerns that arise at home, Urine present in Mary catheter and flowing without any difficulty, abdominal pain, distention. Possibly patient reported Mary catheter issues was positional at home. We will measure urine output in ER and disposition if no further problems present. 16:01 Data reviewed: vital signs. Data interpreted: Pulse oximetry: on room air is 95 %. pm1 Interpretation: normal. 16:01 ED course: Patient was loaded by EMS prior to me getting a bladder scan result. EMS was pm1 loaded into the ambulance before I discharged her. EMS stated that she would need to be unloaded from the ambulance in order to get the scan but she said that she was ready to go home. Patient with positive urine output while in the ER but I wanted a bladder to ensure that there was no retention present. Administered Medications: No medications were administered Disposition Summary: 11/25/21 16:07 Discharge Ordered Location: Home pm1 Problem: new pm1 Symptoms: have improved pm1 Condition: Stable pm1 Diagnosis - Retention of urine, unspecified pm1 - Encounter for fitting and adjustment of urinary device pm1 Followup: pm1 - With: Emergency Department - When: As needed - Reason: Worsening of condition Followup: pm1 - With: Private Physician - When: 2 - 3 days - Reason: Recheck today's complaints, Continuance of care, Re-evaluation by your physician Discharge Instructions: - Discharge Summary Sheet pm1 - Indwelling Urinary Catheter Care, Adult pm1 Forms: - Medication Reconciliation Form pm1 - Thank You Letter pm1 - Antibiotic Education pm1 - Prescription Opioid Use pm1 Signatures: Elvin Santos NP RESIDENTIAL CAREGIVER pm1 Jennifer Galicia RN RN jg9 Corrections: (The following items were deleted from the chart) 16:10 15:48 Bladder Scanner ordered. pm1 jg9
--- NOTE | 2021-11-25 16:08 | ER ---
Nurse's Notes [facility] Name: Cira Tellez Age: 46 yrs Sex: Female : 1975 Arrival Date: 11/25/2021 Time: 14:45 Bed 5 Private MD: Diagnosis: Retention of urine, unspecified;Encounter for fitting and adjustment of urinary device Presentation: 11/25 14:40 Chief complaint: Patient states: Patient reports she had a routine supra-pubic catheter jg9 replacement on Friday and the patient reports that Friday and Friday she has had no urine output-home health nurse attempted to flush and changed tubing without any success. Coronavirus screen: Vaccine status: Patient reports receiving the 2nd dose of the covid vaccine. covid vaccinated. Ebola Screen: Patient negative for fever greater than or equal to 101.5 degrees Fahrenheit, and additional compatible Ebola Virus Disease symptoms Patient denies exposure to infectious person. Patient denies travel to an Ebola-affected area in the 21 days before illness onset. Initial Sepsis Screen: Does the patient meet any 2 criteria? No. Patient's initial sepsis screen is negative. Does the patient have a suspected source of infection? No. Patient's initial sepsis screen is negative. Risk Assessment: Do you want to hurt yourself or someone else? Patient reports no desire to harm self or others. Onset of symptoms is unknown. 14:40 Method Of Arrival: EMS: [facility] jg9 14:40 Acuity: EDGARDO 4 jg9 Triage Assessment: 14:40 General: Appears in no apparent distress. Behavior is calm, cooperative. Pain: Denies jg9 pain. : Reports inability to void, since 11/24/2021-suprapubic catheter. RN RADIATION: 14:59 LMP N/A - Irregular menses jg9 Historical: - Allergies: 14:53 Latex, Natural Rubber; jg9 - Home Meds: 14:53 Albuterol Inhl [Active]; Allopurinol Oral [Active]; Baclofen Oral [Active]; citalopram jg9 oral [Active]; midodrine Oral [Active]; - PMHx: 14:53 "Head injury with spinal fluid leak"; CVA; Depression; Paraplegia; TBI; jg9 - Immunization history:: Adult Immunizations up to date. - Social history:: Smoking status: Patient denies any tobacco usage or history of. Screenin:55 Abuse screen: Denies threats or abuse. Denies injuries from another. Nutritional jg9 screening: No deficits noted. Tuberculosis screening: No symptoms or risk factors identified. Fall Risk None identified. Assessment: 14:59 Reassessment: catheter has urine flowing now Patient states symptoms have improved. jg9 16:01 Reassessment: Pt left by EMS prior to obtaining bladder scan. CHEO Oconnor notified. ss Vital Signs: 14:40 BP 162 / 96; Pulse 60; Resp 12 S; Temp 98.9(O); Pulse Ox 96% on R/A; Weight 92.99 kg jg9 (R); Height 5 ft. 0 in. (152.40 cm) (R); Pain 0/10; 14:48 BP 165 / 95; Pulse 61; Resp 17 S; Pulse Ox 95% on R/A; jg9 15:00 BP 170 / 89; Pulse 63; Resp 16 S; Pulse Ox 95% on ETT vent; jg9 14:40 Body Mass Index 40.04 (92.99 kg, 152.40 cm) jg9 ED Course: 14:45 Patient arrived in ED. ss 14:46 Elvin Santos NP is PHCP. pm1 14:46 Chico Parmar MD is Attending Physician. pm1 14:49 Jennifer Galicia, MATT is Primary Nurse. jg9 14:53 Triage completed. jg9 14:55 Arm band placed on right wrist. jg9 14:55 Patient has correct armband on for positive identification. Bed in low position. Call jg9 light in reach. Side rails up X 1. 15:30 changed tubing-16F. jg9 16:07 No provider procedures requiring assistance completed. jg9 16:08 Patient did not have IV access during this emergency room visit. jg9 Administered Medications: No medications were administered Medication: 14:55 VIS not applicable for this client. jg9 Outcome: 16:07 Discharge ordered by . pm1 16:07 Discharged to home via ambulance. jg9 16:07 Condition: improved 16:07 Discharge instructions given to patient, Instructed on discharge instructions, follow up and referral plans. Demonstrated understanding of instructions, follow-up care. 16:12 Patient left the ED. jg9 Signatures: Becki Carlin RN RN ss Elvin Santos, POULTRY CUTTER POULTRY CUTTER pm1 Jennifer Galicia RN RN jg9
[2021-11-25 16:26] VITALS: O2SAT 95
[2021-11-25 16:31] VITALS: BP 170/89
== END 2021-11-25 16:12 | disposition home or self-care (01) ==
LOC: ER 14:41
DX: Z46.6 Encounter for fitting and adjustment of urinary device (principal); Z87.820 Personal history of traumatic brain injury; Z91.040 Latex allergy status; Z91.048 Other nonmedicinal substance allergy status
CPT/HCPCS: 99283

== ENCOUNTER 2022-07-31 10:07 | Emergency (ER) | payer OTHER ==
--- NOTE | 2022-07-31 11:43 | EDPHYS ---
Physician Documentation [facility] Name: Cira Tellez Age: 46 yrs Sex: Female : 1975 Arrival Date: 07/31/2022 Time: 10:09 Bed 8 Private MD: ED Physician Yogesh Levin HPI: 07/31 11:10 This 46 yrs old Female presents to ER via EMS with complaints of Needs Urinary lucy Catheter Replacement. 11:10 The patient presents with suprapubic fell out. Onset: The symptoms/episode lucy began/occurred last night. Modifying factors: The symptoms are alleviated by nothing, the symptoms are aggravated by nothing. Associated signs and symptoms: The patient has no apparent associated signs or symptoms. Severity of symptoms: At their worst the symptoms were very mild, in the emergency department the symptoms are unchanged. The patient is not sexually active. The patient has not experienced similar symptoms in the past. 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 - Social history:: Smoking status: Patient denies any tobacco usage or history of. - Family history:: not pertinent. ROS: 11:10 Constitutional: Negative for fever, chills, and weight loss, Eyes: Negative for injury, lucy pain, redness, and discharge, ENT: Negative for injury, pain, and discharge, Neck: Negative for injury, pain, and swelling, Cardiovascular: Negative for chest pain, palpitations, and edema, Respiratory: Negative for shortness of breath, cough, wheezing, and pleuritic chest pain, Abdomen/GI: Negative for abdominal pain, nausea, vomiting, diarrhea, and constipation, Back: Negative for injury and pain, MS/Extremity: Negative for injury and deformity, Skin: Negative for injury, rash, and discoloration, Neuro: Negative for headache, weakness, numbness, tingling, and seizure, Psych: Negative for depression, anxiety, suicide ideation, homicidal ideation, and hallucinations, Allergy/Immunology: Negative for hives, rash, and allergies, Endocrine: Negative for neck swelling, polydipsia, polyuria, polyphagia, and marked weight changes, Hematologic/Lymphatic: Negative for swollen nodes, abnormal bleeding, and unusual bruising. 11:10 : Positive for difficulty urinating. Exam: 11:10 Constitutional: This is a well developed, well nourished patient who is awake, alert, lucy and in no acute distress. Head/Face: Normocephalic, atraumatic. Eyes: Pupils equal round and reactive to light, extra-ocular motions intact. Lids and lashes normal. Conjunctiva and sclera are non-icteric and not injected. Cornea within normal limits. Periorbital areas with no swelling, redness, or edema. ENT: Nares patent. No nasal discharge, no septal abnormalities noted. Tympanic membranes are normal and external auditory canals are clear. Oropharynx with no redness, swelling, or masses, exudates, or evidence of obstruction, uvula midline. Mucous membranes moist. Neck: Trachea midline, no thyromegaly or masses palpated, and no cervical lymphadenopathy. Supple, full range of motion without nuchal rigidity, or vertebral point tenderness. No Meningismus. Chest/axilla: Normal chest wall appearance and motion. Nontender with no deformity. No lesions are appreciated. Cardiovascular: Regular rate and rhythm with a normal S1 and S2. No gallops, murmurs, or rubs. Normal PMI, no JVD. No pulse deficits. Respiratory: Lungs have equal breath sounds bilaterally, clear to auscultation and percussion. No rales, rhonchi or wheezes noted. No increased work of breathing, no retractions or nasal flaring. Abdomen/GI: Soft, non-tender, with normal bowel sounds. No distension or tympany. No guarding or rebound. No evidence of tenderness throughout. Back: No spinal tenderness. No costovertebral tenderness. Full range of motion. Skin: Warm, dry with normal turgor. Normal color with no rashes, no lesions, and no evidence of cellulitis. MS/ Extremity: Pulses equal, no cyanosis. Neurovascular intact. Full, normal range of motion. Neuro: Awake and alert, GCS 15, oriented to person, place, time, and situation. Cranial nerves II-XII grossly intact. Motor strength 5/5 in all extremities. Sensory grossly intact. Cerebellar exam normal. Normal gait. 11:10 : CVA tenderness, is absent, Pelvic Exam: is not necessary for this patient, Bladder: is normal, Sexual behavior: the patient is not sexually active, a suprapubic catheter is noted. Vital Signs: 10:10 BP 107 / 59; Pulse 57; Resp 14 S; Temp 97.7(TE); Pulse Ox 94% ; Weight 90.72 kg (R); kc6 Height 5 ft. 0 in. (152.40 cm) (R); Pain 0/10; 10:58 BP 91 / 46; Pulse 44; Resp 16 S; Pulse Ox 96% ; kc6 12:24 BP 108 / 64; Pulse 44; Resp 16 S; Pulse Ox 95% ; kc6 10:10 Body Mass Index 39.06 (90.72 kg, 152.40 cm) 6 Procedures: 11:15 Mary cath inserted by myself - 16 Fr. Urine output = 50 ml's. Patient tolerated well. lucy MDM: 10:09 Patient medically screened. [facility] 11:13 Differential diagnosis: nonspecific abdominal pain, urinary tract infection. Data [facility] reviewed: vital signs, nurses notes, lab test result(s), urinalysis. Consideration of Admission/Observation Escalation of care including admission/observation considered. Management of patient was discussed with the following: Carbon Sequestration Plant Engineer: career development specialist. Test considered but Not performed: CT: ct abd pelvis. Care significantly affected by the following chronic conditions: depression, cva, paraplegia. 07/31 10:23 Order name: Urine Culture [facility] 07/31 12:17 Order name: Urine Dipstick-Ancillary; Complete Time: 12:50 EDDE 07/31 11:43 Order name: CT Stone Protocol [facility] 07/31 12:25 Order name: CT; Complete Time: 12:50 EDDE 07/31 12:51 Order name: INCENTIVE SPIROMETRY [facility] 07/31 10:23 Order name: Urine Dipstick-Ancillary (obtain specimen); Complete Time: 12:16 [facility] 07/31 10:23 Order name: Mary: 18, silicone, 10cc; Complete Time: 10:25 [facility] 07/31 11:34 Order name: PO challenge; Complete Time: 12:16 [facility] Administered Medications: 12:16 Drug: Cipro (ciprofloxacin) 500 mg Route: PO; kc6 13:31 Follow up: Response: No adverse reaction kc6 Disposition Summary: 07/31/22 11:42 Discharge Ordered Location: Home lucy Problem: new lucy Symptoms: have improved lucy Condition: Stable lucy Diagnosis - Other mechanical complication of urinary (indwelling) catheter - disloged and lucy replaced - UTI/ Urinary tract infection, site not specified lucy Followup: lucy - With: Private Physician - When: 2 - 3 days - Reason: Recheck today's complaints, Continuance of care, Re-evaluation by your physician Followup: lucy - With: Jordy Mckeon MD - When: 2 - 3 days - Reason: Recheck today's complaints, Continuance of care, Re-evaluation by your physician Discharge Instructions: - Discharge Summary Sheet lucy - Indwelling Urinary Catheter Care, Adult lucy - Midline Catheter lucy - Indwelling Urinary Catheter Insertion lucy - Urinary Tract Infection, Adult lucy - Urinary Tract Infection, Adult, [id number] lucy Forms: - Medication Reconciliation Form lucy - Thank You Letter lucy - Antibiotic Education lucy - Prescription Opioid Use lucy Prescriptions: - levofloxacin 250 mg Oral Tablet - take 1 tablet by ORAL route once daily; 8 tablet; Refills: 0, Product Selection lucy Permitted Signatures: Dispatcher [employer] Yogesh Waterman MD MD cha Campbell, Kaitlyn RN RN kc6
--- NOTE | 2022-07-31 11:43 | ER ---
Nurse's Notes [facility] Name: Cira Tellez Age: 46 yrs Sex: Female : 1975 Arrival Date: 07/31/2022 Time: 10:09 Bed 8 Private MD: Diagnosis: Other mechanical complication of urinary (indwelling) catheter-disloged and replaced;UTI/ Urinary tract infection, site not specified Presentation: 07/31 10:10 Chief complaint: EMS states: client was asleep last night when her suprapubic catheter kc6 came out. stated she is needing it replaced. Coronavirus screen: Vaccine status: Patient reports receiving the 2nd dose of the covid vaccine. At this time, the client does not indicate any symptoms associated with coronavirus-19. Ebola Screen: No symptoms or risks identified at this time. Initial Sepsis Screen: Does the patient meet any 2 criteria? No. Patient's initial sepsis screen is negative. Does the patient have a suspected source of infection? No. Patient's initial sepsis screen is negative. Risk Assessment: Do you want to hurt yourself or someone else? Patient reports no desire to harm self or others. Onset of symptoms was July 31, 2022. 10:10 Method Of Arrival: EMS: [facility] kc6 10:10 Acuity: EDGARDO 3 kc6 Triage Assessment: 10:11 General: Appears in no apparent distress. comfortable, Behavior is calm, cooperative, kc6 appropriate for age. Pain: Denies pain. EENT: No signs and/or symptoms were reported regarding the EENT system. Neuro: Ordaz Agitation-Sedation Scale (RASS): 0 - Alert and Calm Level of Consciousness is awake, alert, obeys commands, Oriented to person, place, time, situation, Appropriate for age. Cardiovascular: Capillary refill < 3 seconds. Respiratory: Airway is patent Trachea midline Respiratory effort is even, unlabored, Respiratory pattern is regular, symmetrical, Ventilator assessment: patient with tracheostomy from home, home ventilator with patient managed by home health nurse. GI: No signs and/or symptoms were reported involving the gastrointestinal system. : Reports suprapubic catheter needing replaced. Derm: No signs and/or symptoms reported regarding the dermatologic system. Skin is intact, Skin is pink, warm \\T\\ dry. Musculoskeletal: No signs and/or symptoms reported regarding the musculoskeletal system. Circulation, motion, and sensation intact. Capillary refill < 3 seconds. 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 - Social history:: Smoking status: Patient denies any tobacco usage or history of. - Family history:: not pertinent. Screenin:14 [facility] ED Fall Risk Assessment (Adult) History of falling in the last 3 months, kc6 including since admission No falls in past 3 months (0 pts) Confusion or Disorientation No (0 pts) Intoxicated or Sedated No (0 pts) Impaired Gait Yes (1 pt) Mobility Assist Device Used No (0 pt) Altered Elimination Yes (1 pt) Score/Fall Risk Level 0 - 2 = Low Risk Oriented to surroundings, Maintained a safe environment, Educated pt \\T\\ family on fall prevention, incl call for assistance when getting out of bed, Assessed \\T\\ reinforced patient's understanding of fall precautions, Hourly rounding (assess needs \\T\\ fall precautionary measures) done. Abuse screen: Denies threats or abuse. Denies injuries from another. Nutritional screening: No deficits noted. Tuberculosis screening: No symptoms or risk factors identified. Assessment: 10:10 Reassessment: please see triage assessment. kc6 10:59 Reassessment: Patient appears in no apparent distress at this time. No changes from kc6 previously documented assessment. Patient and/or family updated on plan of care and expected duration. Pain level reassessed. Patient is alert, oriented x 3, equal unlabored respirations, skin warm/dry/pink. 11:42 Reassessment: discharge pending CT results. kc6 11:59 Reassessment: Patient appears in no apparent distress at this time. No changes from kc6 previously documented assessment. Patient and/or family updated on plan of care and expected duration. Pain level reassessed. Patient is alert, oriented x 3, equal unlabored respirations, skin warm/dry/pink. Vital Signs: 10:10 BP 107 / 59; Pulse 57; Resp 14 S; Temp 97.7(TE); Pulse Ox 94% ; Weight 90.72 kg (R); kc6 Height 5 ft. 0 in. (152.40 cm) (R); Pain 0/10; 10:58 BP 91 / 46; Pulse 44; Resp 16 S; Pulse Ox 96% ; kc6 12:24 BP 108 / 64; Pulse 44; Resp 16 S; Pulse Ox 95% ; kc6 10:10 Body Mass Index 39.06 (90.72 kg, 152.40 cm) kc6 ED Course: 10:09 Patient arrived in ED. ss 10:09 Yogesh Levin MD is Attending Physician. lucy 10:10 Jenna Warren, MATT is Primary Nurse. kc6 10:11 Triage completed. kc6 10:15 Patient has correct armband on for positive identification. kc6 10:15 Arm band placed on. kc6 11:34 Jordy Mckeon MD is Referral Physician. [facility] 12:[address] by Dr. Levin. kc6 12:16 Urine Culture Sent. kc6 13:29 No provider procedures requiring assistance completed. Patient did not have IV access kc6 during this emergency room visit. Administered Medications: 12:16 Drug: Cipro (ciprofloxacin) 500 mg Route: PO; kc6 13:31 Follow up: Response: No adverse reaction kc6 Medication: 13:30 VIS not applicable for this client. kc6 Outcome: 11:42 Discharge ordered by . [facility] 13:29 Discharged to home via ambulance, with home health nurse kc6 13:29 Condition: stable 13:29 Discharge instructions given to patient, Instructed on discharge instructions, follow up and referral plans. medication usage, Demonstrated understanding of instructions, follow-up care, medications, Prescriptions given X 1. 13:30 Patient left the ED. kc6 Addendum: 08/03/2022 09:22 Addendum: Culture Results: Positive urine culture. Bacteria is resistant to, has a a5 intermediate sensitivity, or is not tested against prescribed antibiotics. Report given to VALORIE for further evaluation and then to senior windows engineer for follow up with patient. Phone call Attempt #1 left voice mail. 15:00 Addendum: Culture Results: Prescription called-in to pharmacy of choice. Called in a a5 Augmentin 875 mg PO BID x 7 days to [facility] pharmacy in [place], [place] per Mansi Ferrera NP, pt was also instructed to stop Levaquin per [employer]. Signatures: Yogesh Levin MD MD cha Calderon, Audri, RN RN aa5 Becki Carlin, RN RN ss Jenna Warren RN RN kc6
[2022-07-31] MEDS ORDERED: CIPROFLOXACIN HCL 500 MG TAB ONE (12:02)
[2022-07-31 12:16] LABS: Urine Blood 2+ (Negative); Urine Glucose Negative (Negative); Urine Protein 1+ (Negative); Urine pH 5.5 (5.0-7.0)
--- NOTE | 2022-07-31 12:24 | RAD REPORT ---
EXAM DESCRIPTION: CTStone Protocol - 07/31/2022 12:12 pm CLINICAL HISTORY: dennison placment COMPARISON: Abdomen Pelvis W Contrast dated 03/28/2022; Stone Protocol dated 03/30/2021; Abdomen Pelvis Wo Contrast dated 08/09/2020; Abdomen Pelvis W Contrast dated 05/10/2019 TECHNIQUE: CT of the abdomen and pelvis was performed. All CT scans are performed using dose optimization technique as appropriate and may include automated exposure control or mA/KV adjustment according to patient size. FINDINGS: Lower chest: Mild consolidation in medial aspect of both lower lungs which is unchanged fr om prior. Bilateral breast prostheses. Ventriculopleural shunt. Liver: Hepatic steatosis with cirrhotic liver morphology. Biliary: No biliary ductal dilatation. Stomach: No significant focal abnormality. Duodenum: No significant focal abnormality. Pancreas: No significant abnormality. Spleen: No significant abnormality. Adrenal: No suspicious lesions. Kidney/ureter: No hydronephrosis. Punctate 2 mm stone in the right kidney. Retroperitoneum: No retroperitoneal adenopathy. Vascular: No aneurysm. Bowel: No significant focal abnormality. Peritoneum: No ascites or free air. Bladder: The bladder is decompressed via a suprapubic catheter. Reproductive: No adnexal masses. Bones: No acute fracture. Other: Epidural pain pump in the right abdominal wall. IMPRESSION: No acute intra-abdominal or pelvic finding. Suprapubic catheter in a decompressed bladde r. Mild basilar consolidation bilaterally may reflect atelectasis and/or pneumonia/pneumonitis.
[2022-07-31 13:52] VITALS: TEMP 97.7
[2022-07-31 13:55] VITALS: BP 108/64; O2SAT 95
== END 2022-07-31 13:30 | disposition home or self-care (01) ==
LOC: ER 10:07
DX: T83.098A Other mechanical complication of other urinary catheter, initial encounter (principal); N39.0 Urinary tract infection, site not specified; Z87.820 Personal history of traumatic brain injury; Z91.040 Latex allergy status; Z91.048 Other nonmedicinal substance allergy status
CPT/HCPCS: 51702; 74176; 76377; 81003; 87077; 87086; 87088; 87186; 99284

== ENCOUNTER 2023-11-21 12:40 | Observation (INO) | payer OTHER ==
[2023-11-21] MEDS ORDERED: NA CHLORIDE 0.9% 1,000 ML ONE ×2 (13:17→17:18)
[2023-11-21 13:22] LABS: Absolute Basophils 0.1 K/uL (0-0.5); Absolute Eosinophils 0.2 K/uL (0-0.5); Absolute Lymphocytes (CBC) 4.1 K/uL (0.7-4.9); Absolute Monocytes 0.9 K/uL (0.1-1.3); Absolute Neutrophil 5.4 K/uL (1.8-8.0); Basophils % 1.4 % (0-1.3); Eosinophils % 1.6 % (0-4.4); Hematocrit 44.2 % (36.0-45.0); Hemoglobin 14.8 g/dL (12.0-15.0); Lymphocytes % 38.5 % (15.3-44.8); MCHC 33.4 g/dL (32.0-36.0); MCV 98.7 fL (80-100); MPV 9.9 fL (7.6-11.3); Neutrophils % 50.5 % (41.7-73.7); Nucleated Red Blood Cells % 0.1 % (0-0); Platelets 265 thou/uL (152-406); RBC Red Blood Cell Count 4.48 M/uL (3.86-4.86); Red Cell Distribution Width 14.4 % (12.1-15.2)
[2023-11-21 13:25] LABS: PT Prothrombin Time 12.6 SECONDS (9.5-12.5); Protime INR 1.15
--- NOTE | 2023-11-21 13:36 | RAD REPORT ---
EXAM DESCRIPTION: CT - Chest Abd Pelvis Wo Con - 11/21/2023 1:20 pm CLINICAL HISTORY: Chest and abdomen pain. ABDOMINAL DISTENTION COMPARISON: Chest Abd Pelvis Wo Con dated 04/08/2018; Stone Protocol dated 07/31/2022 TECHNIQUE: A limited noncontrast study was performed. All CT scans are performed using dose optimization technique as appropriate and may include automated exposure control or mA/KV adjustment according to patient size. FINDINGS: Moderate airspace consolidation is seen in the medial right lung base compatible with infi ltrate/ pneumonia. Mild linear atelectasis in the left base.No pleural or pericardial effusion.No int rathoracic adenopathy. The liver is mildly prominent in size. Cholelithiasis. Spleen appears absent with prominent left uppe r quadrant splenule. The pancreas, adrenal glands and left kidney are within normal limits. Punctate calculus right kidney. No bowel obstruction, free air, free fluid or abscess. Normal appendix. There is significant stool re tained in the sigmoid colon with several small or surrounding lymph nodes. There is a focal narrowing seen in the mid rectum. The surrounding fat is mildly inflamed. Colonoscopy is recommended for furth er evaluation Suprapubic catheter is in place. No acute fractures seen. IMPRESSION: There is significant stool in the rectum which is distended with mild surrounding lymph nodes and inflammatory change.Colonoscopy is recommended for direct visualization of the rectum and t o exclude a mass. Moderate airspace consolidation in the right base may be infectious or chronic atelectasis. Liver size is mildly prominent. Cholelithiasis.
[2023-11-21 13:51] LABS: Albumin 3.2 g/dL (3.4-5.0); Albumin/Globulin Ratio 0.7 (1.1-1.8); Anion Gap 10.1 mEq/L (5.0-15.0); Bilirubin Direct 0.2 mg/dL (0-0.2); Bilirubin Indirect, Calculated 0.5 mg/dL (0.2-0.8); Bilirubin Total 0.7 mg/dL (0.2-1.0); Globulin 4.3 g/dL (2.3-3.5); Magnesium 1.6 mg/dL (1.6-2.4); Potassium 3.1 mEq/L (3.5-5.1); Protein, Total 7.5 g/dL (6.4-8.2)
[2023-11-21 14:17] LABS: Blood Morphology Comment NOT SEEN (NOT SEEN); Platelet Estimate ADEQ; White Blood Cell Scan OK (OK)
--- NOTE | 2023-11-21 14:23 | RAD REPORT ---
EXAM DESCRIPTION: RAD - Chest Single View - 11/21/2023 2:05 pm CLINICAL HISTORY: ABDOMINAL DISTENTION Chest pain. COMPARISON: Chest Single View dated 08/09/2020; Abdomen 1 View (KUB) dated 05/12/2019; Abdomen 1 View ( KUB) dated 05/10/2019; Chest Single View dated 05/01/2019 FINDINGS: Portable technique limits examination quality. The lungs are grossly clear. The heart is normal in size. No displaced fractures.Tracheostomy tube ti p is above the yolanda. Right-sided shunt tubing coils over the right hemithorax. IMPRESSION: No acute intrathoracic process suspected.
[2023-11-21] MEDS ORDERED: METRONIDAZOLE 500mg IVPB 500 MG/100 ML BAG IV ONE (16:01)
[2023-11-21] MEDS ORDERED: Ciprofloxacin 200mg IV 200 MG/100 ML IV.SOLN. IV ONE (16:01)
--- NOTE | 2023-11-21 16:14 | EDPHYS ---
Physician Documentation [facility] Name: Cira Tellez Age: 48 yrs Sex: Female : 1975 Arrival Date: 11/21/2023 Time: 12:40 Bed 3 Private MD: ED Physician Yogesh Levin HPI: 11/20 15:59 This 48 yrs old Female presents to ER via EMS with complaints of Diarrhea. lucy 15:59 The patient presents to the emergency department with diarrhea, that is intermittent. lucy Onset: The symptoms/episode began/occurred 2 day(s) ago. Possible causes: unknown, antibiotics, on augmentin. The symptoms are aggravated by nothing. The symptoms are alleviated by nothing. Associated signs and symptoms: The patient has no apparent associated signs or symptoms. Severity of symptoms: At their worst the symptoms were mild moderate in the emergency department the symptoms are unchanged. The patient has experienced similar episodes in the past, a few times. 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 - Infectious Disease History:: CDIFF, . - Social history:: Smoking status: Patient/guardian denies using tobacco. ROS: 16:06 Constitutional: Negative for fever, chills, and weight loss, Eyes: Negative for injury, lucy pain, redness, and discharge, ENT: Negative for injury, pain, and discharge, Neck: Negative for injury, pain, and swelling, Cardiovascular: Negative for chest pain, palpitations, and edema, Respiratory: Negative for shortness of breath, cough, wheezing, and pleuritic chest pain, Back: Negative for injury and pain, : Negative for injury, bleeding, discharge, and swelling, MS/Extremity: Negative for injury and deformity, Skin: Negative for injury, rash, and discoloration, Neuro: Negative for headache, weakness, numbness, tingling, and seizure, Psych: Negative for depression, anxiety, suicide ideation, homicidal ideation, and hallucinations, Allergy/Immunology: Negative for hives, rash, and allergies, Endocrine: Negative for neck swelling, polydipsia, polyuria, polyphagia, and marked weight changes, Hematologic/Lymphatic: Negative for swollen nodes, abnormal bleeding, and unusual bruising, 16:06 Abdomen/GI: Positive for diarrhea, abdominal cramps, 16:06 MS/extremity: Positive for swelling, Exam: 16:06 Constitutional: This is a well developed, well nourished patient who is awake, alert, lucy and in no acute distress. Head/Face: Normocephalic, atraumatic. Eyes: Pupils equal round and reactive to light, extra-ocular motions intact. Lids and lashes normal. Conjunctiva and sclera are non-icteric and not injected. Cornea within normal limits. Periorbital areas with no swelling, redness, or edema. ENT: Nares patent. No nasal discharge, no septal abnormalities noted. Tympanic membranes are normal and external auditory canals are clear. Oropharynx with no redness, swelling, or masses, exudates, or evidence of obstruction, uvula midline. Mucous membranes moist. Neck: Trachea midline, no thyromegaly or masses palpated, and no cervical lymphadenopathy. Supple, full range of motion without nuchal rigidity, or vertebral point tenderness. No Meningismus. Chest/axilla: Normal chest wall appearance and motion. Nontender with no deformity. No lesions are appreciated. Cardiovascular: Regular rate and rhythm with a normal S1 and S2. No gallops, murmurs, or rubs. Normal PMI, no JVD. No pulse deficits. Respiratory: Lungs have equal breath sounds bilaterally, clear to auscultation and percussion. No rales, rhonchi or wheezes noted. No increased work of breathing, no retractions or nasal flaring. Back: No spinal tenderness. No costovertebral tenderness. Full range of motion. Skin: Warm, dry with normal turgor. Normal color with no rashes, no lesions, and no evidence of cellulitis. MS/ Extremity: Pulses equal, no cyanosis. Neurovascular intact. Full, normal range of motion. Neuro: Awake and alert, GCS 15, oriented to person, place, time, and situation. Cranial nerves II-XII grossly intact. Motor strength 5/5 in all extremities. Sensory grossly intact. Cerebellar exam normal. Normal gait. Psych: Awake, alert, with orientation to person, place and time. Behavior, mood, and affect are within normal limits. 16:06 ECG was reviewed by the Attending Physician. 16:10 Abdomen/GI: Rectal exam: is unremarkable, rectal tone normal, hemorrhoid(s), are not lucy appreciated, mass, is not appreciated, swelling, is not appreciated, tenderness, is not appreciated, fecal impaction, is not appreciated, no adenopathy, no mass, no impaction, Hernia: not appreciated, Vital Signs: 12:43 BP 99 / 50 LA Supine (auto/reg); Pulse 49 MON; Resp 15 S; Temp 97.7(O); Pulse Ox 92% on jg11 trach; 13:00 BP 99 / 64; Pulse 48; Resp 18 A; Pulse Ox 97% on RA via ventilator via trach; aa5 13:30 BP 94 / 64; Pulse 47; Resp 16 A; Pulse Ox 99% on RA via ventilator via trach; aa5 14:00 BP 102 / 60; Pulse 41; Resp 18 A; Pulse Ox 98% on R/A; aa5 15:00 BP 91 / 53; Pulse 43; Resp 16 A; Pulse Ox 98% on R/A; aa5 16:00 BP 98 / 58; Pulse 45; Resp 16 S; Pulse Ox 98% on via ventilator; aa5 17:00 BP 97 / 65; Pulse 44; Resp 18 A; Temp 97.8(TE); Pulse Ox 96% on via ventilator; aa5 13:00 Pt reports baseline BP being low. aa5 14:00 via ventilator aa5 15:00 via ventilator aa5 MDM: 12:47 Patient medically screened. [facility] 16:08 Differential diagnosis: Nonspecific abd pain, viral gastroenteritis, gastroenteritis. [facility] Differential Diagnosis sepsis. Data reviewed: vital signs, nurses notes, lab test result(s), EKG, radiologic studies, CT scan, plain films. Consideration of Admission/Observation Escalation of care including admission/observation considered. I considered the following discharge prescriptions or medication management in the emergency department Medications were administered in the Emergency Department. See MAR. Independent interpretation of the following test(s) in the Emergency Department EKG: See my EKG interpretation above. Test considered but Not performed: Ultrasound no abd usg. Historians other than the Patient: EMS: ems well informed. home rn, well informed. Care significantly affected by the following chronic conditions: Obesity, c diff, home vent , trach, tbi. Counseling: I had a detailed discussion with the patient and/or guardian regarding the historical points, exam findings, and any diagnostic results supporting the discharge/admit diagnosis, lab results, radiology results, the need for further work-up and treatment in the hospital. 11/20 12:56 Order name: Basic Metabolic Panel; Complete Time: 15:42 [facility] 11/20 12:56 Order name: CBC with Diff; Complete Time: 15:42 [facility] 11/20 12:56 Order name: LFT's; Complete Time: 15:42 [facility] 11/20 12:56 Order name: Magnesium; Complete Time: 15:42 [facility] 11/20 12:56 Order name: NT PRO-BNP; Complete Time: 15:42 [facility] 11/20 12:56 Order name: PT-INR; Complete Time: 15:42 [facility] 11/20 12:56 Order name: Troponin HS; Complete Time: 15:42 [facility] 11/20 12:56 Order name: Stool Culture [facility] 11/20 12:56 Order name: Fecal Leukocyte Stain [facility] 11/20 12:56 Order name: Ova And Parasites [facility] 11/20 12:56 Order name: Rotavirus Antigen [facility] 11/20 12:56 Order name: CDIFF [facility] 11/20 13:41 Order name: CBC Smear Scan; Complete Time: 15:42 [facility] 11/20 16:35 Order name: CBC with Automated Diff [facility] 11/20 16:35 Order name: CBC with Automated Diff [facility] 11/20 16:35 Order name: Comprehensive Metabolic Panel [facility] 11/20 16:35 Order name: Comprehensive Metabolic Panel [facility] 11/20 12:56 Order name: XRAY Chest (1 view); Complete Time: 15:42 [facility] 11/20 12:56 Order name: CT Chest Abdomen Pelvis W/O Contrast; Complete Time: 15:42 [facility] 11/20 12:56 Order name: EKG; Complete Time: 12:57 [facility] 11/20 12:56 Order name: Cardiac monitoring; Complete Time: 12:57 [facility] 11/20 12:56 Order name: EKG - Nurse/Tech; Complete Time: 13:05 [facility] 11/20 12:56 Order name: IV Saline Lock; Complete Time: 13:26 [facility] 11/20 12:56 Order name: Labs collected and sent; Complete Time: 13:26 [facility] 11/20 12:56 Order name: O2 Per Protocol; Complete Time: 12:57 [facility] 11/20 12:56 Order name: O2 Sat Monitoring; Complete Time: 12:57 [facility] 11/20 12:56 Order name: IV Saline Lock - Large Bore; Complete Time: 13:26 [facility] EC:06 Rate is 46 beats/min. Rhythm is regular. QRS Duncan is Normal. [place] interval is normal. QRS lucy interval is normal. QT interval is normal. No Q waves. T waves are Normal. No ST changes noted. Clinical impression: Sinus bradycardia and No evidence of ischemia. Interpreted by me. Reviewed by me. Administered Medications: 13:30 Drug: NS 0.9% IV 1000 ml IV at 1 bolus Per protocol; 1000 mL bolus Route: IV; Rate: 1 aa5 bolus; Site: right antecubital; 16:08 Follow up: IV Status: Completed infusion; IV Intake: 1000ml aa5 16:08 Drug: metroNIDAZOLE IVPB 500 mg 100 ml IVPB at 200 ml/hr once over 30 mins Volume: 100 aa5 ml; Route: IVPB; Rate: 200 ml/hr; Infused Over: 30 mins; Site: right antecubital; 16:38 Follow up: Response: No adverse reaction; IV Status: Completed infusion aa5 17:23 Drug: Ciprofloxacin IVPB 400 mg 200 ml IVPB once over 60 mins Volume: 200 ml; Route: aa5 IVPB; Infused Over: 60 mins; Site: right antecubital; 17:29 Follow up: Response: No adverse reaction aa5 17:37 Follow up: IV Status: Infusion continued upon admission aa5 17:23 Drug: NS 0.9% IV 1000 ml IV at 125 ml/hr continuous Route: IV; Rate: 125 ml/hr; Site: aa5 right antecubital; 17:28 Follow up: IV Status: Order to discontinue infusion aa5 17:28 Drug: NS 0.9% with KCl IV 20 mEq/L 1000 ml IV at 125 ml/hr continuous Route: IV; Rate: aa5 125 ml/hr; Site: right antecubital; 17:37 Follow up: IV Status: Infusion continued upon admission aa5 17:29 Drug: Potassium PO Effervescent Tablet 25 mEq PO once; dissolve in 4 ounces of water or aa5 juice Route: PO; 17:37 Follow up: Response: No adverse reaction aa5 Disposition Summary: 11/21/23 16:13 Hospitalization Ordered Notes: Hospitalization Status: Inpatient Admission lucy Provider: [place] Brown cha Location: Intensive Care Unit lucy Condition: Fair lucy Problem: new lucy Symptoms: are unchanged lucy Bed/Room Type: Standard lucy Room Assignment: 2-(11/21/23 16:56) eb Diagnosis - Obesity, unspecified lucy - Tracheostomy status - on home vent lucy - Diarrhea, unspecified - profuse lucy - Hypotension, unspecified - history, 94/64 lucy - Hypokalemia - 3.1 lucy - Bradycardia, unspecified lucy - Atelectasis lucy Forms: - Medication Reconciliation Form lucy - SBAR form lucy - Leadership Thank You Letter lucy Signatures: Dispatcher [employer] EDMS Yogesh Levin MD MD cha Calderon, Audri RN RN aa5 Tara Burleson Corrections: (The following items were deleted from the chart) 12:57 12:56 BASIC METABOLIC PANEL+C.LAB.BRZ ordered. EDMS EDMS 12:57 12:56 CBC+H.LAB.BRZ ordered. EDMS EDMS 12:57 12:56 HEPATIC FUNCTION+C.LAB.BRZ ordered. EDMS EDMS 12:57 12:56 MAGNESIUM+C.LAB.BRZ ordered. EDMS EDMS 12:57 12:56 PROBNP+C.LAB.BRZ ordered. EDMS EDMS 12:57 12:56 PROTIME (+INR)+COAG.LAB.BRZ ordered. EDMS EDMS 12:57 12:56 Troponin High Sensitivity+C.LAB.BRZ ordered. EDMS EDMS 12:57 12:56 Stool Culture+BA.LAB.BRZ ordered. EDMS EDMS 12:57 12:56 Fecal Leukocyte Stain+BA.LAB.BRZ ordered. EDMS EDMS 12:57 12:56 Ova and Parasites+MR.LAB.BRZ ordered. EDMS EDMS 12:57 12:56 Rotavirus Antigen+BA.LAB.BRZ ordered. EDMS EDMS 12:57 12:56 C.difficile GDH Ag \\T\\ Toxin AB+LAB.BRZ ordered. EDMS EDMS 12:57 12:57 Chest Abdomen Pelvis Wo Con+CT.RAD.BRZ ordered. EDMS EDMS 13: 12:41 PMHx: Paraplegia; aa5 aa5 16:14 16:14 IS+RC.RAD.BRZ ordered. EDMS EDMS 16:56 16:13 lucy eb
--- NOTE | 2023-11-21 16:14 | ER ---
Nurse's Notes [facility] Name: Cira Tellez Age: 48 yrs Sex: Female : 1975 Arrival Date: 11/21/2023 Time: 12:40 Bed 3 Private MD: Diagnosis: Obesity, unspecified;Tracheostomy status-on home vent;Diarrhea, unspecified-profuse;Hypotension, unspecified-history, 94/64;Hypokalemia-3.1;Bradycardia, unspecified;Atelectasis Presentation: 11/20 12:41 Chief complaint: EMS states: diarrhea and worried about dehydration. Pt denies any pain.aa5 12:41 Coronavirus screen: diarrhea. Ebola Screen: Patient denies travel to an Ebola-affected [facility] area in the 21 days before illness onset. Initial Sepsis Screen: Does the patient meet any 2 criteria? No. Patient's initial sepsis screen is negative. Does the patient have a suspected source of infection? No. Patient's initial sepsis screen is negative. Risk Assessment: Do you want to hurt yourself or someone else? Patient reports no desire to harm self or others. Onset of symptoms was 2023. 12:41 Acuity: EDGARDO 3 aa5 12:41 Method Of Arrival: EMS: [facility] aa5 Historical: - Allergies: 12:41 Latex; aa5 - PMHx: 12:41 CVA; Depression; TBI; "head injury with spinal fluid leak" (Unknown); aa5 13:27 C-DIFF; aa5 12:41 Home ventilator; aa5 12:41 Quadriplegic; aa5 12:41 Baclofen pain pump; aa5 - PSHx: 12:41 knee; neck; Splenectomy; aa5 12:41 tracheostomy; aa5 - Immunization history:: Adult Immunizations unknown. - Infectious Disease History:: CDIFF, . - Social history:: Smoking status: Patient/guardian denies using tobacco. Screenin:43 [facility] ED Fall Risk Assessment (Adult) History of falling in the last 3 months, aa5 including since admission No falls in past 3 months (0 pts) Confusion or Disorientation No (0 pts) Intoxicated or Sedated No (0 pts) Impaired Gait No (0 pts) Mobility Assist Device Used No (0 pt) Altered Elimination Yes (1 pt) Score/Fall Risk Level 0 - 2 = Low Risk Oriented to surroundings, Maintained a safe environment, Educated pt \\T\\ family on fall prevention, incl call for assistance when getting out of bed. Abuse screen: Denies threats or abuse. Nutritional screening: No deficits noted. Tuberculosis screening: No symptoms or risk factors identified. Assessment: 12:41 General: Appears comfortable, Behavior is calm, cooperative. Pain: Denies pain. Neuro: aa5 Level of Consciousness is awake, alert, obeys commands, Oriented to person, place, time, situation. Cardiovascular: Heart tones S1 S2 present Rhythm is sinus bradycardia. Respiratory: Airway via trache Respiratory effort is assisted via ventilator (RA). GI: Abdomen is obese, Bowel sounds present X 4 quads. Abd is soft and non tender X 4 quads. Reports diarrhea, nausea, Reports 2 episodes of diarrhea today and 2 episodes yesterday. : Mary in place to gravity drainage. EENT: Trache noted . Derm: Skin is pink, warm \\T\\ dry. Musculoskeletal: Pt is quadriplegic. 13:27 Reassessment: Patient is alert, oriented x 3, equal unlabored respirations, skin aa5 warm/dry/pink. Pt back from CT scan . 16:08 Reassessment: Patient is alert, oriented x 3, equal unlabored respirations, skin aa5 warm/dry/pink. Brief checked, only smear of stool noted, pt cleaned and clean brief applied. MD aware of inability to collect stool specimen. . 17:00 Reassessment: Patient is alert, oriented x 3, equal unlabored respirations, skin aa5 warm/dry/pink. 17:37 Reassessment: Patient is alert, oriented x 3, equal unlabored respirations, skin aa5 warm/dry/pink. Vital Signs: 12:43 BP 99 / 50 LA Supine (auto/reg); Pulse 49 MON; Resp 15 S; Temp 97.7(O); Pulse Ox 92% on jg11 trach; 13:00 BP 99 / 64; Pulse 48; Resp 18 A; Pulse Ox 97% on RA via ventilator via trach; aa5 13:30 BP 94 / 64; Pulse 47; Resp 16 A; Pulse Ox 99% on RA via ventilator via trach; aa5 14:00 BP 102 / 60; Pulse 41; Resp 18 A; Pulse Ox 98% on R/A; aa5 15:00 BP 91 / 53; Pulse 43; Resp 16 A; Pulse Ox 98% on R/A; aa5 16:00 BP 98 / 58; Pulse 45; Resp 16 S; Pulse Ox 98% on via ventilator; aa5 17:00 BP 97 / 65; Pulse 44; Resp 18 A; Temp 97.8(TE); Pulse Ox 96% on via ventilator; aa5 13:00 Pt reports baseline BP being low. aa5 14:00 via ventilator aa5 15:00 via ventilator aa5 ED Course: 12:41 Patient arrived in ED. aa5 12:41 Ibeth Mcclain, RN is Primary Nurse. aa5 12:41 Arm band placed on. aa5 12:44 Bed in low position. Call light in reach. Side rails up X 1. Side rails up X2. Noise jg11 minimized. Lights dimmed. Warm blanket given. Pillow given. Client placed on continuous cardiac and pulse oximetry monitoring. NIBP monitoring applied. gambling monitor on. Pulse ox on. NIBP on. 12:47 Yogesh Levin MD is Attending Physician. lucy 12:48 Triage completed. aa5 13:05 EKG done, by ED staff, reviewed by Yogesh Levin MD. jg11 13:08 Missed attempt(s): 18 gauge in right antecubital area. Bleeding controlled, band aid aa5 applied, catheter tip intact. 13:10 Initial lab(s) drawn, by mt, sent to lab. Inserted saline lock: 20 gauge in right aa5 antecubital area, using aseptic technique. Blood collected. 13:22 CT Chest Abdomen Pelvis W/O Contrast In Process Unspecified. EDMS 14:06 XRAY Chest (1 view) In Process Unspecified. EDMS 16:11 Chico Brown MD is Hospitalizing Provider. lucy 17:37 No provider procedures requiring assistance completed. Patient admitted, IV remains in aa5 place. Administered Medications: 13:30 Drug: NS 0.9% IV 1000 ml IV at 1 bolus Per protocol; 1000 mL bolus Route: IV; Rate: 1 aa5 bolus; Site: right antecubital; 16:08 Follow up: IV Status: Completed infusion; IV Intake: 1000ml aa5 16:08 Drug: metroNIDAZOLE IVPB 500 mg 100 ml IVPB at 200 ml/hr once over 30 mins Volume: 100 aa5 ml; Route: IVPB; Rate: 200 ml/hr; Infused Over: 30 mins; Site: right antecubital; 16:38 Follow up: Response: No adverse reaction; IV Status: Completed infusion aa5 17:23 Drug: Ciprofloxacin IVPB 400 mg 200 ml IVPB once over 60 mins Volume: 200 ml; Route: aa5 IVPB; Infused Over: 60 mins; Site: right antecubital; 17:29 Follow up: Response: No adverse reaction aa5 17:37 Follow up: IV Status: Infusion continued upon admission aa5 17:23 Drug: NS 0.9% IV 1000 ml IV at 125 ml/hr continuous Route: IV; Rate: 125 ml/hr; Site: aa5 right antecubital; 17:28 Follow up: IV Status: Order to discontinue infusion aa5 17:28 Drug: NS 0.9% with KCl IV 20 mEq/L 1000 ml IV at 125 ml/hr continuous Route: IV; Rate: aa5 125 ml/hr; Site: right antecubital; 17:37 Follow up: IV Status: Infusion continued upon admission aa5 17:29 Drug: Potassium PO Effervescent Tablet 25 mEq PO once; dissolve in 4 ounces of water or aa5 juice Route: PO; 17:37 Follow up: Response: No adverse reaction aa5 Medication: 17:37 VIS not applicable for this client. aa5 Intake: 16:08 IV: 1000ml; Total: 1000ml. aa5 Outcome: 16:13 Decision to Hospitalize by Provider. lucy 17:37 Admitted to ICU accompanied by nurse, via stretcher, room ICU bed 7, on monitor, with aa5 chart, Other with pt's portable ventilator Report called to MATT Obrien 17:37 Condition: stable 17:37 Instructed on the need for admit, Demonstrated understanding of instructions, 17:45 Patient left the ED. aa5 Signatures: Dispatcher [employer] EDMS Yogesh Levin MD MD cha Calderon, Audri RN RN [email or web address] Femi Enriquez [email or web address] Corrections: (The following items were deleted from the chart) 13:29 12:41 PMHx: Paraplegia; aa5 aa5 13:41 12:41 GI: Abdomen is obese, Bowel sounds present X 4 quads. Abd is soft and non tender aa5 X 4 quads. Reports diarrhea, nausea, aa5 19:18 18:02 Patient left the ED. aa5 aa5 19:27 13:00 BP 99 / 64; Pulse 48bpm; Resp 18bpm; Assisted; Pulse Ox 97% RA via ventilator via aa5 trach; aa5
[2023-11-21] MEDS ORDERED: ONDANSETRON 4 MG/2 ML VIAL IV PRN (16:31)
[2023-11-21] MEDS ORDERED: ACETAMINOPHEN 500 MG TAB PO PRN (16:31)
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
[2023-11-21] MEDS ORDERED: NS KCL 20MEQ 1,000 ML IV ONE (16:55)
[2023-11-21] MEDS ORDERED: CIPROFLOXACIN 400mg IV 0 MG/0 ML BAG IV ONE (16:55)
[2023-11-21] MEDS ORDERED: POTASSIUM 25 MEQ EFFERV TAB ONE (16:55)
[2023-11-21] MEDS ORDERED: MORPHINE 4 MG/ML SYR IV PRN (16:59)
[2023-11-21 18:38] VITALS: BMI 39.4
[2023-11-21] MEDS: VANCOMYCIN HCL 125 MG CAPSULE PO SCH (18:47)
[2023-11-21] MEDS: NA CHLORIDE 0.9% 1,000 ML IV SCH (18:47)
[2023-11-21 20:15] LABS: C.diff Antigen/Toxin Ag neg : Tox neg (NEG : NEG); CDIFF INTERNAL NEG CONTROL White Background (WHITE BKGD); STOOL CONSISTENCY Liquid/Semi-Solid
[2023-11-21] MEDS: MAGNESIUM SULFATE 1 gm IVPB 1 GM/100 ML BAG IV ONE (20:44)
[2023-11-22 04:58] LABS: Absolute Basophils 0.1 K/uL (0-0.5); Absolute Eosinophils 0.2 K/uL (0-0.5); Absolute Lymphocytes (CBC) 3.8 K/uL (0.7-4.9); Absolute Monocytes 0.6 K/uL (0.1-1.3); Basophils % 1.1 % (0-1.3); Eosinophils % 1.8 % (0-4.4); Hematocrit 38.9 % (36.0-45.0); Hemoglobin 13.1 g/dL (12.0-15.0); Lymphocytes % 43.9 % (15.3-44.8); MCH 33.3 pg (27.0-35.0); MCHC 33.8 g/dL (32.0-36.0); MCV 98.6 fL (80-100); MPV 10.6 fL (7.6-11.3); Monocytes % 6.8 % (3.3-12.3); Neutrophils % 46.4 % (41.7-73.7); Platelets 251 thou/uL (152-406); RBC Red Blood Cell Count 3.95 M/uL (3.86-4.86); Red Cell Distribution Width 14.4 % (12.1-15.2)
[2023-11-22 05:18] LABS: Albumin/Globulin Ratio 0.9 (1.1-1.8); Anion Gap 12.4 mEq/L (5.0-15.0); Bilirubin Total 0.5 mg/dL (0.2-1.0); Globulin 3.5 g/dL (2.3-3.5); Magnesium 1.7 mg/dL (1.6-2.4); Potassium 3.4 mEq/L (3.5-5.1); Protein, Total 6.5 g/dL (6.4-8.2)
[2023-11-22] MEDS: MAGNESIUM SULFATE 1 gm IVPB 1 GM/100 ML BAG IV ONE (05:47)
[2023-11-22] MEDS: POTASSIUM CL SA 10 MEQ TAB PO ONE (06:00)
[2023-11-22 09:23] VITALS: O2SAT 95
[2023-11-22 13:30] VITALS: TEMP 97.8
[2023-11-22 14:09] VITALS: BP 102/48
--- NOTE | 2023-11-24 15:03 | EKG ---
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
== END 2023-11-22 16:05 | disposition home or self-care (01) ==
LOC: ER 12:40 → ERHOLD 16:31 → 3RD-ICU 17:07
PROVIDERS: ADMIT Hospitalist; ATTEND Hospitalist
DX: K52.9 Noninfective gastroenteritis and colitis, unspecified (principal); I95.9 Hypotension, unspecified; R00.1 Bradycardia, unspecified; G82.50 Quadriplegia, unspecified; S14.159S Other incomplete lesion at unspecified level of cervical spinal cord, sequela; E66.9 Obesity, unspecified; E87.6 Hypokalemia; J98.11 Atelectasis; F32.A Depression, unspecified; Z93.0 Tracheostomy status
CPT/HCPCS: 96365; 96361; 93005; 87045; 85025 ×2; 80048; 36415; 83735 ×2; 89055; 87177; 85610; 80076; 87046; 87209; 87324; 84484; 80053; 83880; 87425; 71250; 74176; 71045; 96375; 99285; J3475 ×2; J0744; J7030 ×4; J3480; G0378 ×3

== ENCOUNTER 2024-06-30 15:09 | Inpatient (IN) | payer OTHER ==
[2024-06-30] MEDS ORDERED: LORAZEPAM 1 MG TABLET ONE (15:36)
--- NOTE | 2024-06-30 15:36 | EDPHYS ---
Physician Documentation [facility] Name: Cira Tellez Age: 48 yrs Sex: Female : 1975 Arrival Date: 06/30/2024 Time: 15:09 Bed 2 Private MD: ED Physician Nikita Mcleod HPI: 06/30 15:26 This 48 yrs old Female presents to ER via Unassigned with complaints of ms3 ventilator problem. 15:26 . Cira Tellez, presents to the Emergency Department with a malfunctioning ms3 ventilator that has been alarming stating disconnected circuit. Attempts to resolve the issue included changing multiple circuit pieces and manually bagging her for a while, ultimately leading to a switch to the EMS ventilator. The patient has a history of quadriplegia and experiences significant anxiety, she is particularly concerned about the malfunction of her ventilator.. Historical: - Allergies: 15:30 Latex; ph - Home Meds: 15:30 Albuterol Inhl [Active]; Allopurinol Oral [Active]; Baclofen Oral [Active]; citalopram ph oral [Active]; midodrine Oral [Active]; - PMHx: 15:30 Baclofen pain pump; C-diff; CVA; Depression; Home ventilator; Quadriplegic; TBI; ph - PSHx: 15:30 knee; neck; Splenectomy; tracheostomy; ph - Immunization history:: Adult Immunizations unknown. - Infectious Disease History:: CDIFF, . - Social history:: Smoking status: unknown. ROS: 15:26 Constitutional: Negative for fever, and chills. Cardiovascular: Negative for chest ms3 pain, and palpitations. Respiratory: Negative for shortness of breath, cough, wheezing, and pleuritic chest pain, Abdomen/GI: Negative for abdominal pain, nausea, vomiting, diarrhea, and constipation, MS/Extremity: Negative for injury and deformity, Skin: Negative for injury, rash, and discoloration, Exam: 15:26 Constitutional: This is a well developed, well nourished patient who is awake, alert, ms3 and in no acute distress. Cardiovascular: Regular rate and rhythm with a normal S1 and S2. No gallops, murmurs, or rubs. Normal PMI, no JVD. No pulse deficits. Respiratory: Lungs have equal breath sounds bilaterally, clear to auscultation and percussion. No rales, rhonchi or wheezes noted. No increased work of breathing, no retractions or nasal flaring. Abdomen/GI: Soft, non-tender, with normal bowel sounds. No distension or tympany. No guarding or rebound. No evidence of tenderness throughout. Skin: Warm, dry with normal turgor. Normal color with no rashes, no lesions, and no evidence of cellulitis. MS/ Extremity: Pulses equal, no cyanosis. Neurovascular intact. Full, normal range of motion. Vital Signs: 15:27 BP 120 / 61; Pulse 65; Resp 18; Temp 97.8; Pulse Ox 97% on ETT vent; Weight 68.04 kg; ph 16:12 BP 109 / 68; Pulse 54; Resp 18; Pulse Ox 95% on ETT vent; ph 17:16 BP 143 / 97; Pulse 57; Resp 18; Pulse Ox 94% on ETT vent; ph MDM: 15:21 Medical Screening Exam initiated ms3 15:26 Differential Diagnosis Ventilator malfunction. Data reviewed: vital signs, nurses ms3 notes, and as a result, I will admit patient. Consideration of Admission/Observation Patient was admitted/placed on observation. Management of patient was discussed with the following: Hospitalist: Dr Pulido. I considered the following discharge prescriptions or medication management in the emergency department Medications were administered in the Emergency Department. See MAR. Historians other than the Patient: EMS: [facility]. Counseling: I had a detailed discussion with the patient and/or guardian regarding the historical points, exam findings, and any diagnostic results supporting the discharge/admit diagnosis, the need for further work-up and treatment in the hospital. ED course: Per EMS patient's ventilator company will come to patient's house tomorrow to troubleshoot her event. Discussed case with Dr. Pulido patient's primary care physician and he accepts admission.. 06/30 17:09 Order name: CONS Physician Consult EDMS Administered Medications: 15:57 Drug: LORazepam PO 1 mg PO once Route: PO; ph Disposition Summary: 06/30/24 15:35 Hospitalization Ordered Notes: Hospitalization Status: Observation ms3 Provider: Lamin Pulido Location: Intensive Care Unit ms3 Condition: Stable ms3 Problem: new ms3 Symptoms: are unchanged ms3 Bed/Room Type: Standard ms3 Room Assignment: 2-(06/30/24 17:13) bc6 Diagnosis - Dependence on respirator [ventilator] status ms3 - Other complication of respirator [ventilator] ms3 Forms: - Medication Reconciliation Form ms3 - SBAR form ms3 - Leadership Thank You Letter ms3 Signatures: Dispatcher [employer] Georgia Fenton RN RN ph Mcleod, Nikita, DO DO ms3 Azucena Gao bc6 Corrections: (The following items were deleted from the chart) 17:13 15:35 ms3 bc6
--- NOTE | 2024-06-30 15:36 | ER ---
Nurse's Notes [facility] Name: Cira Tellez Age: 48 yrs Sex: Female : 1975 Arrival Date: 06/30/2024 Time: 15:09 Bed 2 Private MD: Diagnosis: Dependence on respirator [ventilator] status;Other complication of respirator [ventilator] Presentation: 06/30 15:27 Chief complaint: EMS states: Pt's home ventilator not working, will not be able to be ph fixed until tomorrow, pt c/o anxiety. Coronavirus screen: Vaccine status: Patient reports receiving the 2nd dose of the covid vaccine. Ebola Screen: No symptoms or risks identified at this time. Initial Sepsis Screen: Does the patient meet any 2 criteria? No. Patient's initial sepsis screen is negative. Does the patient have a suspected source of infection? No. Patient's initial sepsis screen is negative. Risk Assessment: Do you want to hurt yourself or someone else? Patient reports no desire to harm self or others. Onset of symptoms was June 30, 2024. 15:27 Method Of Arrival: EMS: [facility] 15:27 Acuity: EDGARDO 3 ph Triage Assessment: 15:30 General: Appears in no apparent distress. obese, Behavior is cooperative, anxious. ph Pain: Denies pain. Neuro: Level of Consciousness is awake, alert, obeys commands, Oriented to person, place, time, situation. Cardiovascular: Capillary refill < 3 seconds in bilateral fingers Patient's skin is warm and dry. Respiratory: Airway via trache Trachea midline Respiratory effort is even, unlabored, Respiratory pattern is regular, symmetrical, Ventilator assessment: HOB > 30 degrees. : Mary in place to gravity drainage Urine is cloudy. Historical: - Allergies: 15:30 Latex; ph - Home Meds: 15:30 Albuterol Inhl [Active]; Allopurinol Oral [Active]; Baclofen Oral [Active]; citalopram ph oral [Active]; midodrine Oral [Active]; - PMHx: 15:30 Baclofen pain pump; C-diff; CVA; Depression; Home ventilator; Quadriplegic; TBI; ph - PSHx: 15:30 knee; neck; Splenectomy; tracheostomy; ph - Immunization history:: Adult Immunizations unknown. - Infectious Disease History:: CDIFF, . - Social history:: Smoking status: unknown. Screenin:32 [facility] ED Fall Risk Assessment (Adult) History of falling in the last 3 months, ph including since admission No falls in past 3 months (0 pts) Confusion or Disorientation No (0 pts) Intoxicated or Sedated No (0 pts) Impaired Gait Yes (1 pt) Mobility Assist Device Used Yes (1 pt) Altered Elimination Yes (1 pt) Score/Fall Risk Level 3 or more points = High Risk Oriented to surroundings, Maintained a safe environment, Used ambulatory aids as needed (educated on \T\ assisted with). Abuse screen: Denies threats or abuse. Denies injuries from another. Nutritional screening: No deficits noted. Tuberculosis screening: No symptoms or risk factors identified. Assessment: 16:12 General: SEE TRIAGE ASSESSMENT. ph Vital Signs: 15:27 BP 120 / 61; Pulse 65; Resp 18; Temp 97.8; Pulse Ox 97% on ETT vent; Weight 68.04 kg; ph 16:12 BP 109 / 68; Pulse 54; Resp 18; Pulse Ox 95% on ETT vent; ph 17:16 BP 143 / 97; Pulse 57; Resp 18; Pulse Ox 94% on ETT vent; ph ED Course: 15:19 Patient arrived in ED. ms3 15:20 Nikita Mcleod DO is Attending Physician. ms3 15:23 John Berkowitz, RN is Primary Nurse. bp 15:30 Triage completed. ph 15:30 Arm band placed on Patient placed in an exam room, on a stretcher, on oxygen, on pulse ph oximetry. 15:32 Patient has correct armband on for positive identification. Bed in low position. Call ph light in reach. Side rails up X2. Pulse ox on. NIBP on. Door closed. Noise minimized. 15:35 Lamin Pulido MD is Hospitalizing Provider. ms3 Administered Medications: 15:57 Drug: LORazepam PO 1 mg PO once Route: PO; ph Medication: 15:32 VIS not applicable for this client. ph Outcome: 15:35 Decision to Hospitalize by Provider. ms3 18:12 Patient left the ED. bp Signatures: Georgia Shine RN RN ph John Berkowitz RN RN bp Nikita Mcleod DO DO ms3
[2024-06-30] MEDS ORDERED: ONDANSETRON 4 MG/2 ML VIAL IV PRN (17:11)
--- NOTE | 2024-06-30 17:20 | P.HP ---
Certification for Inpatient Patient admitted to: Observation With expected LOS: <2 Midnights Practitioner: I am a practitioner with admitting privileges, knowledge of patient current condition, hospital course, and medical plan of care. 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 She has a history of quadraplegia and is on a chronic ventilator. This morning the patient ventilator failed. She called EMS. Her [employer] was not able to come her till tomorrow. Allergies No Known Drug Allergies Allergy (Verified 05/02/19 10:33) Unknown Home Medications: Escitalopram [Lexapro*] 40 mg PO DAILY 05/01/19 Baclofen Pain Pump 11/21/23 Calcium 11/21/23 Vit D 11/21/23 Midodrine HCl [Proamatine*] 5 mg PO TID PRN 30 Days #90 tab 12/24/23 - Past Medical/Surgical History Diabetic: No -: spinal cord injury -: TBI -: CVA -: home vent -: [employer] shunt -: splenectomy -: knee surgery -: baclofen pump -: l ankle surgery - Social History Alcohol use: No CD- Drugs: No Caffeine use: Yes Review of Systems 10-point ROS is otherwise unremarkable Physical Examination - Vital Signs Pulse: 60 Pulse Ox (%): 97 - Physical Exam General: Alert, In no apparent distress HEENT: Atraumatic, PERRLA, Mucous membr. moist/pink, EOMI, Sclerae nonicteric Neck: Supple, 2+ carotid pulse no bruit, No LAD, Without JVD or thyroid abnormality Respiratory: Clear to auscultation bilaterally, Normal air movement Cardiovascular: Regular rate/rhythm, Normal S1 S2 Gastrointestinal: Normal bowel sounds, No tenderness Musculoskeletal: No tenderness Integumentary: No rashes Neurological: Normal affect, Abnormal speech (nee), Abnormal strength (0/5), Abnormal tone Lymphatics: No axilla or inguinal lymphadenopathy Assessment and Plan - Problems (Diagnosis) (1) Chronic respiratory failure with hypoxia and hypercapnia Current Visit: No Status: Acute Plan: will admit the patient to the icu for vent management. Till tomorrow when her vent company can come and repair or supply her a new vent Will have her seen by Dr. Schaffer for vent managent. Have also asked Dr. Saldivar to see her. She may do well with a local ENT for tracheostomy management. She has been going to [facility] till now for her vent care. (2) Quadriplegia following spinal cord injury Current Visit: No Status: Chronic Plan: chronic condition. will keep her on fall precautions. will check routine nutrition labs. Discharge Plan: Home Plan to discharge in: 24 Hours - Advance Directives Does patient have a Living Will: No Does patient have a Durable POA for Healthcare: No - Code Status/Comfort Care Code Status Assessed: Yes Code Status: Full Code Physician Review: Patient Assessed, Agree with Above Assessment and Plan Critical Care: No Time Spent Managing Pts Care (In Minutes): 20
[2024-07-01 05:05] LABS: Absolute Basophils 0.2 K/uL (0-0.5); Absolute Eosinophils 0.1 K/uL (0-0.5); Absolute Lymphocytes (CBC) 3.2 K/uL (0.7-4.9); Absolute Monocytes 0.7 K/uL (0.1-1.3); Absolute Neutrophil 5.4 K/uL (1.8-8.0); Basophils % 2.1 % (0-1.3); Eosinophils % 1.4 % (0-4.4); Hematocrit 42.1 % (36.0-45.0); Hemoglobin 14.4 g/dL (12.0-15.0); Lymphocytes % 33.1 % (15.3-44.8); MCH 33.3 pg (27.0-35.0); MCHC 34.3 g/dL (32.0-36.0); MCV 97.2 fL (80-100); MPV 11.1 fL (7.6-11.3); Monocytes % 7.6 % (3.3-12.3); Neutrophils % 55.8 % (41.7-73.7); Platelets 223 thou/uL (152-406); RBC Red Blood Cell Count 4.33 M/uL (3.86-4.86); Red Cell Distribution Width 14.6 % (12.1-15.2)
[2024-07-01 05:30] LABS: Albumin 3.3 g/dL (3.4-5.0); Albumin/Globulin Ratio 0.8 (1.1-1.8); Anion Gap 10.6 mEq/L (5.0-15.0); Bilirubin Total 0.7 mg/dL (0.2-1.0); Globulin 4.3 g/dL (2.3-3.5); Magnesium 1.8 mg/dL (1.6-2.4); Potassium 3.6 mEq/L (3.5-5.1); Protein, Total 7.6 g/dL (6.4-8.2); Thyroid Stimulating Hormone 2.91 uIU/mL (0.358-3.740)
[2024-07-01] MEDS: POTASSIUM 25 MEQ EFFERV TAB PO ONE (07:08)
[2024-07-01] MEDS: ESCITALOPRAM 20 MG TAB PO SCH (07:37)
[2024-07-01] MEDS: MIDODRINE HCL 5 MG TABLET PO PRN (10:25)
[2024-07-01] MEDS: LORAZEPAM 0.5 MG TABLET PO PRN (11:29)
--- NOTE | 2024-07-01 12:32 | P.PN ---
Subjective Date of Service: 07/01/24 Primary Care Provider: Ashok Chief Complaint: ventilatory failure Subjective: No new changes Review of Systems 10-point ROS is otherwise unremarkable Physical Examination - Vital Signs Temperature: 97.0 F Blood Pressure: 91/50 Pulse: 51 Respirations: 14 Pulse Ox (%): 96 - Physical Exam General: Alert, In no apparent distress HEENT: Atraumatic, PERRLA, EOMI Neck: Supple, JVD not distended Respiratory: Clear to auscultation bilaterally, Normal air movement Cardiovascular: Regular rate/rhythm, Normal S1 S2 Gastrointestinal: Normal bowel sounds, No tenderness Musculoskeletal: No tenderness Integumentary: No rashes Neurological: Normal speech, Normal tone, Normal affect Lymphatics: No axilla or inguinal lymphadenopathy Assessment And Plan - Current Problems (Diagnosis) (1) Chronic respiratory failure with hypoxia and hypercapnia Current Visit: No Status: Acute Plan: will admit the patient to the icu for vent management. Till tomorrow when her vent company can come and repair or supply her a new vent Will have her seen by Dr. Schaffer for vent managent. Have also asked Dr. Saldivar to see her. She may do well with a local ENT for tracheostomy management. She has been going to [facility] till now for her vent care. 07/01/24 awaiting repair of her home vent. Her mother will then bring her here to check functunality (2) Quadriplegia following spinal cord injury Current Visit: No Status: Chronic Plan: chronic condition. will keep her on fall precautions. will check routine nutrition labs. Discharge Plan: Home Plan to discharge in: 24 Hours - Code Status/Comfort Care Code Status Assessed: No Physician Review: Patient Assessed, Agree with Above Assessment and Plan Critical Care: No
--- NOTE | 2024-07-01 12:47 | P.CNS ---
Date of Consult: 06/30/24 Reason for Consult: Ventilator malfunction Primary Care Provider: Ashok Chief Complaint: ventilatory failure History of Present Illness: Patient is 48 years of age she is paraplegic for quite some time was placed on mechanical ventilation in 2018 in the past 2 weeks according to the patient the ventilator has been malfunctioning with a drop in her oxygen sats and presented to the emergency room currently she is stable on the ventilator from the hospital has some copious secretion otherwise no change Allergies No Known Drug Allergies Allergy (Verified 05/02/19 10:33) Unknown Home Medications: Citalopram [Celexa*] 10 mg PO DAILY 06/30/24 L.acidoph,Paracasei, B.lactis [Probiotic] 1 each PO DAILY 06/30/24 Mv/Fe/FA/Om3/FSH/Lycop/Lut/Guicho [Multia Daily Multivitamin] 1 cap PO DAILY 06/30/24 Sennosides [Senokot] 8.6 mg PO DAILY PRN 06/30/24 - Past Medical/Surgical History Diabetic: No -: spinal cord injury -: TBI -: CVA -: home vent -: WAIST FITTER shunt -: splenectomy -: knee surgery -: baclofen pump -: l ankle surgery - Social History Smoking Status: Unknown if ever smoked Alcohol use: No CD- Drugs: No Caffeine use: Yes Place of Residence: Home Review of Systems General: Weakness Respiratory: Cough, Shortness of Breath Physical Examination Temp Pulse Resp BP Pulse Ox 97.0 F 51 14 91/50 L 96 07/01/24 12:31 07/01/24 12:31 07/01/24 12:31 07/01/24 12:31 07/01/24 12:31 General: Alert, Oriented x3, Cooperative Respiratory: Clear to auscultation bilaterally Cardiovascular: No edema, Regular rate/rhythm, Normal S1 S2 - Problems (1) Ventilator dependent Current Visit: Yes Status: Acute Plan: Patient is 48 years of age paraplegic dependent on home ventilator currently her ventilator malfunction and it appeared in the hospital otherwise she denies any shortness of breath cough is mildly abnormal liver function test CBC is unremarkable oxygenation satisfactory labs reviewed
[2024-07-01] MEDS: ENOXAPARIN 30 MG/0.3 ML SQ SCH (17:22)
[2024-07-01] MEDS: ONDANSETRON 4 MG (ODT) TAB PO PRN (17:37)
--- NOTE | 2024-07-01 17:49 | P.CNS ---
Date of Consult: 07/01/24 Patient withc chronic trach since 2018 with care at [facility] for trach change and supplies. No complaints or concerns with trach site. Introduced myself to patient and offered assistance for any local ENT needs. FU as needed.
[2024-07-01] MEDS: DIPHENHYDRAMINE 25 MG TAB/CAP PO ONE (22:27)
[2024-07-02 05:35] LABS: Absolute Basophils 0.1 K/uL (0-0.5); Absolute Eosinophils 0.1 K/uL (0-0.5); Absolute Lymphocytes (CBC) 3.2 K/uL (0.7-4.9); Absolute Monocytes 0.6 K/uL (0.1-1.3); Absolute Neutrophil 5.6 K/uL (1.8-8.0); Basophils % 0.8 % (0-1.3); Eosinophils % 0.9 % (0-4.4); Hematocrit 42.2 % (36.0-45.0); Hemoglobin 14.3 g/dL (12.0-15.0); MCH 33.1 pg (27.0-35.0); MCHC 33.8 g/dL (32.0-36.0); MCV 98.1 fL (80-100); Monocytes % 5.8 % (3.3-12.3); Neutrophils % 58.5 % (41.7-73.7); Platelets 219 thou/uL (152-406); Red Cell Distribution Width 14.3 % (12.1-15.2)
[2024-07-02 05:47] LABS: Albumin 3.1 g/dL (3.4-5.0); Albumin/Globulin Ratio 0.7 (1.1-1.8); Anion Gap 8.8 mEq/L (5.0-15.0); Bilirubin Total 0.6 mg/dL (0.2-1.0); Globulin 4.3 g/dL (2.3-3.5); Potassium 3.8 mEq/L (3.5-5.1); Protein, Total 7.4 g/dL (6.4-8.2)
[2024-07-02] MEDS: HYDROMORPHONE ORAL 2 MG TAB PO PRN (07:49)
[2024-07-02] MEDS ORDERED: ACETAMINOPHEN 325 MG TABLET PO PRN (08:26)
[2024-07-02] MEDS ORDERED: ALBUTEROL 2.5 MG/3 ML NEB SOL NEB PRN (08:27)
[2024-07-02] MEDS ORDERED: ALBUTEROL 2.5 MG/3 ML NEB SOL NEB SCH (08:30)
--- NOTE | 2024-07-02 08:54 | P.PN ---
Subjective Date of Service: 07/02/24 Primary Care Provider: Ashok Chief Complaint: ventilatory failure Subjective: No new changes Patient states she feels horrible. She is sure it is the UTI. she has been colonozied with pseudomonas and proteus as an outpatient and was asymptomatic. She has also stopped her anxiety meds citalopram as an outpatient Review of Systems General: Weakness, Malaise, Other (anxiety) Physical Examination - Vital Signs Temperature: 97.4 F Blood Pressure: 108/61 Pulse: 56 Respirations: 16 Pulse Ox (%): 91 - Physical Exam General: Alert, In no apparent distress HEENT: Atraumatic, PERRLA, EOMI Neck: Supple, JVD not distended Respiratory: Clear to auscultation bilaterally, Normal air movement Cardiovascular: Regular rate/rhythm, Normal S1 S2 Gastrointestinal: Normal bowel sounds, No tenderness Musculoskeletal: No tenderness Integumentary: No rashes Neurological: Normal speech, Normal tone, Normal affect Lymphatics: No axilla or inguinal lymphadenopathy Assessment And Plan - Current Problems (Diagnosis) (1) Chronic respiratory failure with hypoxia and hypercapnia Current Visit: No Status: Acute Plan: will admit the patient to the icu for vent management. Till tomorrow when her vent company can come and repair or supply her a new vent Will have her seen by Dr. Schaffer for vent managent. Have also asked Dr. Saldivar to see her. She may do well with a local ENT for tracheostomy management. She has been going to [facility] till now for her vent care. 07/01/24 awaiting repair of her home vent. Her mother will then bring her here to check functunality (2) Quadriplegia following spinal cord injury Current Visit: No Status: Chronic Plan: chronic condition. will keep her on fall precautions. will check routine nutrition labs. (3) Anxiety about health Current Visit: Yes Status: Acute Plan: will restart the patient on fluids, nsaids. Restart her citalopram. Will reacess her in the afternoon (4) Colonization status Current Visit: Yes Status: Acute Plan: Patient has pseudomonas a proteus mirabili on Outpatient Urine culture on 05/18. Which would need IV antibiotics. Several studies show no benefit for treatment. The patients just recolonize. Will send the cultures to place in the chart. Will try treating her anxiety. She has no wbc or fevers. Perhaps she will feel better with some fluids. Will start her on pyridium for the patients peace of mind Discharge Plan: Home Plan to discharge in: 24 Hours - Code Status/Comfort Care Code Status Assessed: No Physician Review: Patient Assessed, Agree with Above Assessment and Plan Critical Care: No Time Spent Managing PTS Care (In Minutes): 30
[2024-07-02] MEDS: IBUPROFEN 600 MG TAB PO SCH (09:01)
[2024-07-02] MEDS: CITALOPRAM 10 MG TABLET PO SCH (09:01)
[2024-07-02] MEDS: D5 0.45 NS 1,000 ML IV SCH (09:01)
[2024-07-02] MEDS: PHENAZOPYRIDINE 100MG TAB PO SCH (12:03)
[2024-07-02] MEDS: DEXMEDETOMIDINE HCL 200 MCG in NA CHLORIDE 0.9% 98 ML IV SCH (16:44)
[2024-07-02 17:44] LABS: Arterial Blood Carboxyhemoglob 0.7 % (0-1.5); Blood Gas Oxyhemoglobin 95.5 % (94-97); Blood O2 Saturation 97.9 % (92-98.5)
[2024-07-02 17:45] LABS: Blood Gas THB 15.3 g/dl (12-18)
--- NOTE | 2024-07-02 18:47 | P.PN ---
Subjective Date of Service: 07/02/24 Primary Care Provider: Ashok Chief Complaint: ventilatory failure Patient's condition is stable complaining of severe anxiety according to the patient the ventilator has been settings have been changed currently stable requiring Precedex drip Review of Systems Anxiety Respiratory: Shortness of Breath Physical Examination - Vital Signs Temperature: 97.3 F Blood Pressure: 97/58 Pulse: 44 Respirations: 16 Pulse Ox (%): 94 - Physical Exam General: Alert, In no apparent distress, Oriented x3 Respiratory: Clear to auscultation bilaterally Cardiovascular: No edema, Regular rate/rhythm Assessment And Plan - Current Problems (Diagnosis) (1) Ventilator dependent Current Visit: Yes Status: Acute Plan: Patient is currently stable complaining of anxiety on Precedex drip on home ventilator CBC is normal patient has presumed chronic hypoxemia with hypercarbia patient's bicarbonate is normal no sputum for cultures despite deep suctioning possible discharge a.m. Physician Review: Patient Assessed, Agree with Above Assessment and Plan
[2024-07-03 05:05] LABS: Absolute Basophils 0.1 K/uL (0-0.5); Absolute Lymphocytes (CBC) 2.6 K/uL (0.7-4.9); Absolute Monocytes 0.9 K/uL (0.1-1.3); Absolute Neutrophil 8.7 K/uL (1.8-8.0); Basophils % 0.6 % (0-1.3); Eosinophils % 0.2 % (0-4.4); Hematocrit 46.5 % (36.0-45.0); Hemoglobin 15.4 g/dL (12.0-15.0); Lymphocytes % 21.3 % (15.3-44.8); MCH 32.5 pg (27.0-35.0); MCV 98.4 fL (80-100); MPV 11.4 fL (7.6-11.3); Monocytes % 7.2 % (3.3-12.3); Neutrophils % 70.7 % (41.7-73.7); Platelets 224 thou/uL (152-406); RBC Red Blood Cell Count 4.73 M/uL (3.86-4.86); Red Cell Distribution Width 14.3 % (12.1-15.2)
[2024-07-03 05:37] LABS: Albumin 3.2 g/dL (3.4-5.0); Albumin/Globulin Ratio 0.7 (1.1-1.8); Anion Gap 8.8 mEq/L (5.0-15.0); Bilirubin Total 0.4 mg/dL (0.2-1.0); Globulin 4.7 g/dL (2.3-3.5); Potassium 4.8 mEq/L (3.5-5.1); Protein, Total 7.9 g/dL (6.4-8.2)
[2024-07-03] MEDS ORDERED: DEXMEDETOMIDINE HCL 200 MCG in NA CHLORIDE 0.9% 98 ML IV SCH ×2 (09:00→14:05)
[2024-07-03] MEDS ORDERED: DEXMEDETOMIDINE HCL 1,000 MCG in NA CHLORIDE 0.9% 490 ML IV SCH (13:00)
--- NOTE | 2024-07-03 13:20 | P.PN ---
Subjective Date of Service: 07/03/24 Primary Care Provider: Ashok Chief Complaint: ventilatory failure Subjective: New changes Patient is speaking in whispers. She still does not feel well enough to go home. She has difficulty making her symptoms known Review of Systems is unable to be obtained General: Weakness, Malaise Physical Examination - Vital Signs Temperature: 95.3 F Blood Pressure: 112/63 Pulse: 40 Respirations: 16 Pulse Ox (%): 95 - Physical Exam General: Alert, In no apparent distress HEENT: Atraumatic, PERRLA, EOMI Neck: Supple, JVD not distended Respiratory: Clear to auscultation bilaterally, Normal air movement Cardiovascular: Regular rate/rhythm, Normal S1 S2 Gastrointestinal: Normal bowel sounds, No tenderness Musculoskeletal: No tenderness Integumentary: No rashes Neurological: Normal affect, Abnormal speech, Abnormal strength, Abnormal tone Lymphatics: No axilla or inguinal lymphadenopathy Assessment And Plan - Current Problems (Diagnosis) (1) Anxiety about health Current Visit: Yes Status: Acute Plan: will restart the patient on fluids, nsaids. Restart her citalopram. Will reacess her in the afternoon .25 will stop the precedex. Discussed the patient with Dr. Schaffer He will see if we need to adjust her ventilator to make her more comfortable. (2) Chronic respiratory failure with hypoxia and hypercapnia Current Visit: No Status: Acute Plan: will admit the patient to the icu for vent management. Till tomorrow when her vent company can come and repair or supply her a new vent Will have her seen by Dr. Schaffer for vent managent. Have also asked Dr. Saldivar to see her. She may do well with a local ENT for tracheostomy management. She has been going to [facility] till now for her vent care. 07/01/24 awaiting repair of her home vent. Her mother will then bring her here to check functunality (3) Quadriplegia following spinal cord injury Current Visit: No Status: Chronic Plan: chronic condition. will keep her on fall precautions. will check routine nutrition labs. (4) Colonization status Current Visit: Yes Status: Acute Plan: Patient has pseudomonas a proteus mirabili on Outpatient Urine culture on 05/18. Which would need IV antibiotics. Several studies show no benefit for treatment. The patients just recolonize. Will send the cultures to place in the chart. Will try treating her anxiety. She has no wbc or fevers. Perhaps she will feel better with some fluids. Will start her on pyridium for the patients peace of mind Discharge Plan: Home Plan to discharge in: 48 Hours - Code Status/Comfort Care Code Status Assessed: No Physician Review: Patient Assessed, Agree with Above Assessment and Plan Critical Care: Yes Time Spent Managing PTS Care (In Minutes): 25
[2024-07-03] MEDS: HYDROMORPHONE HCL 0.5 MG/0.5 ML INJ IV PRN (23:49)
[2024-07-04 05:59] LABS: Arterial Blood Carboxyhemoglob 0.6 % (0-1.5); Blood Gas Oxyhemoglobin 95.6 % (94-97); Blood O2 Saturation 98.3 % (92-98.5)
[2024-07-04 06:00] LABS: Blood Gas THB 15.4 g/dl (12-18)
--- NOTE | 2024-07-04 07:17 | RAD REPORT ---
EXAM: Chest Single View HISTORY: shortness of breath on vent COMPARISON: 12/23/2023 FINDINGS: LUNGS/PLEURA: Bilateral pleural effusions which are small with basilar consolidation, left greater th an right. MEDIASTINUM: The mediastinal silhouette is within normal limits. CARDIAC: The cardiac silhouette is within normal limits. UPPER ABDOMEN: No significant abnormality. BONES: No acute abnormality. LINES/TUBES/OTHER: Tracheostomy with tip at the aortic arch which is satisfactory. Tubing overlies th e right hemithorax which may be external to the patient. IMPRESSION: Small pleural effusions bilaterally in conjunction with basilar consolidation, left greater than righ t, which may reflect pneumonia or pneumonitis.
[2024-07-04] MEDS: Meropenem 1,000 MG in NA CHLORIDE 0.9% 100 ML IV SCH (10:00)
--- NOTE | 2024-07-04 10:04 | P.PN ---
Subjective Date of Service: 07/04/24 Primary Care Provider: Ashok Chief Complaint: Respiratory failure Patient's oxygen requirements have increased she is becoming more tachypneic anxious patient requirements have increased to 6 L normal chest x-ray Review of Systems General: Weakness Respiratory: Shortness of Breath Physical Examination - Vital Signs Temperature: 97.2 F Blood Pressure: 103/64 Pulse: 34 Respirations: 16 Pulse Ox (%): 92 - Physical Exam General: Alert, Cooperative Respiratory: Clear to auscultation bilaterally, Normal air movement Cardiovascular: Regular rate/rhythm, Edema Assessment And Plan - Current Problems (Diagnosis) (1) Ventilator dependent Current Visit: Yes Status: Acute Plan: Respiratory distress oxygen requirements have increased blood gases reviewed hypoxic hypercapnic titrate sat to 90% white count has increased stable pneumonia profound bradycardia consult cardiology patient has baseline hypercapnia start on broad-spectrum antibiotics the echocardiogram and refused CT pulmonary angio Physician Review: Patient Assessed, Agree with Above Assessment and Plan
--- NOTE | 2024-07-04 11:20 | RAD REPORT ---
EXAMINATION: US LOWER EXTREMITY VENOUS DOPPLER BILATERAL CLINICAL INDICATION: Female, 48 years old.Rule out DVT TECHNIQUE: Complete bilateral duplex sonography of the lower extremity veins was performed. The exami nation included compression for vein patency, color Doppler imaging and flow augmentation in response to distal compression of the distal external iliac, common femoral, femoral, popliteal, brenda serafin, tibial and great saphenous veins. [id number]. COMPARISON: No prior exams FINDINGS: Duplex sonography imaging demonstrates all deep examined to be fully compressible with spontaneous, p hasic and augmented flow bilaterally. IMPRESSION: No evidence of deep venous thrombosis seen in either lower extremity.
[2024-07-04 11:25] LABS: Specific Gravity > 1.030 (1.005-1.030); Urine Bacteria 20-50 /HPF (<20); Urine Bilirubin NEGATIVE (Negative); Urine Blood Negative (Negative); Urine Clarity Extremely Turbid (Clear); Urine Color Dark-Yellow (Yellow); Urine Culture Reflex Order REFLEXED; Urine Glucose NEGATIVE (Negative); Urine Ketones NEGATIVE (Negative); Urine Microscopic Reflex YN ORDER UMIC; Urine Mucus 4+ /HPF (None Seen); Urine Nitrite NEGATIVE (Negative); Urine Protein 4+ (Over) (Negative); Urine Triple Phosphate Crystal Few /HPF (None Seen); Urine Urobilinogen 2+ (Normal); Urine WBC >50 /HPF (<5)
--- NOTE | 2024-07-04 12:44 | P.PN ---
Subjective Date of Service: 07/04/24 Primary Care Provider: Ashok Chief Complaint: Respiratory failure Subjective: No new changes Patient is speaking in whispers. She still does not feel well enough to go home. She has difficulty making her symptoms known Review of Systems General: Weakness, Malaise Physical Examination - Vital Signs Temperature: 97.2 F Blood Pressure: 105/65 Pulse: 36 Respirations: 21 Pulse Ox (%): 100 - Physical Exam General: Alert, In no apparent distress HEENT: Atraumatic, PERRLA, EOMI Neck: Supple, JVD not distended Respiratory: Clear to auscultation bilaterally, Normal air movement Cardiovascular: Regular rate/rhythm, Normal S1 S2 Gastrointestinal: Normal bowel sounds, No tenderness Musculoskeletal: No tenderness Integumentary: No rashes Neurological: Normal speech, Normal tone, Normal affect Lymphatics: No axilla or inguinal lymphadenopathy Assessment And Plan - Current Problems (Diagnosis) (1) Master-tachy syndrome Current Visit: Yes Status: Acute Plan: Patient has been bradycardia for the past 2 days and is weaker. Have discussed with Dr. Schaffer and Dr. Benavides. The patient refused the CTA. The patient also refuses a transfer to [place] for a Pacemaker. Wants to think about this for a few more days. The patient was informed if she crashes she should be in a higher level of care facility. Family states doubts about Dr. Benavides's ability. Will start her on dopamine. Anticoagulation (2) Anxiety about health Current Visit: Yes Status: Acute Plan: will restart the patient on fluids, nsaids. Restart her citalopram. Will reacess her in the afternoon 1.25 will stop the precedex. Discussed the patient with Dr. Schaffer He will see if we need to adjust her ventilator to make her more comfortable. (3) Chronic respiratory failure with hypoxia and hypercapnia Current Visit: No Status: Acute Plan: will admit the patient to the icu for vent management. Till tomorrow when her vent company can come and repair or supply her a new vent Will have her seen by Dr. Schaffer for vent managent. Have also asked Dr. Saldivar to see her. She may do well with a local ENT for tracheostomy management. She has been going to [facility] till now for her vent care. 07/01/24 awaiting repair of her home vent. Her mother will then bring her here to check functunality (4) Quadriplegia following spinal cord injury Current Visit: No Status: Chronic Plan: chronic condition. will keep her on fall precautions. will check routine nutrition labs. (5) Colonization status Current Visit: Yes Status: Acute Plan: Patient has pseudomonas a proteus mirabili on Outpatient Urine culture on 05/18. Which would need IV antibiotics. Several studies show no benefit for treatment. The patients just recolonize. Will send the cultures to place in the chart. Will try treating her anxiety. She has no wbc or fevers. Perhaps she will feel better with some fluids. Will start her on pyridium for the patients peace of mind (6) UTI (urinary tract infection) Current Visit: Yes Status: Chronic Plan: has been started meropenem. As per outpatient cultures. Will add ceftazidine Qualifiers: Indwelling urinary catheter type: unspecified Discharge Plan: Other Plan to discharge in: Greater than 2 days - Code Status/Comfort Care Code Status Assessed: No Physician Review: Patient Assessed, Agree with Above Assessment and Plan Critical Care: Yes Time Spent Managing PTS Care (In Minutes): 40
[2024-07-04] MEDS: ENOXAPARIN 80 MG/0.8 ML SQ SCH (12:58)
[2024-07-04] MEDS: DOPAMINE/D5W 400 MG/250 ML BAG IV SCH (12:58)
[2024-07-04] MEDS: CEFTAZIDIME 2 GM in NA CHLORIDE 0.9% 100 ML IV SCH (16:07)
[2024-07-04] MEDS ORDERED: CEFTAZIDIME 2 GM/VIAL IV SCH (17:00)
[2024-07-05] MEDS: DOPAMINE HCL IN DEXTROSE 5 % 400 MG/250 ML KIT IV ONE (02:11)
[2024-07-05 05:22] LABS: Absolute Basophils 0.1 K/uL (0-0.5); Absolute Monocytes 1.3 K/uL (0.1-1.3); Absolute Neutrophil 13.4 K/uL (1.8-8.0); Basophils % 0.4 % (0-1.3); Eosinophils % 0.1 % (0-4.4); Hematocrit 46.5 % (36.0-45.0); Hemoglobin 15.6 g/dL (12.0-15.0); Lymphocytes % 12.2 % (15.3-44.8); MCH 32.9 pg (27.0-35.0); MCHC 33.6 g/dL (32.0-36.0); MPV 11.1 fL (7.6-11.3); Monocytes % 7.5 % (3.3-12.3); Neutrophils % 79.8 % (41.7-73.7); Nucleated Red Blood Cells % 0.1 % (0-0); Platelets 246 thou/uL (152-406); RBC Red Blood Cell Count 4.75 M/uL (3.86-4.86); Red Cell Distribution Width 13.9 % (12.1-15.2)
[2024-07-05 05:45] LABS: Albumin 3.1 g/dL (3.4-5.0); Albumin/Globulin Ratio 0.7 (1.1-1.8); Anion Gap 7.7 mEq/L (5.0-15.0); Bilirubin Total 0.5 mg/dL (0.2-1.0); Globulin 4.3 g/dL (2.3-3.5); Potassium 3.7 mEq/L (3.5-5.1); Protein, Total 7.4 g/dL (6.4-8.2)
[2024-07-05] MEDS: Mupirocin NASAL 2 APPL/1 GM TUBE NAS SCH (08:26)
[2024-07-05] MEDS: LORazepam 2 MG/ML VIAL IV PRN (08:30)
--- NOTE | 2024-07-05 08:55 | P.DS ---
Admission Date: 07/01/24 Discharge Date: 07/05/24 Primary Care Provider: Ashok [facility] Discharge Condition: SERIOUS Reason for Admission: Respiratory failure - Problems (1) Master-tachy syndrome Current Visit: Yes Status: Acute (2) Anxiety about health Current Visit: Yes Status: Acute (3) Chronic respiratory failure with hypoxia and hypercapnia Current Visit: No Status: Acute (4) Quadriplegia following spinal cord injury Current Visit: No Status: Chronic (5) Colonization status Current Visit: Yes Status: Acute (6) UTI (urinary tract infection) Current Visit: Yes Status: Chronic Qualifiers: Indwelling urinary catheter type: unspecified Brief History of Present Illness: Patient is a office patient of [facility]. She has a history of quadraplegia and is on a chronic ventilator. This morning the patient ventilator failed. She called EMS. Her [employer] company was not able to come her till tomorrow. Hospital Course: Patient was admitted for failure of her home vent. Was replaced the next day. The patient started have poor feeling She was thougth to hav anxiety and was started on presidex. This did not improve her. Was noted to be bradycardic since admission in the 40s for most of her stay. The patient was worked up for a PE. Though she refused a CT angiogram. she was started on lovenox emperically. The patient was started on Meropenem and ceftazadine for the positive UA. She was not improving. Started on Dopamine. She initially refused a picc line and transfer to [place]. She improved with dopamine. However is continuing to decline. She agreed to picc line and transfer this morning Vital Signs/Physical Exam: Temp Pulse Resp BP Pulse Ox 98.8 F 44 L 16 142/60 H 100 07/05/24 08:00 07/05/24 08:15 07/05/24 08:15 07/05/24 08:15 07/05/24 08:15 General: Alert, In no apparent distress HEENT: Atraumatic, PERRLA, EOMI Neck: Supple, JVD not distended Respiratory: Clear to auscultation bilaterally, Normal air movement Cardiovascular: Regular rate/rhythm, Normal S1 S2 Gastrointestinal: Normal bowel sounds, No tenderness Musculoskeletal: No tenderness Integumentary: No rashes Neurological: Normal speech, Normal tone, Normal affect Lymphatics: No axilla or inguinal lymphadenopathy Laboratory Data at Discharge: WBC 16.80 thou/uL (4.3-10.9) H 07/05/24 04:45 Hgb 15.6 g/dL (12.0-15.0) H 07/05/24 04:45 Hct 46.5 % (36.0-45.0) H 07/05/24 04:45 Plt Count 246 thou/uL (152-406) 07/05/24 04:45 Sodium 134 mEq/L (136-145) L 07/05/24 04:45 Potassium 3.7 mEq/L (3.5-5.1) 07/05/24 04:45 BUN 7 mg/dL (7-18) 07/05/24 04:45 Creatinine 0.34 mg/dL (0.55-1.02) L 07/05/24 04:45 Glucose 125 mg/dL (74-106) H 07/05/24 04:45 Magnesium 2.0 mg/dL (1.6-2.4) 07/05/24 04:45 Total Bilirubin 0.5 mg/dL (0.2-1.0) 07/05/24 04:45 AST 24 U/L (15-37) 07/05/24 04:45 ALT 51 U/L (13-56) 07/05/24 04:45 Alkaline Phosphatase 118 U/L (45-117) H 07/05/24 04:45 Home Medications: Citalopram [Celexa*] 10 mg PO DAILY 06/30/24 L.acidoph,Paracasei, B.lactis [Probiotic] 1 each PO DAILY 06/30/24 Mv/Fe/FA/Om3/FSH/Lycop/Lut/Guicho [Multia Daily Multivitamin] 1 cap PO DAILY 06/30/24 Sennosides [Senokot] 8.6 mg PO DAILY PRN 06/30/24 Diet: Regular Activity: Ad beck Followup: Lamin Pulido MD [Primary Care Provider] - Time spent managing pt's care (in minutes): 45
[2024-07-05] MEDS ORDERED: ALBUTEROL 2.5 MG/3 ML NEB SOL NEB PRN (12:26)
--- NOTE | 2024-07-05 12:27 | RAD REPORT ---
EXAMINATION: ONE VIEW CHEST XR CLINICAL INDICATION: PICC line placement TECHNIQUE: Frontal chest projection is submitted. Examination is limited by patient positioning and t echnique. COMPARISON: 07/04/2024 FINDINGS: Right-sided PICC line is in place with its tip in SVC. Tracheostomy tube tip is above the yolanda. The re is complete opacification of left hemithorax noted, new since prior study.
--- NOTE | 2024-07-05 12:31 | P.PN ---
Subjective Date of Service: 07/05/24 Primary Care Provider: Ashok Chief Complaint: Respiratory failure No significant change patient was started on dopamine yesterday due to severe bradycardia patient still continues to remain hypoxic chest x-ray shows complete atelectasis or pleural effusion on the left side patient needs a CT scan of the chest Review of Systems General: Weakness Respiratory: Cough, Shortness of Breath Physical Examination - Vital Signs Temperature: 98.8 F Blood Pressure: 134/71 Pulse: 43 Respirations: 5 Pulse Ox (%): 100 - Physical Exam General: Oriented x3 Respiratory: Diminished (Patient on the left side) Gastrointestinal: Normal bowel sounds Assessment And Plan - Current Problems (Diagnosis) (1) Ventilator dependent Current Visit: Yes Status: Acute Plan: Patient now has complete atelectasis will effusion possible consolidation on the left side will need a CT scan to determine in the meantime we will start some chest percussion left side up need a bronchoscopy to evaluate her left lung and is on meropenem count is elevated able to get any sputum (2) Severe sinus bradycardia Current Visit: Yes Status: Acute - Plan Patient has severe bradycardia cardiology recommended transfer to [place] for a pacemaker Physician Review: Patient Assessed, Agree with Above Assessment and Plan
--- NOTE | 2024-07-05 14:02 | RAD REPORT ---
EXAMINATION: CTA CHEST PE CLINICAL INDICATION: Female, 48 years old. RO PE TECHNIQUE: This examination was performed according to an angiographic protocol with 3D post-processi ng. This involves 3D reconstructions, MIPs, volume rendered images and/or shaded surface rendering. One or more of the following dose reduction techniques were used: Automated exposure control, adjustm ent of the mA and/or kV according to patient size, and/or iterative reconstruction. Unless otherwise specified, incidental findings do not require dedicated imaging follow-up. [id number]. COMPARISON: 11/21/2023 FINDINGS: LOWER NECK: Tracheostomy. The tip of the tracheostomy tube is above the yolanda. LUNGS AND AIRWAYS: Nearly the entire left lung is collapsed. There is consolidation medial right lowe r lobe. There is also some associated atelectasis.Bowing of the posterior wall of the trachea could reflect some component of tracheomalacia. The left mainstem bronchus is occluded, possibly secondary to secretions. PLEURA: Moderate left and small right pleural effusion. On the right, a ventriculopleural shunt is pr esent. MEDIASTINUM AND LYMPH NODES: No mediastinal mass or fluid collection. Normal size mediastinal, hilar, and axillary lymph nodes. THORACIC AORTA: No thoracic aortic aneurysm. PULMONARY ARTERIES: Enlarged main pulmonary arteries could indicate pulmonary artery hypertension. No pulmonary emboli identified. HEART: Mild cardiomegaly. No coronary calcifications.No significant pericardial effusion. OSSEOUS STRUCTURES AND CHEST WALL: No fracture or suspicious osseous lesions. Bilateral breast prosth eses. UPPER ABDOMEN: No acute abnormalities.Probable hepatic steatosis. IMPRESSION: 1. Negative for pulmonary embolism. 2. Complete collapse of the left lung with moderate pleural fluid may be from mucous plugging at the level of the left mainstem bronchus which appears occluded. No mass identified however further evaluation with bronchoscopy could be considered. 2. Mild right lower lobe consolidation concerning for pneumonia or pneumonitis. A small right pleural effusion is present with ventriculopleural catheter in place.
[2024-07-05 14:22] VITALS: BMI 4246.1
[2024-07-05] MEDS: ALBUTEROL 2.5 MG/3 ML NEB SOL NEB PRN (23:44)
[2024-07-06] MEDS: DOPAMINE HCL IN DEXTROSE 5 % 400 MG/250 ML KIT IV SCH (00:38)
[2024-07-06] MEDS: NOREPINEPHRINE BITARTRATE/D5W 0 MG/0 ML KIT IV ONE (05:17)
[2024-07-06 05:21] LABS: Absolute Basophils 0.1 K/uL (0-0.5); Absolute Monocytes 0.7 K/uL (0.1-1.3); Absolute Neutrophil 11.2 K/uL (1.8-8.0); Basophils % 0.4 % (0-1.3); Eosinophils % 0.1 % (0-4.4); Hematocrit 45.1 % (36.0-45.0); Hemoglobin 15.2 g/dL (12.0-15.0); Lymphocytes % 14.2 % (15.3-44.8); MCH 32.6 pg (27.0-35.0); MCHC 33.7 g/dL (32.0-36.0); MCV 96.7 fL (80-100); MPV 11.3 fL (7.6-11.3); Monocytes % 5.2 % (3.3-12.3); Neutrophils % 80.1 % (41.7-73.7); Nucleated Red Blood Cells % 0.1 % (0-0); Platelets 258 thou/uL (152-406); RBC Red Blood Cell Count 4.67 M/uL (3.86-4.86); Red Cell Distribution Width 13.8 % (12.1-15.2)
[2024-07-06 05:32] LABS: Albumin/Globulin Ratio 0.8 (1.1-1.8); Anion Gap 6.2 mEq/L (5.0-15.0); Bilirubin Total 0.4 mg/dL (0.2-1.0); Potassium 3.2 mEq/L (3.5-5.1)
[2024-07-06] MEDS ORDERED: DEXMEDETOMIDINE HCL 200 MCG in NA CHLORIDE 0.9% 98 ML IV SCH (07:30)
[2024-07-06] MEDS: KCL 20 MEQ/100 mL IVPB 20 MEQ/100 ML BAG IV SCH ×2 (07:33→15:22)
--- NOTE | 2024-07-06 07:35 | RAD REPORT ---
Procedure: Chest Single View HISTORY: Tracheostomy placement COMPARISON: July 05, 2024 FINDINGS: A tracheostomy has been inserted in good position. No pneumothorax. Reexpansion of the left lung has occurred. Mild bilateral pulmonary opacities. Small pleural effusions are present. The heart is moderately enlarged. IMPRESSION: Tracheostomy tube placement in good position. No pneumothorax
--- NOTE | 2024-07-06 08:49 | P.PN ---
Subjective Date of Service: 07/06/24 Primary Care Provider: Ashok Chief Complaint: Respiratory failure Patient had a colapsed lung. Due to mucus plug. had a trach change. Aggressive suction and chest PT is better today. She is still on Dopamine for her bp. Her pulse is better Review of Systems is unable to be obtained (sedated) Physical Examination - Vital Signs Temperature: 97.1 F Blood Pressure: 118/75 Pulse: 71 Respirations: 16 Pulse Ox (%): 98 - Physical Exam General: Alert, In no apparent distress HEENT: Atraumatic, PERRLA, EOMI Neck: Supple, JVD not distended Respiratory: Clear to auscultation bilaterally, Normal air movement Cardiovascular: Regular rate/rhythm, Normal S1 S2 Gastrointestinal: Normal bowel sounds, No tenderness Musculoskeletal: No tenderness Integumentary: No rashes Neurological: Normal speech, Normal tone, Normal affect Lymphatics: No axilla or inguinal lymphadenopathy Assessment And Plan - Current Problems (Diagnosis) (1) Master-tachy syndrome Current Visit: Yes Status: Acute Plan: Patient has been bradycardia for the past 2 days and is weaker. Have discussed with Dr. Schaffer and Dr. Benavides. The patient refused the CTA. The patient also refuses a transfer to [place] for a Pacemaker. Wants to think about this for a few more days. The patient was informed if she crashes she should be in a higher level of care facility. Family states doubts about Dr. Benavides's ability. Will start her on dopamine. Anticoagulation 1. plans for transfer for cardiac work up and possible pacemaker (2) Anxiety about health Current Visit: Yes Status: Acute Plan: will restart the patient on fluids, nsaids. Restart her citalopram. Will reacess her in the afternoon 1.25 will stop the precedex. Discussed the patient with Dr. Schaffer He will see if we need to adjust her ventilator to make her more comfortable. (3) Chronic respiratory failure with hypoxia and hypercapnia Current Visit: No Status: Acute Plan: will admit the patient to the icu for vent management. Till tomorrow when her vent company can come and repair or supply her a new vent Will have her seen by Dr. Schaffer for vent managent. Have also asked Dr. Saldivar to see her. She may do well with a local ENT for tracheostomy management. She has been going to [facility] till now for her vent care. 07/01/24 awaiting repair of her home vent. Her mother will then bring her here to check functunality (4) Quadriplegia following spinal cord injury Current Visit: No Status: Chronic Plan: chronic condition. will keep her on fall precautions. will check routine nutrition labs. (5) Colonization status Current Visit: Yes Status: Acute Plan: Patient has pseudomonas a proteus mirabili on Outpatient Urine culture on 05/18. Which would need IV antibiotics. Several studies show no benefit for treatment. The patients just recolonize. Will send the cultures to place in the chart. Will try treating her anxiety. She has no wbc or fevers. Perhaps she will feel better with some fluids. Will start her on pyridium for the patients peace of mind (6) UTI (urinary tract infection) Current Visit: Yes Status: Chronic Plan: has been started meropenem. As per outpatient cultures. Will add ceftazidine Qualifiers: Indwelling urinary catheter type: unspecified (7) Collapsed lung Current Visit: Yes Status: Acute Plan: improved after chest wall PT. suctioning and placing on the hospital vent. Dr. Schaffer monitoring Physician Review: Patient Assessed, Agree with Above Assessment and Plan Critical Care: Yes Time Spent Managing PTS Care (In Minutes): 20
--- NOTE | 2024-07-06 11:04 | RAD REPORT ---
Procedure: Chest Single View HISTORY: Shortness of breath COMPARISON: July 06, 2024 FINDINGS: Progression in opacification right hemithorax. No other significant change IMPRESSION: Progression in the opacification of the right hemithorax. This could represent enlarging pleural effu megan or infiltrate/atelectasis.
--- NOTE | 2024-07-06 12:14 | P.PN ---
Subjective Date of Service: 07/06/24 Primary Care Provider: Ashok Chief Complaint: Respiratory failure Patient's condition deteriorated last night she developed atelectasis of the left lung and was experiencing persistent desaturation chest progression was also started Review of Systems is unable to be obtained Physical Examination - Vital Signs Temperature: 97.1 F Blood Pressure: 118/75 Pulse: 71 Respirations: 16 Pulse Ox (%): 98 - Physical Exam General: Mild distress Respiratory: Normal air movement, Diminished Cardiovascular: Normal S1 S2, Edema Gastrointestinal: Normal bowel sounds, Soft and benign Assessment And Plan - Current Problems (Diagnosis) (1) Severe sinus bradycardia Current Visit: Yes Status: Acute Plan: Patient is on dopamine (2) Atelectasis, left Current Visit: Yes Status: Acute Plan: Patient developed significant atelectasis of the left lung unresponsive to percussion subsequently the endotracheal tube was changed to a cuffed 1 without any difficulty patient's oxygenation improved was able to suction some mucous plugs with 3 effect reexpansion of the left lung she developed more opacification on the right lung may have developed more atelectasis continue with suctioning breathing treatments and Mucomyst sputum cultures have also been ordered vancomycin started continue with meropenem - Plan Patient has severe bradycardia cardiology recommended transfer to [place] for a pacemaker Physician Review: Patient Assessed, Agree with Above Assessment and Plan
[2024-07-06] MEDS: VANCOMYCIN 1.25 GM in NA CHLORIDE 0.9% 250 ML IVPB SCH (12:55)
[2024-07-06 13:41] LABS: Magnesium 1.8 mg/dL (1.6-2.4); Potassium 3.1 mEq/L (3.5-5.1)
--- NOTE | 2024-07-06 13:47 | ECHO ---
HEIGHT: 0 ft 5 in WEIGHT: 151 lb 0 oz DATE OF STUDY: 07/05/[address]: Dandre Saunders MD 2-DIMENSIONAL: YES M.MODE: YES DOPPLER: YES COLOR FLOW: YES TDS: YES PORTABLE: YES DEFINITY: NO BUBBLE STUDY: NO DIAGNOSIS: BRADYCARDIA CARDIAC HISTORY: CATHERIZATION: SURGERY: PROSTHETIC VALVE: PACEMAKER: MEASUREMENTS (cm) DIASTOLIC (NORMALS) SYSTOLIC (NORMALS) IVSd 0.9 (0.6-1.2) LA Diam 2.5 (1.9-4.0) LVEF 61% LVIDd 4.0 (3.5-5.7) LVIDs 2.7 (2.0-3.5) %FS 33% LVPWd 1.0 (0.6-1.2) Ao Diam 2.9 (2.0-3.7) 2 DIMENSIONAL ASSESSMENT: RIGHT ATRIUM: NORMAL LEFT ATRIUM: NORMAL RIGHT VENTRICLE: NORMAL LEFT VENTRICLE: NORMAL TRICUSPID VALVE: MILD TRICUSPID REGURGITATION MITRAL VALVE: NORMAL PULMONIC VALVE: NORMAL AORTIC VALVE: TRACE OF AORTIC REGURGITATION PERICARDIAL EFFUSION: NONE AORTIC ROOT: NORMAL LEFT VENTRICULAR WALL MOTION: NORMAL. DOPPLER/COLOR FLOW: NORMAL. COMMENTS: 1. NORMAL LEFT VENTRICULAR SYSTOLIC FUNCTION, EJECTION FRACTION 60-65%, NORMAL WALL MOTION. 2. NORMAL DIASTOLIC FUNCTION. TECHNOLOGIST: DELL SANTOS
[2024-07-06] MEDS: ACETYLCYST 20% 4 ML VIAL IH SCH (14:10)
[2024-07-06] MEDS: Magnesium Sulfate 2gm IVPB 2 G/50 ML BAG IV ONE (15:22)
--- NOTE | 2024-07-06 16:00 | RAD REPORT ---
EXAM: Chest HISTORY: R side RO Effusion COMPARISON: 07/05/2024 TECHNIQUE: Sonographic grayscale and color flow imaging of the right chest including the region of in terest as described by the patient. FINDINGS: Limited ultrasound of the right chest which demonstrates a small right pleural effusion. . IMPRESSION: Small right pleural effusion.
[2024-07-06 16:15] LABS: Blood Gas Oxyhemoglobin 75.7 % (94-97); Blood O2 Saturation 77.8 % (92-98.5)
[2024-07-06 16:16] LABS: Arterial Blood Carboxyhemoglob 0.7 % (0-1.5); Blood Gas THB 13.7 g/dl (12-18)
[2024-07-06] MEDS: POTASSIUM PHOS IN 0.9 % NACL 15 MMOL/250 ML BAG IV ONE (16:38)
[2024-07-06] MEDS: NA CHLORIDE 0.9% 500 ML IV ONE (18:15)
[2024-07-07 00:45] VITALS: O2SAT 98
[2024-07-07 04:30] VITALS: TEMP 98
[2024-07-07 04:57] VITALS: BP 119/60
--- NOTE | 2024-07-07 15:10 | P.DS ---
Admission Date: 07/01/24 Discharge Date: 07/07/24 Primary Care Provider: Ashko Disposition: TRANSFER TO [facility] Discharge Condition: SERIOUS Reason for Admission: Respiratory failure - Problems (1) Master-tachy syndrome Status: Acute (2) Anxiety about health Status: Acute (3) Chronic respiratory failure with hypoxia and hypercapnia Status: Acute (4) Quadriplegia following spinal cord injury Status: Chronic (5) Colonization status Status: Acute (6) UTI (urinary tract infection) Status: Chronic Qualifiers: Indwelling urinary catheter type: unspecified (7) Collapsed lung Status: Acute Brief History of Present Illness: 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 She has a history of quadraplegia and is on a chronic ventilator. This morning the patient ventilator failed. She called EMS. Her [employer] company was not able to come her till tomorrow. Hospital Course: Patient was admitted for failure of her home vent. Was replaced the next day. The patient started have poor feeling She was thougth to hav anxiety and was started on presidex. This did not improve her. Was noted to be bradycardic since admission in the 40s for most of her stay. The patient was worked up for a PE. Though she refused a CT angiogram. she was started on lovenox emperically. The patient was started on Meropenem and ceftazadine for the positive UA. She was not improving. Started on Dopamine. She initially refused a picc line and transfer to [place]. She improved with dopamine. However is continuing to decline. She agreed to picc line and transfer this morning 07/07 Patient had left lung collapse on the 07/06. Responded to suction and pt initially. However she continue to require dopamine. She had improvement of her heart rate with dopamine. Her blood pressure would not tolerate weaning off dopamine. Was transfered to [facility] for a cardiac work up. Thank you for allowing me to take part in the patients care. Vital Signs/Physical Exam: Temp Pulse Resp BP Pulse Ox 98 F 63 14 119/60 98 07/07/24 00:30 07/07/24 04:45 07/07/24 04:45 07/07/24 04:45 07/07/24 04:45 General: Alert, In no apparent distress HEENT: Atraumatic, PERRLA, EOMI Neck: Supple, JVD not distended Respiratory: Clear to auscultation bilaterally, Normal air movement Cardiovascular: Regular rate/rhythm, Normal S1 S2 Gastrointestinal: Normal bowel sounds, No tenderness Musculoskeletal: No tenderness Integumentary: No rashes Neurological: Normal speech, Normal tone, Normal affect Lymphatics: No axilla or inguinal lymphadenopathy Laboratory Data at Discharge: WBC Cancelled 07/07/24 06:00 Hgb Cancelled 07/07/24 06:00 Hct Cancelled 07/07/24 06:00 Plt Count Cancelled 07/07/24 06:00 Sodium Cancelled 07/07/24 06:00 Potassium Cancelled 07/07/24 06:00 BUN Cancelled 07/07/24 06:00 Creatinine Cancelled 07/07/24 06:00 Glucose Cancelled 07/07/24 06:00 Phosphorus 1.0 mg/dL (2.5-4.9) L* 07/06/24 13:16 Magnesium 1.8 mg/dL (1.6-2.4) 07/06/24 13:16 Total Bilirubin Cancelled 07/07/24 06:00 AST Cancelled 07/07/24 06:00 ALT Cancelled 07/07/24 06:00 Alkaline Phosphatase Cancelled 07/07/24 06:00 Home Medications: Citalopram [Celexa*] 10 mg PO DAILY 06/30/24 L.acidoph,Paracasei, B.lactis [Probiotic] 1 each PO DAILY 06/30/24 Mv/Fe/FA/Om3/FSH/Lycop/Lut/Guicho [Multia Daily Multivitamin] 1 cap PO DAILY 06/30/24 Sennosides [Senokot] 8.6 mg PO DAILY PRN 06/30/24 Diet: Regular Activity: Ad bcek Followup: Lamin Pulido MD [Primary Care Provider] - Time spent managing pt's care (in minutes): 45
== END 2024-07-07 05:20 | disposition short-term general hospital (02) | DRG 951 ==
LOC: ER 15:09 → ERHOLD 17:03 → 3RD-ICU 17:36 → OBSVTOIN 07-01 17:17
PROVIDERS: ADMIT Internal Medicine; ATTEND Internal Medicine
PROC: 5A1955Z Respiratory Ventilation, Greater than 96 Consecutive Hours (ICD-10-PCS; 2024-06-30)
PROC: 0BH17EZ Insertion of Endotracheal Airway into Trachea, Via Natural or Artificial Opening (ICD-10-PCS; 2024-06-30)
PROC: 4A033R1 Measurement of Arterial Saturation, Peripheral, Percutaneous Approach (ICD-10-PCS; principal; 2024-07-04)
PROC: 02HV33Z Insertion of Infusion Device into Superior Vena Cava, Percutaneous Approach (ICD-10-PCS; 2024-07-05)
DX: J95.850 Mechanical complication of respirator (principal); G82.50 Quadriplegia, unspecified; J96.12 Chronic respiratory failure with hypercapnia; J96.11 Chronic respiratory failure with hypoxia; N39.0 Urinary tract infection, site not specified; J98.11 Atelectasis; I49.5 Sick sinus syndrome; F41.9 Anxiety disorder, unspecified; Z93.0 Tracheostomy status; Z90.81 Acquired absence of spleen; Z91.040 Latex allergy status; Z99.11 Dependence on respirator [ventilator] status; Z79.899 Other long term (current) drug therapy; Z87.820 Personal history of traumatic brain injury; Z91.148 Patient's other noncompliance with medication regimen for other reason
CPT/HCPCS: 36415; 36600; 71045; 71275; 76604; 80053; 81001; 82330; 82533; 82805; 83735; 83880; 84100; 84132; 84134; 84443; 85025; 85379; 87070; 87077; 87086; 87088; 87186; 87205; 93306; 93970; 94002; 94003; 94640; 94668; 99284; G0378; J0713; J1171; J1265; J1650; J2185; J3475; J3480; J7040; J7050; J7608; J7613; J7799; Q0162; Q9967